=== PATIENT | male | born 1940 | race Caucasian/White ===

== ENCOUNTER → 2017-01-24 | Outpatient (CLI) | payer MEDICARE ==
[2017-01-24 10:30] LABS: Basophils % (A) 0 %; CHCM 34.6; Eosinophils # (A) 0.1 k/uL (0-0.7); Eosinophils % (A) 2 %; HCT 49.2 % (39.0-53.0); HDW 2.69; Luc # (Auto) 0.19; Luc % (Auto) 4; Lymphocytes # (A) 1.9 k/uL (1.0-4.8); Lymphocytes % (A) 39 %; MCH 32.1 pg (25.0-35.0); MCHC 34.5 g/dL (31.0-37.0); Monocytes # (A) 0.3 k/uL (0-1.0); Monocytes % (A) 7 %; Neutrophils # (A) 2.4 k/uL (1.3-7.7); Neutrophils % (A) 48 %; RBC 5.29 m/uL (4.30-5.90); RDW 13.9 % (11.5-15.5); WBC (Perox) 5.16
[2017-01-24 10:45] LABS: ALT 31 U/L (21-72); AST 28 U/L (17-59); Alkaline Phosphatase 39 U/L (38-126); Anion Gap 13 mmol/L; Blood Urea Nitrogen 22 mg/dL (9-20); Calcium 10.1 mg/dL (8.4-10.2); Carbon Dioxide 25 mmol/L (22-30); Chloride 102 mmol/L (98-107); Cholesterol 223 mg/dL (<200); Creatine Kinase 83 U/L (55-170); Glucose 145 mg/dL (74-99); HDL Cholesterol 50 mg/dL (40-60); Non-African American GFR(MDRD) >60 (>60 ml/min/1.73 sqM); Potassium 4.4 mmol/L (3.5-5.1); Sodium 140 mmol/L (137-145); Total Bilirubin 0.9 mg/dL (0.2-1.3); Total Protein 8.3 g/dL (6.3-8.2); Triglycerides 221 mg/dL (<150)
[2017-01-24 11:30] LABS: Hemoglobin A1C 7.6 % (4.2-6.1)
== END | disposition home or self-care (01) ==
LOC: LABWHC1 09:36
PROVIDERS: ATTEND Physician Assistant Medical
DX: E78.2 Mixed hyperlipidemia (principal); I10 Essential (primary) hypertension; M51.36 Other intervertebral disc degeneration, lumbar region; E66.01 Morbid (severe) obesity due to excess calories; R73.01 Impaired fasting glucose; Z85.820 Personal history of malignant melanoma of skin; Z12.5 Encounter for screening for malignant neoplasm of prostate
CPT/HCPCS: 36415; 80053; 80061; 82550; 83036; 84153; 84154; 84443; 85025

== ENCOUNTER → 2017-04-26 | Outpatient (CLI) | payer MEDICARE ==
[2017-04-26 10:17] LABS: Basophils % (A) 0 %; CH 31.4; CHCM 33.3; Eosinophils # (A) 0.2 k/uL (0-0.7); Eosinophils % (A) 3 %; HCT 47.7 % (39.0-53.0); HDW 2.61; HGB 15.6 gm/dL (13.0-17.5); Luc # (Auto) 0.14; Luc % (Auto) 3; Lymphocytes % (A) 43 %; MCHC 32.8 g/dL (31.0-37.0); MCV 94.8 fL (80.0-100.0); Monocytes # (A) 0.3 k/uL (0-1.0); Monocytes % (A) 6 %; Neutrophils # (A) 2.1 k/uL (1.3-7.7); Neutrophils % (A) 45 %; RBC 5.04 m/uL (4.30-5.90); RDW 13.8 % (11.5-15.5); WBC 4.7 k/uL (3.8-10.6); WBC (Perox) 5.07
[2017-04-26 10:43] LABS: ALT 30 U/L (21-72); AST 25 U/L (17-59); Alkaline Phosphatase 34 U/L (38-126); Anion Gap 13 mmol/L; Blood Urea Nitrogen 17 mg/dL (9-20); Calcium 9.5 mg/dL (8.4-10.2); Carbon Dioxide 22 mmol/L (22-30); Chloride 105 mmol/L (98-107); Cholesterol 187 mg/dL (<200); Glucose 112 mg/dL (74-99); HDL Cholesterol 46 mg/dL (40-60); Non-African American GFR(MDRD) >60 (>60 ml/min/1.73 sqM); Potassium 4.7 mmol/L (3.5-5.1); Sodium 140 mmol/L (137-145); Total Bilirubin 0.8 mg/dL (0.2-1.3); Total Protein 7.7 g/dL (6.3-8.2); Triglycerides 225 mg/dL (<150)
== END | disposition home or self-care (01) ==
LOC: LABWHC1 09:36
PROVIDERS: ATTEND Physician Assistant Medical
DX: E78.2 Mixed hyperlipidemia (principal); I10 Essential (primary) hypertension; E66.01 Morbid (severe) obesity due to excess calories; E11.42 Type 2 diabetes mellitus with diabetic polyneuropathy; I89.0 Lymphedema, not elsewhere classified; E55.9 Vitamin D deficiency, unspecified; M51.36 Other intervertebral disc degeneration, lumbar region; Z12.5 Encounter for screening for malignant neoplasm of prostate; Z85.820 Personal history of malignant melanoma of skin
CPT/HCPCS: 36415; 80053; 80061; 82306; 84443; 85025

== ENCOUNTER → 2017-11-11 | Outpatient (CLI) | payer MEDICARE ==
[2017-11-11 10:44] LABS: Basophils % (A) 1 %; Eosinophils # (A) 0.1 k/uL (0-0.7); Eosinophils % (A) 3 %; HCT 47.4 % (39.0-53.0); HGB 15.8 gm/dL (13.0-17.5); Lymphocytes % (A) 37 %; MCH 31.1 pg (25.0-35.0); MCHC 33.3 g/dL (31.0-37.0); MCV 93.3 fL (80.0-100.0); Mean Platelet Volume 6.9; Monocytes # (A) 0.3 k/uL (0-1.0); Monocytes % (A) 6 %; Neutrophils # (A) 2.7 k/uL (1.3-7.7); Neutrophils % (A) 51 %; Platelet Count 186 k/uL (150-450); RBC 5.09 m/uL (4.30-5.90); RDW 13.1 % (11.5-15.5); WBC 5.3 k/uL (3.8-10.6)
[2017-11-11 10:54] LABS: ALT 25 U/L (21-72); AST 26 U/L (17-59); Albumin 4.6 g/dL (3.5-5.0); Alkaline Phosphatase 36 U/L (38-126); Blood Urea Nitrogen 16 mg/dL (9-20); Calcium 10.2 mg/dL (8.4-10.2); Carbon Dioxide 23 mmol/L (22-30); Chloride 102 mmol/L (98-107); Cholesterol 191 mg/dL (<200); Creatine Kinase 79 U/L (55-170); Glucose 136 mg/dL (74-99); HDL Cholesterol 44 mg/dL (40-60); LDL Cholesterol,Calculated 90 mg/dL (0-99); Potassium 4.7 mmol/L (3.5-5.1); Total Bilirubin 0.6 mg/dL (0.2-1.3); Total Protein 7.5 g/dL (6.3-8.2); Triglycerides 285 mg/dL (<150)
[2017-11-11 11:05] LABS: Anion Gap 14 mmol/L; Sodium 139 mmol/L (137-145)
== END | disposition home or self-care (01) ==
LOC: LABWHC1 09:57
PROVIDERS: ATTEND Physician Assistant Medical
DX: E78.2 Mixed hyperlipidemia (principal); E55.9 Vitamin D deficiency, unspecified; I10 Essential (primary) hypertension
CPT/HCPCS: 36415; 80053; 80061; 82306; 82550; 84443; 85025

== ENCOUNTER → 2018-02-20 | Outpatient (CLI) | payer MEDICARE ==
[2018-02-20 12:19] LABS: T4, Free (Free Thyroxine) 1.17 ng/dL (0.78-2.19)
[2018-02-20 16:59] LABS: Iron Saturation 46.48 (15.00-50.00)
[2018-02-20 17:09] LABS: Vitamin D 25 Hydroxy 38.4 ng/mL (30.0-100.0)
== END ==
LOC: LABWHC1 09:58
PROVIDERS: ATTEND Nurse Practitioner Acute Care
DX: M62.838 Other muscle spasm (principal); R53.83 Other fatigue; E55.9 Vitamin D deficiency, unspecified
CPT/HCPCS: 36415; 82306; 82607; 83540; 83550; 84439; 84443; 84466; 84481

== ENCOUNTER → 2018-08-10 | Outpatient (CLI) | payer MEDICARE ==
[2018-08-10 11:07] LABS: Basophils % (A) 1 %; Eosinophils # (A) 0.4 k/uL (0-0.7); Eosinophils % (A) 9 %; HCT 46.3 % (39.0-53.0); Lymphocytes # (A) 1.8 k/uL (1.0-4.8); Lymphocytes % (A) 38 %; MCH 30.9 pg (25.0-35.0); MCHC 32.3 g/dL (31.0-37.0); MCV 95.6 fL (80.0-100.0); Monocytes # (A) 0.3 k/uL (0-1.0); Monocytes % (A) 6 %; Neutrophils # (A) 2.1 k/uL (1.3-7.7); Neutrophils % (A) 44 %; Platelet Count 216 k/uL (150-450); RBC 4.84 m/uL (4.30-5.90); RDW 13.8 % (11.5-15.5); WBC 4.8 k/uL (3.8-10.6)
[2018-08-10 18:04] LABS: Albumin 4.8 g/dL (3.80-4.90); Albumin/Globulin Ratio 2.18 (1.20-2.10); Anion Gap 11.3 mmol/L (4.00-12.00); Calcium 9.6 mg/dL (8.7-10.3); Carbon Dioxide 22.7 mmol/L (21.6-31.8); Globulin 2.2 g/dL (2.1-3.7); Potassium 4.7 mmol/L (3.5-5.5); Total Bilirubin 0.7 mg/dL (0.2-1.2)
== END ==
LOC: LABWHC1 09:58
PROVIDERS: ATTEND Physician Assistant Medical
DX: I10 Essential (primary) hypertension (principal); M51.36 Other intervertebral disc degeneration, lumbar region; E78.2 Mixed hyperlipidemia; E11.42 Type 2 diabetes mellitus with diabetic polyneuropathy; Z12.5 Encounter for screening for malignant neoplasm of prostate
CPT/HCPCS: 36415; 80053; 80061; 82550; 84153; 84154; 84443; 85025

== ENCOUNTER → 2018-12-15 | Outpatient (CLI) | payer MEDICARE ==
--- NOTE | 2018-12-15 13:26 | XR ---
Bilateral shoulders HISTORY: Bilateral shoulder pain 3 views of each shoulder submitted. Surgical clips are noted over the right upper chest and upper extremity. Distal acromion is downturne d on the right, small distal acromial spur suspected. Some remodeling present at the glenohumeral mazin nt. Bone mineralization and alignment are maintained bilaterally. No fracture or dislocation. Lung ap ices within normal limits. IMPRESSION: Correlate for possible impingement. Shoulder MRI may be of benefit.
== END | disposition home or self-care (01) ==
LOC: RADXRYALE 11:23
PROVIDERS: ATTEND Family Medicine
DX: M25.511 Pain in right shoulder (principal); M25.512 Pain in left shoulder

== ENCOUNTER → 2019-02-14 | Outpatient (CLI) | payer MEDICARE ==
[2019-02-14 10:33] LABS: HCT 44.1 % (39.0-53.0); HGB 14.6 gm/dL (13.0-17.5); MCH 31.1 pg (25.0-35.0); MCV 94.2 fL (80.0-100.0); Mean Platelet Volume 7.3; Platelet Count 190 k/uL (150-450); RBC 4.68 m/uL (4.30-5.90); RDW 14.9 % (11.5-15.5); WBC 4.4 k/uL (3.8-10.6)
[2019-02-14 16:58] LABS: Albumin 4.5 g/dL (3.80-4.90); Albumin/Globulin Ratio 2.14 (1.60-3.17); Anion Gap 11.2 mmol/L (4.00-12.00); Calcium 9.2 mg/dL (8.7-10.3); Carbon Dioxide 22.8 mmol/L (21.6-31.8); Globulin 2.1 g/dL (1.6-3.3); LDL Cholesterol,Calculated 114.4 mg/dL (0.0-131.0); Potassium 4.5 mmol/L (3.5-5.5); Total Bilirubin 0.6 mg/dL (0.2-1.2); Total Protein 6.6 g/dL (6.2-8.2); VLDL Calculation 36.6 mg/dL (5.00-40.00)
== END | disposition home or self-care (01) ==
LOC: LABWHC1 09:33
PROVIDERS: ATTEND Physician Assistant Medical
DX: E78.2 Mixed hyperlipidemia (principal); I10 Essential (primary) hypertension; E55.9 Vitamin D deficiency, unspecified; I89.0 Lymphedema, not elsewhere classified
CPT/HCPCS: 36415; 80053; 80061; 82550; 82652; 84443; 85027

== ENCOUNTER 2019-05-24 05:48 | Day surgery (SDC) | payer MEDICARE ==
[2019-05-17 13:51] VITALS: BMI 37.6
--- NOTE | 2019-05-22 21:53 | HP ---
HISTORY AND PHYSICAL DATE OF SURGERY: 05/24/2019 Pratik Ferrell is a 78-year-old patient seen with progressive right shoulder pain. We discussed treatment options with him. He elected to proceed with arthroscopy. Consent was obtained. Medical clearance was provided by Dr. Guillen's office. PAST MEDICAL HISTORY: 1. Hyperlipidemia. 2. Hypertension. 3. Xfz-zdwhhuw-bbznmjoey diabetes. PAST SURGICAL HISTORY: 1. Right knee arthroscopy. 2. Left total hip arthroplasty. DAILY MEDICATIONS: 1. Actos. 2. Losartan. 3. Metformin. 4. Plavix. 5. Tramadol. ALLERGIES: 1. LORTAB. 2. ARICEPT. SOCIAL HISTORY: Denies current tobacco use. PHYSICAL EVALUATION OF RIGHT SHOULDER: Flexion is 70 degrees, abduction 70 degrees, external rotation 30 degrees. Tenderness along the anterolateral acromion and rotator cuff insertion site. Impingement is positive at 90 degrees. Drop-arm sign is positive. Distal neurovascular exam is intact. RIGHT SHOULDER RADIOGRAPHS: Right shoulder radiographs revealed a type II anterior acromion, evidence for acromioclavicular joint osteoarthritis. IMPRESSION: 1. Right shoulder impingement with probable rotator cuff tear. 2. Right shoulder acromioclavicular joint osteoarthritis. 3. Hypertension. 4. Hyperlipidemia. 5. Ict-hjbreke-pzlpbznqk diabetes. PLAN: Right shoulder arthroscopy with subacromial decompression, probable arthroscopic rotator cuff repair, possible Frank procedure and debridement. MMODL / IJN: [id number] /
[~2019-05-24 05:48] MED LIST: DEXAMETHASONE SOD PHOSPHATE 10 MG/ML 1 ML VIAL IV ONE; LACTATED RINGERS 1,000 ML IV SCH; MIDAZOLAM 2 MG/2 ML VIAL IV PRN; ONDANSETRON 4 MG/2 ML VIAL IVP ONE; fentaNYL (PF) 50 MCG/ML 2 ML AMP IV PRN
[2019-05-24 06:54] LABS: Glucose,Whole Blood 144 mg/dL (75-99)
[2019-05-24] MEDS ORDERED: SUCCINYLCHOLINE CHLORIDE 100 MG/5 ML SYR IV ONE (07:17)
[2019-05-24] MEDS ORDERED: hydrALAZINE HCL 20 MG/ML 1 ML VIAL ONE (07:17)
[2019-05-24] MEDS ORDERED: ROPIVACAINE 5 MG/ML 30 ML VIAL ONE (07:17)
[2019-05-24] MEDS ORDERED: PROPOFOL 10 MG/ML 20 ML VIAL IV ONE (07:17)
[2019-05-24] MEDS ORDERED: LIDOCAINE 1% INJ 10MG/ML (20 ML MDV) ONE (07:17)
--- NOTE | 2019-05-24 08:49 | P.ANPRN ---
Procedure Note - Anesthesia - Nerve Block Performed Right Interscalene Single Time Out Performed: Yes Date of Procedure: 05/24/19 Location of Patient Procedure: PreOp Indication: Acute Post-Operative Pain Specifically requested for management of pain by DrDarrel: Juan C Masterson Sedation Type: Sedate with meaningful contact maintained Preparation: Sterile Prep Position: Supine Catheter: None Needle Types: Pajunk Needle Gauge: 21 Technique: Ultrasound Injectate: 0.5% Ropivacaine (see comment for volume) (20 cc) Adjunct: Epinephrine (see comment for dilution ratio) Blood Aspirated: No Pain Paresthesia on Injection Noted: No Resistance on Injection: Normal Events: Uneventful and Well Tolerated
[2019-05-24 09:48] VITALS: TEMP 98.6
--- NOTE | 2019-05-24 09:54 | P.OP ---
Date of Procedure: 05/24/19 Preoperative Diagnosis: Right shoulder impingement Postoperative Diagnosis: 1. Right shoulder rotator cuff tear 2. Right shoulder impingement 3. Right shoulder acromioclavicular joint osteoarthritis 4. Right shoulder partial long head biceps tendon tear 5. Right shoulder labral tear Procedure(s) Performed: 1. Right shoulder arthroscopic rotator cuff repair 2. Right shoulder arthroscopic subacromial decompression 3. Right shoulder arthroscopic Frank procedure 4. Right shoulder arthroscopic biceps tenotomy 5. Right shoulder arthroscopic debridement labral tear Implants: 24.75 Arthrex swivel lock anchors Anesthesia: GETA, regional (Interscalene block) Surgeon: Juan C Masterson Document Preparer Microfilming #1: aPl Jay Estimated Blood Loss (ml): 10 Pathology: none sent Condition: stable Disposition: PACU Indications for Procedure: 78-year-old patient seen with progressive right shoulder pain. After having treatment options discussed, he elected to proceed with arthroscopy. Operative Findings: See description of procedure Description of Procedure: Patient underwent an interscalene block by department of anesthesia for postoperative pain management. The patient was then taken to the operative suite. The patient underwent a general anesthetic by the department of anesthesia. The patient was placed into a lateral position and secured. There was appropriate padding of the bony prominence. Right shoulder was then prepped and draped in normal sterile orthopedic fashion. We placed the extremity in 10 pounds of longitudinal traction. A posterior incision was now made for a posterior working portal site. The trocar and cannula were inserted into the glenohumeral joint. Arthroscopy was initiated. Spinal needle was now inserted anteriorly, to ascertain the anterior working portal site. An incision was now made in that area, a trocar was inserted followed by a probe. There was superficial tearing superior and anterior labrum. There was partial tearing long head biceps tendon with hyperemia. There was a large rotator cuff tear visualized from the glenohumeral side. I performed an arthroscopic biceps tenotomy. I debrided the labral tear down to stable labral tissue. The residual labrum was stable. Instruments now removed from glenohumeral joint. Utilizing the posterior working portal site, the trocar and cannula were inserted into the subacromial space. Arthroscopy initiated. I made an incision 2 fingerbreadths lateral to the acromion. I introduced my trocar followed by my ArthroCare ablator. I now began ablating thick subacromial bursal tissue, which exposed the undersurface of the anterior acromion. There was diminished subacromial space. There was a very prominent anterior acromion. A motorized bur was introduced and a subacromial decompression was performed. I also excised some osteophytes off the inferior aspect of the distal clavicle. The AC joint was visualized and noted to be fairly arthritic. The motorized bur was introduced in the anterior portal site and a Frank procedure was performed without difficulty, decompressing the AC joint nicely. I turned my attention to the rotator cuff. There was a complex large retracted rotator cuff tear with an intrasubstance component. I debrided the margins again stable tendon tissue. I abraded the footprint with a motorized bur. I now with assistance. Keshawn MILTON passed 5 sutures perform a [id number] repair of the intrasubstance component. I now passed for additional everted mattress sutures through good bites of rotator cuff tendon with assistance on a ruth ann MILTON. I now punched to holes lateral for repair and utilizing 24 0.75 Arthrex anchors were able to compress the tendon along the footprint very nicely. Residual suture limbs were clipped. We had good compression of the tendon along the entire footprint. I injected 1 mL Renyte intra-articular. Instruments now removed from the portal sites. All portal sites were approximated with nylon suture. Sterile dressings were applied followed by a shoulder immobilizer. Pal MILTON assisted in this complex case. The patient was awakened, transferred to a bed, and taken to recovery in stable condition.
[2019-05-24 11:30] VITALS: BP 135/64; PULSE 71; RESP 20
== END 2019-05-24 12:02 | disposition home or self-care (01) ==
LOC: OR 05:48
PROVIDERS: ATTEND Orthopaedic Surgery
DX: M75.101 Unspecified rotator cuff tear or rupture of right shoulder, not specified as traumatic (principal); M75.41 Impingement syndrome of right shoulder; M19.011 Primary osteoarthritis, right shoulder; S46.111A Strain of muscle, fascia and tendon of long head of biceps, right arm, initial encounter; S43.491A Other sprain of right shoulder joint, initial encounter; X58.XXXA Exposure to other specified factors, initial encounter; M25.711 Osteophyte, right shoulder; I10 Essential (primary) hypertension; E78.5 Hyperlipidemia, unspecified; E11.9 Type 2 diabetes mellitus without complications; H91.90 Unspecified hearing loss, unspecified ear; Z86.73 Personal history of transient ischemic attack (TIA), and cerebral infarction without residual deficits; Z79.02 Long term (current) use of antithrombotics/antiplatelets; Z79.84 Long term (current) use of oral hypoglycemic drugs; Z79.891 Long term (current) use of opiate analgesic; Z79.899 Other long term (current) drug therapy; Z88.8 Allergy status to other drugs, medicaments and biological substances; Z88.5 Allergy status to narcotic agent; Z97.2 Presence of dental prosthetic device (complete) (partial); Z96.642 Presence of left artificial hip joint
CPT/HCPCS: 29827; 29826; 29824; 64415; C1713 ×2; C1765; J0360; J0690; J2001; J2795; J0330; J2704

== ENCOUNTER → 2019-09-17 | Outpatient (CLI) | payer MEDICARE ==
[2019-09-17 12:40] LABS: Basophils % (A) 1 %; Eosinophils # (A) 0.1 k/uL (0-0.7); Eosinophils % (A) 2 %; HCT 46.3 % (39.0-53.0); HGB 15.1 gm/dL (13.0-17.5); Lymphocytes # (A) 1.7 k/uL (1.0-4.8); Lymphocytes % (A) 40 %; MCH 31.2 pg (25.0-35.0); MCHC 32.7 g/dL (31.0-37.0); MCV 95.3 fL (80.0-100.0); Mean Platelet Volume 7.5; Monocytes # (A) 0.3 k/uL (0-1.0); Monocytes % (A) 7 %; Neutrophils # (A) 2.1 k/uL (1.3-7.7); Neutrophils % (A) 49 %; Platelet Count 187 k/uL (150-450); RBC 4.86 m/uL (4.30-5.90); RDW 13.9 % (11.5-15.5); WBC 4.3 k/uL (3.8-10.6)
[2019-09-17 17:17] LABS: African American GFR (CKD) 67.2 (60.0-200.0); Albumin 4.8 g/dL (3.80-4.90); Albumin/Globulin Ratio 2.18 (1.60-3.17); Anion Gap 10.5 mmol/L (4.00-12.00); Calcium 9.6 mg/dL (8.7-10.3); Carbon Dioxide 23.5 mmol/L (21.6-31.8); Chol/HDL Ratio 3.55; Globulin 2.2 g/dL (1.6-3.3); LDL Cholesterol,Calculated 109.8 mg/dL (0.0-131.0); Potassium 4.5 mmol/L (3.5-5.5); Total Bilirubin 0.6 mg/dL (0.2-1.2); VLDL Calculation 38.2 mg/dL (5.00-40.00)
== END | disposition home or self-care (01) ==
LOC: LABPRL 11:16
PROVIDERS: ATTEND Physician Assistant Medical
DX: I10 Essential (primary) hypertension (principal); E78.2 Mixed hyperlipidemia; E55.9 Vitamin D deficiency, unspecified; E11.42 Type 2 diabetes mellitus with diabetic polyneuropathy; I89.0 Lymphedema, not elsewhere classified
CPT/HCPCS: 36415; 80053; 80061; 82306; 82550; 84443; 85025

== ENCOUNTER → 2020-03-03 | Outpatient (CLI) | payer MEDICARE ==
--- NOTE | 2020-03-03 09:24 | US ---
EXAMINATION TYPE: US duplex aorta DATE OF EXAM: 03/03/2020 COMPARISON: NONE CLINICAL HISTORY: 79-year-old male R93.421 Abnormal radiologic findings on diagnostic. F/u to MRI TECHNIQUE: Multiple sonographic images of the kidneys and bladder are obtained. FINDINGS: EXAM MEASUREMENTS: Abdominal Aorta: Proximal: 2.1 x 2.4 cm Mid: 1.9 x 1.7 cm Distal: 2.1 x 1.6 cm Bifurcation: 1.3 cm 1.2 cm IMPRESSION: No sonographic evidence for AAA. If a AAA was seen on an outside MRI, the exam can be reviewed if mad e available.
--- NOTE | 2020-03-03 09:51 | US ---
EXAMINATION TYPE: US kidneys/renal and bladder DATE OF EXAM: 03/03/2020 COMPARISON: NONE CLINICAL HISTORY: 79-year-old male R93.421 Abnormal radiologic findings on diagnostic. Follow-up MRI. TECHNIQUE: Multiple sonographic images of the kidneys and bladder are obtained. FINDINGS: EXAM MEASUREMENTS: Right Kidney: Unable to visualize Left Kidney: 12.9 x 6.1 x 5.1 cm Right Kidney: Unable to visualize Left Kidney: Lobulated contour. No hydronephrosis. Bladder: Partially distended. No gross abnormality. Bilateral Jets seen: No IMPRESSION: 1. Unable to visualize the right kidney. Clinically correlate. 2. No hydronephrosis on the left.
== END | disposition home or self-care (01) ==
LOC: RADUSWWP 08:25
PROVIDERS: ATTEND Physician Assistant Medical
DX: R93.421 Abnormal radiologic findings on diagnostic imaging of right kidney (principal)
CPT/HCPCS: 76770; 93979

== ENCOUNTER → 2022-12-24 | Outpatient (CLI) | payer MEDICARE ==
--- NOTE | 2022-12-24 11:42 | XR ---
EXAMINATION TYPE: XR knee complete RT DATE OF EXAM: 12/24/2022 CLINICAL HISTORY: pain TECHNIQUE: 2 views of the right knee are obtained. COMPARISON: None. FINDINGS: There is no acute fracture/dislocation. Moderate joint space narrowing medial tibiofemoral joint space. Intercondylar spur formation seen. The overlying soft tissue appears unremarkable. IMPRESSION: There is no acute fracture or dislocation.ICD 10 NO FRACTURE, INITIAL EVALUATION
--- NOTE | 2022-12-24 11:44 | XR ---
EXAMINATION TYPE: XR Hip Complete RT DATE OF EXAM: 12/24/2022 CLINICAL HISTORY: pain TECHNIQUE: AP and frogleg views of the right hip are obtained. COMPARISON: None. FINDINGS: There is no acute fracture/dislocation evident. The joint space appears moderately narro wed.. The overlying soft tissue appears unremarkable. IMPRESSION: 1. There is no acute fracture or dislocation. ICD 10 NO FRACTURE, INITIAL EVALUATION
== END | disposition home or self-care (01) ==
LOC: RADXRYALE 10:31
PROVIDERS: ATTEND Physician Assistant Medical
DX: M25.551 Pain in right hip (principal); M25.561 Pain in right knee
CPT/HCPCS: 73502

== ENCOUNTER 2023-08-08 09:23 | Emergency (ER) | payer MEDICARE ==
[2023-08-08] MEDS ORDERED: DEXTROSE 50% SYRINGE 50 ML IVP STA (09:28)
[2023-08-08 09:33] LABS: Glucose,Whole Blood 47 mg/dL (70-110)
[2023-08-08 09:54] LABS: Glucose,Whole Blood 111 mg/dL (70-110)
--- NOTE | 2023-08-08 09:54 | ED ---
General Adult HPI - General Stated complaint: Fall Time Seen by Provider: 08/08/23 09:28 Source: patient, family, RN notes reviewed, old records reviewed Limitations: no limitations - History of Present Illness Initial comments: 82-year-old male history of diabetes presents for evaluation of weakness, fall, hypoglycemia. Patient had not eaten breakfast, does take oral medications for diabetes. He got weak all working outside. He had fallen. He denies injury. He was noted to be hypoglycemic upon arrival with a blood sugar in the 40s. He was given IV dextrose and at the time my evaluation he is alert and oriented without complaint. - Related Data Home Medications Medication Instructions Recorded Confirmed Bumetanide [BUMEX] 2 mg PO WEEKLY PRN 02/18/15 05/17/19 Cholecalciferol [Vitamin D3] 1,000 unit PO DAILY 02/18/15 05/17/19 Fenofibrate 200 mg PO HS 02/18/15 05/17/19 Krill Oil 500 mg PO DAILY 02/18/15 05/17/19 Losartan [Cozaar] 50 mg PO HS 02/18/15 05/24/19 traMADol HCl [Ultram] 50 mg PO BID 02/18/15 05/24/19 Clopidogrel Bisulfate [Clopidogrel] 75 mg PO DAILY 09/09/15 05/24/19 Magnesium Oxide [Mag-Ox] 250 mg PO DAILY 09/09/15 05/24/19 Vit C/E/Zn/Coppr/Lutein/Zeaxan 1 cap PO DAILY 09/09/15 05/24/19 [Preservision Areds 2 Softgel] Celecoxib [CeleBREX] 200 mg PO DAILY 05/17/19 05/24/19 Pioglitazone [Actos] 15 mg PO DAILY 05/17/19 05/24/19 metFORMIN HCL 500 mg PO HS 05/17/19 05/24/19 Previous Rx's Medication Instructions Recorded Nirmatrelvir/Ritonavir [Paxlovid 1 each PO BID 5 Days #10 each 08/08/23 300-100 mg Pack (Eua)] Allergies Allergy/AdvReac Type Severity Reaction Status Date / Time atenolol AdvReac Hallucinati Verified 08/08/23 10:12 ons donepezil [From Aricept] AdvReac panic Verified 08/08/23 10:12 attack gabapentin AdvReac panic Verified 08/08/23 10:12 attack Review of Systems ROS Statement: Those systems with pertinent positive or pertinent negative responses have been documented in the HPI. ROS Other: All systems not noted in ROS Statement are negative. 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 [place]. TIA. LOWER BACK PAIN. History of Any Multi-Drug Resistant Organisms: None Reported Past Surgical History: Joint Replacement, Orthopedic Surgery Additional Past Surgical History / Comment(s): SEVERAL LYMPH NODES FROM RIGHT AX ILLA REMOVED. LEFT TOTAL HIP. RIGHT MENISCUS. BILATERAL CATARACTS. Past Anesthesia/Blood Transfusion Reactions: No Reported Reaction Past Psychological History: No Psychological Hx Reported Past Alcohol Use History: None Reported Past Drug Use History: None Reported General Exam General appearance: alert, in no apparent distress Head exam: Present: atraumatic, normocephalic Eye exam: Present: normal appearance, PERRL ENT exam: Present: normal exam Neck exam: Present: normal inspection. Absent: tenderness, meningismus Respiratory exam: Present: normal lung sounds bilaterally. Absent: respiratory distress, wheezes Cardiovascular Exam: Present: regular rate, normal rhythm GI/Abdominal exam: Present: soft. Absent: distended, tenderness Extremities exam: Present: normal inspection, normal capillary refill Neurological exam: Present: alert, oriented X3, CN II-XII intact. Absent: motor sensory deficit Psychiatric exam: Present: normal affect, normal mood Skin exam: Present: warm, dry, intact. Absent: cyanosis, diaphoretic Course Vital Signs 08/08/23 09:23 Temperature 98.5 F Pulse Rate 68 Respiratory 22 Rate Blood Pressure 167/97 O2 Sat by Pulse 97 Oximetry Medical Decision Making - Medical Decision Making Was pt. sent in by a medical professional or institution (, PA, PROJECT DRILLING ENGINEER, urgent care, hospital, or alf...) When possible be specific @ -No Did you speak to anyone other than the patient for history (EMS, parent, family, police, friend...)? What history was obtained from this source @ -[Patient's daughter Did you review nursing and triage notes (agree or disagree)? Why? @ -I reviewed and agree with nursing and triage notes Were old charts reviewed (outside hosp., previous admission, EMS record, old EKG, old radiological studies, urgent care reports/EKG's, alf records)? Report findings @ -No old charts were reviewed Differential Diagnosis (chest pain, altered mental status, abdominal pain women, abdominal pain men, vaginal bleeding, weakness, fever, dyspnea, syncope, headache, dizziness, GI bleed, back pain, seizure, CVA, palpatations, mental health, musculoskeletal)? @ -Upper respiratory infection, hypoglycemia, coronavirus EKG interpreted by me (3pts min.). @ -Sinus rhythm, incomplete right bundle-branch block, rate is 70, NC interval 184, QRS duration 114, QTC 401, no ST segment elevation. X-rays interpreted by me (1pt min.). @ -Chest x-ray negative for focal pneumonia, no traumatic injury, x-ray of the pelvis negative for traumatic injury. CT interpreted by me (1pt min.). @ -None done U/S interpreted by me (1pt. min.). @ -None done What testing was considered but not performed or refused? (CT, X-rays, U/S, labs)? Why? @ -None What meds were considered but not given or refused? Why? @ -None Did you discuss the management of the patient with other professionals (professionals i.e. , PA, PROJECT DRILLING ENGINEER, lab, RT, psych nurse, community mental health social worker, assisted living nursing director, teacher, customs officer, child welfare caseworker)? Give summary @ -No Was smoking cessation discussed for >3mins.? @ -No Was critical care preformed (if so, how long)? @ -No Were there social determinants of health that impacted care today? How? (Homelessness, low income, unemployed, alcoholism, drug addiction, t ransportation, low edu. Level, literacy, decrease access to med. care, [facility], rehab)? @ -No Was there de-escalation of care discussed even if they declined (Discuss DNR or withdrawal of care, Hospice)? DNR status @ -No What co-morbidities impacted this encounter? (DM, HTN, Smoking, COPD, CAD, Cancer, CVA, ARF, Chemo, Hep., AIDS, mental health diagnosis, sleep apnea, morbid obesity)? @ -[Diabetes Was patient admitted / discharged? Hospital course, mention meds given and route, prescriptions, significant lab abnormalities, going to OR and other pertinent info. @ -[82-year-old male presenting with hypoglycemia, oral agents only, no insulin. No patient's blood pressure stabilizes in the emergency Department is able to eat and drink. He does have upper respiratory symptoms and coronavirus test is obtained which is positive. Chest x-ray is clear. His other laboratory testing unremarkable. The patient is eager for discharge. He is prescribed oral antivirals. He will monitor his blood glucose closely. Return with any worsening or changing symptoms. Undiagnosed new problem with uncertain prognosis? @ -No Drug Therapy requiring intensive monitoring for toxicity (Heparin, Nitro, Insulin, Cardizem)? @ -No Were any procedures done? @ -No Diagnosis/symptom? @ -Coronavirus, hypoglycemia Acute, or Chronic, or Acute on Chronic? @Acute Uncomplicated (without systemic symptoms) or Complicated (systemic symptoms)? @ -default Side effects of treatment? @ -No Exacerbation, Progression, or Severe Exacerbation? @ -No Poses a threat to life or bodily function? How? (Chest pain, [place], [place], pneumonia, PE, COPD, DKA, ARF, appy, cholecystitis, CVA, Diverticulitis, Homicidal, Suicidal, threat to staff... and all critical care pts) @ -[Yes, coronavirus - Lab Data Result diagrams: 08/08/23 09:52 08/08/23 09:52 Lab Results 08/08/23 08/08/23 08/08/23 Range/Units 09:27 09:43 09:52 WBC 3.4 L (3.8-10.6) k/uL RBC 4.37 (4.30-5.90) m/uL Hgb 14.2 (13.0-17.5) gm/dL Hct 43.8 (39.0-53.0) % MCV 100.3 H (80.0-100.0) fL MCH 32.4 (25.0-35.0) pg MCHC 32.3 (31.0-37.0) g/dL RDW 14.3 (11.5-15.5) % Plt Count 142 L (150-450) k/uL MPV 7.9 Neutrophils % 74 % Lymphocytes % 13 % Monocytes % 10 % Eosinophils % 0 % Basophils % 0 % Neutrophils # 2.6 (1.3-7.7) k/uL Lymphocytes # 0.5 L (1.0-4.8) k/uL Monocytes # 0.3 (0-1.0) k/uL Eosinophils # 0.0 (0-0.7) k/uL Basophils # 0.0 (0-0.2) k/uL Macrocytosis Slight Sodium (137-145) mmol/L Potassium (3.5-5.1) mmol/L Chloride (98-107) mmol/L Carbon Dioxide (22-30) mmol/L Anion Gap mmol/L BUN (9-20) mg/dL Creatinine (0.66-1.25) mg/dL Est GFR (CKD-EPI)AfAm (>60 ml/min/1.73 sqM) Est GFR (CKD-EPI)NonAf (>60 ml/min/1.73 sqM) Glucose (74-99) mg/dL POC Glucose (mg/dL) 47 L 111 H (70-110) mg/dL POC Glu Senior Warehouse Clerk ID Fetterly, Kristen Fetterly, Kristen Calcium (8.4-10.2) mg/dL Total Bilirubin (0.2-1.3) mg/dL AST (17-59) U/L ALT (4-49) U/L Alkaline Phosphatase (38-126) U/L Total Protein (6.3-8.2) g/dL Albumin (3.5-5.0) g/dL Influenza Type A (PCR) (Not Detectd) Influenza Type B (PCR) (Not Detectd) RSV (PCR) (Not Detectd) SARS-CoV-2 (PCR) (Not Detectd) 08/08/23 08/08/23 Range/Units 09:52 09:52 WBC (3.8-10.6) k/uL RBC (4.30-5.90) m/uL Hgb (13.0-17.5) gm/dL Hct (39.0-53.0) % MCV (80.0-100.0) fL MCH (25.0-35.0) pg MCHC (31.0-37.0) g/dL RDW (11.5-15.5) % Plt Count (150-450) k/uL MPV Neutrophils % % Lymphocytes % % Monocytes % % Eosinophils % % Basophils % % Neutrophils # (1.3-7.7) k/uL Lymphocytes # (1.0-4.8) k/uL Monocytes # (0-1.0) k/uL Eosinophils # (0-0.7) k/uL Basophils # (0-0.2) k/uL Macrocytosis Sodium 137 (137-145) mmol/L Potassium 4.3 (3.5-5.1) mmol/L Chloride 104 (98-107) mmol/L Carbon Dioxide 22 (22-30) mmol/L Anion Gap 11 mmol/L BUN 17 (9-20) mg/dL Creatinine 0.93 (0.66-1.25) mg/dL Est GFR (CKD-EPI)AfAm 89 (>60 ml/min/1.73 sqM) Est GFR (CKD-EPI)NonAf 77 (>60 ml/min/1.73 sqM) Glucose 131 H (74-99) mg/dL POC Glucose (mg/dL) (70-110) mg/dL POC Glu Senior Warehouse Clerk ID Calcium 9.3 (8.4-10.2) mg/dL Total Bilirubin 0.5 (0.2-1.3) mg/dL AST 37 (17-59) U/L ALT 18 (4-49) U/L Alkaline Phosphatase 40 (38-126) U/L Total Protein 7.3 (6.3-8.2) g/dL Albumin 4.3 (3.5-5.0) g/dL Influenza Type A (PCR) Not Detected (Not Detectd) Influenza Type B (PCR) Not Detected (Not Detectd) RSV (PCR) Not Detected (Not Detectd) SARS-CoV-2 (PCR) Detected A (Not Detectd) Disposition Clinical Impression: COVID-19, Hypoglycemia Disposition: HOME SELF-CARE Condition: Fair Instructions (If sedation given, give patient instructions): Fall Prevention for Older Adults (ED), COVID-19 (Coronavirus Disease 2019) (ED), Hypoglycemia in a Person with Diabetes (DC) Prescriptions: Nirmatrelvir/Ritonavir [Paxlovid 300-100 mg Pack (Eua)] 1 each PO BID 5 Days #10 each Is patient prescribed a controlled substance at d/c from ED?: No Referrals: None,Stated [Primary Care Provider] - 1-2 days Time of Disposition: 11:52
[2023-08-08 10:07] LABS: Basophils % (A) 0 %; Eosinophils % (A) 0 %; HCT 43.8 % (39.0-53.0); HGB 14.2 gm/dL (13.0-17.5); Lymphocytes # (A) 0.5 k/uL (1.0-4.8); Lymphocytes % (A) 13 %; MCH 32.4 pg (25.0-35.0); MCHC 32.3 g/dL (31.0-37.0); MCV 100.3 fL (80.0-100.0); Macrocytosis Slight; Mean Platelet Volume 7.9; Monocytes # (A) 0.3 k/uL (0-1.0); Monocytes % (A) 10 %; Neutrophils # (A) 2.6 k/uL (1.3-7.7); Neutrophils % (A) 74 %; Platelet Count 142 k/uL (150-450); RBC 4.37 m/uL (4.30-5.90); RDW 14.3 % (11.5-15.5); WBC 3.4 k/uL (3.8-10.6)
[2023-08-08 10:19] LABS: ALT 18 U/L (4-49); AST 37 U/L (17-59); African American GFR (CKD) 89 (>60 ml/min/1.73 sqM); Albumin 4.3 g/dL (3.5-5.0); Alkaline Phosphatase 40 U/L (38-126); Anion Gap 11 mmol/L; Blood Urea Nitrogen 17 mg/dL (9-20); Calcium 9.3 mg/dL (8.4-10.2); Carbon Dioxide 22 mmol/L (22-30); Chloride 104 mmol/L (98-107); Glucose 131 mg/dL (74-99); Non-African American GFR(CKD) 77 (>60 ml/min/1.73 sqM); Potassium 4.3 mmol/L (3.5-5.1); Sodium 137 mmol/L (137-145); Total Bilirubin 0.5 mg/dL (0.2-1.3); Total Protein 7.3 g/dL (6.3-8.2)
--- NOTE | 2023-08-08 10:21 | XR ---
EXAMINATION TYPE: XR chest 2V DATE OF EXAM: 08/08/2023 COMPARISON: 05/23/2011 INDICATION: Fall, pain TECHNIQUE: Frontal and lateral views of the chest are obtained. FINDINGS: The heart size is upper limits of normal. The pulmonary vasculature is normal. The lungs are clear. No pneumothorax is evident. No displaced rib fractures are identified. IMPRESSION: 1. No acute pulmonary process.
--- NOTE | 2023-08-08 10:21 | XR ---
EXAMINATION TYPE: XR pelvis AP view DATE OF EXAM: 08/08/2023 COMPARISON: None HISTORY: Fall, pain TECHNIQUE: AP pelvis FINDINGS: There is a left femoral prosthesis with acetabular component. Symphysis pubis and sacroilia c joints are patent. Right femoral head articulates with the acetabulum. Joint space narrowing is pre sent. CAM deformity appears to be present. Right femur appears stable from 12/24/2022 comparison. The No acute acute fractures are evident. IMPRESSION: 1. No acute osseous abnormality AP pelvis
[2023-08-08] MEDS ORDERED: HYDROcodone/APAP 5-325MG 1 EACH TAB PO STA (11:09)
[2023-08-08 11:59] LABS: Glucose,Whole Blood 69 mg/dL (70-110)
[2023-08-08 12:26] LABS: Glucose,Whole Blood 90 mg/dL (70-110)
[2023-08-08 12:54] VITALS: BP 149/61; PULSE 64; RESP 18; TEMP 100.7
== END 2023-08-08 12:35 | disposition home or self-care (01) ==
LOC: EC 09:23
DX: U07.1 COVID-19 (principal); E11.649 Type 2 diabetes mellitus with hypoglycemia without coma; I45.10 Unspecified right bundle-branch block; E11.36 Type 2 diabetes mellitus with diabetic cataract; I10 Essential (primary) hypertension; Z79.84 Long term (current) use of oral hypoglycemic drugs; Z88.8 Allergy status to other drugs, medicaments and biological substances; Z79.899 Other long term (current) drug therapy
CPT/HCPCS: 36415; 71046; 72170; 80053; 85025; 87636; 93005; 96374; 99284

== ENCOUNTER 2023-08-09 09:35 | Inpatient (IN) | payer MEDICARE ==
[2023-08-09] MEDS ORDERED: DEXAMETHASONE SOD PHOSPHATE 10 MG/ML 1 ML VIAL IV STA (09:57)
[2023-08-09 10:08] LABS: Glucose,Whole Blood 84 mg/dL (70-110)
[2023-08-09] MEDS: SODIUM CHLORIDE 0.9% 1,000 ML IV SCH ×2 (10:11→21:40)
[2023-08-09] MEDS ORDERED: ACETAMINOPHEN TAB 325 MG TAB PO STA (10:24)
--- NOTE | 2023-08-09 10:24 | ED ---
General Adult HPI - General Chief complaint: Weakness Stated complaint: COVID+,Weakness Time Seen by Provider: 08/09/23 09:40 Source: patient, EMS, RN notes reviewed, old records reviewed Mode of arrival: EMS Limitations: no limitations - History of Present Illness Initial comments: 82-year-old male presenting for reevaluation. Patient was seen yesterday in the emergency department for hypoglycemia and upper respiratory infection. He was diagnosed with coronavirus at that time. Patient does have chronic bilateral lower extremity weakness which she is going to outpatient rehabilitation for. Over the past 24 hours she's had increased weakness and difficulty ambulating. He denies chest pain or dyspnea. He states he has a mild productive cough. No abdominal pain or vomiting. - Related Data Home Medications Medication Instructions Recorded Confirmed Bumetanide [BUMEX] 2 mg PO WEEKLY PRN 02/18/15 05/17/19 Cholecalciferol [Vitamin D3] 1,000 unit PO DAILY 02/18/15 05/17/19 Fenofibrate 200 mg PO HS 02/18/15 05/17/19 Krill Oil 500 mg PO DAILY 02/18/15 05/17/19 Losartan [Cozaar] 50 mg PO HS 02/18/15 05/24/19 traMADol HCl [Ultram] 50 mg PO BID 02/18/15 05/24/19 Clopidogrel Bisulfate [Clopidogrel] 75 mg PO DAILY 09/09/15 05/24/19 Magnesium Oxide [Mag-Ox] 250 mg PO DAILY 09/09/15 05/24/19 Vit C/E/Zn/Coppr/Lutein/Zeaxan 1 cap PO DAILY 09/09/15 05/24/19 [Preservision Areds 2 Softgel] Celecoxib [CeleBREX] 200 mg PO DAILY 05/17/19 05/24/19 Pioglitazone [Actos] 15 mg PO DAILY 05/17/19 05/24/19 metFORMIN HCL 500 mg PO HS 05/17/19 05/24/19 Previous Rx's Medication Instructions Recorded Nirmatrelvir/Ritonavir [Paxlovid 1 each PO BID 5 Days #10 each 08/08/23 300-100 mg Pack (Eua)] Allergies Allergy/AdvReac Type Severity Reaction Status Date / Time atenolol AdvReac Hallucinati Verified 08/09/23 09:44 ons donepezil [From Aricept] AdvReac panic Verified 08/09/23 09:44 attack gabapentin AdvReac panic Verified 08/09/23 09:44 attack Review of Systems ROS Statement: Those systems with pertinent positive or pertinent negative responses have been documented in the HPI. ROS Other: All systems not noted in ROS Statement are negative. 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 [place]. TIA. LOWER BACK PAIN. History of Any Multi-Drug Resistant Organisms: None Reported Past Surgical History: Joint Replacement, Orthopedic Surgery Additional Past Surgical History / Comment(s): SEVERAL LYMPH NODES FROM RIGHT AXILLA REMOVED. LEFT TOTAL HIP. RIGHT MENISCUS. BILATERAL CATARACTS. Past Anesthesia/Blood Transfusion Reactions: No Reported Reaction Past Psychological History: No Psychological Hx Reported Past Alcohol Use History: None Reported Past Drug Use History: None Reported General Exam Limitations: no limitations General appearance: alert, in no apparent distress Head exam: Present: atraumatic, normocephalic Eye exam: Present: normal appearance, PERRL ENT exam: Present: normal exam Neck exam: Present: normal inspection Respiratory exam: Present: normal lung sounds bilaterally. Absent: respiratory distress, wheezes Cardiovascular Exam: Present: regular rate, normal rhythm GI/Abdominal exam: Present: soft. Absent: distended, tenderness, guarding Extremities exam: Present: normal inspection, normal capillary refill Neurological exam: Present: alert, oriented X3 Psychiatric exam: Present: normal affect, normal mood Skin exam: Present: warm, dry, intact. Absent: cyanosis, diaphoretic Course Vital Signs 08/09/23 08/09/23 08/09/23 09:38 09:46 10:35 Temperature 100.4 F H 100.0 F H Pulse Rate 69 64 Respiratory 20 20 17 Rate Blood Pressure 174/81 137/74 O2 Sat by Pulse 98 96 Oximetry 08/09/23 11:15 Temperature 99.5 F Pulse Rate 64 Respiratory 18 Rate Blood Pressure 149/81 O2 Sat by Pulse 99 Oximetry Medical Decision Making - Medical Decision Making Was pt. sent in by a medical professional or institution (, PA, RACING DRIVER, urgent care, hospital, or penitentiary...) When possible be specific @ -No Did you speak to anyone other than the patient for history (EMS, parent, family, police, friend...)? What history was obtained from this source @ -No Did you review nursing and triage notes (agree or disagree)? Why? @ -I reviewed and agree with nursing and triage notes Were old charts reviewed (outside hosp., previous admission, EMS record, old EKG, old radiological studies, urgent care reports/EKG's, penitentiary records)? Report findings @ -No old charts were reviewed Differential Diagnosis (chest pain, altered mental status, abdominal pain women, abdominal pain men, vaginal bleeding, weakness, fever, dyspnea, syncope, headac he, dizziness, GI bleed, back pain, seizure, CVA, palpatations, mental health, musculoskeletal)? @ Differential Weakness: Hypoglycemia, shock, sepsis, hyponatremia, anemia, infection, [place], ETOH, adverse medicine reaction, overdose, stroke, this is not meant to be an all-inclusive list. EKG interpreted by me (3pts min.). @EKG: Sinus rhythm with a rate of 74, LA interval 159, QRS duration 110, no ST segment elevation. X-rays interpreted by me (1pt min.). @ -[Chest x-ray negative for acute pulmonary findings CT interpreted by me (1pt min.). @ -None done U/S interpreted by me (1pt. min.). @ -None done What testing was considered but not performed or refused? (CT, X-rays, U/S, labs)? Why? @ -None What meds were considered but not given or refused? Why? @ -None Did you discuss the management of the patient with other professionals (professionals i.e. , PA, RACING DRIVER, lab, RT, psych nurse, social work nurse, floor mechanic, teacher, corporate development officer, bilingual case manager)? Give summary @ -Sound physician group Was smoking cessation discussed for >3mins.? @ -No Was critical care preformed (if so, how long)? @ -No Were there social determinants of health that impacted care today? How? (Homelessness, low income, unemployed, alcoholism, drug addiction, transportation, low edu. Level, literacy, decrease access to med. care, fpc, rehab)? @ -No Was there de-escalation of care discussed even if they declined (Discuss DNR or withdrawal of care, Hospice)? DNR status @ -No What co-morbidities impacted this encounter? (DM, HTN, Smoking, COPD, CAD, Cancer, CVA, ARF, Chemo, Hep., AIDS, mental health diagnosis, sleep apnea, morbid obesity)? @ -Diabetes Was patient admitted / discharged? Hospital course, mention meds given and route, prescriptions, significant lab abnormalities, going to OR and other pertinent info. @ -82-year-old male presents for reevaluation, diagnosed with coronavirus yesterday. He has generalized weakness and difficulty ambulating. No chest pain. No dyspnea. Patient has been undergoing outpatient rehabilitation but will likely require inpatient rehabilitation for added assistance. He will be admitted to internal medicine. Case discussed with Dr. King Undiagnosed new problem with uncertain prognosis? @ -No Drug Therapy requiring intensive monitoring for toxicity (Heparin, Nitro, Insulin, Cardizem)? @ -No Were any procedures done? @ -No Diagnosis/symptom? @ -Weakness, coronavirus Acute, or Chronic, or Acute on Chronic? @Acute Uncomplicated (without systemic symptoms) or Complicated (systemic symptoms)? @ -default Side effects of treatment? @ -No Exacerbation, Progression, or Severe Exacerbation? @ -No Poses a threat to life or bodily function? How? (Chest pain, [place], [place], pneumonia, PE, COPD, DKA, ARF, appy, cholecystitis, CVA, Diverticulitis, Homicidal, Suicidal, threat to staff... and all critical care pts) @ -Low risk at this time - Lab Data Result diagrams: 08/09/23 10:07 08/09/23 11:20 Lab Results 08/09/23 08/09/23 08/09/23 Range/Units 10:05 10:07 11:20 WBC 6.8 (3.8-10.6) k/uL RBC 4.26 L (4.30-5.90) m/uL Hgb 13.8 (13.0-17.5) gm/dL Hct 41.8 (39.0-53.0) % MCV 98.3 (80.0-100.0) fL MCH 32.4 (25.0-35.0) pg MCHC 33.0 (31.0-37.0) g/dL RDW 14.7 (11.5-15.5) % Plt Count 145 L (150-450) k/uL MPV 8.2 Neutrophils % 73 % Lymphocytes % 17 % Monocytes % 8 % Eosinophils % 1 % Basophils % 0 % Neutrophils # 4.9 (1.3-7.7) k/uL Lymphocytes # 1.2 (1.0-4.8) k/uL Monocytes # 0.5 (0-1.0) k/uL Eosinophils # 0.0 (0-0.7) k/uL Basophils # 0.0 (0-0.2) k/uL Sodium 138 (137-145) mmol/L Potassium 4.7 (3.5-5.1) mmol/L Chloride 104 (98-107) mmol/L Carbon Dioxide 22 (22-30) mmol/L Anion Gap 12 mmol/L BUN 21 H (9-20) mg/dL Creatinine 1.01 (0.66-1.25) mg/dL Est GFR (CKD-EPI)AfAm 80 (>60 ml/min/1.73 sqM) Est GFR (CKD-EPI)NonAf 70 (>60 ml/min/1.73 sqM) Glucose 73 L (74-99) mg/dL POC Glucose (mg/dL) 84 (70-110) mg/dL POC Glu Pharmaceutical Analyst ID Melissa Bautista Calcium 9.3 (8.4-10.2) mg/dL Total Bilirubin 0.9 (0.2-1.3) mg/dL AST 88 H (17-59) U/L ALT 26 (4-49) U/L Alkaline Phosphatase 33 L (38-126) U/L Total Protein 7.9 (6.3-8.2) g/dL Albumin 4.4 (3.5-5.0) g/dL Disposition Clinical Impression: COVID-19, Generalized weakness Disposition: ADMITTED IP TO THIS HOSP Condition: Stable Is patient prescribed a controlled substance at d/c from ED?: No Referrals: Nino Guillen DO [Primary Care Provider] - 1-2 days Time of Disposition: 12:00
[2023-08-09 10:26] LABS: Basophils % (A) 0 %; Eosinophils % (A) 1 %; HCT 41.8 % (39.0-53.0); HGB 13.8 gm/dL (13.0-17.5); Lymphocytes # (A) 1.2 k/uL (1.0-4.8); Lymphocytes % (A) 17 %; MCH 32.4 pg (25.0-35.0); MCV 98.3 fL (80.0-100.0); Mean Platelet Volume 8.2; Monocytes # (A) 0.5 k/uL (0-1.0); Monocytes % (A) 8 %; Neutrophils # (A) 4.9 k/uL (1.3-7.7); Neutrophils % (A) 73 %; Platelet Count 145 k/uL (150-450); RBC 4.26 m/uL (4.30-5.90); RDW 14.7 % (11.5-15.5); WBC 6.8 k/uL (3.8-10.6)
--- NOTE | 2023-08-09 10:33 | XR ---
EXAMINATION TYPE: XR chest 1V portable DATE OF EXAM: 08/09/2023 10:27 AM COMPARISON: Chest radiographs from 08/08/2023 TECHNIQUE: XR chest 1V portable Portable AP radiograph of the chest. CLINICAL INDICATION:Male, 82 years old with history of weakness/covid; FINDINGS: Patient is rotated which limits evaluation. Lungs/Pleura: There is no evidence of pleural effusion, focal consolidation, or pneumothorax. Chroni c senescent parenchyma change. Pulmonary vascularity: Unremarkable. Heart/mediastinum: Cardiomediastinal silhouette is enlarged and stable. Musculoskeletal: No acute osseous pathology. Catheter: Surgical clips along the right lateral chest wall. IMPRESSION: Chronic changes without evidence for acute process.
[2023-08-09] MEDS ORDERED: HYDROcodone/APAP 5-325MG 1 EACH TAB PO STA (10:59)
[2023-08-09 11:48] LABS: ALT 26 U/L (4-49); AST 88 U/L (17-59); African American GFR (CKD) 80 (>60 ml/min/1.73 sqM); Albumin 4.4 g/dL (3.5-5.0); Alkaline Phosphatase 33 U/L (38-126); Anion Gap 12 mmol/L; Blood Urea Nitrogen 21 mg/dL (9-20); Calcium 9.3 mg/dL (8.4-10.2); Carbon Dioxide 22 mmol/L (22-30); Chloride 104 mmol/L (98-107); Glucose 73 mg/dL (74-99); Non-African American GFR(CKD) 70 (>60 ml/min/1.73 sqM); Sodium 138 mmol/L (137-145); Total Bilirubin 0.9 mg/dL (0.2-1.3); Total Protein 7.9 g/dL (6.3-8.2)
[2023-08-09] MEDS ORDERED: NALOXONE 0.4 MG/ML 1 ML VIAL IV PRN (11:53)
[2023-08-09 11:55] LABS: Potassium 4.7 mmol/L (3.5-5.1)
[2023-08-09] MEDS ORDERED: DEXTROSE 50% SYRINGE 50 ML IVP PRN ×2 (15:51)
--- NOTE | 2023-08-09 15:55 | P.HPIM ---
History of Present Illness H&P Date: 08/09/23 82-year-old male with PMH of TIA, hypertension, diabetes mellitus, dyslipidemia, chronic knee and lower back pain presents the ED for generalized weakness. Unable to do his ADLs and IADLs. Exposed to COVID-19 on Tuesday. He reports a cough productive of yellow sputum In the ED, he underwent extensive evaluation. Vital signs were stable on room air. CBC RBC count 4.26, Plt 145. CMP BUN 21, glucose 73, AST 88, alk phos 33. CXR showed chronic changes without acute process. EKG sinus rhythm with PVCs, left anterior fascicular block. Pertinent positives and negatives as discussed in HPI, a complete review of systems was performed and all other systems are negative. General: non toxic, no distress, appears at stated age Derm: warm, dry Head: atraumatic, normocephalic, symmetric Eyes: EOMI, no lid lag, anicteric sclera Cardiovascular: good distal perfusion in all 4 extremities Lungs: breathing comfortably, no accessory muscle use Ext: no gross muscle atrophy, no edema, no contractures Neuro: no focal neuro deficits Psych: Alert, oriented, appropriate affect Debility Diabetes mellitus with hypoglycemia Transaminitis Prerenal azotemia Chronic conditions: TIA, hypertension, dyslipidemia, chronic knee and lower back pain Based on my assessment of this patient, this patient meets a high complexity level of care. Patient has an acute diagnosis of Debility due to COVID 19 that poses a threat to life or bodily function. Debility: Fall precautions. PT and OT consult. Diabetes mellitus with hypoglycemia: Accuchecks ACHS. No insulin for now. Hold antihyperglycemics. Transaminitis: Monitor. Prerenal azotemia: Encourage hydration by mouth. Lovenox SQ for DVT prophylaxis. FULL CODE. I have reviewed the following edi consultant notes: I have reviewed the results of the following tests: CBC, CMP, CXR I have ordered the following tests: CBC, BMP, D-Dimer I have discussed the care of this patient with the following independent historian: I have independently interpreted the following test below: EKG as above. 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 [place]. TIA. LOWER BACK PAIN. History of Any Multi-Drug Resistant Organisms: None Reported Past Surgical History: Joint Replacement, Orthopedic Surgery Additional Past Surgical History / Comment(s): SEVERAL LYMPH NODES FROM RIGHT AXILLA REMOVED. LEFT TOTAL HIP. RIGHT MENISCUS. BILATERAL CATARACTS. Past Anesthesia/Blood Transfusion Reactions: No Reported Reaction Past Psychological History: No Psychological Hx Reported Past Alcohol Use History: None Reported Past Drug Use History: None Reported Medications and Allergies Home Medications Medication Instructions Recorded Confirmed Type Krill Oil 500 mg PO DAILY 02/18/15 08/09/23 History Losartan [Cozaar] 50 mg PO DAILY 02/18/15 08/09/23 History Clopidogrel Bisulfate [Clopidogrel] 75 mg PO DAILY 09/09/15 08/09/23 History Magnesium Oxide [Mag-Ox] 250 mg PO DAILY 09/09/15 08/09/23 History Vit C/E/Zn/Coppr/Lutein/Zeaxan 1 cap PO BID 09/09/15 08/09/23 History [Preservision Areds 2 Softgel] Cholecalciferol [Vitamin D3 (25 50 mcg PO DAILY 08/09/23 08/09/23 History Mcg = 1000 Iu)] Empagliflozin [Jardiance] 25 mg PO DAILY 08/09/23 08/09/23 History Fenofibrate,Micronized 200 mg PO DAILY 08/09/23 08/09/23 History [Fenofibrate] Gabapentin [Neurontin] 100 mg PO TID 08/09/23 08/09/23 History HYDROcodone/APAP 5-325MG [[place] 1 tab PO TID 08/09/23 08/09/23 History 5-325] Nystatin 100,000Unit/gm Cream 1 applic TOPICAL BID PRN 08/09/23 08/09/23 History [Mycostatin Cream] Pioglitazone [Actos] 30 mg PO DAILY 08/09/23 08/09/23 History Rosuvastatin [Crestor] 20 mg PO DAILY 08/09/23 08/09/23 History Allergies Allergy/AdvReac Type Severity Reaction Status Date / Time atenolol AdvReac Hallucinati Verified 08/09/23 13:49 ons donepezil [From Aricept] AdvReac panic Verified 08/09/23 13:49 attack gabapentin AdvReac panic Verified 08/09/23 13:49 attack Physical Exam Vitals: Vital Signs Temp Pulse Resp BP Pulse Ox 08/09/23 15:17 73 18 146/75 98 08/09/23 14:05 59 L 19 153/79 97 08/09/23 13:25 99.7 F H 79 18 146/87 96 08/09/23 12:12 57 L 17 152/72 93 L 08/09/23 11:15 99.5 F 64 18 149/81 99 08/09/23 10:35 100.0 F H 64 17 137/74 96 08/09/23 09:46 20 08/09/23 09:38 100.4 F H 69 20 174/81 98 Intake and Output 08/09/23 08/09/23 08/09/23 06:59 14:59 22:59 Other: Weight 120.202 kg Results CBC & Chem 7: 08/09/23 10:07 08/09/23 11:20 Labs: Abnormal Lab Results - Last 24 Hours (Table) 08/09/23 08/09/23 Range/Units 10:07 11:20 RBC 4.26 L (4.30-5.90) m/uL Plt Count 145 L (150-450) k/uL BUN 21 H (9-20) mg/dL Glucose 73 L (74-99) mg/dL AST 88 H (17-59) U/L Alkaline Phosphatase 33 L (38-126) U/L
[2023-08-09] MEDS: GABAPENTIN 100 MG CAP PO SCH ×2 (15:58→21:40)
[2023-08-09] MEDS: HYDROcodone/APAP 5-325MG 1 EACH TAB PO SCH ×2 (15:58→21:40)
[2023-08-09 17:05] LABS: Glucose,Whole Blood 246 mg/dL (70-110)
[2023-08-09 22:04] LABS: Glucose,Whole Blood 302 mg/dL (70-110)
[2023-08-10 06:29] LABS: Glucose,Whole Blood 175 mg/dL (70-110)
[2023-08-10] MEDS ORDERED: LOSARTAN 50 MG TAB PO SCH (09:00)
[2023-08-10] MEDS ORDERED: ALBUTEROL HFA INHALER INHALATION PRN (09:22)
[2023-08-10] MEDS: HYDROcodone/APAP 5-325MG 1 EACH TAB PO SCH ×3 (09:40→21:26)
[2023-08-10] MEDS: FENOFIBRATE 160 MG TAB PO SCH (09:41)
[2023-08-10] MEDS: GABAPENTIN 100 MG CAP PO SCH ×3 (09:41→21:26)
[2023-08-10] MEDS: ENOXAPARIN 40 MG/0.4 ML SYRINGE SQ SCH (09:41)
[2023-08-10] MEDS: ATORVASTATIN 40 MG TAB PO SCH (09:41)
[2023-08-10 09:43] LABS: HCT 44.5 % (39.0-53.0); HGB 14.5 gm/dL (13.0-17.5); MCH 32.8 pg (25.0-35.0); MCHC 32.5 g/dL (31.0-37.0); MCV 100.9 fL (80.0-100.0); Macrocytosis Slight; Mean Platelet Volume 8.1; Platelet Count 162 k/uL (150-450); RBC 4.41 m/uL (4.30-5.90); RDW 14.2 % (11.5-15.5); WBC 5.8 k/uL (3.8-10.6)
[2023-08-10 09:48] LABS: African American GFR (CKD) >90 (>60 ml/min/1.73 sqM); Anion Gap 13 mmol/L; Blood Urea Nitrogen 24 mg/dL (9-20); Calcium 9.1 mg/dL (8.4-10.2); Carbon Dioxide 23 mmol/L (22-30); Chloride 104 mmol/L (98-107); Glucose 181 mg/dL (74-99); Non-African American GFR(CKD) 78 (>60 ml/min/1.73 sqM); Potassium 4.5 mmol/L (3.5-5.1); Sodium 140 mmol/L (137-145)
--- NOTE | 2023-08-10 10:52 | P.PN ---
Subjective Progress Note Date: 08/10/23 82-year-old male with PMH of TIA, hypertension, diabetes mellitus, dyslipidemia, chronic knee and lower back pain presents the ED for generalized weakness. Unable to do his ADLs and IADLs. Exposed to COVID-19 on Tuesday. He reports a cough productive of yellow sputum In the ED, he underwent extensive evaluation. Vital signs were stable on room air. CBC RBC count 4.26, Plt 145. CMP BUN 21, glucose 73, AST 88, alk phos 33. CXR showed chronic changes without acute process. EKG sinus rhythm with PVCs, left anterior fascicular block. 08/10 Patient was seen and examined. No changes in clinical condition. Complains of wheezing. No history of asthma or COPD. CBC MCV 100.9. D-Dimer 0.98. BMP BUN 24, glucose 181. General: non toxic, no distress, appears at stated age Derm: warm, dry Head: atraumatic, normocephalic, symmetric Eyes: EOMI, no lid lag, anicteric sclera Cardiovascular: good distal perfusion in all 4 extremities, Normal S1 S2. Lungs: Diffuse wheezing BL, no accessory muscle use Ext: no gross muscle atrophy, no edema, no contractures Neuro: no focal neuro deficits Psych: Alert, oriented, appropriate affect Debility due to COVID 19 Elevated D-Dimer Diabetes mellitus with hypoglycemia Transaminitis Prerenal azotemia Chronic conditions: TIA, hypertension, dyslipidemia, chronic knee and lower back pain Based on my assessment of this patient, this patient meets a moderate complexity level of care. Patient has an acute diagnosis of Debility due to COVID 19 that poses a threat to life or bodily function. Debility: Fall precautions. PT and OT consult. COVID 19: Start Rocephin/Azithromycin until procalcitonin returns. Albuterol INH PRN for SOB/wheezing. Elevated D-Dimer: Likely secondary to COVID. Diabetes mellitus with hypoglycemia: Accuchecks ACHS. No insulin for now. Hold antihyperglycemics. Transaminitis: Monitor. Prerenal azotemia: Encourage hydration by mouth. Lovenox SQ for DVT prophylaxis. FULL CODE. I have reviewed the following sap treasury consultant notes: I have reviewed the results of the following tests: CBC, BMP, D-Dimer I have ordered the following tests: Procal. Sputum Cx. Legionella I have discussed the care of this patient with the following independent historian: I have independently interpreted the following test below: I have discussed the management of this patient with the following physician: Objective - Vital Signs Vital signs: Vital Signs Temp 97.6 F 08/10/23 08:00 Pulse 64 08/10/23 08:00 Resp 18 08/10/23 08:00 BP 179/69 08/10/23 08:00 Pulse Ox 99 08/10/23 08:00 FiO2 Intake & Output 08/09/23 08/10/23 08/10/23 18:59 06:59 18:59 Intake Total 900 Output Total 800 Balance 100 Weight 120.202 kg 120.202 kg Intake: Intake, IV Titration 900 Amount Sodium Chloride 0.9% 1, 900 000 ml @ 75 mls/hr IV . [id number] [facility] Rx#:[id number] Output: Urine 800 Other: Voiding Method Urinal - Labs CBC & Chem 7: 08/10/23 08:19 08/10/23 08:19 Labs: Abnormal Lab Results - Last 24 Hours (Table) 08/09/23 08/09/23 08/09/23 Range/Units 11:20 17:02 22:02 MCV (80.0-100.0) fL D-Dimer (<0.60) mg/L FEU BUN 21 H (9-20) mg/dL Glucose 73 L (74-99) mg/dL POC Glucose (mg/dL) 246 H 302 H (70-110) mg/dL AST 88 H (17-59) U/L Alkaline Phosphatase 33 L (38-126) U/L 08/10/23 08/10/23 08/10/23 Range/Units 06:27 08:19 08:19 MCV 100.9 H (80.0-100.0) fL D-Dimer 0.98 H (<0.60) mg/L FEU BUN (9-20) mg/dL Glucose (74-99) mg/dL POC Glucose (mg/dL) 175 H (70-110) mg/dL AST (17-59) U/L Alkaline Phosphatase (38-126) U/L 08/10/23 Range/Units 08:19 MCV (80.0-100.0) fL D-Dimer (<0.60) mg/L FEU BUN 24 H (9-20) mg/dL Glucose 181 H (74-99) mg/dL POC Glucose (mg/dL) (70-110) mg/dL AST (17-59) U/L Alkaline Phosphatase (38-126) U/L
[2023-08-10] MEDS: AZITHROMYCIN 500 MG TAB PO SCH (11:09)
[2023-08-10 11:35] LABS: Glucose,Whole Blood 365 mg/dL (70-110)
[2023-08-10] MEDS: SODIUM CHLORIDE 0.9% 1,000 ML IV SCH (16:55)
[2023-08-10 17:07] LABS: Glucose,Whole Blood 205 mg/dL (70-110)
[2023-08-10 21:17] LABS: Glucose,Whole Blood 176 mg/dL (70-110)
[2023-08-11] MEDS: SODIUM CHLORIDE 0.9% 1,000 ML IV SCH ×2 (05:35→22:05)
[2023-08-11 05:40] LABS: Glucose,Whole Blood 117 mg/dL (70-110)
[2023-08-11 07:55] LABS: HCT 43.4 % (39.0-53.0); HGB 14.6 gm/dL (13.0-17.5); MCH 33.4 pg (25.0-35.0); MCHC 33.6 g/dL (31.0-37.0); MCV 99.3 fL (80.0-100.0); Mean Platelet Volume 8.3; Platelet Count 163 k/uL (150-450); RBC 4.37 m/uL (4.30-5.90); RDW 14.2 % (11.5-15.5); WBC 4.5 k/uL (3.8-10.6)
[2023-08-11 08:07] LABS: African American GFR (CKD) 86 (>60 ml/min/1.73 sqM); Anion Gap 8 mmol/L; Blood Urea Nitrogen 32 mg/dL (9-20); Carbon Dioxide 25 mmol/L (22-30); Chloride 106 mmol/L (98-107); Glucose 113 mg/dL (74-99); Magnesium 2.2 mg/dL (1.6-2.3); Non-African American GFR(CKD) 74 (>60 ml/min/1.73 sqM); Potassium 4.3 mmol/L (3.5-5.1); Sodium 139 mmol/L (137-145)
[2023-08-11] MEDS: FENOFIBRATE 160 MG TAB PO SCH (09:05)
[2023-08-11] MEDS: GABAPENTIN 100 MG CAP PO SCH ×3 (09:05→22:06)
[2023-08-11] MEDS: ATORVASTATIN 40 MG TAB PO SCH (09:05)
[2023-08-11] MEDS: HYDROcodone/APAP 5-325MG 1 EACH TAB PO SCH ×3 (09:05→22:09)
[2023-08-11] MEDS: AZITHROMYCIN 500 MG TAB PO SCH (09:06)
[2023-08-11] MEDS: LOSARTAN 50 MG TAB PO SCH ×2 (09:06→22:06)
[2023-08-11] MEDS: ENOXAPARIN 40 MG/0.4 ML SYRINGE SQ SCH (09:07)
--- NOTE | 2023-08-11 10:28 | P.CRDCN ---
History of Present Illness History of present illness: HISTORY OF PRESENT ILLNESS: This is a 82-year-old male with a past medical history significant for hypertension, hyperlipidemia, TIA, and diabetes. 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 We have been asked to see the patient in consultation for bradycardia. Patient examined at the bedside. Patient presented to the hospital due to increased weakness and difficulty ambulating. The patient was found to be positive for Covid on 08/08/2023. The patient currently denies any chest pain or trouble breathing. Patient's blood pressures are elevated this morning with a systolic ranging between 160 and 170. Telemetry reveals sinus mechanism with PACs. Patient denies any dizziness or lightheadedness. * EKG reveals sinus mechanism with PACs * Chest xray chronic changes without evidence for acute process * Current home cardiac medications include rosuvastatin 20 mg daily, losartan 50 mg daily, Plavix 75 mg daily * No previous echocardiogram or cardiac catheterization available for review in EMR REVIEW OF SYSTEMS: At the time of my exam: CONSTITUTIONAL: Denies fever or chills. HEENT: Denies blurred vision, vision changes, or eye pain. Denies hemoptysis CARDIOVASCULAR: Denies chest pain. Denies orthopnea. Denies PND. Denies palpitations RESPIRATORY: Denies shortness of breath. GASTROINTESTINAL: Denies abdominal pain. Denies nausea or vomiting. HEMATOLOGIC: Denies bleeding disorders. GENITOURINARY: Denies any blood in urine. SKIN: Denies pruitis. Denies rash. PHYSICAL EXAM: VITAL SIGNS: Reviewed. GENERAL: Well-developed in no acute distress. HEENT: Head is normocephalic. Pupils are equal, round. Sclerae anicteric. Mucous membranes of the mouth are moist. Neck supple. No JVD or thyromegaly LUNGS: Respirations even and unlabored. Lungs essentially clear to auscultation bilaterally. HEART: Regular rate and rhythm. S1 and S2 heard. Systolic murmur noted ABDOMEN: Soft. Nondistended. Nontender. EXTREMITIES: Normal range of motion. No clubbing or cyanosis. Peripheral pulses intact. No lower extremity edema NEUROLOGIC: Awake and alert. Oriented x 3. ASSESSMENT: Generalized weakness Acute Covid 19 Asymptomatic sinus bradycardia with PACs Hypertension Hyperlipidemia History of TIA Diabetes PLAN: Obtain 2-D echo to assess cardiac structure and function Increase losartan to 50 mg twice a day for optimal blood pressure control Continue telemetry monitoring Check TSH Further recommendations pending patient's course Nurse practitioner note has been reviewed by physician. Signing provider agrees with the documented findings, assessment, and plan of care. 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 LOWER [place]. TIA. LOWER BACK PAIN. Skin Cancer History of Any Multi-Drug Resistant Organisms: None Reported Past Surgical History: Joint Replacement, Orthopedic Surgery Additional Past Surgical History / Comment(s): SEVERAL LYMPH NODES FROM RIGHT AXILLA REMOVED. LEFT TOTAL HIP. RIGHT MENISCUS. BILATERAL CATARACTS. Right Shoulder Surgery from Fall Past Anesthesia/Blood Transfusion Reactions: No Reported Reaction Past Psychological History: No Psychological Hx Reported Smoking Status: Never smoker Past Alcohol Use History: None Reported Past Drug Use History: None Reported - Past Family History Father Family Medical History: Hypertension Medications and Allergies Home Medications Medication Instructions Recorded Confirmed Type Krill Oil 500 mg PO DAILY 02/18/15 08/09/23 History Losartan [Cozaar] 50 mg PO DAILY 02/18/15 08/09/23 History Clopidogrel Bisulfate [Clopidogrel] 75 mg PO DAILY 09/09/15 08/09/23 History Magnesium Oxide [Mag-Ox] 250 mg PO DAILY 09/09/15 08/09/23 History Vit C/E/Zn/Coppr/Lutein/Zeaxan 1 cap PO BID 09/09/15 08/09/23 History [Preservision Areds 2 Softgel] Cholecalciferol [Vitamin D3 (25 50 mcg PO DAILY 08/09/23 08/09/23 History Mcg = 1000 Iu)] Empagliflozin [Jardiance] 25 mg PO DAILY 08/09/23 08/09/23 History Fenofibrate,Micronized 200 mg PO DAILY 08/09/23 08/09/23 History [Fenofibrate] Gabapentin [Neurontin] 100 mg PO TID 08/09/23 08/09/23 History HYDROcodone/APAP 5-325MG [[place] 1 tab PO TID 08/09/23 08/09/23 History 5-325] Nystatin 100,000Unit/gm Cream 1 applic TOPICAL BID PRN 08/09/23 08/09/23 History [Mycostatin Cream] Pioglitazone [Actos] 30 mg PO DAILY 08/09/23 08/09/23 History Rosuvastatin [Crestor] 20 mg PO DAILY 08/09/23 08/09/23 History Allergies Allergy/AdvReac Type Severity Reaction Status Date / Time atenolol AdvReac Hallucinati Verified 08/09/23 13:49 ons donepezil [From Aricept] AdvReac panic Verified 08/09/23 13:49 attack gabapentin AdvReac panic Verified 08/09/23 13:49 attack Physical Exam Vitals: Vital Signs Temp Pulse Resp BP Pulse Ox 08/11/23 07:07 98.0 F 53 L 17 165/90 97 08/11/23 03:15 97.9 F 39 L 18 173/69 99 08/10/23 20:00 98.3 F 70 17 165/68 93 L 08/10/23 15:50 169/68 08/10/23 13:27 96.9 F L 65 18 180/67 98 08/10/23 10:40 155/74 Intake and Output 08/10/23 08/11/23 08/11/23 22:59 06:59 14:59 Other: Voiding Method Urinal # Voids 2 2 Results 08/11/23 07:05 08/11/23 07:05 CBC 08/10/23 08/11/23 Range/Units 08:19 07:05 WBC 5.8 4.5 (3.8-10.6) k/uL RBC 4.41 4.37 (4.30-5.90) m/uL Hgb 14.5 14.6 (13.0-17.5) gm/dL Hct 44.5 43.4 (39.0-53.0) % Plt Count 162 163 (150-450) k/uL Comprehensive Metabolic Panel 08/10/23 08/11/23 Range/Units 08:19 07:05 Sodium 140 139 (137-145) mmol/L Potassium 4.5 4.3 (3.5-5.1) mmol/L Chloride 104 106 (98-107) mmol/L Carbon Dioxide 23 25 (22-30) mmol/L BUN 24 H 32 H (9-20) mg/dL Creatinine 0.92 0.96 (0.66-1.25) mg/dL Glucose 181 H 113 H (74-99) mg/dL Calcium 9.1 9.0 (8.4-10.2) mg/dL Current Medications Generic Name Dose Route Start Last Admin Trade Name Freq PRN Reason Stop Dose Admin Hydrocodone Bitart/Acetaminophen 1 each 08/09/23 16:00 08/10/23 21:26 Hydrocodone/Apap 5-325mg 1 Each Tab PO 1 each TID JARET Administration Albuterol Sulfate 1 puff 08/10/23 09:22 Albuterol Hfa Inhaler INHALATION RT-TID PRN Shortness Of Breath Or Wheezing Atorvastatin Calcium 40 mg 08/10/23 09:00 08/10/23 09:41 Atorvastatin 40 Mg Tab PO 40 mg DAILY JARET Administration Azithromycin 500 mg 08/10/23 11:00 08/10/23 11:09 Azithromycin 500 Mg Tab PO 08/12/23 09:01 500 mg DAILY JARET Administration Protocol Dextrose/Water 25 ml 08/09/23 15:51 Dextrose 50% Syringe 50 Ml IVP PER PROTOCOL PRN Hypoglycemia Protocol Dextrose/Water 50 ml 08/09/23 15:51 Dextrose 50% Syringe 50 Ml IVP PER PROTOCOL PRN Hypoglycemia Protocol Enoxaparin Sodium 40 mg 08/10/23 09:00 08/10/23 09:41 Enoxaparin 40 Mg/0.4 Ml Syringe SQ 40 mg DAILY JARET Administration Fenofibrate 160 mg 08/10/23 09:00 08/10/23 09:41 Fenofibrate 160 Mg Tab PO 160 mg DAILY JARET Administration Gabapentin 100 mg 08/09/23 16:00 08/10/23 21:26 Gabapentin 100 Mg Cap PO 100 mg TID JARET Administration Sodium Chloride 1,000 mls @ 75 mls/hr 08/09/23 10:00 08/11/23 05:35 Saline 0.9% IV Not Given .[id number] JARET Ceftriaxone Sodium 2 gm/ 50 mls @ 100 mls/hr 08/10/23 09:00 08/10/23 10:57 Sodium Chloride IVPB 08/14/23 09:29 100 mls/hr Q24HR JARET Administration Protocol Losartan Potassium 50 mg 08/10/23 09:00 08/10/23 09:41 Losartan 50 Mg Tab PO 50 mg DAILY JARET Administration Naloxone HCl 0.2 mg 08/09/23 11:53 Naloxone 0.4 Mg/Ml 1 Ml Vial IV Q2M PRN Opioid Reversal Intake and Output 11/08/23 11/09/23 11/09/23 22:59 06:59 14:59 Other: Voiding Method Urinal # Voids 2 2 08/11/23 07:05 08/11/23 07:05
[2023-08-11 10:48] LABS: Glucose,Whole Blood 161 mg/dL (70-110)
--- NOTE | 2023-08-11 13:25 | P.PN ---
Subjective Progress Note Date: 08/11/23 82-year-old male with PMH of TIA, hypertension, diabetes mellitus, dyslipidemia, chronic knee and lower back pain presents the ED for generalized weakness. Unable to do his ADLs and IADLs. Exposed to COVID-19 on Tuesday. He reports a cough productive of yellow sputum In the ED, he underwent extensive evaluation. Vital signs were stable on room air. CBC RBC count 4.26, Plt 145. CMP BUN 21, glucose 73, AST 88, alk phos 33. CXR showed chronic changes without acute process. EKG sinus rhythm with PVCs, left anterior fascicular block. 08/10 Patient was seen and examined. No changes in clinical condition. Complains of wheezing. No history of asthma or COPD. CBC MCV 100.9. D-Dimer 0.98. BMP BUN 24, glucose 181. 08/11 Patient was seen and examined. No changes in breathing. Bradycardic to 30s last night. EKG showed sinus bradycardia HR 63 with PVCs. Cardiology consulted, recommends Echo and TSH. CBC unremarkable. CMP BUN 32, glucose 113. TSH 2.08. Mag 2.2. Procal 0.13. General: non toxic, no distress, appears at stated age Derm: warm, dry Head: atraumatic, normocephalic, symmetric Eyes: EOMI, no lid lag, anicteric sclera Cardiovascular: good distal perfusion in all 4 extremities, Normal S1 S2 b radycardic. Lungs: Decreasd BS BL, no accessory muscle use Ext: no gross muscle atrophy, no edema, no contractures Neuro: no focal neuro deficits Psych: Alert, oriented, appropriate affect Bradycardia Debility due to COVID 19 Elevated D-Dimer Diabetes mellitus with hypoglycemia Transaminitis Prerenal azotemia Chronic conditions: TIA, hypertension, dyslipidemia, chronic knee and lower back pain Based on my assessment of this patient, this patient meets a moderate complexity level of care. Patient has an acute diagnosis of Debility due to COVID 19 that poses a threat to life or bodily function. Bradycardia: Tele monitoring. Echo. Cardiology on board. Debility: Fall precautions. PT and OT consult. COVID 19: Start Rocephin/Azithromycin. Albuterol INH PRN for SOB/wheezing. Elevated D-Dimer: Likely secondary to COVID. Diabetes mellitus with hypoglycemia: Accuchecks ACHS. No insulin for now. Hold antihyperglycemics. Transaminitis: Monitor. Prerenal azotemia: Encourage hydration by mouth. Lovenox SQ for DVT prophylaxis. FULL CODE. I have reviewed the following political consultant notes: I have reviewed the results of the following tests: CBC, BMP, TSH, Procal I have ordered the following tests: Agree with Echo. I have discussed the care of this patient with the following independent historian: I have independently interpreted the following test below: EKG as above. I have discussed the management of this patient with the following physician: Objective - Vital Signs Vital signs: Vital Signs Temp 98.9 F 08/11/23 13:13 Pulse 43 L 08/11/23 13:13 Resp 17 08/11/23 13:13 BP 151/73 08/11/23 13:13 Pulse Ox 97 08/11/23 13:13 FiO2 Intake & Output 08/10/23 08/11/23 08/11/23 18:59 06:59 18:59 Other: Voiding Method Urinal # Voids 2 2 - Labs CBC & Chem 7: 08/11/23 07:05 08/11/23 07:05 Labs: Abnormal Lab Results - Last 24 Hours (Table) 08/10/23 08/10/23 08/10/23 Range/Units 08:19 17:06 21:16 BUN (9-20) mg/dL Glucose (74-99) mg/dL POC Glucose (mg/dL) 205 H 176 H (70-110) mg/dL Procalcitonin 0.13 H (0.02-0.09) ng/mL 08/11/23 08/11/23 08/11/23 Range/Units 05:39 07:05 10:47 BUN 32 H (9-20) mg/dL Glucose 113 H (74-99) mg/dL POC Glucose (mg/dL) 117 H 161 H (70-110) mg/dL Procalcitonin (0.02-0.09) ng/mL
[2023-08-11 16:19] LABS: Glucose,Whole Blood 152 mg/dL (70-110)
[2023-08-11 21:13] LABS: Glucose,Whole Blood 125 mg/dL (70-110)
[2023-08-11] MEDS ORDERED: ALPRAZolam 0.25 MG TAB PO STA (22:49)
[2023-08-12 06:30] LABS: Glucose,Whole Blood 107 mg/dL (70-110)
[2023-08-12] MEDS: SODIUM CHLORIDE 0.9% 1,000 ML IV SCH (06:47)
[2023-08-12 08:48] VITALS: BP 186/62; PULSE 54; RESP 20; TEMP 98.7
[2023-08-12] MEDS: ENOXAPARIN 40 MG/0.4 ML SYRINGE SQ SCH (08:53)
[2023-08-12] MEDS: AZITHROMYCIN 500 MG TAB PO SCH (08:53)
[2023-08-12] MEDS: ATORVASTATIN 40 MG TAB PO SCH (08:54)
[2023-08-12] MEDS: LOSARTAN 50 MG TAB PO SCH (08:54)
[2023-08-12] MEDS: FENOFIBRATE 160 MG TAB PO SCH (08:54)
[2023-08-12] MEDS: HYDROcodone/APAP 5-325MG 1 EACH TAB PO SCH (08:54)
[2023-08-12] MEDS: GABAPENTIN 100 MG CAP PO SCH (08:54)
[2023-08-12] MEDS ORDERED: hydroCHLOROthiazide 25 MG TAB PO SCH (09:00)
--- NOTE | 2023-08-12 10:03 | CA ---
Transthoracic Echo Report Name: Pratik Ferrell Age: 82 Gender: M : 1940 Exam Date: 08/12/2023 09:27 Exam Location: [facility] Ht (in): 69 Wt (lb): 269 Ordering Physician: Michelle Miramontes Attending/Referring Phys: [id number], Kulwinder Can Washer Bebo Rubio Procedure CPT: Indications: LV function Cardiac Hx: Technical Quality: Technically difficult study Contrast 1: Total Dose (mL): Contrast 2: Total Dose (mL): MEASUREMENTS (Male / Female) Normal Values 2D ECHO LV Diastolic Diameter PLAX 5.0 cm 4.2 - 5.9 / 3.9 - 5.3 cm LV Systolic Diameter PLAX 3.2 cm IVS Diastolic Thickness 1.6 cm 0.6 - 1.0 / 0.6 - 0.9 cm LVPW Diastolic Thickness 1.0 cm 0.6 - 1.0 / 0.6 - 0.9 cm LV Relative Wall Thickness 0.5 RV Internal Dim ED PLAX 2.0 cm LVOT Diameter 2.2 cm Aortic Root Diameter 3.2 cm LA Systolic Diameter LX 2.6 cm 3.0 - 4.0 / 2.7 - 3.8 cm LV Diastolic Volume MOD BP 56.0 cm??? 67 - 155 / 56 - 104 cm??? LV Systolic Volume MOD BP 32.2 cm??? 22 - 58 / 19 - 49 cm??? LV Ejection Fraction MOD BP 42.5 % >= 55 % LV Cardiac Index MOD BP 744.6 cm???/min???m??? LV Diastolic Volume MOD 4C 51.3 cm??? LV Systolic Volume MOD 4C 29.5 cm??? LV Ejection Fraction MOD 4C 42.4 % LV Cardiac Index MOD 4C 681.7 cm???/min???m??? LV Diastolic Length 4C 7.3 cm LV Systolic Length 4C 7.0 cm LV Diastolic Volume MOD 2C 60.0 cm??? LV Systolic Volume MOD 2C 32.0 cm??? LV Ejection Fraction MOD 2C 46.6 % LV Cardiac Index MOD 2C 874.5 cm???/min???m??? LV Diastolic Length 2C 7.5 cm LV Systolic Length 2C 6.3 cm LA Volume 29.8 cm??? 18 - 58 / 22 - 52 cm??? LA Volume Index 11.9 cm???/m??? 16 - 28 cm???/m??? DOPPLER AV Peak Velocity 193.5 cm/s AV Peak Gradient 15.0 mmHg LVOT Peak Velocity 96.5 cm/s LVOT Peak Gradient 3.7 mmHg LVOT Velocity Time Integral 22.3 cm LVOT Stroke Volume 83.0 cm??? LVOT Stroke Volume Index 35.4 ml/m??? LVOT Cardiac Index 2597.3 cm???/min???m??? AV Area Cont Eq pk 1.9 cm??? MV Peak Velocity 125.4 cm/s MV Peak Gradient 6.3 mmHg MV Mean Velocity 63.6 cm/s MV Mean Gradient 2.1 mmHg MV Velocity Time Integral 55.5 cm Mitral E Point Velocity 95.8 cm/s Mitral A Point Velocity 111.0 cm/s Mitral E to A Ratio 0.9 MV Deceleration Time 299.8 ms MV E' Velocity 7.8 cm/s Mitral E to MV E' Ratio 12.3 PV Peak Velocity 130.1 cm/s PV Peak Gradient 6.8 mmHg FINDINGS Left Ventricle Moderately increased septal wall thickness. [place] LV size. Left ventricular ejection fraction is estimated at 55-60 % . normal left ventricular wall motion. Right Ventricle Normal right ventricular size. Right Atrium Normal right atrial size. Left Atrium Normal left atrial size. Mitral Valve Structurally normal mitral valve. No mitral regurgitation. No mitral stenosis.mitral annular calcification. Aortic Valve Mild to moderate AV calcification. No aortic valve stenosis or regurgitation. Tricuspid Valve Tricuspid valve not well visualized. Trace TR. Pulmonic Valve Pulmonic valve not well visualized. No pulmonic regurgitation. Pericardium Not well visualized. Aorta Normal size aortic root. CONCLUSIONS 1. Normal left ventricular size and systolic function 2. No significant abnormality on Doppler study Previewed by: Dr. Eladio Cobos MD (Electronically Signed) Final Date: 12 August 2023 10:02
--- NOTE | 2023-08-12 10:30 | P.PN ---
Subjective HISTORY OF PRESENT ILLNESS: This is a 82-year-old male with a past medical history significant for hypertension, hyperlipidemia, TIA, and diabetes. 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 We have been asked to see the patient in consultation for bradycardia. Patient examined at the bedside. Patient presented to the hospital due to increased weakness and difficulty ambulating. The patient was found to be positive for Covid on 08/08/2023. The patient currently denies any chest pain or trouble breathing. Patient's blood pressures are elevated this morning with a systolic ranging between 160 and 170. Telemetry reveals sinus mechanism with PACs. Patient denies any dizziness or lightheadedness. * EKG reveals sinus mechanism with PACs * Chest xray chronic changes without evidence for acute process * Current home cardiac medications include rosuvastatin 20 mg daily, losartan 50 mg daily, Plavix 75 mg daily * No previous echocardiogram or cardiac catheterization available for review in EMR 08/12/2023 Patient examined this morning at the bedside. Patient denies chest pain or pressure. He currently denies shortness of breath. He continues to have an occasional cough. Echocardiogram completed revealing ejection fraction 55-60% with trace TR. Blood pressure remains elevated in the [id number]. Telemetry reveals heart rates in the 80s. Patient is having bigeminal PACs and occasional PVCs PHYSICAL EXAM: VITAL SIGNS: Reviewed. GENERAL: Well-developed in no acute distress. HEENT: Head is normocephalic. Pupils are equal, round. Sclerae anicteric. Mucous membranes of the mouth are moist. Neck supple. No JVD or thyromegaly LUNGS: Respirations even and unlabored. Lungs with crackles noted. HEART: Regular rate and rhythm. S1 and S2 heard. Systolic murmur noted ABDOMEN: Soft. Nondistended. Nontender. EXTREMITIES: Normal range of motion. No clubbing or cyanosis. Peripheral pulses intact. No lower extremity edema NEUROLOGIC: Awake and alert. Oriented x 3. ASSESSMENT: Generalized weakness Acute Covid 19 Bigeminal PACs Hypertension Hyperlipidemia History of TIA Diabetes PLAN: Continue current cardiac medications Add Hydrochlorothiazide 25 mg daily for optimal blood pressure control Continue telemetry monitoring Continue to monitor blood pressure Further recommendations pending patient's course Nurse practitioner note has been reviewed by physician. Signing provider agrees with the documented findings, assessment, and plan of care. Objective - Vital Signs Vital signs: Vital Signs Temp 98.7 F 08/12/23 07:23 Pulse 54 L 08/12/23 07:23 Resp 20 08/12/23 07:23 BP 186/62 08/12/23 07:23 Pulse Ox 94 L 08/12/23 07:23 FiO2 Intake & Output 08/11/23 08/12/23 08/12/23 18:59 06:59 18:59 Output Total 1300 580 Balance -1300 -580 Output: Urine 1300 580 Other: Voiding Method Urinal # Voids 1 # Bowel Movements 1 1 - Labs CBC & Chem 7: 08/11/23 07:05 08/11/23 07:05 Labs: Abnormal Lab Results - Last 24 Hours (Table) 08/11/23 08/11/23 08/11/23 Range/Units 10:47 16:17 21:11 POC Glucose (mg/dL) 161 H 152 H 125 H (70-110) mg/dL
[2023-08-12 10:54] LABS: Glucose,Whole Blood 131 mg/dL (70-110)
--- NOTE | 2023-08-12 11:39 | P.DS ---
Providers Date of admission: 08/09/23 11:53 Expected date of discharge: 08/12/23 Attending physician: Luz King DO Consults: 08/11/23 04:40 Consult Physician Routine Consulting Provider: Jefferson Schaefer Consult Reason/Comments: bradycardia Do you want consulting provider notified?: Yes, Notify in am Primary care physician: [facility] Course: 82-year-old male with PMH of TIA, hypertension, diabetes mellitus, dyslipidemia, chronic knee and lower back pain presents the ED for generalized weakness. Unable to do his ADLs and IADLs. Exposed to COVID-19 on Tuesday. He reports a cough productive of yellow sputum In the ED, he underwent extensive evaluation. Vital signs were stable on room air. CBC RBC count 4.26, Plt 145. CMP BUN 21, glucose 73, AST 88, alk phos 33. CXR showed chronic changes without acute process. EKG sinus rhythm with PVCs, left anterior fascicular block. 08/10 Patient was seen and examined. No changes in clinical condition. Complains of wheezing. No history of asthma or COPD. CBC MCV 100.9. D-Dimer 0.98. BMP BUN 24, glucose 181. 08/11 Patient was seen and examined. No changes in breathing. Bradycardic to 30s last night. EKG showed sinus bradycardia HR 63 with PVCs. Cardiology consulted, recommends Echo and TSH. CBC unremarkable. CMP BUN 32, glucose 113. TSH 2.08. Mag 2.2. Procal 0.13. 08/12 Patient was seen and examined. No acute events overnight. Heart rate in the 80's on telemetry. Echo shows EF 55-60% with moderately increased LV thickness. Cardiology added HCTZ for better BP control. EKG shows bigeminal PACs. Plans for discharge to [facility] today. Pertinent studies include EKG, CXR, Echo General: non toxic, no distress, appears at stated age Derm: warm, dry Head: atraumatic, normocephalic, symmetric Eyes: EOMI, no lid lag, anicteric sclera Cardiovascular: good distal perfusion in all 4 extremities, Normal S1 S2 bradycardic. Lungs: Decreasd BS BL, no accessory muscle use Ext: no gross muscle atrophy, no edema, no contractures Neuro: no focal neuro deficits Psych: Alert, oriented, appropriate affect Discharge Diagnosis: Bigeminal PACs Debility due to COVID 19 Elevated D-Dimer Diabetes mellitus with hypoglycemia Transaminitis Prerenal azotemia Chronic conditions: TIA, hypertension, dyslipidemia, chronic knee and lower back pain This complex discharge took 35 minutes to complete. Patient Condition at Discharge: Stable Plan - Discharge Summary Discharge Rx Participant: No New Discharge Prescriptions: New hydroCHLOROthiazide [Hydrodiuril] 25 mg PO DAILY tab Albuterol Inhaler [Ventolin Hfa Inhaler] 1 puff INHALATION RT-TID PRN #0 each PRN Reason: Shortness Of Breath Or Wheezing Continue Losartan [Cozaar] 50 mg PO DAILY Krill Oil 500 mg PO DAILY Clopidogrel Bisulfate [Clopidogrel] 75 mg PO DAILY Vit C/E/Zn/Coppr/Lutein/Zeaxan [Preservision Areds 2 Softgel] 1 cap PO BID Magnesium Oxide [Mag-Ox] 250 mg PO DAILY Nystatin 100,000Unit/gm Cream [Mycostatin Cream] 1 applic TOPICAL BID PRN PRN Reason: Rash Rosuvastatin [Crestor] 20 mg PO DAILY Gabapentin [Neurontin] 100 mg PO TID HYDROcodone/APAP 5-325MG [[place] 5-325] 1 tab PO TID Fenofibrate,Micronized [Fenofibrate] 200 mg PO DAILY Pioglitazone [Actos] 30 mg PO DAILY Cholecalciferol [Vitamin D3 (25 Mcg = 1000 Iu)] 50 mcg PO DAILY Empagliflozin [Jardiance] 25 mg PO DAILY Discharge Medication List Krill Oil 500 mg PO DAILY 02/18/15 [History] Losartan [Cozaar] 50 mg PO DAILY 02/18/15 [History] Clopidogrel Bisulfate [Clopidogrel] 75 mg PO DAILY 09/09/15 [History] Magnesium Oxide [Mag-Ox] 250 mg PO DAILY 09/09/15 [History] Vit C/E/Zn/Coppr/Lutein/Zeaxan [Preservision Areds 2 Softgel] 1 cap PO BID 09/09/15 [History] Cholecalciferol [Vitamin D3 (25 Mcg = 1000 Iu)] 50 mcg PO DAILY 08/09/23 [History] Empagliflozin [Jardiance] 25 mg PO DAILY 08/09/23 [History] Fenofibrate,Micronized [Fenofibrate] 200 mg PO DAILY 08/09/23 [History] Gabapentin [Neurontin] 100 mg PO TID 08/09/23 [History] HYDROcodone/APAP 5-325MG [[place] 5-325] 1 tab PO TID 08/09/23 [History] Nystatin 100,000Unit/gm Cream [Mycostatin Cream] 1 applic TOPICAL BID PRN 08/09/23 [History] Pioglitazone [Actos] 30 mg PO DAILY 08/09/23 [History] Rosuvastatin [Crestor] 20 mg PO DAILY 08/09/23 [History] Albuterol Inhaler [Ventolin Hfa Inhaler] 1 puff INHALATION RT-TID PRN #0 each 08/12/23 [Rx] hydroCHLOROthiazide [Hydrodiuril] 25 mg PO DAILY tab 08/12/23 [Rx] Follow up Appointment(s)/Referral(s): Nino Guillen DO [Primary Care Provider] - 1-2 days Discharge Disposition: TRANSFER TO SNF/ECF
== END 2023-08-12 13:24 | DRG 179 ==
LOC: EC 09:35 → 4SSUR 11:53
PROVIDERS: ADMIT Internal Medicine; ATTEND Internal Medicine
PROC: 05HY33Z Insertion of Infusion Device into Upper Vein, Percutaneous Approach (ICD-10-PCS; principal; 2023-08-10 10:20)
PROC: 05HY33Z Insertion of Infusion Device into Upper Vein, Percutaneous Approach (ICD-10-PCS; 2023-08-11)
DX: U07.1 COVID-19 (principal); E11.649 Type 2 diabetes mellitus with hypoglycemia without coma; J98.8 Other specified respiratory disorders; I10 Essential (primary) hypertension; I49.1 Atrial premature depolarization; I44.4 Left anterior fascicular block; E78.5 Hyperlipidemia, unspecified; M54.50 Low back pain, unspecified; M25.569 Pain in unspecified knee; R53.81 Other malaise; R74.01 Elevation of levels of liver transaminase levels; R39.2 Extrarenal uremia; R26.2 Difficulty in walking, not elsewhere classified; Z79.02 Long term (current) use of antithrombotics/antiplatelets; Z79.84 Long term (current) use of oral hypoglycemic drugs; Z79.899 Other long term (current) drug therapy; Z86.73 Personal history of transient ischemic attack (TIA), and cerebral infarction without residual deficits; Z85.89 Personal history of malignant neoplasm of other organs and systems; Z96.642 Presence of left artificial hip joint; Z88.8 Allergy status to other drugs, medicaments and biological substances
CPT/HCPCS: 36415; 71045; 80048; 80053; 83735; 84145; 84443; 85025; 85027; 85379; 87449; 93005; 93306; 96374; 99285

== ENCOUNTER → 2023-11-15 | Outpatient (CLI) | payer MEDICARE ==
[2023-11-15 15:59] LABS: BUN/Creat Ratio 24.75 Ratio (12.00-20.00); Blood Urea Nitrogen 29.7 mg/dL (9.0-27.0); Glucose 61 mg/dL (70-110)
[2023-11-15 16:00] LABS: ALT 15 U/L (10-49); AST 22 U/L (14-35); Albumin 4.6 g/dL (3.8-4.9); Albumin/Globulin Ratio 1.48 Ratio (1.60-3.17); Alkaline Phosphatase 40 U/L (41-126); Carbon Dioxide 23.6 mmol/L (21.6-31.8); Chloride 103 mmol/L (96-109); Globulin 3.1 g/dL (1.6-3.3); Potassium 4.8 mmol/L (3.5-5.5); Sodium 140 mmol/L (135-145); Total Bilirubin 0.5 mg/dL (0.3-1.2); Total Protein 7.7 g/dL (6.2-8.2)
[2023-11-15 16:20] LABS: HCT 47.9 % (39.6-50.0); HGB 15.2 g/dL (13.0-17.0); MCH 31.9 pg (27.0-32.0); MCHC 31.7 g/dL (32.0-37.0); MCV 100.6 FL (80.0-97.0); Mean Platelet Volume 10.8 FL (9.5-12.2); NRBC Per 100 WBC 0 X 10*3/uL (0.00-0.01); Platelet Count 205 X 10*3/uL (140-440); RBC 4.76 X 10*6/uL (4.40-5.60); WBC 5.47 X 10*3/uL (4.50-10.00)
== END | disposition home or self-care (01) ==
LOC: LABPAT 10:00
PROVIDERS: ATTEND Internal Medicine Interventional Cardiology
DX: Z01.812 Encounter for preprocedural laboratory examination (principal); E11.22 Type 2 diabetes mellitus with diabetic chronic kidney disease; N18.9 Chronic kidney disease, unspecified; R94.39 Abnormal result of other cardiovascular function study
CPT/HCPCS: 80053; 85027

== ENCOUNTER 2023-11-22 07:40 | Day surgery (SDC) | payer MEDICARE ==
[2023-11-17 16:05] VITALS: BMI 39.1
[~2023-11-22 07:40] MED LIST changes: +ALPRAZolam 0.25 MG TAB PO PRN; +ALPRAZolam 0.5 MG TAB PO PRN; -DEXAMETHASONE SOD PHOSPHATE 10 MG/ML 1 ML VIAL IV ONE; +HEPARIN SODIUM,PORCINE (1 ML) 2,500 UNIT in SODIUM CHLORIDE 0.9% 250 ML IRRIGATION PRN; +HEPARIN SODIUM,PORCINE 10,000 UNIT in SODIUM CHLORIDE 0.9% 1,000 ML IRRIGATION PRN; -LACTATED RINGERS 1,000 ML IV SCH; -MIDAZOLAM 2 MG/2 ML VIAL IV PRN; +NITROGLYCERIN SL TABS 0.4 MG TAB SUBLINGUAL PRN; -ONDANSETRON 4 MG/2 ML VIAL IVP ONE; -fentaNYL (PF) 50 MCG/ML 2 ML AMP IV PRN
[2023-11-22] MEDS: SODIUM CHLORIDE 0.9% 1,000 ML in EMPTY BAG 1 BAG IV SCH (08:10)
[2023-11-22 08:11] LABS: Glucose,Whole Blood 73 mg/dL (70-110)
[2023-11-22] MEDS ORDERED: CLOPIDOGREL 75 MG TAB PO STA (08:24)
[2023-11-22] MEDS: ASPIRIN 325 MG TAB PO STA (08:24)
[2023-11-22 08:32] VITALS: RESP 18; TEMP 98.2
[2023-11-22] MEDS: CLOPIDOGREL 75 MG TAB ONE (08:33)
[2023-11-22] MEDS ORDERED: VERAPAMIL 2.5 MG/ML 2 ML AMP ONE (08:37)
[2023-11-22] MEDS ORDERED: LIDOCAINE 1% INJ 10MG/ML (20 ML MDV) ONE (08:37)
[2023-11-22] MEDS ORDERED: fentaNYL (PF) 50 MCG/ML 2 ML AMP ONE (08:46)
[2023-11-22] MEDS ORDERED: HEPARIN SODIUM 1,000 UN/ML (10ML VL) ONE (08:47)
[2023-11-22] MEDS: LIDOCAINE 1% INJ 10MG/ML (20 ML MDV) SQ ONE (08:58)
[2023-11-22] MEDS: fentaNYL (PF) 50 MCG/ML 2 ML AMP IVP ONE (09:00)
[2023-11-22] MEDS: VERAPAMIL SYRINGE (5 MG/10 ML) INTRAARTER ONE (09:04)
[2023-11-22] MEDS: HEPARIN SODIUM 1,000 UN/ML (10ML VL) IVP ONE (09:06)
[2023-11-22] MEDS: IOPAMIDOL-370 100ML BTL INJ ONE (09:15)
[2023-11-22] MEDS ORDERED: RX INFO: IV CONTRAST WAS GIVEN 1 EACH MISC MISCELLANE PRN (09:28)
[2023-11-22] MEDS ORDERED: SODIUM CHLORIDE 0.9% 1,000 ML IV SCH (09:30)
--- NOTE | 2023-11-22 09:33 | P.CARDCATH ---
Date of Procedure: 11/22/23 Description of Procedure: Cardiac Catheterization: The patient is an 83-year-old male with a known history of hypertension, hyperlipidemia, diabetes mellitus who has been complaining of progressive dyspnea and had an abnormal MPI. Recommendations were made regarding cardiac catheterization, the risks and the complications were discussed with the patient who is in full understanding and agreement. Procedure Description: Patient was brought to lab nurse in fasting semi-sedated state after receiving Fentanyl and Benadryl achieiving moderate conscious sedated state. Using Xylocaine Anesthesia and modified Seldinger technique, a 6-Sammarinese sheath was introduced in the left radial artery . Subsequently, selective coronary angiography was performed using a 5-Sammarinese 4 bend Siobhan catheter. Multiple views of the coronary artery including hemiaxial views were obtained. The 5 Sammarinese pigtail catheter was used to cross the aortic valve and LVEDP was calculated. Following that, catheter and sheath were removed. Hemostasis was obtained with deployment of vascular band . There was no immediate complication. Patient was returned to room in stable condition. Of note, the patient received a total of 5000 units of intravenous heparin as well as intra-arterial verapamil. Findings: Fluoroscopy: Calcification of the left main and proximal LAD was noted Left main: This is a large size vessel, bifurcating into LAD and left circumflex, left main has no high-grade stenosis LAD: This is a large size vessel, reaching to the apex, calcified, giving rise to 3 small diagonal branch. The LAD has diffuse intimal disease throughout its course of 30 to 40% without any high-grade stenosis Left circumflex: This is a nondominant vessel large in caliber giving rise to a large first obtuse marginal branch, the second 1 is small in caliber. The left circumflex after the takeoff of the first obtuse marginal branch has intimal plaque of 30% RCA: This is a large dominant vessel, bifurcating into PDA and PLV. The right coronary artery in the midsegment has intimal disease of about 30% without any high-grade stenosis. Left Ventriculogram: Not performed Hemodynamics: There was no gradient across the aortic valve, LVEDP was 12-16 mmHg Conclusion: 1. Calcified coronary arteries 2. Mild triple-vessel disease 3. Right dominance 4. Normal LVEDP Recommendations: I have recommended to continue medical therapy with aggressive coronary risks modifications. The findings and the recommendations were discussed with the patient and the family and they were in full understanding and agreement. Duration of sedation is 17 minutes.
[2023-11-22] MEDS: LOSARTAN 50 MG TAB PO STA ×2 (10:22→13:49)
[2023-11-22] MEDS: SODIUM CHLORIDE 0.9% 500 ML 500 ML IV ONE (11:30)
[2023-11-22 13:46] VITALS: BP 174/76; PULSE 66
[2023-11-22] MEDS ORDERED: GABAPENTIN 100 MG CAP PO SCH (16:00)
[2023-11-22] MEDS ORDERED: GLIMEPIRIDE 2 MG TAB PO SCH (21:00)
[2023-11-23] MEDS ORDERED: CLOPIDOGREL 75 MG TAB PO SCH (09:00)
[2023-11-23] MEDS ORDERED: ATORVASTATIN 40 MG TAB PO SCH (09:00)
[2023-11-23] MEDS ORDERED: MAGNESIUM OXIDE 400 MG TAB PO SCH (09:00)
[2023-11-23] MEDS ORDERED: LOSARTAN 50 MG TAB PO SCH (09:00)
[2023-11-23] MEDS ORDERED: DAPAGLIFLOZIN PROPANEDIOL 10 MG TABLET PO SCH (09:00)
== END 2023-11-22 13:51 | disposition home or self-care (01) ==
LOC: CATHCVL 07:40
PROVIDERS: ATTEND Internal Medicine Interventional Cardiology
DX: I25.10 Atherosclerotic heart disease of native coronary artery without angina pectoris (principal); I25.84 Coronary atherosclerosis due to calcified coronary lesion; I10 Essential (primary) hypertension; E78.5 Hyperlipidemia, unspecified; E11.9 Type 2 diabetes mellitus without complications; N26.1 Atrophy of kidney (terminal); Z79.84 Long term (current) use of oral hypoglycemic drugs; Z79.899 Other long term (current) drug therapy; Z87.891 Personal history of nicotine dependence; Z88.8 Allergy status to other drugs, medicaments and biological substances; Z88.6 Allergy status to analgesic agent; Z82.49 Family history of ischemic heart disease and other diseases of the circulatory system; Z86.73 Personal history of transient ischemic attack (TIA), and cerebral infarction without residual deficits
CPT/HCPCS: 93458; C1769 ×2; C1894; J2001; J3010; J1644; Q9967

== ENCOUNTER → 2024-02-09 | Outpatient (CLI) | payer MEDICARE ==
[2024-02-09 09:54] VITALS: BP 181/76; PULSE 66; RESP 16
--- NOTE | 2024-02-09 14:30 | P.PAINPG ---
PQRS Measure Charge Sheet Comment: HISTORY OF PRESENT ILLNESS: A 83 yr old wheelchair bound male w and daughter at side as a referral from Dr Rae presents today w severe and chronic LBP > 1 yr secondary to DDD, spondylosis and facet arthropathy without myelopathy for evaluation. Pt states pain level is provoked at 9 /10 in intensity, constant, localized in the R lumbar spine, predominantly axial, sharp in character w occasional shooting pain towards the R hip. Pain is provoked by standing/ walking for periods > 15 min. Pain is alleviated by PT x 6 wks which ended in Aug 2023, physician guided home stretches every morning since Aug 2023, use of a wheelchair for ambulatory assistance, medications ([place], Neurontin, Tyl), Salon Pas topical, repositioning and rest . Oswestry axial pain score at 41. PMH: OA, Lymph Node CA, Skin CA, NIDDM II, Hyperlipidemia, HTN, [place] PSH: R Meniscal Repair, BL Cataract Resection, R RCT Repair, R Axilla Lymph Resection SH: Negative x3 FH: Fa- CAD All: See list Meds: See list REVIEW OF ORGAN SYSTEMS: CONSTITUTIONAL: No fevers or chills. No recent weight loss. NEUROLOGICAL: + numbness and tingling along the distal extremities. No seizure disorders or headaches. MUSCULOSKELETAL: + pain PSYCHIATRIC: Denies current depression or suicidal thoughts. Physical Examinations : Constitutional : Cooperative , not in acute distress . Neurologic : Cranial nerve II to XII intact. No focal neurological deficits. Psychiatric : alert & oriented x 3. Matching mood & appropriate affect. Judgment & insight intact. Musculoskeletal : Cervical Spine Motor strength in the deltoid and biceps: Normal right side. Normal Left side Motor strength biceps and the wrist extensors: Normal right side . Normal left side Motor strength in the triceps muscle: Normal right side. Normal left side Deep tendon reflexes: Normal at the biceps. Normal at Brachioradialis. Normal at triceps Vertebral body tenderness to deep palpation over Cervical facet loading test: positive bilaterally Spurling test: positive bilaterally Neck distraction test: positive bilaterally Leola sign: positive bilaterally Lumbar spine Motor strength lower extremities ,thigh and legs 5/5 Right side , 5/5 Left side Deep tendon reflexes : Normal Knee Jerk. Normal Ankle Jerk Vertebral body tenderness over L5 Garrett Test positive R L5-S1 Lumbar facet Loading Test: positive Right / positive Left Range of motion of the lumbar spine Flexion 30 degrees, extension 10 degrees Straight Leg Raise test: Left/ Right positive at degrees Good test: positive right / positive left. Severe tenderness over the Sacroiliac joint on the Right / Left sides Gaenslen test: positive bilaterally Seated flexion test: positive bilaterally. Sacral spine : Severe tenderness over the Sacroiliac joint: right side / left side Range of motion: Flexion of the lumbar spine <60 degrees Range of motion: Extension of the lumbar spine <20 degrees Gaenslen's Test positive Good test: positive right side / left side Thigh Thrust Test Sacral Thrust Test Imaging: MRI non contrast of the lumbar spine from 01/09/24 reviewed Assessment/ Plan : Lumbar DDD Recommendation of R TFESI L5-S1 #1. May need a series of injections for optimal pain relief. Risks, benefits of procedure discussed and patient verbalized understanding. Admits to anti- coagulant use or medical history of diabetes. Protocol for discontinuation/ continuation of medications jayla procedure discussed. All questions answered. I have spent greater than 30 minutes on patient care today. Dr Foreman was available by phone for the evaluation of this patient. The time was used to review the medical records including relevant urine studies and Prescription history (MAPs), review of the available imaging, evaluation and examination of the patient, coordination of care with the medical staff and if applicable referring physicians, as well as creation of the medical record PQRS Narrative: Smoking Status Never smoker Home Medications: Ambulatory Orders Krill Oil 500 mg PO DAILY 02/18/15 Losartan [Cozaar] 50 mg PO DAILY 02/18/15 Clopidogrel Bisulfate [Clopidogrel] 75 mg PO DAILY 09/09/15 Magnesium Oxide [Mag-Ox] 250 mg PO DAILY 09/09/15 Vit C/E/Zn/Coppr/Lutein/Zeaxan [Preservision Areds 2 Softgel] 1 cap PO BID 09/09/15 Cholecalciferol [Vitamin D3 (25 Mcg = 1000 Iu)] 100 mcg PO DAILY 08/09/23 Empagliflozin [Jardiance] 25 mg PO DAILY 08/09/23 Fenofibrate,Micronized [Fenofibrate] 200 mg PO DAILY 08/09/23 Pioglitazone [Actos] 30 mg PO DAILY 08/09/23 Rosuvastatin [Crestor] 20 mg PO DAILY 08/09/23 Gabapentin [Neurontin] 100 mg PO TID #9 cap 08/12/23 HYDROcodone/APAP 5-325MG [Sheridan 5-325] 1 tab PO TID #9 tab 08/12/23 Acetaminophen Tab [Tylenol Tab] 1,000 mg PO Q6HR PRN 11/17/23 Glimepiride [Amaryl] 2 mg PO BID 11/17/23 Controlled Substance Measures - Controlled Substance Measures Is patient prescribed a controlled substance at discharge?: No
== END ==
LOC: PNWHC3 08:58
PROVIDERS: ATTEND Specialist
DX: M51.17 Intervertebral disc disorders with radiculopathy, lumbosacral region (principal); M47.27 Other spondylosis with radiculopathy, lumbosacral region; G89.29 Other chronic pain; Z88.8 Allergy status to other drugs, medicaments and biological substances
CPT/HCPCS: 99211

== ENCOUNTER 2024-02-23 11:56 | Day surgery (SDC) | payer MEDICARE ==
[2024-02-21 10:39] VITALS: BMI 42.0
[2024-02-23] MEDS ORDERED: LACTATED RINGERS 1,000 ML IV SCH (12:45)
[2024-02-23 13:04] LABS: Glucose,Whole Blood 92 mg/dL (70-110)
[2024-02-23 13:10] VITALS: TEMP 97.1
[2024-02-23] MEDS ORDERED: methylPREDNISolone ACETATE 40 MG/ML 1 ML VIAL ONE (13:53)
[2024-02-23] MEDS ORDERED: IOPAMIDOL M200 10 ML VIAL ONE (13:53)
--- NOTE | 2024-02-23 14:03 | P.PCN ---
Date of Procedure: 02/23/24 Procedure(s) Performed: PREOPERATIVE DIAGNOSIS: 1-Lumbar radiculopathy . 2-lumbar degenerative disc disease. 3-lumbar spondylosis with lumbar facet arthropathy without myelopathy POSTOPERATIVE DIAGNOSIS: 1-lumbar radiculopathy. 2-lumbar degenerative disc disease. 3-lumbar spondylosis with facet arthropathy without myelopathy PROCEDURE 1. Transforaminal epidural steroid injection under fluoroscopic guidance at right [id number]. (Fluoroscopy images stored on file in the radiology Department ) 2. Lumbar epidurogram . ANESTHESIA: Local with 1% lidocaine 3 ml. EBL: Minimal PROCEDURE INDICATION: The patient with low back pain and radiculopathy symptoms unresponsive to conservative treatment. PROCEDURE DESCRIPTION / TECHNIQUE: The patient was seen and identified in the preoperative area. Risks, benefits, complications, and alternatives were discussed with the patient. The patient agreed to proceed with the procedure and signed the consent. IV was started, and vital signs were stable. Patient was taken to the OR and time out was completed. The patient was placed in the prone position on procedure table and a pillow was placed under the abdomen to reduce lumbar lordosis. The lumbosacral area was prepped and draped in the usual sterile fashion. Critical pause was taken. Vital signs were closely monitored during the procedure. Using oblique fluoroscopy, the chin of the ``Van dog at Right L5-S1 level was identified, and the skin and deeper tissues just below was localized with 1% lidocaine. Subsequently, a 22-gauge 5-inch spinal needle was advanced under a tunneled view fluoroscopic guidance just underneath the chin of the ``Van dog at the right L5-S1 Under lateral fluoroscopy, the needle was then advanced to the posterior border of the interforaminal space. After negative aspiration of CSF and blood and with no paresthesias, 1 mL Isovue 200 contrast dye was injected excellent epidurogram and outlining of the nerve root Subsequently, 3 mL of block solution containing 40 mg Depo-Medrol and 2 mL of 0.9% normal saline PF was injected. Needle was removed. At the end of the procedure, skin was cleansed, and bandages were applied. COMPLICATIONS:none DISPOSITION / PLANS: The patient was placed in a supine position and transferred to the recovery area in a stable condition for observation. There was no evidence of lower extremity motor or sensory deficit after the procedure. Patient was discharged from the recovery room after meeting discharge criteria. Home discharge instructions were given to the patient by the staff. The patient was reexamined prior to discharge.
[2024-02-23 15:05] VITALS: BP 149/69; PULSE 68; RESP 16
--- NOTE | 2024-02-23 16:53 | FL ---
Fluoroscopy INDICATION: Pain FINDINGS: Fluoroscopy time: 10.1 seconds. Total dose area product (DAP) in uGy*m?, mGy*cm? (or similar): 0.92648 Images obtained: 4. IMPRESSION: 1. Documentation of fluoroscopy.
== END 2024-02-23 14:44 | disposition home or self-care (01) ==
LOC: ORPAIN 11:56
PROVIDERS: ATTEND Specialist
DX: M47.26 Other spondylosis with radiculopathy, lumbar region (principal); M51.16 Intervertebral disc disorders with radiculopathy, lumbar region; E11.9 Type 2 diabetes mellitus without complications; Z79.02 Long term (current) use of antithrombotics/antiplatelets; Z79.899 Other long term (current) drug therapy; Z88.8 Allergy status to other drugs, medicaments and biological substances
CPT/HCPCS: 64483; Q9966; J1010

== ENCOUNTER → 2024-03-15 | Outpatient (CLI) | payer MEDICARE ==
[2024-03-15 09:20] VITALS: BP 158/83; PULSE 65; RESP 16
--- NOTE | 2024-03-15 13:27 | P.PAINPG ---
PQRS Measure Charge Sheet Comment: HISTORY OF PRESENT ILLNESS: A 83 yr old wheelchair bound male w and daughter at side presents today w severe and chronic LBP > 1 yr secondary to DDD, spondylosis and facet arthropathy without myelopathy for evaluation s/p R TFESI L5-S1 #1. Pt states he experienced 50 % pain relief x 1-2 wks s/p procedure. Pt states pain level is provoked at 10 /10 in intensity, constant, localized in the R lumbar spine, predominantly axial, sharp in character w occasional shooting pain towards the R hip. Pain is provoked by standing/ walking for periods > 10 min. Pain is alleviated by PT x 6 wks which ended in Aug 2023, physician guided home stretches every morning since Aug 2023, use of a wheelchair for ambulatory assistance, medications, topical, repositioning and rest . Oswestry axial pain score at 41. Interventional procedures include R TFESI L5-S1 x1 Medications include Transfer, Neurontin, Tyl, Salon Pas REVIEW OF ORGAN SYSTEMS: CONSTITUTIONAL: No fevers or chills. No recent weight loss. NEUROLOGICAL: + numbness and tingling along the distal extremities. No seizure disorders or headaches. MUSCULOSKELETAL: + pain PSYCHIATRIC: Denies current depression or suicidal thoughts. Physical Examinations : Constitutional : Cooperative , not in acute distress . Neurologic : Cranial nerve II to XII intact. No focal neurological deficits. Psychiatric : alert & oriented x 3. Matching mood & appropriate affect. Judgment & insight intact. Musculoskeletal : Cervical Spine Motor strength in the deltoid and biceps: Normal right side. Normal Left side Motor strength biceps and the wrist extensors: Normal right side . Normal left side Motor strength in the triceps muscle: Normal right side. Normal left side Deep tendon reflexes: Normal at the biceps. Normal at Brachioradialis. Normal at triceps Vertebral body tenderness to deep palpation over Cervical facet loading test: positive bilaterally Spurling test: positive bilaterally Neck distraction test: positive bilaterally Leola sign: positive bilaterally Lumbar spine Motor strength lower extremities ,thigh and legs 5/5 Right side , 5/5 Left side Deep tendon reflexes : Normal Knee Jerk. Normal Ankle Jerk Vertebral body tenderness over L5 Garrett Test positive R L5-S1 Lumbar facet Loading Test: positive Right / positive Left L4-L5, L5-S1 Range of motion of the lumbar spine Flexion 30 degrees, extension 10 degrees Straight Leg Raise test: Left/ Right positive at degrees Good test: positive right / positive left. Severe tenderness over the Sacroiliac joint on the Right / Left sides Gaenslen test: positive bilaterally Seated flexion test: positive bilaterally. Sacral spine : Severe tenderness over the Sacroiliac joint: right side / left side Range of motion: Flexion of the lumbar spine <60 degrees Range of motion: Extension of the lumbar spine <20 degrees Gaenslen's Test positive Good test: positive right side / left side Thigh Thrust Test Sacral Thrust Test Imaging: MRI non contrast of the lumbar spine from 01/09/24 reviewed Assessment/ Plan : Lumbar DDD Recommendation of KELECHI MBB L3-L5 #1. May need a series of injections, up until RFA, for optimal pain relief. Risks, benefits of procedure discussed and patient verbalized understanding. Admits to anti- coagulant use or medical history of diabetes. Protocol for discontinuation/ continuation of medications jayla procedure discussed. Minimal anesthesia including Fentanyl and Versed if clinically indicated. All questions answered. I have spent greater than 30 minutes on patient care today. Dr Foreman was available by phone for the evaluation of this patient. The time was used to review the medical records including relevant urine studies and Prescription history (MAPs), review of the available imaging, evaluation and examination of the patient, coordination of care with the medical staff and if applicable referring physicians, as well as creation of the medical record PQRS Narrative: Smoking Status Never smoker Hx Alcohol Use (MH) No Home Medications: Ambulatory Orders Krill Oil 500 mg PO DAILY 02/18/15 Losartan [Cozaar] 50 mg PO DAILY 02/18/15 Clopidogrel Bisulfate [Clopidogrel] 75 mg PO DAILY 09/09/15 Vit C/E/Zn/Coppr/Lutein/Zeaxan [Preservision Areds 2 Softgel] 1 cap PO BID 09/09/15 Empagliflozin [Jardiance] 25 mg PO DAILY 08/09/23 Fenofibrate,Micronized [Fenofibrate] 200 mg PO DAILY 08/09/23 Pioglitazone [Actos] 30 mg PO DAILY 08/09/23 Rosuvastatin [Crestor] 20 mg PO DAILY 08/09/23 Gabapentin [Neurontin] 100 mg PO TID #9 cap 08/12/23 HYDROcodone/APAP 5-325MG [Transfer 5-325] 1 tab PO TID #9 tab 08/12/23 Glimepiride [Amaryl] 2 mg PO BID 11/17/23 Controlled Substance Measures - Controlled Substance Measures Is patient prescribed a controlled substance at discharge?: No
== END ==
LOC: PNWHC3 08:39
PROVIDERS: ATTEND Specialist
DX: M51.37 Other intervertebral disc degeneration, lumbosacral region (principal); Z88.8 Allergy status to other drugs, medicaments and biological substances
CPT/HCPCS: 99211

== ENCOUNTER 2024-03-30 07:11 | Day surgery (SDC) | payer MEDICARE ==
[2024-03-30] MEDS: IV FLUID CONTINUATION 1,000 ML IV ONE ×2 (08:08→08:50)
[2024-03-30 08:12] LABS: Glucose,Whole Blood 97 mg/dL (70-110)
[2024-03-30] MEDS: LACTATED RINGERS 1,000 ML IV SCH (08:13)
[2024-03-30 08:16] VITALS: TEMP 97.9
[2024-03-30] MEDS ORDERED: fentaNYL (PF) 50 MCG/ML 2 ML AMP ONE (08:31)
[2024-03-30] MEDS ORDERED: ROPIVACAINE 5MG/ML 20ML VIAL ONE (08:31)
[2024-03-30] MEDS ORDERED: MIDAZOLAM 2 MG/2 ML VIAL ONE (08:31)
--- NOTE | 2024-03-30 08:44 | P.PCN ---
Date of Procedure: 03/30/24 Procedure(s) Performed: PREOPERATIVE DIAGNOSIS : 1- Lumbar spondylosis with Facet Arthropathy with out myelopathy . 2- Lumber degenerative disc disease POSTOPERATIVE DIAGNOSIS: 1- Lumbar spondylosis with Facet Arthropathy without myelopathy . 2- Lumber degenerative disc disease PROCEDURE: Diagnostic bilateral L3 , L4 , and L5 medial branch block under fluoroscopy guidance(fluoroscopy images available in the radiology Department ) ( To target the facet joint between Bilateral L4-5 , and L5- S1 )#1st ANESTHESIA:moderate sedation with intravenous Versed 2 mg and Fentanyl 50 mcg. (Patient start time 08:31, ended at 08:41 ) EBL: Minimal COMPLICATION: None PROCEDURE INDICATION: Chronic low back pain secondary to Facet arthropathy unresponsive to conservative treatment. PROCEDURE DESCRIPTION: the patient was seen and identified in the preop holding area , risks and benefits and possible complications of the procedure and alternative were discussed with the patient, and the patient agreed to proceed with the procedure and signed the consent and vital signs monitored during the procedure and fluoroscopy was used to maximize the benefit and accuracy of the needle placement, and sedation was given to decrease patient anxiety, patient was taken to the procedure room and placed in prone position vital signs monitored in the back prepped with chlorhexidine X3 then under strict sterile technique using a right oblique fluoroscopy ,the junction of the transverse process and the superior articulating process of the right L3 , L4 , and L5 vertebra which corresponding to the fluoroscopy image of the eye of the Van dog on the block side for the medial branches and subsequently , after local infiltration of skin and subcu tissuies with Ropivacaine 0.5 % , one mL at each level ,then 22-gauge 5 inches long Quincke-type needles , 3 needle was used , each one of them placed at the junction of the base of the transverse process and the superior articular process at the appropriate level, and the needle was advanced until the periosteum contacted, needle placement confirmed with AP oblique and lateral view and after appropriate needle placement confirmed, and after negative aspiration for heme and CSF and there was no p aresthesia 1-1/2 mL of Ropivacaine , then half mL injected at each level after negative aspiration the needle subsequently removed and the same procedure repeated for the left side at left side at L3 , L4 and L5 levels. At the end of the procedure and the needles removed and a bandage applied after the skin was cleaned the cleaning solution patient taken to recovery room in stable condition and monitors in the recovery room for 20-30 minutes and discharged home in stable condition after discharge criteria met and patient will follow up with the pain clinic in 2-4 weeks Last dose of Plavix was 1 week ago
[2024-03-30 09:08] VITALS: BP 142/77; PULSE 59; RESP 20
--- NOTE | 2024-03-30 11:13 | FL ---
EXAMINATION TYPE: FL guided pain mgmt statistic DATE OF EXAM: 03/30/2024 FLUOROSCOPY Fluoroscopy time of 22 seconds was used during bilateral facet blocks for lumbar spondylosis. 4 imag e/s document/s the procedure. DAP .[id number] mGym2
== END 2024-03-30 09:34 | disposition home or self-care (01) ==
LOC: ORPAIN 07:11
PROVIDERS: ATTEND Specialist
DX: M47.816 Spondylosis without myelopathy or radiculopathy, lumbar region (principal); M51.36 Other intervertebral disc degeneration, lumbar region; Z88.8 Allergy status to other drugs, medicaments and biological substances; Z79.02 Long term (current) use of antithrombotics/antiplatelets; Z79.84 Long term (current) use of oral hypoglycemic drugs; Z79.899 Other long term (current) drug therapy; Z79.891 Long term (current) use of opiate analgesic
CPT/HCPCS: 64493; 64494; J2250; J3010; J2795; 99152

== ENCOUNTER 2024-06-21 09:48 | Day surgery (SDC) | payer MEDICARE ==
[2024-06-21 10:42] LABS: Glucose,Whole Blood 118 mg/dL (70-110)
[2024-06-21 10:43] VITALS: RESP 18; TEMP 96.9
[2024-06-21] MEDS ORDERED: IOPAMIDOL M300 15ML VIAL ONE (12:51)
[2024-06-21] MEDS ORDERED: methylPREDNISolone ACETATE 40 MG/ML 1 ML VIAL ONE (12:51)
[2024-06-21] MEDS ORDERED: ROPIVACAINE 5MG/ML 20ML VIAL ONE (12:51)
[2024-06-21] MEDS ORDERED: LACTATED RINGERS 1,000 ML IV SCH (12:57)
--- NOTE | 2024-06-21 13:12 | P.PCN ---
Description of Procedure: Procedure diagnosis. He had joint osteoarthritis. Postprocedure diagnosis. As above. Procedure done. Right hip joint injection with IV contrast, injection of local anesthetic and steroid under fluoroscopic guidance. Anesthesia. Local anesthetic infiltration in the subcutaneous tissue. Continuous pulse ox, EKG, blood pressure and verbal communication was maintained with the patient. Blood loss. None. Indication. Discussed with the patient the procedure alternatives and possible complications which may include infection bleeding nerve damage blood vessel puncture. Patient understands and all questions were answered. Procedure note. After getting consent patient in OR in supine position. Under fluoroscopic guidance, after infiltration of 5 mL of 1% lidocaine subcutaneously, a 22-gauge spinal needle was introduced under tunnel vision of the fluoroscope at the superior lateral part of the neck of the femur near the junction of the head of the femur. After needle position information with fluoroscopy, and after negative aspiration 1 cc of Isovue-300 contrast was injected which was noted to be inside the hip joint capsule. After negative aspiration 3 cc solution was injected which consists of 2 cc of 0.5% ropivacaine mixed with 1 cc of 40 mg Depo-Medrol. Spinal needle was taken out and bandage was applied. Disposition. Patient tolerated the procedure well. No complication from the procedure. Patient was discharged in stable condition from outpatient.
[2024-06-21 13:27] VITALS: BP 152/84; PULSE 72
--- NOTE | 2024-07-05 10:36 | FL ---
EXAMINATION TYPE: FL guided pain mgmt statistic DATE OF EXAM: 06/21/2024 1:10 PM COMPARISON: Pre Operative Images if available both CT/MRI or plain film CLINICAL INDICATION: Male, 83 years old with history of Lg Bursa Joint Inj; TECHNIQUE: FL guided pain mgmt statistic, multiple fluoroscopic images provided for procedure. Total fluoroscopy time: 14 seconds Total submitted images to PACS: 1 DAP: [id number] mGym2 Gycm2 uGym2 cGycm2 or equivalent. FINDINGS: Fluoroscopic services for procedure injection demonstrates injection along the bursa anterior to the femoral neck. No acute process identified. No evidence fracture. IMPRESSION: 1. No evidence for intraoperative complication. 2. Please see the operative/procedural note for further details. [facility], , 07/05/2024 10:33 AM
== END 2024-06-21 13:35 | disposition home or self-care (01) ==
LOC: ORPAIN 09:48
PROVIDERS: ATTEND Pain Medicine Interventional Pain Medicine
DX: M16.11 Unilateral primary osteoarthritis, right hip
CPT/HCPCS: 20610

== ENCOUNTER → 2024-09-27 | Outpatient (CLI) | payer MEDICARE ==
[2024-09-27 13:11] LABS: Partial Thromboplastin Time 24.7 sec (22.0-30.0); Prothrombin Time 11.4 sec (10.0-12.5)
[2024-09-27 16:02] LABS: HCT 47.1 % (39.6-50.0); HGB 14.6 g/dL (13.0-17.0); MCH 30.9 pg (27.0-32.0); MCV 99.8 FL (80.0-97.0); Mean Platelet Volume 10.7 FL (9.5-12.2); NRBC Per 100 WBC 0 X 10*3/uL (0.00-0.01); Platelet Count 197 X 10*3/uL (140-440); RBC 4.72 X 10*6/uL (4.40-5.60); RDW 14.1 % (11.5-14.5); WBC 5.03 X 10*3/uL (4.50-10.00)
[2024-09-27 16:20] LABS: ALT 11 U/L (10-49); AST 18 U/L (14-35); Albumin 4.4 g/dL (3.8-4.9); Albumin/Globulin Ratio 1.57 Ratio (1.60-3.17); Alkaline Phosphatase 44 U/L (41-126); BUN/Creat Ratio 18.36 Ratio (12.00-20.00); Blood Urea Nitrogen 20.2 mg/dL (9.0-27.0); Calcium 9.5 mg/dL (8.7-10.3); Carbon Dioxide 23.5 mmol/L (21.6-31.8); Chloride 103 mmol/L (96-109); Globulin 2.8 g/dL (1.6-3.3); Glucose 158 mg/dL (70-110); Potassium 4.4 mmol/L (3.5-5.5); Sodium 142 mmol/L (135-145); Total Bilirubin 0.7 mg/dL (0.3-1.2); Total Protein 7.2 g/dL (6.2-8.2)
== END | disposition home or self-care (01) ==
LOC: LABPAT 11:08
PROVIDERS: ATTEND Orthopaedic Surgery
DX: Z01.812 Encounter for preprocedural laboratory examination (principal); M16.11 Unilateral primary osteoarthritis, right hip; Z22.322 Carrier or suspected carrier of Methicillin resistant Staphylococcus aureus
CPT/HCPCS: 36415; 80053; 85027; 85610; 85730; 86850; 86900; 86901; 87070

== ENCOUNTER 2024-10-08 07:26 | Observation (INO) | payer MEDICARE ==
[~2024-10-08 07:26] MED LIST changes: +ACETAMINOPHEN TAB 500 MG TAB PO PRN; -ALPRAZolam 0.25 MG TAB PO PRN; -ALPRAZolam 0.5 MG TAB PO PRN; +GABAPENTIN 300 MG CAP PO PRN; -HEPARIN SODIUM,PORCINE (1 ML) 2,500 UNIT in SODIUM CHLORIDE 0.9% 250 ML IRRIGATION PRN; -HEPARIN SODIUM,PORCINE 10,000 UNIT in SODIUM CHLORIDE 0.9% 1,000 ML IRRIGATION PRN; +HYDROcodone/APAP 7.5-325MG 1 EACH TAB PO PRN; +HYDROmorphone 0.5 MG/0.5 ML SYRINGE IVP PRN; +MAGNESIUM HYDROXIDE 2,400 MG/30 ML CUP PO PRN; +NALOXONE 0.4 MG/ML 1 ML VIAL IV PRN; -NITROGLYCERIN SL TABS 0.4 MG TAB SUBLINGUAL PRN; +TRANEXAMIC 1,000 MG/100ML-NACL 1,000 MG in SALINE 1 100ML.BAG IVPB PRN
[2024-10-08 08:08] LABS: Glucose,Whole Blood 183 mg/dL (70-110)
[2024-10-08] MEDS: IV FLUID CONTINUATION 1,000 ML IV ONE (08:11)
[2024-10-08] MEDS: LACTATED RINGERS 1,000 ML IV SCH (08:23)
[2024-10-08] MEDS: ONDANSETRON 4 MG/2 ML VIAL IVP PRN (08:23)
[2024-10-08] MEDS: MELOXICAM 7.5 MG TAB PO PRN (08:23)
[2024-10-08] MEDS: fentaNYL (PF) 50 MCG/ML 2 ML AMP IVP PRN (08:26)
[2024-10-08] MEDS: MIDAZOLAM 2 MG/2 ML VIAL IV ONE (08:26)
--- NOTE | 2024-10-08 08:33 | P.ANPRN ---
Procedure Note - Anesthesia - Nerve Block Performed Right Mor Single Time Out Performed: Yes Date of Procedure: 10/08/24 Procedure Start Time: :24 Procedure Stop Time: :30 Location of Patient: PreOp Indication: Acute Post-Operative Pain, Requested by Surgeon Sedation Type: Sedate with meaningful contact maintained Preparation: Sterile Prep Position: Supine Needle Types: Pajunk Needle Gauge: 21 Ultrasound used to visualize needle placement: Yes Ultrasound used to observe medication spread: Yes Injectate: 0.5% Ropivacaine (see comment for volume) (20 ml +10 ml NS + 4 mg Dexamethasone) Blood Aspirated: No Pain Paresthesia on Injection Noted: No Resistance on Injection: Normal Image Stored and Saved: Yes Events: Uneventful and Well Tolerated
[2024-10-08] MEDS ORDERED: SODIUM CHLORIDE 0.9% (PF) 10 ML VIAL ONE (08:59)
[2024-10-08] MEDS ORDERED: MIDAZOLAM 2 MG/2 ML VIAL ONE (08:59)
[2024-10-08] MEDS ORDERED: KETAMINE HCL IN 0.9 % NACL 50 MG/5 ML SYRINGE ONE (08:59)
[2024-10-08] MEDS ORDERED: fentaNYL (PF) 50 MCG/ML 2 ML AMP ONE (08:59)
[2024-10-08] MEDS ORDERED: ROPIVACAINE 5 MG/ML 30 ML VIAL ONE (08:59)
[2024-10-08] MEDS ORDERED: TRANEXAMIC 1,000 MG/100ML-NACL PREMIX BAG ONE (08:59)
[2024-10-08] MEDS ORDERED: DEXAMETHASONE SOD PHOSPHATE 4 MG/ML 1 ML VIAL ONE (08:59)
[2024-10-08] MEDS: ceFAZolin 1,000 MG in SODIUM CHLORIDE 0.9% 1,000 ML IRRIGATION ONE (09:04)
[2024-10-08] MEDS: ROPIVACAINE 5 MG/ML 30 ML VIAL MISCELLANE ONE ×2 (09:37→10:14)
--- NOTE | 2024-10-08 10:20 | P.OP ---
Date of Procedure: 10/08/24 Preoperative Diagnosis: Severe osteoarthritis, right hip Postoperative Diagnosis: Severe osteoarthritis, right hip Procedure(s) Performed: Right total hip arthroplasty with a direct anterior approach Implants: [employer] Polarstem standard size 3 with a collar [employer] R3, 3 hole hemispherical acetabular shell, 54 mm [employer] Reflection 6.5 mm cancellus screws, 20 mm, 25 mm [employer] R3, XLPE 20 acetabular liner [employer] Oxinium femoral head 36 mm, +4 All components were press-fit. The articulation is Oxinium on polyethylene. Anesthesia: spinal Surgeon: Nino Carbone Food Safety Technician #1: Pattie Medina Estimated Blood Loss (ml): 400 Pathology: none sent Condition: stable Disposition: PACU Indications for Procedure: After failure of conservative treatment we discussed the surgical and nonsurgical treatment options at length. Patient wishes to proceed with a total hip arthroplasty with a direct anterior approach. Complications specific to this procedure were discussed at length, including but not limited to infection, leg length discrepancy, dislocation, nerve injury, and fracture. Covid-19 was also discussed at length with the patient, and they are aware of the current trista icies and procedures. The patient was given the option of delaying surgery, but they elect to proceed knowing these risks. Patient is aware of all these complications and informed consent was obtained Operative Findings: The operative findings are consistent with severe osteoarthritis of the right hip Description of Procedure: The patient was seen and evaluated in the preoperative area and the consent was reviewed. The operative site was marked with a skin marker. The patient verified the procedure and operative site. A RAJEEV block was placed by anesthesia in the preoperative area. The patient was then brought to the operating room and given preoperative antibiotics intravenously. 1 g of Tranexamic acid was also given intravenously. A spinal anesthetic was administered by the anesthesia department. The patient was then placed on the Rutledge table with the bony prominences well-padded. The hip area was then prepped with a ChloraPrep solution and draped in the usual sterile fashion. A universal timeout was then performed, which confirmed the patient's name, surgical site, ALLERGIES, and procedure being performed on the consent. Next the incision site was located at 1 cm distal and 4 cm lateral to the anterior superior iliac spine. The skin and subcutaneous tissues were sharply incised. Incision was carefully dissected down to the fascia overlying the tensor fascia everett muscle. This fascia was then incised in line with the muscle fibers. Care was taken to stay laterally in order to avoid injuring the lateral femoral cutaneous nerve. Next, using blunt finger dissection, the tensor fascia everett muscle was dissected off its investing fascia. The muscle was then carefully retracted laterally with a cobra retractor over the lateral neck of the femur. Next, the circumflex vessels were identified and cauterized using the Aquamantis device. The anterior hip capsule was then exposed. The capsule was then opened and an inverted T fashion. The retractors were then placed intracapsularly. The retractors were maintained intracapsular throughout the procedure. The proximal femur was then visualized. Fluoroscopic x-rays were then taken in order to evaluate the preoperative leg lengths. A small amount of traction was placed on the leg. The femoral neck was then osteotomized at the appropriate level above the lesser trochanter. A small wedge of bone was then removed from the remaining femoral head. Next, using a corkscrew the femoral head was removed from the acetabulum. On gross visual inspection, the femoral head had complete loss of articular cartilage and multiple periarticular osteophytes. The femoral head was then measured. Attention was then turned to the acetabulum. The acetabulum was exposed and any remaining labrum was excised. Sequential reaming of the acetabulum was performed using fluoroscopic guidance until there was a good bed of bleeding cancellus bone. When the appropriate size was reached, a trial was then placed. The position and fit of the trial was checked with fluoroscopy. The trial was then removed. Then, using fluoroscopic guidance, the final implant was impacted at 20 of anteversion and 40 of abduction, and fully seated in the acetabulum. 2 screws were then placed in the acetabulum. Again fluoroscopy was used to check position of the screws. Next, the liner was then impacted, with a 20 elevated liner located in the anterior superior quadrant. Component locking was confirmed. Attention was then directed to the femur. With the aid of the Rutledge table, the femur was externally rotated to approximately 130, extended, and adducted under the opposite leg. A side hook was then placed under the proximal femur, and the side hook elevator was used to elevate the proximal femur while releasing the capsule. Retractors were then placed. A capsular release was performed, as well as a release of the conjoined tendon, which afforded excellent visualization of the proximal femur. Next, a box osteotome was used to lateralize the proximal femur. A deckhand crab boat was then used to locate the femoral canal. Sequential broaching was then performed with appropriate size which afforded excellent fixation in the proximal femur. A trial was then placed with appropriate head and neck, and the hip was gently reduced with the aid of the Rutledge table. Fluoroscopy was then used to check position of the components, as well as to evaluate the leg lengths and offset. The leg lengths and offset were measured as closely as possible to ensure stability of the hip. The hip was then gently dislocated and the trials were then removed. Final implants were then impacted and the hip was again reduced. Final fluoroscopic x-rays confirmed that the components were in anatomic position. The leg lengths and offset were measured and were found to coincide with the trial measurements. The hip was also taken through range of motion, and found to be stable. The hip was then copiously irrigated with antibiotic solution with pulsatile lavage. The hip was then irrigated with Irrisept solution. The soft tissues were then injected with a ropivacaine solution. A second dose of 1 g of Tranexamic acid was also given intravenously. The fascia was then closed with 2-0 strata fix suture. The subcutaneous tissue was closed with 3-0 Vicryl. The subcuticular tissue was closed with 3-0 moncryl suture. The skin was then closed with Exofin skin glue. After the glue and dried, and Optifoam silver impregnated dressing was applied. The patient was then transferred to the recovery room in stable condition. The resident assistant YOAN Will was required due to the complexity of surgery, and the need for skilled surgical nurse for positioning, draping, exposure, retraction, and closure of the wound.
--- NOTE | 2024-10-08 10:44 | FL ---
EXAMINATION TYPE: FL guidance operating room, XR Hip Limited RT DATE OF EXAM: 10/08/2024 CLINICAL HISTORY: Right hip pain and osteoarthritis. TECHNIQUE: Fluoroscopy. Intraoperative limited views right hip. COMPARISON: Pelvic x-ray August 08, 2023 FINDINGS: Fluoroscopic guidance was provided during right hip replacement procedure performed by Dr. Carbone. A total of 26 seconds of fluoroscopic time was utilized during the procedure and 3 spot i mages was acquired. Total dose area product (DAP) in uGy*m?, mGy*cm? (or similar: 4.2128. Intraoperative images acquired show placement of metallic hardware from total right hip replacement. This appears satisfactory in position on intraoperative frontal projection. IMPRESSION: As Above. [facility], , 10/08/2024 10:42 AM
--- NOTE | 2024-10-08 11:11 | XR ---
EXAMINATION TYPE: XR Hip Limited RT DATE OF EXAM: 10/08/2024 CLINICAL HISTORY: Right hip pain and osteoarthritis. TECHNIQUE: Two frontal views of the right hip are obtained immediately postoperatively. COMPARISON: None. FINDINGS: Metallic hardware from right hip arthroplasty is seen and appears satisfactory in alignment and position. There is evidence of recent surgery with surrounding subcutaneous gas and soft tissue swelling noted. IMPRESSION: Metallic hardware from right hip arthroplasty is satisfactory in position. [facility], , 10/08/2024 11:09 AM
[2024-10-08 11:23] LABS: Glucose,Whole Blood 213 mg/dL (70-110)
[2024-10-08] MEDS: INSULIN ASPART (NovoLOG) 100 UNIT/ML VIAL SQ ONE (11:36)
[2024-10-08] MEDS: HYDROcodone/APAP 7.5-325MG 1 EACH TAB PO PRN (15:27)
[2024-10-08] MEDS: HYDROmorphone 0.5 MG/0.5 ML SYRINGE IVP PRN (16:22)
[2024-10-08] MEDS: SODIUM CHLORIDE 0.9% 1,000 ML IV SCH (17:06)
[2024-10-08] MEDS ORDERED: HYDROmorphone 1 MG/ML 1 ML SYRINGE IVP PRN (18:35)
[2024-10-08] MEDS ORDERED: DEXTROSE 50% SYRINGE 50 ML IVP PRN ×2 (18:47)
--- NOTE | 2024-10-08 18:50 | P.CONS ---
History of Present Illness - Reason for Consult Consult date: 10/08/24 - History of Present Illness 83-year-old male with PMH of TIA, hypertension, diabetes mellitus, dyslipidemia, chronic knee and lower back pain presents to [facility] for elective surgery. He underwent Right total hip arthroplasty with a direct anterior approach with Dr. Carbone. [facility] consulted for medical management of this patient. Patient reports 10/10 right hip pain. Urinating freely. POC glucose 183-213. General: not toxic, no distress, appears at stated age Derm: warm, dry Head: atraumatic, normocephalic, symmetric Eyes: EOMI, no lid lag, anicteric sclera Mouth: no lip lesion, mucus membranes moist Cardiovascular: S1S2 reg, no murmur Lungs: Clear to auscultation BL Ext: no gross muscle atrophy, no edema, no contractures Neuro: no focal neuro deficits Psych: Alert, oriented, appropriate affect Based on my assessment of this patient, this patient meets a high complexity level of care. Diabetes mellitus: ISS + Accuchecks ACHS. Hypoglycemic precautions. History of TIA: Plavix 75 mg PO QD. Decrease ASA to 81 mg PO QD. Hypertension: Losartan 100 mg PO QD. Dyslipidemia: Lipitor 40 mg PO QD. Fenofibrate 160 mg PO QD. CODE STATUS: FULL CODE DVT Prophylaxis: ASA GI Prophylaxis: Designated medical POA if patient is not able to make medical decisions for themselves: I have reviewed the following acquisition consultant notes: Operative note. I have reviewed the results of the following tests: POC glucose. I have ordered the following tests: I have discussed the care of this patient with the following independent historian: KEO. 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 [place]. TIA. LOWER BACK PAIN. Skin Cancer, Type II DM History of Any Multi-Drug Resistant Organisms: None Reported Past Surgical History: Joint Replacement, Orthopedic Surgery Additional Past Surgical History / Comment(s): SEVERAL LYMPH NODES FROM RIGHT AXILLA REMOVED. LEFT TOTAL HIP. RIGHT MENISCUS REPAIR. BILATERAL CATARACTS. Right Shoulder Surgery from Fall Past Anesthesia/Blood Transfusion Reactions: No Reported Reaction Additional Past Anesthesia/Blood Transfusion Reaction / Comm: unk hx of blood transfusion Past Psychological History: No Psychological Hx Reported Smoking Status: Never smoker Past Alcohol Use History: None Reported Past Drug Use History: None Reported - Past Family History Father Family Medical History: Hypertension Medications and Allergies Home Medications Medication Instructions Recorded Confirmed Type Krill Oil 500 mg PO DAILY 02/18/15 10/08/24 History Losartan [Cozaar] 100 mg PO DAILY 02/18/15 10/08/24 History Clopidogrel Bisulfate [Clopidogrel] 75 mg PO DAILY 09/09/15 10/08/24 History Vit C/E/Zn/Coppr/Lutein/Zeaxan 1 cap PO BID 09/09/15 10/08/24 History [Preservision Areds 2 Softgel] Empagliflozin [Jardiance] 25 mg PO DAILY 08/09/23 10/08/24 History Fenofibrate,Micronized 200 mg PO DAILY 08/09/23 10/08/24 History [Fenofibrate] Rosuvastatin [Crestor] 20 mg PO DAILY 08/09/23 10/08/24 History Glimepiride [Amaryl] 2 mg PO BID 11/17/23 10/08/24 History Gabapentin [Neurontin] 300 mg PO TID 06/15/24 10/08/24 History HYDROcodone/APAP 5-325MG [Fountain 1 tab PO BID 10/01/24 10/08/24 History 5-325] Acetaminophen Tab [Tylenol Tab] 1,000 mg PO Q6HR PRN 10/08/24 10/08/24 History Aspirin 325 mg PO BID #60 tab 10/08/24 Rx HYDROcodone/APAP 7.5-325MG [Fountain 1 - 2 tab PO Q6H PRN #32 tab 10/08/24 Rx 7.5-325] Sennosides [Senokot] 2 tab PO DAILY PRN #60 tablet 10/08/24 Rx Allergies Allergy/AdvReac Type Severity Reaction Status Date / Time atenolol AdvReac Hallucinati Verified 10/08/24 07:59 ons donepezil [From Aricept] AdvReac panic Verified 10/08/24 07:59 attack Physical Exam Vitals: Vital Signs Temp Pulse Pulse Resp BP Pulse Ox 10/08/24 18:26 88 151/82 97 10/08/24 17:05 98.7 F 89 18 181/105 97 10/08/24 16:36 88 16 168/71 97 10/08/24 16:00 91 16 168/72 97 10/08/24 15:00 84 16 169/74 97 10/08/24 14:00 78 16 162/71 97 10/08/24 13:56 62 16 168/66 97 10/08/24 13:26 66 16 163/65 97 10/08/24 12:56 59 L 16 162/75 97 10/08/24 12:24 57 L 18 146/67 96 10/08/24 11:55 56 L 14 128/60 94 L 10/08/24 11:37 59 L 16 123/56 98 10/08/24 11:22 65 18 127/61 97 10/08/24 11:07 67 18 127/61 97 10/08/24 10:52 62 18 145/57 100 10/08/24 10:37 97.1 F L 65 20 132/63 100 10/08/24 08:30 75 18 171/74 97 10/08/24 07:55 97.4 F L 79 16 189/80 95 10/08/24 07:45 24 Intake and Output 10/08/24 10/08/24 10/08/24 06:59 14:59 22:59 Intake Total 1051 Output Total 400 100 Balance 651 -100 Intake: IV 1051 Output: Urine 100 Estimated Blood Loss 400 Other: # Voids 0 Weight 132.2 kg 132.2 kg Results Labs: Abnormal Lab Results - Last 24 Hours (Table) 10/08/24 10/08/24 Range/Units 08:07 11:20 POC Glucose (mg/dL) 183 H 213 H (70-110) mg/dL
[2024-10-08 20:30] LABS: Glucose,Whole Blood 269 mg/dL (70-110)
[2024-10-08] MEDS ORDERED: ASPIRIN 325 MG TAB PO SCH (21:00)
[2024-10-08] MEDS: GABAPENTIN 300 MG CAP PO SCH (21:34)
[2024-10-08] MEDS: INSULIN ASPART (NovoLOG) 100 UNIT/ML VIAL SQ SCH (21:34)
[2024-10-08] MEDS: SENNOSIDES-DOCUSATE SODIUM 1 EACH TAB PO SCH (21:34)
[2024-10-09 06:14] LABS: Glucose,Whole Blood 211 mg/dL (70-110)
[2024-10-09] MEDS: ATORVASTATIN 40 MG TAB PO SCH (08:32)
[2024-10-09] MEDS: ASPIRIN 81 MG PO SCH (08:32)
[2024-10-09] MEDS: FENOFIBRATE 160 MG TAB PO SCH (08:32)
[2024-10-09] MEDS: CLOPIDOGREL 75 MG TAB PO SCH (08:32)
[2024-10-09] MEDS: LOSARTAN 50 MG TAB PO SCH (08:32)
[2024-10-09 09:00] LABS: Basophils % (A) 1 %; Eosinophils # (A) 0.1 k/uL (0-0.7); Eosinophils % (A) 1 %; HGB 13.4 gm/dL (13.0-17.5); Lymphocytes # (A) 1.1 k/uL (1.0-4.8); Lymphocytes % (A) 16 %; MCHC 32.7 g/dL (31.0-37.0); MCV 98.2 fL (80.0-100.0); Mean Platelet Volume 9.2; Monocytes # (A) 0.6 k/uL (0-1.0); Monocytes % (A) 9 %; Neutrophils # (A) 5.2 k/uL (1.3-7.7); Neutrophils % (A) 73 %; Platelet Count 139 k/uL (150-450); RBC 4.17 m/uL (4.30-5.90); RDW 14.1 % (11.5-15.5); WBC 7.1 k/uL (3.8-10.6)
[2024-10-09] MEDS ORDERED: CLOPIDOGREL 75 MG TAB PO SCH (09:00)
--- NOTE | 2024-10-09 10:22 | P.PN ---
Subjective Progress Note Date: 10/09/24 This is an 83-year-old male who is status post right total hip arthroplasty. This is postoperative day #1 and patient is seen and evaluated at bedside today. Patient states that his pain is well-controlled and he was able to stand and walk a few steps with physical therapy today. Objective - Vital Signs Vital signs: Vital Signs Temp 98.1 F 10/09/24 07:59 Pulse 67 10/09/24 07:59 Resp 19 10/09/24 07:59 BP 143/73 10/09/24 07:59 Pulse Ox 97 10/09/24 07:59 FiO2 Intake & Output 10/08/24 10/09/24 10/09/24 18:59 06:59 18:59 Intake Total 1051 840 Output Total 500 1100 250 Balance 551 -260 -250 Weight 132.2 kg Intake: IV 1051 Intake, IV Titration 840 Amount Sodium Chloride 0.9% 1, 840 000 ml @ 70 mls/hr IV . [id number] [facility] Rx#:[id number] Output: Urine 100 1100 250 Estimated Blood Loss 400 Other: # Voids 0 2 - Exam Vital signs are stable. Patient is in no acute distress and is alert and oriented 3. Calf is soft and nontender to palpation. Dressing is clean, dry, and intact. Patient has full foot and ankle motion without pain or difficulty. Sensation intact. Neurovascular status and circulatory status are intact. - Labs CBC & Chem 7: 10/09/24 08:12 Labs: Abnormal Lab Results - Last 24 Hours (Table) 10/08/24 10/08/24 10/09/24 Range/Units 11:20 20:29 06:12 RBC (4.30-5.90) m/uL Plt Count (150-450) k/uL POC Glucose (mg/dL) 213 H 269 H 211 H (70-110) mg/dL 10/09/24 Range/Units 08:12 RBC 4.17 L (4.30-5.90) m/uL Plt Count 139 L (150-450) k/uL POC Glucose (mg/dL) (70-110) mg/dL Assessment and Plan (1) Osteoarthritis of right hip Current Visit: Yes Status: Acute Code(s): M16.11 - UNILATERAL PRIMARY OSTEOARTHRITIS, RIGHT HIP SNOMED Code(s): 400173988410636 (2) S/P total right hip arthroplasty Current Visit: Yes Status: Acute Code(s): Z96.641 - PRESENCE OF RIGHT ARTIFICIAL HIP JOINT SNOMED Code(s): 979573205457 Plan: Continue routine postop care and pain control. Continue anticoagulation. Weightbearing as tolerated with a walker. Leave dressing in place for 7 days. Appreciate input from internal medicine. Anticipate discharge to [facility] in the next 24-48 hours.
[2024-10-09 10:50] LABS: Glucose,Whole Blood 204 mg/dL (70-110)
--- NOTE | 2024-10-09 16:26 | P.PN ---
Subjective Progress Note Date: 10/09/24 Subjective: Patient seen and examined at bedside. No acute events overnight. Claims that he was able to ambulate using a walker. Pertinent positives and negatives as discussed above, a complete review of systems was performed and all other systems are negative. Vitals Signs Reviewed. General: Nontoxic, no distress, appears at stated age, obese Derm: Warm, dry Head: Atraumatic, normocephalic, symmetric Eyes: EOMI, no lid lag, anicteric sclera Mouth: No lip lesion, mucus membranes moist Cardiovascular: S1S2 reg, no murmur Lungs: CTA bilateral, no rhonchi, no rales, no accessory muscle use Abdominal: Soft, nontender to palpation, no guarding, no appreciable organomegaly Ext: No gross muscle atrophy, trace peripheral edema, no contractures Neuro: CN II-XI grossly intact, no focal neuro deficits Psych: Alert, oriented, appropriate affect Data Reviewed Today: Pertinent Labs: WBC 7.1, hemoglobin 13.4, blood sugars range between 204 to 269 Imaging: No new imaging Assessment and Plan: Active: Type 2 diabetes -Holding home antidiabetic medications -Continue sliding scale insulin, ACHS, monitor for hypoglycemia -Will order A1c Hypertension -Continue losartan 100 mg daily Dyslipidemia -Continue atorvastatin 40 mg daily, fenofibrate 160 mg daily History of TIA -Continue Plavix 75 mg daily, and statin Status post right hip total arthroplasty -Pain control with oral [place] as needed, IV Dilaudid as needed -Senna 2 nightly bowel regimen -Also on aspirin 81 mg daily -DVT prophylaxis per orthopedic surgery -Also on gabapentin 300 3 times daily -DC IV fluids Patient is medically optimized for discharge Thank you for allowing us to participate in the care of this pleasant patient. Do not hesitate to contact us with questions. Someone can be reached from the [facility] hospitalist group all hours of the day at [phone] or via perfect serve. Objective - Vital Signs Vital signs: Vital Signs Temp 98.5 F 10/09/24 13:23 Pulse 79 10/09/24 13:23 Resp 18 10/09/24 13:23 BP 120/73 10/09/24 13:23 Pulse Ox 96 10/09/24 13:23 FiO2 Intake & Output 10/08/24 10/09/24 10/09/24 18:59 06:59 18:59 Intake Total 1051 840 Output Total 500 1100 400 Balance 551 260 400 Weight 132.2 kg Intake: IV 1051 Intake, IV Titration 840 Amount Sodium Chloride 0.9% 1, 840 000 ml @ 70 mls/hr IV . [id number] [facility] Rx#:[id number] Output: Urine 100 1100 400 Estimated Blood Loss 400 Other: # Voids 0 2 - Labs CBC & Chem 7: 10/09/24 08:12 Labs: Abnormal Lab Results - Last 24 Hours (Table) 10/08/24 10/09/24 10/09/24 Range/Units 20:29 06:12 08:12 RBC 4.17 L (4.30-5.90) m/uL Plt Count 139 L (150-450) k/uL POC Glucose (mg/dL) 269 H 211 H (70-110) mg/dL 10/09/24 Range/Units 10:47 RBC (4.30-5.90) m/uL Plt Count (150-450) k/uL POC Glucose (mg/dL) 204 H (70-110) mg/dL
[2024-10-09 16:34] LABS: Glucose,Whole Blood 263 mg/dL (70-110)
[2024-10-09 20:43] LABS: Glucose,Whole Blood 301 mg/dL (70-110)
[2024-10-10 06:29] LABS: Glucose,Whole Blood 229 mg/dL (70-110)
--- NOTE | 2024-10-10 10:56 | P.PN ---
Subjective Progress Note Date: 10/10/24 Subjective: Patient seen and examined at bedside. No was having difficulty urinating this morning. Had to be straight cathed x 1. Pertinent positives and negatives as discussed above, a complete review of systems was performed and all other systems are negative. Vitals Signs Reviewed. General: Nontoxic, no distress, appears at stated age, obese, hard of hearing Derm: Warm, dry Head: Atraumatic, normocephalic, symmetric Eyes: EOMI, no lid lag, anicteric sclera Mouth: No lip lesion, mucus membranes moist Cardiovascular: S1S2 reg, no murmur Lungs: CTA bilateral, no rhonchi, no rales, no accessory muscle use Abdominal: Soft, nontender to palpation, no guarding, no appreciable organom egaly Ext: No gross muscle atrophy, trace peripheral edema, no contractures Neuro: CN II-XI grossly intact, no focal neuro deficits Psych: Alert, oriented, appropriate affect Data Reviewed Today: Pertinent Labs: Blood sugars range between 229-301 Imaging: No new imaging Assessment and Plan: Active: Type 2 diabetes -Holding home antidiabetic medications -Continue sliding scale insulin, ACHS, monitor for hypoglycemia -A1c pending -10 units of Levemir given now Hypertension -Continue losartan 100 mg daily Dyslipidemia -Continue atorvastatin 40 mg daily, fenofibrate 160 mg daily History of TIA -Continue Plavix 75 mg daily, and statin Acute urinary retention -Had to be straight cath once -Continue to monitor -Increase activity Status post right hip total arthroplasty -Pain control with oral Castaner as needed, IV Dilaudid as needed -Senna 2 nightly bowel regimen -Also on aspirin 81 mg daily -DVT prophylaxis per orthopedic surgery -Also on gabapentin 300 3 times daily Patient is medically optimized for discharge Thank you for allowing us to participate in the care of this pleasant patient. Do not hesitate to contact us with questions. Someone can be reached from the [facility] hospitalist group all hours of the day at [phone] or via perfect serve. Objective - Vital Signs Vital signs: Vital Signs Temp 98.4 F 10/10/24 07:40 Pulse 92 10/10/24 09:20 Resp 18 10/10/24 09:20 BP 146/75 10/10/24 07:40 Pulse Ox 94 L 10/10/24 07:40 FiO2 Intake & Output 10/09/24 10/10/2425 18:59 06:59 18:59 Output Total 400 500 Balance -400 -500 Output: Urine 400 500 Straight 500 Other: Voiding Method Urinal # Voids 1 - Labs CBC & Chem 7: 10/09/24 08:12 Labs: Abnormal Lab Results - Last 24 Hours (Table) 10/09/24 10/09/24 10/10/24 Range/Units 16:27 20:41 06:27 POC Glucose (mg/dL) 263 H 301 H 229 H (70-110) mg/dL
[2024-10-10 11:23] LABS: Glucose,Whole Blood 212 mg/dL (70-110)
[2024-10-10] MEDS: INSULIN DETEMIR (LEVEMIR) 100 UNIT/ML SYR SQ STA (11:58)
--- NOTE | 2024-10-10 14:48 | P.PN ---
Subjective Progress Note Date: 10/10/24 Principal diagnosis: Primary osteoarthritis right hip. Status post total right hip arthroplasty with direct anterior approach This is an 83-year-old male who is status post right total hip arthroplasty. This is postoperative day #2 and patient is seen and evaluated at bedside today. Patient states that his pain is well-controlled and he was able to stand and walk a few steps with physical therapy. He is awaiting rehab placement. There are no new complaints or concerns today. Objective - Vital Signs Vital signs: Vital Signs Temp 97.8 F 10/10/24 14:00 Pulse 98 10/10/24 14:00 Resp 18 10/10/24 14:00 BP 165/81 10/10/24 14:00 Pulse Ox 93 L 10/10/24 14:00 FiO2 Intake & Output 10/09/24 10/10/24 10/10/24 18:59 06:59 18:59 Output Total 400 500 Balance -400 -500 Output: Urine 400 500 Straight 500 Other: Voiding Method Urinal # Voids 1 - Exam Vital signs are stable. Patient is in no acute distress and is alert and oriented 3. Calf is soft and nontender to palpation. Dressing is clean, dry, and intact. Patient has full foot and ankle motion without pain or difficulty. Sensation intact. Neurovascular status and circulatory status are intact. - Labs CBC & Chem 7: 10/09/24 08:12 Labs: Abnormal Lab Results - Last 24 Hours (Table) 10/09/24 10/09/24 10/10/24 Range/Units 16:27 20:41 06:27 POC Glucose (mg/dL) 263 H 301 H 229 H (70-110) mg/dL 10/10/24 Range/Units 11:21 POC Glucose (mg/dL) 212 H (70-110) mg/dL Assessment and Plan (1) Osteoarthritis of right hip Current Visit: Yes Status: Acute Code(s): M16.11 - UNILATERAL PRIMARY OSTEOARTHRITIS, RIGHT HIP SNOMED Code(s): 930590792756681 (2) S/P total right hip arthroplasty Current Visit: Yes Status: Acute Code(s): Z96.641 - PRESENCE OF RIGHT ARTIFICIAL HIP JOINT SNOMED Code(s): 315523040118 Plan: The clinical findings are discussed with the patient. Continue with physical therapy. Planning discharge to inpatient rehab tomorrow if placement arranged and cleared medically.
[2024-10-10 16:35] LABS: Glucose,Whole Blood 213 mg/dL (70-110)
[2024-10-10 20:47] LABS: Glucose,Whole Blood 172 mg/dL (70-110)
[2024-10-10] MEDS: HYDROmorphone 0.5 MG/0.5 ML SYRINGE IVP PRN (21:29)
[2024-10-11 06:33] LABS: Glucose,Whole Blood 219 mg/dL (70-110)
[2024-10-11] MEDS: INSULIN DETEMIR (LEVEMIR) 100 UNIT/ML SYR SQ SCH (06:59)
[2024-10-11 08:03] LABS: African American GFR (CKD) >90 (>60 ml/min/1.73 sqM); Anion Gap 6 mmol/L; Blood Urea Nitrogen 24 mg/dL (9-20); Calcium 9.2 mg/dL (8.4-10.2); Carbon Dioxide 31 mmol/L (22-30); Chloride 99 mmol/L (98-107); Glucose 191 mg/dL (74-99); Non-African American GFR(CKD) 79 (>60 ml/min/1.73 sqM); Potassium 4.6 mmol/L (3.5-5.1); Sodium 136 mmol/L (137-145)
[2024-10-11] MEDS: TAMSULOSIN 0.4 MG CAP.ER.24H PO SCH (09:54)
[2024-10-11 10:25] LABS: Basophils # (A) 0.04 X 10*3/uL (0.00-0.10); Basophils % (A) 0.7 %; Eosinophils # (A) 0.13 X 10*3/uL (0.04-0.35); Eosinophils % (A) 2.1 %; HCT 39.2 % (39.6-50.0); HGB 12.5 g/dL (13.0-17.0); Lymphocytes # (A) 1.33 X 10*3/uL (0.90-5.00); Lymphocytes % (A) 21.8 %; MCH 31.4 pg (27.0-32.0); MCHC 31.9 g/dL (32.0-37.0); MCV 98.5 FL (80.0-97.0); Mean Platelet Volume 11.1 FL (9.5-12.2); Monocytes # (A) 0.62 X 10*3/uL (0.20-1.00); Monocytes % (A) 10.2 %; NRBC Per 100 WBC 0 X 10*3/uL (0.00-0.01); Neutrophils # (A) 3.94 X 10*3/uL (1.80-7.70); Neutrophils % (A) 64.7 %; Platelet Count 130 X 10*3/uL (140-440); RBC 3.98 X 10*6/uL (4.40-5.60); RDW 13.6 % (11.5-14.5); WBC 6.09 X 10*3/uL (4.50-10.00)
[2024-10-11 11:07] LABS: Glucose,Whole Blood 220 mg/dL (70-110)
[2024-10-11] MEDS: KETOROLAC 15 MG/ML 1 ML VIAL IVP SCH (12:18)
[2024-10-11 13:02] LABS: ABG Base Excess 4.9 mmol/L; ABG HCO3 30 mmol/L (21-25); ABG Oxygen Saturation 90.8 % (94-97); ABG PCO2 47 mmHg (35-45); ABG PH 7.41 (7.35-7.45); ABG TCO2 32 mmol/L (19-24); Allen Test Performed? Yes
[2024-10-11 13:05] LABS: ABG PO2 56 mmHg (83-108)
--- NOTE | 2024-10-11 14:17 | XR ---
EXAMINATION TYPE: XR chest 1V portable DATE OF EXAM: 10/11/2024 COMPARISON: Chest x-ray August 09, 2023 CLINICAL INDICATION: Male, 83 years old with history of hypoxia; TECHNIQUE: Single frontal view of the chest is obtained. FINDINGS: Elevated left hemidiaphragm is redemonstrated. There is no suspicious focal air space opac ity, pleural effusion, or pneumothorax seen. Cardiomegaly is redemonstrated. Surgical clips overlyin g the right axillary region. The osseous structures are intact. IMPRESSION: Cardiomegaly without acute pulmonary process. [facility], , 10/11/2024 2:15 PM
--- NOTE | 2024-10-11 14:29 | P.PN ---
Subjective Progress Note Date: 10/11/24 Subjective: Patient seen and examined at bedside. Overnight patient was more confused. Again had urinary retention, Mensah catheter was placed. Also had 1 episode of fever and was hypoxic on room air. Pertinent positives and negatives as discussed above, a complete review of systems was performed and all other systems are negative. Vitals Signs Reviewed. General: Nontoxic, no distress, appears at stated age, obese, hard of hearing Derm: Warm, dry Head: Atraumatic, normocephalic, symmetric Eyes: EOMI, no lid lag, anicteric sclera Mouth: No lip lesion, mucus membranes moist Cardiovascular: S1S2 reg, no murmur Lungs: CTA bilateral, no rhonchi, no rales, no accessory muscle use Abdominal: Soft, nontender to palpation, no guarding, no appreciable organomegaly Ext: No gross muscle atrophy, trace peripheral edema, no contractures Neuro: CN II-XI grossly intact, no focal neuro deficits Psych: Alert, oriented x 2, appropriate affect Data Reviewed Today: Pertinent Labs: pH 7.41, pCO2 47, pO2 56, A1c 7.9, WBC 6.09, hemoglobin 12.5, platelet 130, sodium 136, creatinine 0.9, blood sugars range between 1 72-2 19 Imaging: Chest x-ray independently interpreted, shows left hemidiaphragm, opacities bibasilar Assessment and Plan: Active: Acute delirium Acute metabolic encephalopathy Acute urinary retention Acute hypoxic respiratory failure Atelectasis -Delirium likely in the setting of uncontrolled pain as well as being in the hospital -Patient not able to tolerate [place], started on Tylenol 3 by orthopedic surgery -Patient also on IV Dilaudid as needed, gabapentin 300 mg 3 times daily -Monitor for sedation -Added Toradol 15 mg IV every 6 hours -Patient is now status post Mensah catheter -Started on Flomax 0.4 mg daily -Continue bowel regimen per orthopedic surgery -Encourage ambulation, early discontinuation of Mensah catheter Patient had an isolated episode of fever, likely secondary to atelectasis, encourage incentive spirometer Type 2 diabetes -Holding home antidiabetic medications -Continue sliding scale insulin, ACHS, monitor for hypoglycemia -A1c 7.9 -10 units of Levemir daily Hypertension -Continue losartan 100 mg daily Dyslipidemia -Continue atorvastatin 40 mg daily, fenofibrate 160 mg daily History of TIA -Continue Plavix 75 mg daily, and statin Status post right hip total arthroplasty -Pain control with oral Tylenol 3 as needed, IV Dilaudid as needed -Senna 2 nightly bowel regimen -Also on aspirin 81 mg daily -DVT prophylaxis per orthopedic surgery -Also on gabapentin 300 3 times daily Thank you for allowing us to participate in the care of this pleasant patient. Do not hesitate to contact us with questions. Someone can be reached from the [facility] hospitalist group all hours of the day at [phone] or via [employer]. Objective - Vital Signs Vital signs: Vital Signs Temp 98.2 F 10/11/24 14:00 Pulse 87 10/11/24 14:00 Resp 17 10/11/24 14:00 BP 148/72 10/11/24 14:00 Pulse Ox 95 10/11/24 14:00 FiO2 Intake & Output 10/10/24 10/11/24 10/11/24 18:59 06:59 18:59 Output Total 900 Balance -900 Output: Urine 900 Straight 450 Other: Voiding Method Urinal Indwelling Catheter Indwelling Catheter # Voids 1 850 - Labs CBC & Chem 7: 10/11/24 06:17 10/11/24 06:17 Labs: Abnormal Lab Results - Last 24 Hours (Table) 10/10/24 10/10/24 10/11/24 Range/Units 16:33 20:45 06:17 RBC (4.40-5.60) X 10*6/uL Hgb (13.0-17.0) g/dL Hct (39.6-50.0) % MCV (80.0-97.0) FL MCHC (32.0-37.0) g/dL Plt Count (140-440) X 10*3/uL ABG pCO2 (35-45) mmHg ABG pO2 (83-108) mmHg ABG HCO3 (21-25) mmol/L ABG Total CO2 (19-24) mmol/L ABG O2 Saturation (94-97) % Hemoglobin (13.0-17.5) gm/dL Sodium (137-145) mmol/L Carbon Dioxide (22-30) mmol/L BUN (9-20) mg/dL Glucose (74-99) mg/dL POC Glucose (mg/dL) 213 H 172 H (70-110) mg/dL Hemoglobin A1c 7.9 H (<=6.0) % 10/11/24 10/11/24 10/11/24 Range/Units 06:17 06:17 06:30 RBC 3.98 L (4.40-5.60) X 10*6/uL Hgb 12.5 L (13.0-17.0) g/dL Hct 39.2 L (39.6-50.0) % MCV 98.5 H (80.0-97.0) FL MCHC 31.9 L (32.0-37.0) g/dL Plt Count 130 L (140-440) X 10*3/uL ABG pCO2 (35-45) mmHg ABG pO2 (83-108) mmHg ABG HCO3 (21-25) mmol/L ABG Total CO2 (19-24) mmol/L ABG O2 Saturation (94-97) % Hemoglobin (13.0-17.5) gm/dL Sodium 136 L (137-145) mmol/L Carbon Dioxide 31 H (22-30) mmol/L BUN 24 H (9-20) mg/dL Glucose 191 H (74-99) mg/dL POC Glucose (mg/dL) 219 H (70-110) mg/dL Hemoglobin A1c (<=6.0) % 10/11/24 10/11/24 Range/Units 11:06 12:56 RBC (4.40-5.60) X 10*6/uL Hgb (13.0-17.0) g/dL Hct (39.6-50.0) % MCV (80.0-97.0) FL MCHC (32.0-37.0) g/dL Plt Count (140-440) X 10*3/uL ABG pCO2 47 H (35-45) mmHg ABG pO2 56 L* (83-108) mmHg ABG HCO3 30 H (21-25) mmol/L ABG Total CO2 32 H (19-24) mmol/L ABG O2 Saturation 90.8 L (94-97) % Hemoglobin 11.5 L (13.0-17.5) gm/dL Sodium (137-145) mmol/L Carbon Dioxide (22-30) mmol/L BUN (9-20) mg/dL Glucose (74-99) mg/dL POC Glucose (mg/dL) 220 H (70-110) mg/dL Hemoglobin A1c (<=6.0) %
[2024-10-11] MEDS: Acetaminophen-Codeine 300-30mg TAB PO PRN (15:19)
[2024-10-11 16:10] LABS: Glucose,Whole Blood 276 mg/dL (70-110)
--- NOTE | 2024-10-11 17:10 | P.PN ---
Subjective Progress Note Date: 10/11/24 This is an 83-year-old male who is status post right total hip arthroplasty. This is postoperative day #3 and patient is seen and evaluated at bedside today. Patient states that his pain is controlled. Family at bedside state that the patient is slightly more confused today. Patient denies any new complaints today. Patient also had a Mensah placed. Objective - Vital Signs Vital signs: Vital Signs Temp 98.2 F 10/11/24 14:00 Pulse 87 10/11/24 14:00 Resp 17 10/11/24 14:00 BP 148/72 10/11/24 14:00 Pulse Ox 95 10/11/24 14:00 FiO2 Intake & Output 10/10/24 10/11/24 10/11/24 18:59 06:59 18:59 Output Total 900 Balance -900 Output: Urine 900 Straight 450 Other: Voiding Method Urinal Indwelling Catheter Indwelling Catheter # Voids 1 850 - Exam Vital signs are stable. Patient is in no acute distress and is alert and oriented 3. Calf is soft and nontender to palpation. Dressing is clean, dry, and intact. Patient has full foot and ankle motion without pain or difficulty. Sensation intact. Neurovascular status and circulatory status are intact. - Labs CBC & Chem 7: 10/11/24 06:17 10/11/24 06:17 Labs: Abnormal Lab Results - Last 24 Hours (Table) 10/10/24 10/11/24 10/11/24 Range/Units 20:45 06:17 06:17 RBC 3.98 L (4.40-5.60) X 10*6/uL Hgb 12.5 L (13.0-17.0) g/dL Hct 39.2 L (39.6-50.0) % MCV 98.5 H (80.0-97.0) FL MCHC 31.9 L (32.0-37.0) g/dL Plt Count 130 L (140-440) X 10*3/uL ABG pCO2 (35-45) mmHg ABG pO2 (83-108) mmHg ABG HCO3 (21-25) mmol/L ABG Total CO2 (19-24) mmol/L ABG O2 Saturation (94-97) % Hemoglobin (13.0-17.5) gm/dL Sodium (137-145) mmol/L Carbon Dioxide (22-30) mmol/L BUN (9-20) mg/dL Glucose (74-99) mg/dL POC Glucose (mg/dL) 172 H (70-110) mg/dL Hemoglobin A1c 7.9 H (<=6.0) % 10/11/24 10/11/24 10/11/24 Range/Units 06:17 06:30 11:06 RBC (4.40-5.60) X 10*6/uL Hgb (13.0-17.0) g/dL Hct (39.6-50.0) % MCV (80.0-97.0) FL MCHC (32.0-37.0) g/dL Plt Count (140-440) X 10*3/uL ABG pCO2 (35-45) mmHg ABG pO2 (83-108) mmHg ABG HCO3 (21-25) mmol/L ABG Total CO2 (19-24) mmol/L ABG O2 Saturation (94-97) % Hemoglobin (13.0-17.5) gm/dL Sodium 136 L (137-145) mmol/L Carbon Dioxide 31 H (22-30) mmol/L BUN 24 H (9-20) mg/dL Glucose 191 H (74-99) mg/dL POC Glucose (mg/dL) 219 H 220 H (70-110) mg/dL Hemoglobin A1c (<=6.0) % 10/11/24 10/11/24 Range/Units 12:56 16:09 RBC (4.40-5.60) X 10*6/uL Hgb (13.0-17.0) g/dL Hct (39.6-50.0) % MCV (80.0-97.0) FL MCHC (32.0-37.0) g/dL Plt Count (140-440) X 10*3/uL ABG pCO2 47 H (35-45) mmHg ABG pO2 56 L* (83-108) mmHg ABG HCO3 30 H (21-25) mmol/L ABG Total CO2 32 H (19-24) mmol/L ABG O2 Saturation 90.8 L (94-97) % Hemoglobin 11.5 L (13.0-17.5) gm/dL Sodium (137-145) mmol/L Carbon Dioxide (22-30) mmol/L BUN (9-20) mg/dL Glucose (74-99) mg/dL POC Glucose (mg/dL) 276 H (70-110) mg/dL Hemoglobin A1c (<=6.0) % Assessment and Plan (1) Osteoarthritis of right hip Current Visit: No Status: Acute Code(s): M16.11 - UNILATERAL PRIMARY OSTEOARTHRITIS, RIGHT HIP SNOMED Code(s): 510955058745506 (2) S/P total right hip arthroplasty Current Visit: No Status: Acute Code(s): Z96.641 - PRESENCE OF RIGHT ARTIFICIAL HIP JOINT SNOMED Code(s): 008161365941 Plan: Continue routine postop care and pain control. Continue anticoagulation. Weightbearing as tolerated with a walker. Leave dressing in place for 7 days. Appreciate input from internal medicine and neurology. Anticipate discharge to [facility] once cleared medically.
[2024-10-11 20:47] LABS: Glucose,Whole Blood 197 mg/dL (70-110)
[2024-10-12 06:17] LABS: Glucose,Whole Blood 202 mg/dL (70-110)
[2024-10-12 09:02] LABS: Blood Urea Nitrogen 27.8 mg/dL (9.0-27.0); Calcium 8.6 mg/dL (8.7-10.3); Carbon Dioxide 25.1 mmol/L (21.6-31.8); Chloride 101 mmol/L (96-109); Glucose 201 mg/dL (70-110); Potassium 4.6 mmol/L (3.5-5.5); Sodium 143 mmol/L (135-145)
[2024-10-12 09:19] LABS: Basophils # (A) 0.02 X 10*3/uL (0.00-0.10); Basophils % (A) 0.5 %; Eosinophils # (A) 0.24 X 10*3/uL (0.04-0.35); Eosinophils % (A) 5.7 %; HCT 34.7 % (39.6-50.0); HGB 11.3 g/dL (13.0-17.0); Lymphocytes # (A) 0.72 X 10*3/uL (0.90-5.00); Lymphocytes % (A) 17.2 %; MCH 31.6 pg (27.0-32.0); MCHC 32.6 g/dL (32.0-37.0); MCV 96.9 FL (80.0-97.0); Mean Platelet Volume 10.4 FL (9.5-12.2); Monocytes # (A) 0.47 X 10*3/uL (0.20-1.00); Monocytes % (A) 11.2 %; NRBC Per 100 WBC 0 X 10*3/uL (0.00-0.01); Neutrophils # (A) 2.73 X 10*3/uL (1.80-7.70); Neutrophils % (A) 65.2 %; Platelet Count 152 X 10*3/uL (140-440); RBC 3.58 X 10*6/uL (4.40-5.60); RDW 13.6 % (11.5-14.5); WBC 4.19 X 10*3/uL (4.50-10.00)
[2024-10-12 11:20] LABS: Glucose,Whole Blood 238 mg/dL (70-110)
--- NOTE | 2024-10-12 13:05 | P.PN ---
Subjective Progress Note Date: 10/12/24 This is an 83-year-old male who is status post right total hip arthroplasty. This is postoperative day #4 and patient is seen and evaluated at bedside today. Patient states that his pain is controlled and he was able to sit up in a chair today. Patient denies any new complaints today. Objective - Vital Signs Vital signs: Vital Signs Temp 98.1 F 10/12/24 07:28 Pulse 86 10/12/24 07:58 Resp 17 10/12/24 07:58 BP 158/76 10/12/24 07:28 Pulse Ox 97 10/12/24 07:28 FiO2 Intake & Output 10/11/24 10/12/24 10/12/24 18:59 06:59 18:59 Output Total 300 200 Balance -300 -200 Output: Urine 300 200 Other: Voiding Method Indwelling Catheter Indwelling Catheter Indwelling Catheter - Exam Vital signs are stable. Patient is in no acute distress and is alert and oriented 3. Calf is soft and nontender to palpation. Dressing is clean, dry, and intact. Patient has full foot and ankle motion without pain or difficulty. Sensation intact. Neurovascular status and circulatory status are intact. - Labs CBC & Chem 7: 10/12/24 06:07 10/12/24 06:07 Labs: Abnormal Lab Results - Last 24 Hours (Table) 10/11/24 10/11/24 10/11/24 Range/Units 12:56 16:09 20:46 WBC (4.50-10.00) X 10*3/uL RBC (4.40-5.60) X 10*6/uL Hgb (13.0-17.0) g/dL Hct (39.6-50.0) % Lymphocytes # (0.90-5.00) X 10*3/uL ABG pCO2 47 H (35-45) mmHg ABG pO2 56 L* (83-108) mmHg ABG HCO3 30 H (21-25) mmol/L ABG Total CO2 32 H (19-24) mmol/L ABG O2 Saturation 90.8 L (94-97) % Hemoglobin 11.5 L (13.0-17.5) gm/dL Anion Gap (4.00-12.00) mmol/L BUN (9.0-27.0) mg/dL BUN/Creatinine Ratio (12.00-20.00) Ratio Glucose (70-110) mg/dL POC Glucose (mg/dL) 276 H 197 H (70-110) mg/dL Calcium (8.7-10.3) mg/dL 10/12/24 10/12/24 10/12/24 Range/Units 06:07 06:07 06:15 WBC 4.19 L (4.50-10.00) X 10*3/uL RBC 3.58 L (4.40-5.60) X 10*6/uL Hgb 11.3 L (13.0-17.0) g/dL Hct 34.7 L (39.6-50.0) % Lymphocytes # 0.72 L (0.90-5.00) X 10*3/uL ABG pCO2 (35-45) mmHg ABG pO2 (83-108) mmHg ABG HCO3 (21-25) mmol/L ABG Total CO2 (19-24) mmol/L ABG O2 Saturation (94-97) % Hemoglobin (13.0-17.5) gm/dL Anion Gap 16.90 H (4.00-12.00) mmol/L BUN 27.8 H (9.0-27.0) mg/dL BUN/Creatinine Ratio 27.80 H (12.00-20.00) Ratio Glucose 201 H (70-110) mg/dL POC Glucose (mg/dL) 202 H (70-110) mg/dL Calcium 8.6 L (8.7-10.3) mg/dL 10/12/24 Range/Units 11:19 WBC (4.50-10.00) X 10*3/uL RBC (4.40-5.60) X 10*6/uL Hgb (13.0-17.0) g/dL Hct (39.6-50.0) % Lymphocytes # (0.90-5.00) X 10*3/uL ABG pCO2 (35-45) mmHg ABG pO2 (83-108) mmHg ABG HCO3 (21-25) mmol/L ABG Total CO2 (19-24) mmol/L ABG O2 Saturation (94-97) % Hemoglobin (13.0-17.5) gm/dL Anion Gap (4.00-12.00) mmol/L BUN (9.0-27.0) mg/dL BUN/Creatinine Ratio (12.00-20.00) Ratio Glucose (70-110) mg/dL POC Glucose (mg/dL) 238 H (70-110) mg/dL Calcium (8.7-10.3) mg/dL Assessment and Plan (1) Osteoarthritis of right hip Current Visit: No Status: Acute Code(s): M16.11 - UNILATERAL PRIMARY OSTEOARTHRITIS, RIGHT HIP SNOMED Code(s): 631041672926306 (2) S/P total right hip arthroplasty Current Visit: No Status: Acute Code(s): Z96.641 - PRESENCE OF RIGHT ARTIFICIAL HIP JOINT SNOMED Code(s): 928895396863 Plan: Continue routine postop care and pain control. Continue anticoagulation. Weightbearing as tolerated with a walker. Leave dressing in place for 7 days. Appreciate input from internal medicine and neurology. Anticipate discharge to [facility] once cleared medically.
--- NOTE | 2024-10-12 14:38 | P.PN ---
Subjective Progress Note Date: 10/12/24 Subjective: Patient seen and examined at bedside. Confusion has improved. Mensah catheter in place is cloudy. No further fevers. Pt has not had a BM as of yet. Pertinent positives and negatives as discussed above, a complete review of systems was performed and all other systems are negative. Vitals Signs Reviewed. General: Nontoxic, no distress, appears at stated age, obese, hard of hearing Derm: Warm, dry Head: Atraumatic, normocephalic, symmetric Eyes: EOMI, no lid lag, anicteric sclera Mouth: No lip lesion, mucus membranes moist Cardiovascular: S1S2 reg, no murmur Lungs: CTA bilateral, no rhonchi, no rales, no accessory muscle use Abdominal: Soft, nontender to palpation, no guarding, no appreciable organomegaly Ext: No gross muscle atrophy, trace peripheral edema, no contractures Neuro: CN II-XI grossly intact, no focal neuro deficits Psych: Alert, oriented x 2, appropriate affect Data Reviewed Today: Pertinent Labs: pH 7.41, pCO2 47, pO2 56, A1c 7.9, WBC 6.09, hemoglobin 12.5, platelet 130, sodium 136, creatinine 0.9, blood sugars range between 1 72-2 19 Imaging: Chest x-ray independently interpreted, shows left hemidiaphragm, opacities bibasilar Assessment and Plan: Active: Acute delirium Acute metabolic encephalopathy Acute urinary retention Acute hypoxic respiratory failure Atelectasis -Delirium likely in the setting of uncontrolled pain as well as being in the hospital -Patient not able to tolerate [place], started on Tylenol 3 by orthopedic surgery -Patient also on IV Dilaudid as needed, gabapentin 300 mg 3 times daily -Monitor for sedation -Added Toradol 15 mg IV every 6 hours -Patient is now status post Mensah catheter -Started on Flomax 0.4 mg daily -Continue bowel regimen per orthopedic surgery -Encourage ambulation, early discontinuation of Mensah catheter Patient had an isolated episode of fever, likely secondary to atelectasis, encourage incentive spirometer -added miralax 17gm daily, senokot-s BID Type 2 diabetes -Holding home antidiabetic medications -Continue sliding scale insulin, ACHS, monitor for hypoglycemia -A1c 7.9 -10 units of Levemir daily Hypertension -Continue losartan 100 mg daily Dyslipidemia -Continue atorvastatin 40 mg daily, fenofibrate 160 mg daily History of TIA -Continue Plavix 75 mg daily, and statin Status post right hip total arthroplasty -Pain control with oral Tylenol 3 as needed, IV Dilaudid as needed -Senna 2 tabs BID bowel regimen + miralax daily -Also on aspirin 81 mg daily -DVT prophylaxis per orthopedic surgery -Also on gabapentin 300 3 times daily Thank you for allowing us to participate in the care of this pleasant patient. Do not hesitate to contact us with questions. Someone can be reached from the [facility] hospitalist group all hours of the day at [phone] or via [employer]. Objective - Vital Signs Vital signs: Vital Signs Temp 98.2 F 10/12/24 14:00 Pulse 83 10/12/24 14:00 Resp 16 10/12/24 14:00 BP 157/70 10/12/24 14:00 Pulse Ox 99 10/12/24 14:00 FiO2 Intake & Output 10/11/24 10/12/24 10/12/24 18:59 06:59 18:59 Output Total 300 200 Balance -300 -200 Output: Urine 300 200 Other: Voiding Method Indwelling Catheter Indwelling Catheter Indwelling Catheter - Labs CBC & Chem 7: 10/12/24 06:07 10/12/24 06:07 Labs: Abnormal Lab Results - Last 24 Hours (Table) 10/11/24 10/11/24 10/12/24 Range/Units 16:09 20:46 06:07 WBC 4.19 L (4.50-10.00) X 10*3/uL RBC 3.58 L (4.40-5.60) X 10*6/uL Hgb 11.3 L (13.0-17.0) g/dL Hct 34.7 L (39.6-50.0) % Lymphocytes # 0.72 L (0.90-5.00) X 10*3/uL Anion Gap (4.00-12.00) mmol/L BUN (9.0-27.0) mg/dL BUN/Creatinine Ratio (12.00-20.00) Ratio Glucose (70-110) mg/dL POC Glucose (mg/dL) 276 H 197 H (70-110) mg/dL Calcium (8.7-10.3) mg/dL 01/10/25 01/10/25 01/10/25 Range/Units 06:07 06:15 11:19 WBC (4.50-10.00) X 10*3/uL RBC (4.40-5.60) X 10*6/uL Hgb (13.0-17.0) g/dL Hct (39.6-50.0) % Lymphocytes # (0.90-5.00) X 10*3/uL Anion Gap 16.90 H (4.00-12.00) mmol/L BUN 27.8 H (9.0-27.0) mg/dL BUN/Creatinine Ratio 27.80 H (12.00-20.00) Ratio Glucose 201 H (70-110) mg/dL POC Glucose (mg/dL) 202 H 238 H (70-110) mg/dL Calcium 8.6 L (8.7-10.3) mg/dL
[2024-10-12 16:25] LABS: Glucose,Whole Blood 217 mg/dL (70-110)
[2024-10-12] MEDS: SENNOSIDES-DOCUSATE SODIUM 1 EACH TAB PO SCH (16:33)
[2024-10-12] MEDS: polyethylene glycoL 3350 17 GM POWD.PACK PO SCH (16:33)
[2024-10-12 21:42] LABS: Glucose,Whole Blood 184 mg/dL (70-110)
[2024-10-13 06:52] LABS: Glucose,Whole Blood 182 mg/dL (70-110)
--- NOTE | 2024-10-13 08:21 | P.CNNES ---
History of Present Illness Consult date: 10/12/24 Requesting physician: Tom Pickering Reason for Consult: History of TIA History of Present Illness: Patient is a 83-year-old male came to the hospital for elective right total hip arthroplasty on 10/08/2024. Patient underwent surgery uneventful. In the last 2 days, patient has been somewhat confused, not remembering family had visited him. He was not responding as good. Lately he has been swearing, telling his "leave me alone". At baseline, he is a very calm person, never acts like this. Patient's family denies any stroke symptoms like slurred speech, facial droop, problem with the vision, any numbness tingling focal weakness. It was felt that patient is receiving too much pain medications. Today family believes that he is much better. He appears more like his self today. Patient currently taking Plavix 75 mg, Crestor 20 mg at home. While in the hospital aspirin 81 mg has also been started. Patient has history of TIA about more than 10 years ago, in which he was con fused, slurred, and he recovered completely. He has been on Plavix since then. Patient has history of hypertension and diabetes, denies any tobacco or alcohol use. Review of Systems All pertinent positive and negatives mentioned in the HPI otherwise unremarkable. No fever or chills. 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 [place]. TIA. LOWER BACK PAIN. Skin Cancer, Type II DM History of Any Multi-Drug Resistant Organisms: None Reported Past Surgical History: Joint Replacement, Orthopedic Surgery Additional Past Surgical History / Comment(s): SEVERAL LYMPH NODES FROM RIGHT AXILLA REMOVED. LEFT TOTAL HIP. RIGHT MENISCUS REPAIR. BILATERAL CATARACTS. Right Shoulder Surgery from Fall Past Anesthesia/Blood Transfusion Reactions: No Reported Reaction Additional Past Anesthesia/Blood Transfusion Reaction / Comment(s): unk hx of blood transfusion Past Psychological History: No Psychological Hx Reported Smoking Status: Never smoker Past Alcohol Use History: None Reported Past Drug Use History: None Reported - Past Family History Father Family Medical History: Hypertension Medications and Allergies Home Medications Medication Instructions Recorded Confirmed Type Krill Oil 500 mg PO DAILY 02/18/15 10/08/24 History Losartan [Cozaar] 100 mg PO DAILY 02/18/15 10/08/24 History Clopidogrel Bisulfate [Clopidogrel] 75 mg PO DAILY 09/09/15 10/08/24 History Vit C/E/Zn/Coppr/Lutein/Zeaxan 1 cap PO BID 09/09/15 10/08/24 History [Preservision Areds 2 Softgel] Empagliflozin [Jardiance] 25 mg PO DAILY 08/09/23 10/08/24 History Fenofibrate,Micronized 200 mg PO DAILY 08/09/23 10/08/24 History [Fenofibrate] Rosuvastatin [Crestor] 20 mg PO DAILY 08/09/23 10/08/24 History Glimepiride [Amaryl] 2 mg PO BID 11/17/23 10/08/24 History Gabapentin [Neurontin] 300 mg PO TID 06/15/24 10/08/24 History HYDROcodone/APAP 5-325MG [[place] 1 tab PO BID 10/01/24 10/08/24 History 5-325] Acetaminophen Tab [Tylenol Tab] 1,000 mg PO Q6HR PRN 10/08/24 10/08/24 History Aspirin 325 mg PO BID #60 tab 10/08/24 Rx Sennosides [Senokot] 2 tab PO DAILY PRN #60 tablet 10/08/24 Rx Acetaminophen-Codeine 300-30mg 1 tab PO Q6H PRN #28 tablet 10/13/24 Rx [Tylenol #3] Allergies Allergy/AdvReac Type Severity Reaction Status Date / Time atenolol AdvReac Hallucinati Verified 10/08/24 07:59 ons donepezil [From Aricept] AdvReac panic Verified 10/08/24 07:59 attack Physical Examination - Vital Signs Vital Signs: Vital Signs Temp Pulse Pulse Resp BP Pulse Ox 10/12/24 07:58 86 89 17 10/12/24 07:28 98.1 F 86 17 158/76 97 10/12/24 01:36 98.2 F 77 17 131/66 96 10/11/24 20:11 98.0 F 68 18 118/69 97 10/11/24 14:00 98.2 F 87 17 148/72 95 10/11/24 13:12 98 Intake and Output 10/11/24 10/12/24 10/12/24 22:59 06:59 14:59 Output Total 300 200 Balance -300 -200 Output: Urine 300 200 Other: Voiding Method Indwelling Catheter Indwelling Catheter Patient is an elderly male, laying in the bed, in no acute distress. He appears slightly "frustrated" at times. Patient is alert awake. Patient knows it is 2024 but could not tell the month. He knows that he lives in [facility] and that currently he is in [place]. Could not tell name of the building. He knows Mr. Mena is still the president. Speech and language functions are normal. Patient can name and repeat very well. No aphasia or dysarthria. Attention, concentration is slightly decreased and fund of knowledge is slightly decreased. On cranial nerve examination, pupils are equal, round and reacting to light, visual jackson are full on confrontation, with no neglect on double simultaneous stimulation. Extraocular muscles are intact with no nystagmus. Face is symmetric, tongue protrudes to the midline. Palatal elevation and sensation normal, hearing and shoulder shrug normal, facial sensation normal. On muscle strength testing, there is no pronator drift and the strength is normal in arms distally and proximally. The lower limbs, his ankle dorsiflexion, toe flexion into extension are normal. Proximally not checked because of recent hip surgery. Deep tendon reflexes are symmetric 1+ at the brachioradialis, 2 at the knees, absent lower limbs. Plantars flat. Sensory to touch is equal with no neglect on double simultaneous stimulation. Cerebellar function showed no ataxia for [id number] testing. No dysdiadochokinesia. Lower limbs not tested. Tone and bulk of muscles normal. He has mild tremors of outstretched hands. Gait deferred.. On general examination, there is no carotid bruit or murmur, S1-S2 audible. Chest is clear on consultation. Abdomen is soft nontender. No organomegaly, bowel sounds present. Peripheral pulses are present. Trace peripheral edema. Results - Laboratory Findings CBC and BMP: 10/12/24 06:07 10/12/24 06:07 Abnormal Lab Findings: Abnormal Labs 10/08/24 10/08/24 10/08/24 08:07 11:20 20:29 WBC RBC Hgb Hct MCV MCHC Plt Count Lymphocytes # ABG pCO2 ABG pO2 ABG HCO3 ABG Total CO2 ABG O2 Saturation Hemoglobin Sodium Carbon Dioxide Anion Gap BUN BUN/Creatinine Ratio Glucose POC Glucose (mg/dL) 183 H 213 H 269 H Hemoglobin A1c Calcium 10/09/24 10/09/24 10/09/24 06:12 08:12 10:47 WBC RBC 4.17 L Hgb Hct MCV MCHC Plt Count 139 L Lymphocytes # ABG pCO2 ABG pO2 ABG HCO3 ABG Total CO2 ABG O2 Saturation Hemoglobin Sodium Carbon Dioxide Anion Gap BUN BUN/Creatinine Ratio Glucose POC Glucose (mg/dL) 211 H 204 H Hemoglobin A1c Calcium 10/09/24 10/09/24 10/10/24 16:27 20:41 06:27 WBC RBC Hgb Hct MCV MCHC Plt Count Lymphocytes # ABG pCO2 ABG pO2 ABG HCO3 ABG Total CO2 ABG O2 Saturation Hemoglobin Sodium Carbon Dioxide Anion Gap BUN BUN/Creatinine Ratio Glucose POC Glucose (mg/dL) 263 H 301 H 229 H Hemoglobin A1c Calcium 10/10/24 10/10/24 10/10/24 11:21 16:33 20:45 WBC RBC Hgb Hct MCV MCHC Plt Count Lymphocytes # ABG pCO2 ABG pO2 ABG HCO3 ABG Total CO2 ABG O2 Saturation Hemoglobin Sodium Carbon Dioxide Anion Gap BUN BUN/Creatinine Ratio Glucose POC Glucose (mg/dL) 212 H 213 H 172 H Hemoglobin A1c Calcium 10/11/24 10/11/24 10/11/24 06:17 06:17 06:17 WBC RBC 3.98 L Hgb 12.5 L Hct 39.2 L MCV 98.5 H MCHC 31.9 L Plt Count 130 L Lymphocytes # ABG pCO2 ABG pO2 ABG HCO3 ABG Total CO2 ABG O2 Saturation Hemoglobin Sodium 136 L Carbon Dioxide 31 H Anion Gap BUN 24 H BUN/Creatinine Ratio Glucose 191 H POC Glucose (mg/dL) Hemoglobin A1c 7.9 H Calcium 10/11/24 10/11/24 10/11/24 06:30 11:06 12:56 WBC RBC Hgb Hct MCV MCHC Plt Count Lymphocytes # ABG pCO2 47 H ABG pO2 56 L* ABG HCO3 30 H ABG Total CO2 32 H ABG O2 Saturation 90.8 L Hemoglobin 11.5 L Sodium Carbon Dioxide Anion Gap BUN BUN/Creatinine Ratio Glucose POC Glucose (mg/dL) 219 H 220 H Hemoglobin A1c Calcium 0110/11/24 10/12/24 16:09 20:46 06:07 WBC 4.19 L RBC 3.58 L Hgb 11.3 L Hct 34.7 L MCV MCHC Plt Count Lymphocytes # 0.72 L ABG pCO2 ABG pO2 ABG HCO3 ABG Total CO2 ABG O2 Saturation Hemoglobin Sodium Carbon Dioxide Anion Gap BUN BUN/Creatinine Ratio Glucose POC Glucose (mg/dL) 276 H 197 H Hemoglobin A1c Calcium 10/12/24 10/12/24 10/12/24 06:07 06:15 11:19 WBC RBC Hgb Hct MCV MCHC Plt Count Lymphocytes # ABG pCO2 ABG pO2 ABG HCO3 ABG Total CO2 ABG O2 Saturation Hemoglobin Sodium Carbon Dioxide Anion Gap 16.90 H BUN 27.8 H BUN/Creatinine Ratio 27.80 H Glucose 201 H POC Glucose (mg/dL) 202 H 238 H Hemoglobin A1c Calcium 8.6 L Assessment and Plan Assessment: * Altered mental status, likely due to delirium. Reasons multifactorial including pain medications, current hospitalization, recent surgery. Patient has no focal symptoms. Neurological examination is completely nonfocal. * Metabolic encephalopathy, improving * Hypertension * Diabetes * Hyperlipidemia * History of TIA * Status post right hip total arthroplasty Plan: * Patient's delirium is improving. Avoid narcotics, anticholinergics, and opioid pain medications if possible. * Patient's delirium is improving. We will continue to observe. As the examination is normal, and he is improving, we will hold off on any brain imaging at this time. Discussed with patient's and patient's daughter and they are in agreement. * PT OT, out of bed to chair to help with mobility. * B12 934, TSH 1.81. * Hemoglobin A1c 7.9. Recommend optimize control of diabetes to target A1c <7.0 * Lipid panel with cholesterol 206, LDL 109, HDL 58, triglycerides 191. Continue Lipitor 40 mg daily. * Continue Plavix 75 mg daily. * Neurology will follow clinically. Thank you for the consult.
[2024-10-13 09:23] LABS: Basophils # (A) 0.01 X 10*3/uL (0.00-0.10); Basophils % (A) 0.4 %; Eosinophils # (A) 0.18 X 10*3/uL (0.04-0.35); Eosinophils % (A) 6.3 %; HCT 31.3 % (39.6-50.0); HGB 9.7 g/dL (13.0-17.0); Lymphocytes # (A) 0.46 X 10*3/uL (0.90-5.00); Lymphocytes % (A) 16.2 %; MCH 30.8 pg (27.0-32.0); MCV 99.4 FL (80.0-97.0); Mean Platelet Volume 10.6 FL (9.5-12.2); Monocytes # (A) 0.47 X 10*3/uL (0.20-1.00); Monocytes % (A) 16.5 %; NRBC Per 100 WBC 0 X 10*3/uL (0.00-0.01); Neutrophils # (A) 1.71 X 10*3/uL (1.80-7.70); Neutrophils % (A) 60.2 %; Platelet Count 161 X 10*3/uL (140-440); RBC 3.15 X 10*6/uL (4.40-5.60); RDW 13.7 % (11.5-14.5); WBC 2.84 X 10*3/uL (4.50-10.00)
[2024-10-13 12:07] LABS: Glucose,Whole Blood 302 mg/dL (70-110)
--- NOTE | 2024-10-13 14:26 | P.DS ---
Providers Date of admission: 10/11/24 15:11 Attending physician: Nino Carbone Consults: 10/08/24 06:17 Consult Physician Routine Consulting Provider: Mayrbeth Ren Consult Reason/Comments: medical management Do you want consulting provider notified?: Yes 10/11/24 12:33 Consult Physician Urgent Consulting Provider: Moi Soni Consult Reason/Comments: change in mental mentation, hx tia Do you want consulting provider notified?: Yes Primary care physician: Nino Guillen - Discharge Diagnosis(es) (1) Osteoarthritis of right hip Current Visit: No Status: Acute (2) S/P total right hip arthroplasty Current Visit: No Status: Acute Hospital Course: This is an 83-year-old male with known history of degenerative arthritis of the right hip. The patient presented for evaluation as an outpatient. After discussion and consideration patient elects to proceed with total hip arthroplasty. The patient is seen preoperatively by Dr. Carbone and medically cleared for surgery by their primary care physician. Patient is admitted to [facility] on 10/08/2024 for total hip arthroplasty. The procedure is performed without complication or sequelae. The patient is doing well postoperatively. Labs and vital signs are stable on day of discharge. Patient was also evaluated by neurology during this admission due to a change in mental status, but these symptoms resolved. On day of discharge patient's hip incision is healing well. There is minimal erythema. There is no drainage noted at this time. There is minimal soft tissue swelling to the hip and thigh. Patient has full foot and ankle motion without difficulty or pain. Calf is soft and nontender to palpation. Neurovascular status to the right lower extremity is intact. Patient is discharged to rehab in good condition. Please see med rec for accurate list of home medications. Plan - Discharge Summary Discharge Rx Participant: No New Discharge Prescriptions: New Sennosides [Senokot] 2 tab PO DAILY PRN #60 tablet PRN Reason: Constipation Aspirin 325 mg PO BID #60 tab Acetaminophen-Codeine 300-30mg [Tylenol #3] 1 tab PO Q6H PRN #28 tablet PRN Reason: Pain Continue Losartan [Cozaar] 100 mg PO DAILY Clopidogrel Bisulfate [Clopidogrel] 75 mg PO DAILY Vit C/E/Zn/Coppr/Lutein/Zeaxan [Preservision Areds 2 Softgel] 1 cap PO BID Rosuvastatin [Crestor] 20 mg PO DAILY Glimepiride [Amaryl] 2 mg PO BID Fenofibrate,Micronized [Fenofibrate] 200 mg PO DAILY Empagliflozin [Jardiance] 25 mg PO DAILY Gabapentin [Neurontin] 300 mg PO TID No Action Krill Oil 500 mg PO DAILY Acetaminophen Tab [Tylenol Tab] 1,000 mg PO Q6HR PRN PRN Reason: Pain HYDROcodone/APAP 5-325MG [[place] 5-325] 1 tab PO BID Discharge Medication List Krill Oil 500 mg PO DAILY 02/18/15 [History] Losartan [Cozaar] 100 mg PO DAILY 02/18/15 [History] Clopidogrel Bisulfate [Clopidogrel] 75 mg PO DAILY 09/09/15 [History] Vit C/E/Zn/Coppr/Lutein/Zeaxan [Preservision Areds 2 Softgel] 1 cap PO BID 09/09/15 [History] Empagliflozin [Jardiance] 25 mg PO DAILY 08/09/23 [History] Fenofibrate,Micronized [Fenofibrate] 200 mg PO DAILY 08/09/23 [History] Rosuvastatin [Crestor] 20 mg PO DAILY 08/09/23 [History] Glimepiride [Amaryl] 2 mg PO BID 11/17/23 [History] Gabapentin [Neurontin] 300 mg PO TID 06/15/24 [History] HYDROcodone/APAP 5-325MG [[place] 5-325] 1 tab PO BID 10/01/24 [History] Acetaminophen Tab [Tylenol Tab] 1,000 mg PO Q6HR PRN 10/08/24 [History] Aspirin 325 mg PO BID #60 tab 10/08/24 [Rx] Sennosides [Senokot] 2 tab PO DAILY PRN #60 tablet 10/08/24 [Rx] Acetaminophen-Codeine 300-30mg [Tylenol #3] 1 tab PO Q6H PRN #28 tablet 10/13/24 [Rx] Follow up Appointment(s)/Referral(s[facility] - 1-2 Days ([facility] will call you to schedule your in home physical therapy visits.) Nino Carbone DO [Doctor of Osteopathic Medicine] - 10/22/24 2:00 pm Activity/Diet/Wound Care/Special Instructions: Weightbearing as tolerated with walker. Leave dressing intact. Dressing may be removed by home care nurse or by patient in 7 days. Then change dressing twice daily until follow up. May shower with initial dressing intact and after removal. If dressing become saturated, please remove. Anticoagulation per internal medicine. Recommend use of compression stockings daily until follow up to help prevent swelling and blood clots. May remove at night before sleeping. Please follow-up with [facility] in 2 weeks and call with any questions or concerns, . Discharge Disposition: TRANSFER TO SNF/ECF
[2024-10-13] MEDS ORDERED: SENNOSIDES-DOCUSATE SODIUM 1 EACH TAB PO PRN (14:43)
--- NOTE | 2024-10-13 14:43 | P.PN ---
Subjective Progress Note Date: 10/13/24 83-year-old here with right total hip arthroplasty stay. Postoperative course complicated by acute delirium, urinary retention, and acute hypoxic respiratory failure secondary to atelectasis. Patient seen and examined at bedside. Had multiple bowel movements this morning. Well-controlled. Denies any nausea or vomiting. Vital signs reviewed General: Nontoxic, no distress, appears at stated age Cardiovascular: S1S2 reg, no murmur Lungs: Creased breath sounds bilateral, no rhonchi, no rales, no accessory muscle use Abdominal: Soft, nontender to palpation, no guarding Ext: No gross muscle atrophy, no edema b/l lower extremities, no contractures Neuro: CN II-XI grossly intact, no focal neuro deficits Psych: Alert, oriented, appropriate affect Assessment/Plan: Acute urinary retention - plan to d/c to SNF with magana in place and voiding trial in 5 days (7 days after re-inserted) - Flomax 0.4 mg daily Acute blood loss anemia, anticipated outcome of surgery -Repeat CBC in a.m. -Start ferrous sulfate 325 mg daily Acute metabolic encephalopathy, resolved Acute hypoxic respiratory failure, resolved Atelectasis, resolved Type 2 diabetes -Holding home antidiabetic medications -Continue sliding scale insulin, monitor for hypoglycemia. BS 302 at lunch today but ate pancakes and syrup for breakfast -A1c 7.9 -10 units of Levemir daily Hypertension - losartan 100 mg daily Dyslipidemia - atorvastatin 40 mg daily, fenofibrate 160 mg daily History of TIA - Plavix 75 mg daily, statin Status post right hip total arthroplasty -aspirin 81 mg daily -DVT prophylaxis per orthopedic surgery -gabapentin 300 3 times daily Imaging: None Data Review: Hemoglobin 9.7 Transition to inpatient status Medically optimized for discharge once insurance Auth obtained. This dictation was prepared using [employer] voice recognition software. Though every attempt is made to correct errors during dictation some may still exist. Objective - Vital Signs Vital signs: Vital Signs Temp 98.7 F 10/13/24 07:44 Pulse 62 10/13/24 07:44 Resp 18 10/13/24 07:44 BP 158/67 10/13/24 07:44 Pulse Ox 96 10/13/24 03:07 FiO2 Intake & Output 10/12/24 10/13/24 10/13/24 18:59 06:59 18:59 Output Total 1200 Balance -1200 Output: Urine 1200 Other: Voiding Method Indwelling Catheter Indwelling Catheter Indwelling Catheter # Voids 200 # Bowel Movements 2 1 - Labs CBC & Chem 7: 10/13/24 04:01 10/12/24 06:07 Labs: Abnormal Lab Results - Last 24 Hours (Table) 10/12/24 10/12/24 10/13/24 Range/Units 16:24 21:38 04:01 WBC 2.84 L (4.50-10.00) X 10*3/uL RBC 3.15 L (4.40-5.60) X 10*6/uL Hgb 9.7 L (13.0-17.0) g/dL Hct 31.3 L (39.6-50.0) % MCV 99.4 H (80.0-97.0) [place] MCHC 31.0 L (32.0-37.0) g/dL Neutrophils # 1.71 L (1.80-7.70) X 10*3/uL Lymphocytes # 0.46 L (0.90-5.00) X 10*3/uL POC Glucose (mg/dL) 217 H 184 H (70-110) mg/dL 10/13/24 10/13/24 Range/Units 06:50 12:06 WBC (4.50-10.00) X 10*3/uL RBC (4.40-5.60) X 10*6/uL Hgb (13.0-17.0) g/dL Hct (39.6-50.0) % MCV (80.0-97.0) FL MCHC (32.0-37.0) g/dL Neutrophils # (1.80-7.70) X 10*3/uL Lymphocytes # (0.90-5.00) X 10*3/uL POC Glucose (mg/dL) 182 H 302 H (70-110) mg/dL
[2024-10-13 15:42] VITALS: BP 144/71; PULSE 76; RESP 17; TEMP 98.8
[2024-10-13] MEDS: Acetaminophen-Codeine 300-30mg TAB PO PRN (16:07)
[2024-10-13 17:00] LABS: Glucose,Whole Blood 235 mg/dL (70-110)
[2024-10-14] MEDS ORDERED: FERROUS SULFATE 325 MG TAB PO SCH (12:30)
== END 2024-10-13 18:42 ==
LOC: OR 07:26 → 4SSUR 10:37 → OR 10-11 15:11
PROVIDERS: ADMIT Orthopaedic Surgery; ATTEND Orthopaedic Surgery
DX: M16.11 Unilateral primary osteoarthritis, right hip (principal); G93.41 Metabolic encephalopathy; J96.01 Acute respiratory failure with hypoxia; D62 Acute posthemorrhagic anemia; E11.9 Type 2 diabetes mellitus without complications; R33.9 Retention of urine, unspecified; J98.11 Atelectasis; I10 Essential (primary) hypertension; E78.5 Hyperlipidemia, unspecified; H91.90 Unspecified hearing loss, unspecified ear; G89.29 Other chronic pain; M25.569 Pain in unspecified knee; M54.50 Low back pain, unspecified; Z79.02 Long term (current) use of antithrombotics/antiplatelets; Z79.84 Long term (current) use of oral hypoglycemic drugs; Z79.899 Other long term (current) drug therapy; Z88.8 Allergy status to other drugs, medicaments and biological substances; Z86.73 Personal history of transient ischemic attack (TIA), and cerebral infarction without residual deficits; Z85.79 Personal history of other malignant neoplasms of lymphoid, hematopoietic and related tissues
CPT/HCPCS: 27130; 36600; 94760; 97530 ×3; 97161; 97166; 36410; 76937; 64999; 80048 ×2; 84443; 82607; 82805; 85025 ×4; 83036; 73501; 71045; G0378 ×3; C1776; J2250; J1100; J0690 ×3; J2405; J3010; J2795; J1885 ×3; J1171 ×4

== ENCOUNTER 2024-11-14 02:20 | Inpatient (IN) | payer MEDICARE ==
[2024-11-14] MEDS: MORPHINE SULFATE 2 MG/ML SYRINGE IVP STA ×2 (03:03→04:56)
[2024-11-14] MEDS: ONDANSETRON 4 MG/2 ML VIAL IVP STA ×2 (03:03→04:56)
--- NOTE | 2024-11-14 03:03 | ED ---
General Adult HPI - General Chief complaint: Abdominal Pain Stated complaint: flank pain Time Seen by Provider: 11/14/24 02:33 Source: EMS Mode of arrival: EMS Limitations: no limitations - History of Present Illness Initial comments: Patient is an 83-year-old gentleman with a past medical history of recent hip arthroplasty this past October, about 1 month prior to arrival,Diabetes, hyperlipidemia, hypertension, currently on Plavix presenting today for abdominal pain. Patient states that about noon yesterday began experiencing abdominal pain across the lower aspect of his stomach. It started on the left and then radiated to the right. Over the course of the evening has migrated to the right lower quadrant and radiates around to his right flank. Pain is gradually worsened. He states he was on the phone with paramedics who directed him to [facility] up for aspirin, otherwise patient is not taking any other medications for the pain. He denies nausea or vomiting. Last bowel movement was about 6 hours ago and was normal in size and consistency for him. No diarrhea melena or hematochezia. No prior abdominal surgeries. Denies dysuria, hematuria or frequency. Denies fevers or chills, chest pain, dizziness, headaches, shortness of breath. + dry cough. Denies testicular pain. - Related Data Home Medications Medication Instructions Recorded Confirmed Clopidogrel Bisulfate [Clopidogrel] 75 mg PO DAILY 09/09/15 11/14/24 Empagliflozin [Jardiance] 25 mg PO DAILY 08/09/23 11/14/24 Glimepiride [Amaryl] 2 mg PO BID 11/17/23 11/14/24 Atorvastatin [Lipitor] 40 mg PO DAILY 11/14/24 11/14/24 Cholecalciferol [Vitamin D3 (125 125 mcg PO DAILY 11/14/24 11/14/24 Mcg = 5000 Iu)] Gabapentin [Neurontin] 300 mg PO TID 11/14/24 11/14/24 Insulin Aspart [NovoLOG Flexpen] 20 units SQ AC-TID 11/14/24 11/14/24 Losartan Potassium [Cozaar] 100 mg PO DAILY 11/14/24 11/14/24 Multivitamins, Thera [Multivitamin 1 tab PO DAILY 11/14/24 11/14/24 (formulary)] Previous Rx's Medication Instructions Recorded Aspirin 325 mg PO BID #60 tab 01/06/25 Acetaminophen-Codeine 300-30mg 1 tab PO Q6H PRN #28 tablet 10/13/24 [Tylenol #3] Allergies Allergy/AdvReac Type Severity Reaction Status Date / Time atenolol AdvReac Hallucinati Verified 11/14/24 09:08 ons donepezil [From Aricept] AdvReac panic Verified 11/14/24 09:08 attack Review of Systems ROS Statement: Those systems with pertinent positive or pertinent negative responses have been documented in the HPI. ROS Other: All systems not noted in ROS Statement are negative. 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 COCOPAH. TIA. LOWER BACK PAIN. Skin Cancer, Type II DM History of Any Multi-Drug Resistant Organisms: None Reported Past Surgical History: Joint Replacement, Orthopedic Surgery Additional Past Surgical History / Comment(s): SEVERAL LYMPH NODES FROM RIGHT AXILLA REMOVED. LEFT TOTAL HIP. RIGHT MENISCUS REPAIR. BILATERAL CATARACTS. Right Shoulder Surgery from Fall Past Anesthesia/Blood Transfusion Reactions: No Reported Reaction Additional Past Anesthesia/Blood Transfusion Reaction / Comment(s): unk hx of blood transfusion Past Psychological History: No Psychological Hx Reported Smoking Status: Never smoker Past Alcohol Use History: None Reported Past Drug Use History: None Reported - Past Family History Father Family Medical History: Hypertension General Exam - General Exam Comments Initial Comments: PE: CONSTITUTIONAL: No apparent distress, well appearing SKIN: Warm, dry, no jaundice, hives or petechiae EYES: Pupils are equally round, extraocular movements intact without nystagmus, clear conjunctiva, non-icteric sclera HENT: Normocephalic, atraumatic, moist mucus membranes, oropharynx clear without exudates NECK: , Full range of motion, normal appearance PULMONARY: Clear to auscultation without wheezes, rhonchi, or rales, normal excursion, no accessory muscle use and no stridor CARDIOVASCULAR: Regular rate, rhythm, normal S1 and S2. No appreciated murmurs, rubs or gallops. Strong radial pulses with intact distal perfusion. No lower extremity edema GASTROINTESTINAL: Soft, active bowel sounds throughout, periumbilical TTP, +McBurney's point, +Right CVA TTP, +Psoas sign, negative gonzalez's sign, non-distended, no palpable masses, +rebound TTP of RLQ as well as guarding, No hepatosplenomegaly GENITOURINARY: MUSCULOSKELETAL: Extremities have no gross deformity, No calf swelling NEUROLOGIC:_a/o x 3, GCS 15, normal mentation and speech. Moves all extremities x 4 without motor or sensory deficit PSYCHIATRIC:_normal mood and affect, thought process is clear and linear Limitations: no limitations Course Vital Signs 11/14/24 11/14/24 11/14/24 02:22 04:00 06:33 Temperature 98.9 F Pulse Rate 67 76 75 Respiratory 18 18 20 Rate Blood Pressure 159/63 149/69 153/66 O2 Sat by Pulse 97 Oximetry 11/14/24 11/14/24 11/14/24 10:00 11:00 12:00 Temperature Pulse Rate 74 79 73 Respiratory 18 20 18 Rate Blood Pressure 109/86 166/74 154/67 O2 Sat by Pulse 94 L 96 96 Oximetry 11/14/24 11/14/24 11/14/24 12:30 13:00 14:13 Temperature Pulse Rate 68 67 82 Respiratory 20 18 18 Rate Blood Pressure 154/67 114/60 149/72 O2 Sat by Pulse 91 L 96 95 Oximetry 11/14/24 11/14/24 11/14/24 15:00 16:00 18:17 Temperature 99.7 F H 100.7 F H Pulse Rate 74 81 89 Respiratory 18 18 18 Rate Blood Pressure 132/55 102/57 135/46 O2 Sat by Pulse 97 96 94 L Oximetry 11/14/24 11/15/24 11/15/24 20:58 00:00 04:40 Temperature 99.6 F Pulse Rate 75 66 93 Respiratory 18 17 18 Rate Blood Pressure 118/60 114/52 147/93 O2 Sat by Pulse 94 L 95 92 L Oximetry 11/15/24 11/15/24 11/15/24 08:19 08:40 09:53 Temperature 100.4 F H 99.5 F Pulse Rate 71 Respiratory 20 Rate Blood Pressure 135/50 O2 Sat by Pulse 96 Oximetry 11/15/24 12:55 Temperature 99.1 F Pulse Rate 76 Respiratory 16 Rate Blood Pressure 144/80 O2 Sat by Pulse 96 Oximetry EKG Findings - EKG Comments: EKG Findings:: Sinus rhythm, rate 72 bpm [place] interval 174 ms QT/QTc 399/424 ms, left axis deviation, no ST elevations or depressions, no arrhythmia Medical Decision Making - Medical Decision Making Was pt. sent in by a medical professional or institution (YOAN Simpson, QUOTATION CHECKER, urgent care, hospital, or [facility]...) When possible be specific @ -No Did you speak to anyone other than the patient for history (EMS, parent, family, police, friend...)? What history was obtained from this source Yes, family later arrived and noted that patient has been home for 4 [facility], he has not been sleeping much over the last 4 days Did you review nursing and triage notes (agree or disagree)? Why? @ -I reviewed nursing and triage notes Were old charts reviewed (outside hosp., previous admission, EMS record, old EKG, old radiological studies, urgent care reports/EKG's, [facility] records)? Report findings @ -Medical records reviewed patient was recently admitted here for right hip arthroplasty, reviewed discharge summary Differential Diagnosis (chest pain, altered mental status, abdominal pain women, abdominal pain men, vaginal bleeding, weakness, fever, dyspnea, syncope, headache, dizziness, GI bleed, back pain, seizure, CVA, palpatations, mental health, musculoskeletal)? @ -Differential Abdominal Pain Men: Appendicitis, cholecystitis, diverticulosis, ischemic bowel, pancreatitis, hepatitis, UTI, gastroenteritis, AAA, incarcerated hernia, bowel obstruction, constipation, inflammatory bowel, hepatitis, peptic ulcer disease, splenic infarction, perforated viscus, testicular torsion, this is not meant to be an all-inclusive list EKG interpreted by me (3pts min.). @ -As above X-rays interpreted by me (1pt min.). @ -None done CT interpreted by me (1pt min.). @ -On my review of CT abdomen pelvis, I note singular kidney, no hydronephrosis or visible ureterolithiasis, the appendix does not appear enlarged, there is no evidence of obstruction or perforation U/S interpreted by me (1pt. min.). @ -None done What testing was considered but not performed or refused? (CT, X-rays, U/S, labs)? Why? @ -None What meds were considered but not given or refused? Why? @ -None Did you discuss the management of the patient with other professionals (profess ionals i.e. , PA, QUOTATION CHECKER, lab, RT, psych nurse, social service director, temperature logging operator, teacher, executive vice president and chief financial officer, case managers)? Give summary @ -No Was smoking cessation discussed for >3mins.? @ -No Was critical care preformed (if so, how long)? @ -No Were there social determinants of health that impacted care today? How? (Homelessness, low income, unemployed, alcoholism, drug addiction, transportation, low edu. Level, literacy, decrease access to med. care, prison, rehab)? @ -No Was there de-escalation of care discussed even if they declined (Discuss DNR or withdrawal of care, Hospice)? @ -No What co-morbidities impacted this encounter? (DM, HTN, Smoking, COPD, CAD, Cancer, CVA, ARF, Chemo, Hep., AIDS, mental health diagnosis, sleep apnea, morbid obesity)? @ -Hypertension, hyperlipidemia Was patient admitted / discharged? Hospital course, mention meds given and route, prescriptions, significant lab abnormalities, going to OR and other pertinent info. Admission- patient is an 83-year-old gentleman history medical history of hypertension hyperlipidemia presenting today for abdominal pain. Vital signs wi thin acceptable limits on arrival, mildly hypertensive. Patient afebrile no tachycardia. Exam significant for periumbilical tenderness, positive McBurney's point, positive rebound tenderness positive psoas sign negative Gonzalez sign, positive right CVA tenderness. Differential diagnosis as above, plan for CT abdomen pelvis, urinalysis basic labs and pain control. Patient agreeable plan of care. Labs reviewed. Grossly within normal limits. Abnormal values not concerning for acute pathology related to presenting complaint. No leukocytosis or lactic acidosis noted. On reassessment pt sleeping comfortably, family at bedside. Updated pt and family to labs thus far and pending imaging. CT Abdo pelvis read as no acute process. On reassessment patient's pain returned. Now in the right upper quadrant of his abdomen/right lower chest. Still pending urinalysis will also obtain EKG, chest x-ray and troponin to ensure no signs of atypical ACS, though I have low suspicion for this given pain pattern and description. Urinalysis shows signs of infection, positive nitrites, Trace blood, large leukocyte esterase, greater than 182 white blood cells. Cefepime ordered. With flank pain and UTI will admit for pyelonephritis. Updated patient and family to findings and plan for admission. They are agreeable plan of care. Patient discussed with Dr. Pickering and admitted to [facility] in stable condition. Undiagnosed new problem with uncertain prognosis?, @ -No Drug Therapy requiring intensive monitoring for toxicity (Heparin, Nitro, Insulin, Cardizem)? @ -No Were any procedures done? @ -No Diagnosis/symptom? Pyelonephritis Acute, or Chronic, or Acute on Chronic? @acute Uncomplicated (without systemic symptoms) or Complicated (systemic symptoms)? complicated Side effects of treatment? @ -No Exacerbation, Progression, or Severe Exacerbation? @ -No Poses a threat to life or bodily function? How? (Chest pain, [place], [place], pneumonia, PE, COPD, DKA, ARF, appy, cholecystitis, CVA, Diverticulitis, Homicidal, Suicidal, threat to staff... and all critical care pts) @Yes if left untreated could progress to sepsis, septic shock and - Lab Data Result diagrams: 11/17/24 05:32 11/17/24 05:32 Lab Results 11/14/24 11/14/24 11/14/24 Range/Units 02:57 02:57 02:57 WBC 6.7 (3.8-10.6) k/uL RBC 4.12 L (4.30-5.90) m/uL Hgb 12.9 L (13.0-17.5) gm/dL Hct 40.9 (39.0-53.0) % MCV 99.4 (80.0-100.0) fL MCH 31.5 (25.0-35.0) pg MCHC 31.6 (31.0-37.0) g/dL RDW 14.4 (11.5-15.5) % Plt Count 230 (150-450) k/uL MPV 7.6 Neutrophils % 69 % Lymphocytes % 18 % Monocytes % 6 % Eosinophils % 5 % Basophils % 0 % Neutrophils # 4.6 (1.3-7.7) k/uL Lymphocytes # 1.2 (1.0-4.8) k/uL Monocytes # 0.4 (0-1.0) k/uL Eosinophils # 0.4 (0-0.7) k/uL Basophils # 0.0 (0-0.2) k/uL Hypochromasia Slight Macrocytosis Slight PT 11.0 (10.0-12.5) sec INR 1.0 (<1.2) APTT 25.1 (22.0-30.0) sec Sodium 142 (137-145) mmol/L Potassium 5.1 (3.5-5.1) mmol/L Chloride 104 (98-107) mmol/L Carbon Dioxide 26 (22-30) mmol/L Anion Gap 12 mmol/L BUN 51 H (9-20) mg/dL Creatinine 1.11 (0.66-1.25) mg/dL Est GFR (CKD-EPI)AfAm 71 (>60 ml/min/1.73 sqM) Est GFR (CKD-EPI)NonAf 62 (>60 ml/min/1.73 sqM) Glucose 161 H (74-99) mg/dL POC Glucose (mg/dL) (70-110) mg/dL POC Glu [employer] ID Estimated Ave Glu mg/dL mg/dL Hemoglobin A1c (<=6.0) % Plasma Lactic Acid Osorio (0.7-2.0) mmol/L Calcium 9.6 (8.4-10.2) mg/dL Total Bilirubin 1.0 (0.2-1.3) mg/dL AST 31 (17-59) U/L ALT 19 (4-49) U/L Alkaline Phosphatase 68 (38-126) U/L Troponin I (0.000-0.034) ng/mL NT-Pro-B Natriuret Pep pg/mL Total Protein 7.4 (6.3-8.2) g/dL Albumin 4.1 (3.5-5.0) g/dL Triglycerides (0.00-149.00) mg/dL Cholesterol (0.00-200.00) mg/dL LDL Cholesterol, Calc (0.0-131.0) mg/dL VLDL Cholesterol, Calc (5.00-40.00) mg/dL HDL Cholesterol (40.00-60.00) mg/dL Cholesterol/HDL Ratio Ratio Amylase 49 (30-110) U/L Lipase 205 (23-300) U/L TSH (0.465-4.680) mIU/L Free T4 (0.78-2.19) ng/dL Urine Color Urine Appearance (Clear) Urine pH (5.0-8.0) Ur Specific [place] (1.001-1.035) Urine Protein (Negative) Urine Glucose (UA) (Negative) Urine Ketones (Negative) Urine Blood (Negative) Urine Nitrite (Negative) Urine Bilirubin (Negative) Urine Urobilinogen (<2.0) mg/dL Ur Leukocyte Esterase (Negative) Urine RBC (0-5) /hpf Urine WBC (0-5) /hpf Urine WBC Clumps (None) /hpf Urine Bacteria (None) /hpf Urine Mucus (None) /hpf 11/14/24 11/14/24 11/14/24 Range/Units 02:57 04:30 05:30 WBC (3.8-10.6) k/uL RBC (4.30-5.90) m/uL Hgb (13.0-17.5) gm/dL Hct (39.0-53.0) % MCV (80.0-100.0) fL MCH (25.0-35.0) pg MCHC (31.0-37.0) g/dL RDW (11.5-15.5) % Plt Count (150-450) k/uL MPV Neutrophils % % Lymphocytes % % Monocytes % % Eosinophils % % Basophils % % Neutrophils # (1.3-7.7) k/uL Lymphocytes # (1.0-4.8) k/uL Monocytes # (0-1.0) k/uL Eosinophils # (0-0.7) k/uL Basophils # (0-0.2) k/uL Hypochromasia Macrocytosis PT (10.0-12.5) sec INR (<1.2) APTT (22.0-30.0) sec Sodium (137-145) mmol/L Potassium (3.5-5.1) mmol/L Chloride (98-107) mmol/L Carbon Dioxide (22-30) mmol/L Anion Gap mmol/L BUN (9-20) mg/dL Creatinine (0.66-1.25) mg/dL Est GFR (CKD-EPI)AfAm (>60 ml/min/1.73 sqM) Est GFR (CKD-EPI)NonAf (>60 ml/min/1.73 sqM) Glucose (74-99) mg/dL POC Glucose (mg/dL) (70-110) mg/dL POC Glu Used [employer] Salesperson ID Estimated [address] Glu mg/dL mg/dL Hemoglobin A1c (<=6.0) % Plasma Lactic Acid Osorio 2.0 (0.7-2.0) mmol/L Calcium (8.4-10.2) mg/dL Total Bilirubin (0.2-1.3) mg/dL AST (17-59) U/L ALT (4-49) U/L Alkaline Phosphatase (38-126) U/L Troponin I 0.027 (0.000-0.034) ng/mL NT-Pro-B Natriuret Pep pg/mL Total Protein (6.3-8.2) g/dL Albumin (3.5-5.0) g/dL Triglycerides (0.00-149.00) mg/dL Cholesterol (0.00-200.00) mg/dL LDL Cholesterol, Calc (0.0-131.0) mg/dL VLDL Cholesterol, Calc (5.00-40.00) mg/dL HDL Cholesterol (40.00-60.00) mg/dL Cholesterol/HDL Ratio Ratio Amylase (30-110) U/L Lipase (23-300) U/L TSH (0.465-4.680) mIU/L Free T4 (0.78-2.19) ng/dL Urine Color Colorless Urine Appearance Cloudy (Clear) Urine pH 5.0 (5.0-8.0) Ur Specific [place] 1.027 (1.001-1.035) Urine Protein Negative (Negative) Urine Glucose (UA) 4+ H (Negative) Urine Ketones Negative (Negative) Urine Blood Trace H (Negative) Urine Nitrite Positive (Negative) Urine Bilirubin Negative (Negative) Urine Urobilinogen <2.0 (<2.0) mg/dL Ur Leukocyte Esterase Large H (Negative) Urine RBC 6 H (0-5) /hpf Urine WBC >182 H (0-5) /hpf Urine WBC Clumps Many H (None) /hpf Urine Bacteria Occasional H (None) /hpf Urine Mucus Rare H (None) /hpf 11/14/24 11/14/24 11/14/24 Range/Units 08:30 12:11 12:47 WBC (3.8-10.6) k/uL RBC (4.30-5.90) m/uL Hgb (13.0-17.5) gm/dL Hct (39.0-53.0) % MCV (80.0-100.0) fL MCH (25.0-35.0) pg MCHC (31.0-37.0) g/dL RDW (11.5-15.5) % Plt Count (150-450) k/uL MPV Neutrophils % % Lymphocytes % % Monocytes % % Eosinophils % % Basophils % % Neutrophils # (1.3-7.7) k/uL Lymphocytes # (1.0-4.8) k/uL Monocytes # (0-1.0) k/uL Eosinophils # (0-0.7) k/uL Basophils # (0-0.2) k/uL Hypochromasia Macrocytosis PT (10.0-12.5) sec INR (<1.2) APTT (22.0-30.0) sec Sodium (137-145) mmol/L Potassium (3.5-5.1) mmol/L Chloride (98-107) mmol/L Carbon Dioxide (22-30) mmol/L Anion Gap mmol/L BUN (9-20) mg/dL Creatinine (0.66-1.25) mg/dL Est GFR (CKD-EPI)AfAm (>60 ml/min/1.73 sqM) Est GFR (CKD-EPI)NonAf (>60 ml/min/1.73 sqM) Glucose (74-99) mg/dL POC Glucose (mg/dL) 174 H (70-110) mg/dL POC Glu [employer] Salesperson ID Viry [address] Glu mg/dL mg/dL Hemoglobin A1c (<=6.0) % Plasma Lactic Acid Osorio (0.7-2.0) mmol/L Calcium (8.4-10.2) mg/dL Total Bilirubin (0.2-1.3) mg/dL AST (17-59) U/L ALT (4-49) U/L Alkaline Phosphatase (38-126) U/L Troponin I 0.038 H* 0.039 H* (0.000-0.034) ng/mL NT-Pro-B Natriuret Pep pg/mL Total Protein (6.3-8.2) g/dL Albumin (3.5-5.0) g/dL Triglycerides (0.00-149.00) mg/dL Cholesterol (0.00-200.00) mg/dL LDL Cholesterol, Calc (0.0-131.0) mg/dL VLDL Cholesterol, Calc (5.00-40.00) mg/dL HDL Cholesterol (40.00-60.00) mg/dL Cholesterol/HDL Ratio Ratio Amylase (30-110) U/L Lipase (23-300) U/L TSH (0.465-4.680) mIU/L Free T4 (0.78-2.19) ng/dL Urine Color Urine Appearance (Clear) Urine pH (5.0-8.0) Ur Specific [place] (1.001-1.035) Urine Protein (Negative) Urine Glucose (UA) (Negative) Urine Ketones (Negative) Urine Blood (Negative) Urine Nitrite (Negative) Urine Bilirubin (Negative) Urine Urobilinogen (<2.0) mg/dL Ur Leukocyte Esterase (Negative) Urine RBC (0-5) /hpf Urine WBC (0-5) /hpf Urine WBC Clumps (None) /hpf Urine Bacteria (None) /hpf Urine Mucus (None) /hpf 11/14/24 11/14/24 11/15/24 Range/Units 18:13 21:03 07:41 WBC (3.8-10.6) k/uL RBC (4.30-5.90) m/uL Hgb (13.0-17.5) gm/dL Hct (39.0-53.0) % MCV (80.0-100.0) fL MCH (25.0-35.0) pg MCHC (31.0-37.0) g/dL RDW (11.5-15.5) % Plt Count (150-450) k/uL MPV Neutrophils % % Lymphocytes % % Monocytes % % Eosinophils % % Basophils % % Neutrophils # (1.3-7.7) k/uL Lymphocytes # (1.0-4.8) k/uL Monocytes # (0-1.0) k/uL Eosinophils # (0-0.7) k/uL Basophils # (0-0.2) k/uL Hypochromasia Macrocytosis PT (10.0-12.5) sec INR (<1.2) APTT (22.0-30.0) sec Sodium 144 (137-145) mmol/L Potassium 4.7 (3.5-5.1) mmol/L Chloride 110 H (98-107) mmol/L Carbon Dioxide 25 (22-30) mmol/L Anion Gap 9 mmol/L BUN 29 H (9-20) mg/dL Creatinine 0.94 (0.66-1.25) mg/dL Est GFR (CKD-EPI)AfAm 87 (>60 ml/min/1.73 sqM) Est GFR (CKD-EPI)NonAf 76 (>60 ml/min/1.73 sqM) Glucose 107 H (74-99) mg/dL POC Glucose (mg/dL) 132 H 126 H (70-110) mg/dL POC Glu Used [employer] Salesperson ID Viry YI [address] Glu mg/dL mg/dL Hemoglobin A1c (<=6.0) % Plasma Lactic Acid Osorio (0.7-2.0) mmol/L Calcium 9.3 (8.4-10.2) mg/dL Total Bilirubin (0.2-1.3) mg/dL AST (17-59) U/L ALT (4-49) U/L Alkaline Phosphatase (38-126) U/L Troponin I (0.000-0.034) ng/mL NT-Pro-B Natriuret Pep pg/mL Total Protein (6.3-8.2) g/dL Albumin (3.5-5.0) g/dL Triglycerides (0.00-149.00) mg/dL Cholesterol (0.00-200.00) mg/dL LDL Cholesterol, Calc (0.0-131.0) mg/dL VLDL Cholesterol, Calc (5.00-40.00) mg/dL HDL Cholesterol (40.00-60.00) mg/dL Cholesterol/HDL Ratio Ratio Amylase (30-110) U/L Lipase (23-300) U/L TSH (0.465-4.680) mIU/L Free T4 (0.78-2.19) ng/dL Urine Color Urine Appearance (Clear) Urine pH (5.0-8.0) Ur Specific [place] (1.001-1.035) Urine Protein (Negative) Urine Glucose (UA) (Negative) Urine Ketones (Negative) Urine Blood (Negative) Urine Nitrite (Negative) Urine Bilirubin (Negative) Urine Urobilinogen (<2.0) mg/dL Ur Leukocyte Esterase (Negative) Urine RBC (0-5) /hpf Urine WBC (0-5) /hpf Urine WBC Clumps (None) /hpf Urine Bacteria (None) /hpf Urine Mucus (None) /hpf 11/15/24 11/15/24 11/15/24 Range/Units 07:41 07:41 08:08 WBC (3.8-10.6) k/uL RBC (4.30-5.90) m/uL Hgb (13.0-17.5) gm/dL Hct (39.0-53.0) % MCV (80.0-100.0) fL MCH (25.0-35.0) pg MCHC (31.0-37.0) g/dL RDW (11.5-15.5) % Plt Count (150-450) k/uL MPV Neutrophils % % Lymphocytes % % Monocytes % % Eosinophils % % Basophils % % Neutrophils # (1.3-7.7) k/uL Lymphocytes # (1.0-4.8) k/uL Monocytes # (0-1.0) k/uL Eosinophils # (0-0.7) k/uL Basophils # (0-0.2) k/uL Hypochromasia Macrocytosis PT (10.0-12.5) sec INR (<1.2) APTT (22.0-30.0) sec Sodium (137-145) mmol/L Potassium (3.5-5.1) mmol/L Chloride (98-107) mmol/L Carbon Dioxide (22-30) mmol/L Anion Gap mmol/L BUN (9-20) mg/dL Creatinine (0.66-1.25) mg/dL Est GFR (CKD-EPI)AfAm (>60 ml/min/1.73 sqM) Est GFR (CKD-EPI)NonAf (>60 ml/min/1.73 sqM) Glucose (74-99) mg/dL POC Glucose (mg/dL) 106 (70-110) mg/dL POC Glu Used Car Salesperson ID [employer] [address] Glu mg/dL mg/dL Hemoglobin A1c (<=6.0) % Plasma Lactic Acid Osorio (0.7-2.0) mmol/L Calcium (8.4-10.2) mg/dL Total Bilirubin (0.2-1.3) mg/dL AST (17-59) U/L ALT (4-49) U/L Alkaline Phosphatase (38-126) U/L Troponin I 0.064 H* (0.000-0.034) ng/mL NT-Pro-B Natriuret Pep pg/mL Total Protein (6.3-8.2) g/dL Albumin (3.5-5.0) g/dL Triglycerides 89.60 (0.00-149.00) mg/dL Cholesterol 102.00 (0.00-200.00) mg/dL LDL Cholesterol, Calc 42.3 (0.0-131.0) mg/dL VLDL Cholesterol, Calc 17.92 (5.00-40.00) mg/dL HDL Cholesterol 41.80 (40.00-60.00) mg/dL Cholesterol/HDL Ratio 2.44 Ratio Amylase (30-110) U/L Lipase (23-300) U/L TSH (0.465-4.680) mIU/L Free T4 (0.78-2.19) ng/dL Urine Color Urine Appearance (Clear) Urine pH (5.0-8.0) Ur Specific [place] (1.001-1.035) Urine Protein (Negative) Urine Glucose (UA) (Negative) Urine Ketones (Negative) Urine Blood (Negative) Urine Nitrite (Negative) Urine Bilirubin (Negative) Urine Urobilinogen (<2.0) mg/dL Ur Leukocyte Esterase (Negative) Urine RBC (0-5) /hpf Urine WBC (0-5) /hpf Urine WBC Clumps (None) /hpf Urine Bacteria (None) /hpf Urine Mucus (None) /hpf 11/15/24 11/15/24 11/15/24 Range/Units 11:02 11:15 11:15 WBC 10.1 (3.8-10.6) k/uL RBC 3.69 L (4.30-5.90) m/uL Hgb 11.6 L (13.0-17.5) gm/dL Hct 37.0 L (39.0-53.0) % MCV 100.2 H (80.0-100.0) fL MCH 31.3 (25.0-35.0) pg MCHC 31.3 (31.0-37.0) g/dL RDW 14.8 (11.5-15.5) % Plt Count 226 (150-450) k/uL MPV 8.2 Neutrophils % % Lymphocytes % % Monocytes % % Eosinophils % % Basophils % % Neutrophils # (1.3-7.7) k/uL Lymphocytes # (1.0-4.8) k/uL Monocytes # (0-1.0) k/uL Eosinophils # (0-0.7) k/uL Basophils # (0-0.2) k/uL Hypochromasia Slight Macrocytosis Slight PT (10.0-12.5) sec INR (<1.2) APTT (22.0-30.0) sec Sodium (137-145) mmol/L Potassium (3.5-5.1) mmol/L Chloride (98-107) mmol/L Carbon Dioxide (22-30) mmol/L Anion Gap mmol/L BUN (9-20) mg/dL Creatinine (0.66-1.25) mg/dL Est GFR (CKD-EPI)AfAm (>60 ml/min/1.73 sqM) Est GFR (CKD-EPI)NonAf (>60 ml/min/1.73 sqM) Glucose (74-99) mg/dL POC Glucose (mg/dL) (70-110) mg/dL POC Glu [employer] ID Estimated Ave Glu mg/dL 183 mg/dL Hemoglobin A1c 8.0 H (<=6.0) % Plasma Lactic Acid [place]sorio (0.7-2.0) mmol/L Calcium (8.4-10.2) mg/dL Total Bilirubin (0.2-1.3) mg/dL AST (17-59) U/L ALT (4-49) U/L Alkaline Phosphatase (38-126) U/L Troponin I (0.000-0.034) ng/mL NT-Pro-B Natriuret Pep 3380 pg/mL Total Protein (6.3-8.2) g/dL Albumin (3.5-5.0) g/dL Triglycerides (0.00-149.00) mg/dL Cholesterol (0.00-200.00) mg/dL LDL Cholesterol, Calc (0.0-131.0) mg/dL VLDL Cholesterol, Calc (5.00-40.00) mg/dL HDL Cholesterol (40.00-60.00) mg/dL Cholesterol/HDL Ratio Ratio Amylase (30-110) U/L Lipase (23-300) U/L TSH 0.458 L (0.465-4.680) mIU/L Free T4 1.44 (0.78-2.19) ng/dL Urine Color Urine Appearance (Clear) Urine pH (5.0-8.0) Ur Specific [place] (1.001-1.035) Urine Protein (Negative) Urine Glucose (UA) (Negative) Urine Ketones (Negative) Urine Blood (Negative) Urine Nitrite (Negative) Urine Bilirubin (Negative) Urine Urobilinogen (<2.0) mg/dL Ur Leukocyte Esterase (Negative) Urine RBC (0-5) /hpf Urine WBC (0-5) /hpf Urine WBC Clumps (None) /hpf Urine Bacteria (None) /hpf Urine Mucus (None) /hpf 11/15/24 11/15/24 11/15/24 Range/Units 12:57 16:26 20:17 WBC (3.8-10.6) k/uL RBC (4.30-5.90) m/uL Hgb (13.0-17.5) gm/dL Hct (39.0-53.0) % MCV (80.0-100.0) fL MCH (25.0-35.0) pg MCHC (31.0-37.0) g/dL RDW (11.5-15.5) % Plt Count (150-450) k/uL MPV Neutrophils % % Lymphocytes % % Monocytes % % Eosinophils % % Basophils % % Neutrophils # (1.3-7.7) k/uL Lymphocytes # (1.0-4.8) k/uL Monocytes # (0-1.0) k/uL Eosinophils # (0-0.7) k/uL Basophils # (0-0.2) k/uL Hypochromasia Macrocytosis PT (10.0-12.5) sec INR (<1.2) APTT (22.0-30.0) sec Sodium (137-145) mmol/L Potassium (3.5-5.1) mmol/L Chloride (98-107) mmol/L Carbon Dioxide (22-30) mmol/L Anion Gap mmol/L BUN (9-20) mg/dL Creatinine (0.66-1.25) mg/dL Est GFR (CKD-EPI)AfAm (>60 ml/min/1.73 sqM) Est GFR (CKD-EPI)NonAf (>60 ml/min/1.73 sqM) Glucose (74-99) mg/dL POC Glucose (mg/dL) 102 92 123 H (70-110) mg/dL POC Glu Used Car Salesperson ID Chad Cordon [address]imated [address] Glu mg/dL mg/dL Hemoglobin A1c (<=6.0) % Plasma Lactic Acid Osorio (0.7-2.0) mmol/L Calcium (8.4-10.2) mg/dL Total Bilirubin (0.2-1.3) mg/dL AST (17-59) U/L ALT (4-49) U/L Alkaline Phosphatase (38-126) U/L Troponin I (0.000-0.034) ng/mL NT-Pro-B Natriuret Pep pg/mL Total Protein (6.3-8.2) g/dL Albumin (3.5-5.0) g/dL Triglycerides (0.00-149.00) mg/dL Cholesterol (0.00-200.00) mg/dL LDL Cholesterol, Calc (0.0-131.0) mg/dL VLDL Cholesterol, Calc (5.00-40.00) mg/dL HDL Cholesterol (40.00-60.00) mg/dL Cholesterol/HDL Ratio Ratio Amylase (30-110) U/L Lipase (23-300) U/L TSH (0.465-4.680) mIU/L Free T4 (0.78-2.19) ng/dL Urine Color Urine Appearance (Clear) Urine pH (5.0-8.0) Ur Specific [place] (1.001-1.035) Urine Protein (Negative) Urine Glucose (UA) (Negative) Urine Ketones (Negative) Urine Blood (Negative) Urine Nitrite (Negative) Urine Bilirubin (Negative) Urine Urobilinogen (<2.0) mg/dL Ur Leukocyte Esterase (Negative) Urine RBC (0-5) /hpf Urine WBC (0-5) /hpf Urine WBC Clumps (None) /hpf Urine Bacteria (None) /hpf Urine Mucus (None) /hpf 11/16/24 Range/Units 06:07 WBC (3.8-10.6) k/uL RBC (4.30-5.90) m/uL Hgb (13.0-17.5) gm/dL Hct (39.0-53.0) % MCV (80.0-100.0) fL MCH (25.0-35.0) pg MCHC (31.0-37.0) g/dL RDW (11.5-15.5) % Plt Count (150-450) k/uL MPV Neutrophils % % Lymphocytes % % Monocytes % % Eosinophils % % Basophils % % Neutrophils # (1.3-7.7) k/uL Lymphocytes # (1.0-4.8) k/uL Monocytes # (0-1.0) k/uL Eosinophils # (0-0.7) k/uL Basophils # (0-0.2) k/uL Hypochromasia Macrocytosis PT (10.0-12.5) sec INR (<1.2) APTT (22.0-30.0) sec Sodium (137-145) mmol/L Potassium (3.5-5.1) mmol/L Chloride (98-107) mmol/L Carbon Dioxide (22-30) mmol/L Anion Gap mmol/L BUN (9-20) mg/dL Creatinine (0.66-1.25) mg/dL Est GFR (CKD-EPI)AfAm (>60 ml/min/1.73 sqM) Est GFR (CKD-EPI)NonAf (>60 ml/min/1.73 sqM) Glucose (74-99) mg/dL POC Glucose (mg/dL) 120 H (70-110) mg/dL POC Glu Used Car Salesperson ID Wm lynch Yodit [address]imated [address] Glu mg/dL mg/dL Hemoglobin A1c (<=6.0) % Plasma Lactic Acid Osorio (0.7-2.0) mmol/L Calcium (8.4-10.2) mg/dL Total Bilirubin (0.2-1.3) mg/dL AST (17-59) U/L ALT (4-49) U/L Alkaline Phosphatase (38-126) U/L Troponin I (0.000-0.034) ng/mL NT-Pro-B Natriuret Pep pg/mL Total Protein (6.3-8.2) g/dL Albumin (3.5-5.0) g/dL Triglycerides (0.00-149.00) mg/dL Cholesterol (0.00-200.00) mg/dL LDL Cholesterol, Calc (0.0-131.0) mg/dL VLDL Cholesterol, Calc (5.00-40.00) mg/dL HDL Cholesterol (40.00-60.00) mg/dL Cholesterol/HDL Ratio Ratio Amylase (30-110) U/L Lipase (23-300) U/L TSH (0.465-4.680) mIU/L Free T4 (0.78-2.19) ng/dL Urine Color Urine Appearance (Clear) Urine pH (5.0-8.0) Ur Specific [place] (1.001-1.035) Urine Protein (Negative) Urine Glucose (UA) (Negative) Urine Ketones (Negative) Urine Blood (Negative) Urine Nitrite (Negative) Urine Bilirubin (Negative) Urine Urobilinogen (<2.0) mg/dL Ur Leukocyte Esterase (Negative) Urine RBC (0-5) /hpf Urine WBC (0-5) /hpf Urine WBC Clumps (None) /hpf Urine Bacteria (None) /hpf Urine Mucus (None) /hpf Disposition Clinical Impression: Pyelonephritis Disposition: ADMITTED IP TO THIS HOSP Condition: Stable
[2024-11-14 03:07] LABS: Basophils % (A) 0 %; Eosinophils # (A) 0.4 k/uL (0-0.7); Eosinophils % (A) 5 %; HCT 40.9 % (39.0-53.0); HGB 12.9 gm/dL (13.0-17.5); Hypochromasia Slight; Lymphocytes # (A) 1.2 k/uL (1.0-4.8); Lymphocytes % (A) 18 %; MCH 31.5 pg (25.0-35.0); MCHC 31.6 g/dL (31.0-37.0); MCV 99.4 fL (80.0-100.0); Macrocytosis Slight; Mean Platelet Volume 7.6; Monocytes # (A) 0.4 k/uL (0-1.0); Monocytes % (A) 6 %; Neutrophils # (A) 4.6 k/uL (1.3-7.7); Neutrophils % (A) 69 %; Platelet Count 230 k/uL (150-450); RBC 4.12 m/uL (4.30-5.90); RDW 14.4 % (11.5-15.5); WBC 6.7 k/uL (3.8-10.6)
[2024-11-14 03:15] LABS: ALT 19 U/L (4-49); AST 31 U/L (17-59); African American GFR (CKD) 71 (>60 ml/min/1.73 sqM); Albumin 4.1 g/dL (3.5-5.0); Alkaline Phosphatase 68 U/L (38-126); Amylase 49 U/L (30-110); Anion Gap 12 mmol/L; Blood Urea Nitrogen 51 mg/dL (9-20); Calcium 9.6 mg/dL (8.4-10.2); Carbon Dioxide 26 mmol/L (22-30); Chloride 104 mmol/L (98-107); Glucose 161 mg/dL (74-99); Lipase 205 U/L (23-300); Non-African American GFR(CKD) 62 (>60 ml/min/1.73 sqM); Potassium 5.1 mmol/L (3.5-5.1); Sodium 142 mmol/L (137-145); Total Protein 7.4 g/dL (6.3-8.2)
[2024-11-14 03:23] LABS: Partial Thromboplastin Time 25.1 sec (22.0-30.0)
[2024-11-14] MEDS: ACETAMINOPHEN IV (For NPO) 1,000 MG in EMPTY BAG 1 BAG IVPB ONE (03:27)
--- NOTE | 2024-11-14 04:03 | CT ---
EXAM: CT Abdomen and Pelvis With Intravenous Contrast CLINICAL HISTORY: ITS.REASON CT Reason: Diffuse ab pain, now localized to RLQ, right flank TECHNIQUE: Axial computed tomography images of the abdomen and pelvis with intravenous contrast. CTDI is 55.2 mGy and DLP is 3024.4 mGy-cm. This CT exam was performed using one or more of the following dose reduction techniques: automated exposure control, adjustment of the mA and/or kV according to patient size, and/or use of iterative reconstruction technique. COMPARISON: No relevant prior studies available. FINDINGS: Lung bases: Unremarkable. No mass. No consolidation. ABDOMEN: Liver: Unremarkable. No mass. Gallbladder and bile ducts: Cholelithiasis. No ductal dilation. Pancreas: Unremarkable. No mass. No ductal dilation. Spleen: Unremarkable. No splenomegaly. Adrenals: Unremarkable. No mass. Kidneys and ureters: Severe atrophy of the RIGHT kidney. No hydronephrosis. Stomach and bowel: Diverticulosis, without acute diverticulitis. No small bowel obstruction. No free intraperitoneal air. PELVIS: Appendix: No findings to suggest acute appendicitis. Bladder: Unremarkable. No mass. Reproductive: Unremarkable as visualized. ABDOMEN and PELVIS: Intraperitoneal space: Unremarkable. No free air. No significant fluid collection. Bones/joints: Bilateral hip arthroplasties. Degenerative changes of the spine. No acute fracture. No dislocation. Soft tissues: Unremarkable. Vasculature: Atherosclerotic changes of the aorta. No abdominal aortic aneurysm. Lymph nodes: Unremarkable. No enlarged lymph nodes. IMPRESSION: 1. Severe atrophy of the RIGHT kidney. 2. Cholelithiasis. 3. Bilateral hip arthroplasties. 4. Diverticulosis, without acute diverticulitis. No small bowel obstruction. No free intraperitoneal air. Normal appendix.
[2024-11-14] MEDS: SODIUM CHLORIDE 0.9% 500 ML 500 ML IV ONE (04:26)
[2024-11-14] MEDS: FAMOTIDINE 20 MG/2 ML VIAL IV STA (04:56)
[2024-11-14] MEDS: MAG HYDROX/AL HYDROX/SIMETH 30 ML CUP PO STA (04:57)
[2024-11-14 05:05] LABS: Appearance,Urine Cloudy (Clear); Bacteria,Urine Occasional /hpf; Bilirubin,Urine Negative (Negative); Blood,Urine Trace (Negative); Color,Urine Colorless; Glucose,Urine (UA) 4+ (Negative); Ketones,Urine Negative (Negative); Leukocyte Esterase,Urine Large (Negative); Mucus,Urine Rare /hpf; Nitrite,Urine Positive (Negative); Protein,Urine Negative (Negative); RBC,Urine 6 /hpf (0-5); Specific Gravity,Urine 1.027 (1.001-1.035); Urobilinogen,Urine <2.0 mg/dL (<2.0); WBC,Urine >182 /hpf (0-5)
[2024-11-14] MEDS: CEFEPIME 2 GM in SODIUM CHLORIDE 0.9% 100 ML IVPB STA (05:36)
--- NOTE | 2024-11-14 06:08 | XR ---
EXAMINATION TYPE: XR chest 2V DATE OF EXAM: 11/14/2024 6:02 AM COMPARISON: Chest x-ray October 11, 2024 CLINICAL INDICATION: Male, 83 years old with history of Right lower chest pain/RUQ ab pain, TECHNIQUE: Frontal and lateral views of the chest are obtained. FINDINGS: There is some chronic parenchymal change without suspicious new focal air space opacity, pl eural effusion, or pneumothorax seen. Cardiomegaly is redemonstrated. Surgical clips overlying the r ight axillary region. The osseous structures are intact. IMPRESSION: Chronic changes and cardiomegaly without acute pulmonary process. [facility], , 11/14/2024 6:06 AM
[2024-11-14] MEDS ORDERED: CALCIUM CARBONATE 500 MG CHEWABLE PO PRN (07:58)
[2024-11-14] MEDS ORDERED: NALOXONE 0.4 MG/ML 1 ML VIAL IV PRN (07:58)
[2024-11-14] MEDS ORDERED: ONDANSETRON 4 MG/2 ML VIAL IVP PRN (07:58)
[2024-11-14] MEDS ORDERED: MAG HYDROX/AL HYDROX/SIMETH 30 ML CUP PO PRN (07:58)
[2024-11-14] MEDS: SODIUM CHLORIDE 0.9% 1,000 ML IV SCH (08:39)
[2024-11-14] MEDS: Acetaminophen-Codeine 300-30mg TAB PO PRN (09:10)
[2024-11-14] MEDS ORDERED: DEXTROSE 50% SYRINGE 50 ML IVP PRN ×2 (10:44)
[2024-11-14 12:49] LABS: Glucose,Whole Blood 174 mg/dL (70-110)
[2024-11-14] MEDS: CEFEPIME 2 GM in SODIUM CHLORIDE 0.9% 100 ML IVPB SCH (16:41)
[2024-11-14] MEDS: GABAPENTIN 300 MG CAP PO SCH (16:47)
[2024-11-14] MEDS ORDERED: HYDROmorphone 0.5 MG/0.5 ML SYRINGE IVP PRN (16:53)
--- NOTE | 2024-11-14 16:56 | P.HPIM ---
History of Present Illness H&P Date: 11/14/24 83 year old M with PMH of TIA, hypertension, diabetes mellitus, dyslipidemia, chronic knee and lower back pain presents to [facility] for abdominal pain. Patient is a poor historian and majority of history obtained from and daughter at bedside. Started around 11PM last night. Initially epigastric but later started complaining of suprapubic pain with radiation to the right abdomen. Reports urinary urgency but no dysuria. No fever or chills. Denies any headache, lower extremity edema, nausea or vomiting, cough, chest pain, shortness of breath, palpitations, changes in bowel habits. No changes in appetite or weight. No numbness/weakness/tingling of the extremities. In the ED he underwent extensive evaluation. BP 159/63, HR 67, T 98.9, RR 18, 97% on RA. Tmax as high as 99.7. CBC, Coag panel, CMP significant for RBC 4.12, Hct 12.9, BUN 51, glu 161. Lactic acid 2. Lipiase 205, Amylase 49. Trop 0.027, 0.038, 0.039. UA large LE with > 182 WBCs. EKG sinus rhythm with no ST T wave changes. CT AP atrophy of the right kidney, cholelithiasis, diverticulosis. CXR cardiomegaly without acute process. General: not toxic, mild distress, appears at stated age Derm: warm, dry Head: atraumatic, normocephalic, symmetric Eyes: EOMI, no lid lag, anicteric sclera Mouth: no lip lesion, mucus membranes moist Cardiovascular: S1S2 reg, no murmur Lungs: Clear to auscultation BL Ext: no gross muscle atrophy, no edema, no contractures Abd: Suprapubic tenderness with no rebound Neuro: no focal neuro deficits Psych: Alert, oriented, agitated Based on my assessment of this patient, this patient meets a high complexity level of care. UTI versus Pyelonephritis: Cefepime 2g IV TID. Tylenol 650 mg PO Q6H PRN fever. Obtain UCx. Troponin elevation: Slowly uptrending. Repeat Trop in the AM. Obtain Echo. Consult Cardiology. Telemetry monitoring. ASA 325 mg PO BID. Lipitor 40 mg PO QD. Plavix 75 mg PO QD. Diabetes mellitus: ISS + Accuchecks ACHS. Hypoglycemic precautions. History of TIA: ASA and Plavix as above. Hypertension: Losartan 100 mg PO QD. Dyslipidemia: Lipitor 40 mg PO QD. CODE STATUS: FULL CODE DVT Prophylaxis: Lovenox SQ GI Prophylaxis: Designated medical POA if patient is not able to make medical decisions for themselves: I have reviewed the following search engine optimization consultant notes: ED ntoe. I have reviewed the results of the following tests: As above. I have ordered the following tests: As above. I have discussed the care of this patient with the following independent historian: . Daughter. 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 [place]. TIA. LOWER BACK PAIN. Skin Cancer, Type II DM History of Any Multi-Drug Resistant Organisms: None Reported Past Surgical History: Joint Replacement, Orthopedic Surgery Additional Past Surgical History / Comment(s): SEVERAL LYMPH NODES FROM RIGHT AXILLA REMOVED. LEFT TOTAL HIP. RIGHT MENISCUS REPAIR. BILATERAL CATARACTS. Right Shoulder Surgery from Fall Past Anesthesia/Blood Transfusion Reactions: No Reported Reaction Additional Past Anesthesia/Blood Transfusion Reaction / Comment(s): unk hx of blood transfusion Past Psychological History: No Psychological Hx Reported Smoking Status: Never smoker Past Alcohol Use History: None Reported Past Drug Use History: None Reported - Past Family History Father Family Medical History: Hypertension Medications and Allergies Home Medications Medication Instructions Recorded Confirmed Type Clopidogrel Bisulfate [Clopidogrel] 75 mg PO DAILY 09/09/15 11/14/24 History Empagliflozin [Jardiance] 25 mg PO DAILY 08/09/23 11/14/24 History Glimepiride [Amaryl] 2 mg PO BID 11/17/23 11/14/24 History Aspirin 325 mg PO BID #60 tab 10/08/24 11/14/24 Rx Acetaminophen-Codeine 300-30mg 1 tab PO Q6H PRN #28 tablet 10/13/24 11/14/24 Rx [Tylenol #3] Atorvastatin [Lipitor] 40 mg PO DAILY 11/14/24 11/14/24 History Cholecalciferol [Vitamin D3 (125 125 mcg PO DAILY 11/14/24 11/14/24 History Mcg = 5000 Iu)] Gabapentin [Neurontin] 300 mg PO TID 11/14/24 11/14/24 History Insulin Aspart [NovoLOG Flexpen] 20 units SQ AC-TID 11/14/24 11/14/24 History Losartan Potassium [Cozaar] 100 mg PO DAILY 11/14/24 11/14/24 History Multivitamins, Thera [Multivitamin 1 tab PO DAILY 11/14/24 11/14/24 History (formulary)] Allergies Allergy/AdvReac Type Severity Reaction Status Date / Time atenolol AdvReac Hallucinati Verified 11/14/24 09:08 ons donepezil [From Aricept] AdvReac panic Verified 11/14/24 09:08 attack Physical Exam Vitals: Vital Signs Temp Pulse Resp BP Pulse Ox 11/14/24 12:30 68 20 154/67 91 L 11/14/24 12:00 66 19 168/78 92 L 11/14/24 11:00 79 20 166/74 96 11/14/24 10:00 74 18 109/86 94 L 11/14/24 06:33 75 20 153/66 11/14/24 04:00 76 18 149/69 11/14/24 02:22 98.9 F 67 18 159/63 97 Intake and Output 11/13/24 11/14/24 11/14/24 22:59 06:59 14:59 Other: Weight 123.831 kg Results CBC & Chem 7: 11/14/24 02:57 11/14/24 02:57 Labs: Abnormal Lab Results - Last 24 Hours (Table) 11/14/24 11/14/24 11/14/24 Range/Units 02:57 02:57 04:30 RBC 4.12 L (4.30-5.90) m/uL Hgb 12.9 L (13.0-17.5) gm/dL BUN 51 H (9-20) mg/dL Glucose 161 H (74-99) mg/dL POC Glucose (mg/dL) (70-110) mg/dL Troponin I (0.000-0.034) ng/mL Urine Glucose (UA) 4+ H (Negative) Urine Blood Trace H (Negative) Ur Leukocyte Esterase Large H (Negative) Urine RBC 6 H (0-5) /hpf Urine WBC >182 H (0-5) /hpf Urine WBC Clumps Many H (None) /hpf Urine Bacteria Occasional H (None) /hpf Urine Mucus Rare H (None) /hpf 11/14/24 11/14/24 11/14/24 Range/Units 08:30 12:11 12:47 RBC (4.30-5.90) m/uL Hgb (13.0-17.5) gm/dL BUN (9-20) mg/dL Glucose (74-99) mg/dL POC Glucose (mg/dL) 174 H (70-110) mg/dL Troponin I 0.038 H* 0.039 H* (0.000-0.034) ng/mL Urine Glucose (UA) (Negative) Urine Blood (Negative) Ur Leukocyte Esterase (Negative) Urine RBC (0-5) /hpf Urine WBC (0-5) /hpf Urine WBC Clumps (None) /hpf Urine Bacteria (None) /hpf Urine Mucus (None) /hpf
[2024-11-14] MEDS: HYDROmorphone 0.5 MG/0.5 ML SYRINGE IVP STA (17:53)
[2024-11-14] MEDS: ALPRAZolam 0.25 MG TAB PO PRN (18:04)
[2024-11-14 18:15] LABS: Glucose,Whole Blood 132 mg/dL (70-110)
[2024-11-14] MEDS: INSULIN ASPART (NovoLOG) 100 UNIT/ML VIAL SQ SCH (18:16)
[2024-11-14] MEDS: ACETAMINOPHEN TAB 325 MG TAB PO PRN (18:23)
[2024-11-14] MEDS: FAMOTIDINE 20 MG TAB PO SCH (21:00)
[2024-11-14] MEDS: ASPIRIN 325 MG TAB PO SCH (21:00)
[2024-11-14 21:05] LABS: Glucose,Whole Blood 126 mg/dL (70-110)
[2024-11-15 08:10] LABS: Glucose,Whole Blood 106 mg/dL (70-110)
[2024-11-15] MEDS: DAPAGLIFLOZIN PROPANEDIOL 10 MG TABLET PO SCH (08:32)
[2024-11-15] MEDS: LOSARTAN 50 MG TAB PO SCH (08:32)
[2024-11-15] MEDS: ATORVASTATIN 40 MG TAB PO SCH (08:32)
[2024-11-15] MEDS: CLOPIDOGREL 75 MG TAB PO SCH (08:32)
[2024-11-15] MEDS: ENOXAPARIN 40 MG/0.4 ML SYRINGE SQ SCH (08:33)
[2024-11-15 08:53] LABS: African American GFR (CKD) 87 (>60 ml/min/1.73 sqM); Anion Gap 9 mmol/L; Blood Urea Nitrogen 29 mg/dL (9-20); Calcium 9.3 mg/dL (8.4-10.2); Carbon Dioxide 25 mmol/L (22-30); Chloride 110 mmol/L (98-107); Glucose 107 mg/dL (74-99); Non-African American GFR(CKD) 76 (>60 ml/min/1.73 sqM); Potassium 4.7 mmol/L (3.5-5.1); Sodium 144 mmol/L (137-145)
[2024-11-15 11:47] LABS: NT-Pro-B-Type Natriuretic Pept 3380 pg/mL
--- NOTE | 2024-11-15 11:57 | P.CRDCN ---
History of Present Illness Consult date: 11/15/24 Reason for Consult (text): Elevated troponin History of present illness: This is an 83-year-old male patient of Dr. Cobos with past medical history of type 2 diabetes, hypertension, dyslipidemia, family history of premature coronary artery disease, mild CAD on cardiac catheterization. We have been asked to evaluate the patient for elevated troponins. Patient presented to the hospital due to abdominal pain and flank pain on the lower abdomen. Patient denies chest pain. No shortness of breath. He does have a cough. Blood pressure 135/50, heart rate 71, pulse ox 96% on room air. Temperature max 100.7. -EKG: Sinus rhythm, LAFB -Chest x-ray: Chronic changes with cardiomegaly. No acute process. -CT abdomen pelvis with contrast: Severe atrophy of the right kidney, cholelithiasis, bilateral hip arthroplasties, diverticulosis. -Laboratory studies: WBC 6.7, hemoglobin 12.9. Sodium 144, potassium 4.7, BUN 29 creatinine 0.9, troponins 0.038, 0.039, 0.064. proBNP 3380. -Home cardiac medications: Aspirin 325 mg twice daily, atorvastatin 40 mg daily, Plavix 75 mg daily, Jardiance 25 mg daily, losartan 100 mg daily. -Cardiac catheterization performed 11/22/2023 revealed mild coronary artery disease. -Echocardiogram performed 08/11/2023 revealed normal EF. -Lexiscan Cardiolite stress test performed 10/06/2023 revealed EF 72% and apical ischemia. Review Of Systems: At the time of my exam: CONSTITUTIONAL: Denies fever or chills. HEENT: Denies blurred vision, vision changes, or eye pain. Denies hemoptysis CARDIOVASCULAR: Denies chest pain. Denies orthopnea. Denies PND. Denies palpitations RESPIRATORY: Denies shortness of breath. GASTROINTESTINAL: Reported abdominal pain. Denies nausea or vomiting. HEMATOLOGIC: Denies bleeding disorders. GENITOURINARY: Denies any blood in urine. SKIN: Denies puritis. Denies rash. Physical examination: Gen: This is a morbidly obese 83-year-old male in no acute respiratory distress. VS: reviewed HEENT: Head is atraumatic, normocephalic. Pupils equal, round. Sclerae is anicteric. NECK: Supple. No JVD. LUNGS: Clear to auscultation. No wheezes or rhonchi. No intercostal retractions. HEART: Regular rate and rhythm. No murmur. ABDOMEN: Soft No tenderness. EXTREMITIES: No pedal edema. No calf tenderness. NEUROLOGICAL: Patient is awake, alert and oriented x3. Assessment: Elevated troponin less likely to be acute coronary syndrome Acute urinary tract infection Known nonobstructive coronary artery disease Hypertension Dyslipidemia Diabetes mellitus type 2 Morbid obesity with BMI of 40 Plan: Resume patient's home cardiac medications with the following changes Discontinue Jardiance due to urinary tract infection Change aspirin to 81 mg daily Obtain blood work: TSH, lipid panel, A1c Obtain 2-D echocardiogram and Doppler study to assess cardiac structure and function Further recommendations to follow based upon clinical course Thank you kindly for this consultation. Nurse practitioner note has been reviewed, I agree with documented findings and plan of care. Patient was seen and examined. 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 [place]. TIA. LOWER BACK PAIN. Skin Cancer, Type II DM History of Any Multi-Drug Resistant Organisms: None Reported Past Surgical History: Joint Replacement, Orthopedic Surgery Additional Past Surgical History / Comment(s): SEVERAL LYMPH NODES FROM RIGHT AXILLA REMOVED. LEFT TOTAL HIP. RIGHT MENISCUS REPAIR. BILATERAL CATARACTS. Right Shoulder Surgery from Fall Past Anesthesia/Blood Transfusion Reactions: No Reported Reaction Additional Past Anesthesia/Blood Transfusion Reaction / Comment(s): unk hx of blood transfusion Past Psychological History: No Psychological Hx Reported Smoking Status: Never smoker Past Alcohol Use History: None Reported Past Drug Use History: None Reported - Past Family History Father Family Medical History: Hypertension Medications and Allergies Home Medications Medication Instructions Recorded Confirmed Type Clopidogrel Bisulfate [Clopidogrel] 75 mg PO DAILY 09/09/15 11/14/24 History Empagliflozin [Jardiance] 25 mg PO DAILY 08/09/23 11/14/24 History Glimepiride [Amaryl] 2 mg PO BID 11/17/23 11/14/24 History Aspirin 325 mg PO BID #60 tab 10/08/24 11/14/24 Rx Acetaminophen-Codeine 300-30mg 1 tab PO Q6H PRN #28 tablet 10/13/24 11/14/24 Rx [Tylenol #3] Atorvastatin [Lipitor] 40 mg PO DAILY 11/14/24 11/14/24 History Cholecalciferol [Vitamin D3 (125 125 mcg PO DAILY 11/14/24 11/14/24 History Mcg = 5000 Iu)] Gabapentin [Neurontin] 300 mg PO TID 11/14/24 11/14/24 History Insulin Aspart [NovoLOG Flexpen] 20 units SQ AC-TID 11/14/24 11/14/24 History Losartan Potassium [Cozaar] 100 mg PO DAILY 11/14/24 11/14/24 History Multivitamins, Thera [Multivitamin 1 tab PO DAILY 11/14/24 11/14/24 History (formulary)] Allergies Allergy/AdvReac Type Severity Reaction Status Date / Time atenolol AdvReac Hallucinati Verified 11/14/24 09:08 ons donepezil [From Aricept] AdvReac panic Verified 11/14/24 09:08 attack Physical Exam Vitals: Vital Signs Temp Pulse Resp BP Pulse Ox 11/15/24 09:53 99.5 F 11/15/24 08:40 135/50 11/15/24 08:19 100.4 F H 71 20 96 11/15/24 04:40 93 18 147/93 92 L 11/15/24 00:00 66 17 114/52 95 11/14/24 20:58 99.6 F 75 18 118/60 94 L 11/14/24 18:17 100.7 F H 89 18 135/46 94 L 11/14/24 16:00 99.7 F H 81 18 102/57 96 11/14/24 15:00 74 18 132/55 97 11/14/24 14:13 82 18 149/72 95 11/14/24 13:00 67 18 114/60 96 11/14/24 12:30 68 20 154/67 91 L 11/14/24 12:00 73 18 154/67 96 11/14/24 11:00 79 20 166/74 96 Intake and Output 11/14/24 11/15/24 11/15/24 22:59 06:59 14:59 Output Total 700 Balance -700 Output: Urine 700 Results 11/14/24 02:57 11/15/24 07:41 Cardiac Enzymes 11/14/24 11/15/24 Range/Units 12:11 07:41 Troponin I 0.039 H* 0.064 H* (0.000-0.034) ng/mL Comprehensive Metabolic Panel 11/15/24 Range/Units 07:41 Sodium 144 (137-145) mmol/L Potassium 4.7 (3.5-5.1) mmol/L Chloride 110 H (98-107) mmol/L Carbon Dioxide 25 (22-30) mmol/L BUN 29 H (9-20) mg/dL Creatinine 0.94 (0.66-1.25) mg/dL Glucose 107 H (74-99) mg/dL Calcium 9.3 (8.4-10.2) mg/dL Current Medications Generic Name Dose Route Start Last Admin Trade Name Freq PRN Reason Stop Dose Admin Acetaminophen 650 mg 11/14/24 07:58 11/15/24 08:31 Acetaminophen Tab 325 Mg Tab PO 650 mg Q6HR PRN Administration Mild Pain or Fever > 100.5 Acetaminophen/Codeine Phosphate 1 each 11/14/24 07:58 11/14/24 22:24 Acetaminophen-Codeine 300-30mg Tab PO 1 each Q6HR PRN Administration Moderate Pain (Scale 4 to 6) Al Hydroxide/Mg Hydroxide 15 ml 11/14/24 07:58 Mag Hydrox/Al Hydrox/Simeth 30 Ml Cup PO Q6HR PRN Indigestion Alprazolam 0.25 mg 11/14/24 07:58 11/15/24 08:32 Alprazolam 0.25 Mg Tab PO 0.25 mg Q6HR PRN Administration Anxiety Aspirin 325 mg 11/14/24 21:00 11/15/24 08:32 Aspirin 325 Mg Tab PO 325 mg BID JARET Administration Atorvastatin Calcium 40 mg 11/15/24 09:00 11/15/24 08:32 Atorvastatin 40 Mg Tab PO 40 mg DAILY JARET Administration Calcium Carbonate/Glycine 1,000 mg 11/14/24 07:58 Calcium Carbonate 500 Mg Chewable PO Q4HR PRN Dyspepsia Clopidogrel Bisulfate 75 mg 11/15/24 09:00 11/15/24 08:32 Clopidogrel 75 Mg Tab PO 75 mg DAILY JARET Administration Dapagliflozin 10 mg 11/15/24 09:00 11/15/24 08:32 Dapagliflozin Propanediol 10 Mg Tablet PO 10 mg DAILY JARET Administration Dextrose/Water 25 ml 11/14/24 10:44 Dextrose 50% Syringe 50 Ml IVP PER PROTOCOL PRN Hypoglycemia Protocol Dextrose/Water 50 ml 11/14/24 10:44 Dextrose 50% Syringe 50 Ml IVP PER PROTOCOL PRN Hypoglycemia Protocol Enoxaparin Sodium 40 mg 11/15/24 09:00 11/15/24 08:33 Enoxaparin 40 Mg/0.4 Ml Syringe SQ 40 mg DAILY JARET Administration Famotidine 20 mg 11/14/24 21:00 11/15/24 08:32 Famotidine 20 Mg Tab PO 20 mg BID JARET Administration Gabapentin 300 mg 11/14/24 16:00 11/15/24 08:32 Gabapentin 300 Mg Cap PO 300 mg TID JARET Administration Hydromorphone HCl 0.5 mg 11/14/24 16:53 Hydromorphone 0.5 Mg/0.5 Ml Syringe IVP Q3HR PRN Severe Pain (Scale 7 to 10) Sodium Chloride 1,000 mls @ 75 mls/hr 11/14/24 08:00 11/15/24 09:52 Saline 0.9% IV 75 mls/hr .[id number] JARET Administration Cefepime HCl 2 gm/ Sodium 100 mls @ 25 mls/hr 11/14/24 16:00 11/15/24 08:32 Chloride IVPB 25 mls/hr Q8HR JARET Administration Protocol Insulin Aspart 0 unit 11/14/24 12:30 11/15/24 08:18 Insulin Aspart (Novolog) 100 Unit/Ml Vial SQ Not Given ACHS [facility] Protocol Losartan Potassium 100 mg 11/15/24 09:00 11/15/24 08:32 Losartan 50 Mg Tab PO 100 mg DAILY JARET Administration Naloxone HCl 0.2 mg 11/14/24 07:58 Naloxone 0.4 Mg/Ml 1 Ml Vial IV Q2M PRN Opioid Reversal Ondansetron HCl 4 mg 11/14/24 07:58 Ondansetron 4 Mg/2 Ml Vial IVP Q8HR PRN Nausea And Vomiting Intake and Output 11/14/24 11/15/24 11/15/24 22:59 06:59 14:59 Output Total 700 Balance -700 Output: Urine 700 11/14/24 02:57 11/15/24 07:41
[2024-11-15 12:28] LABS: HGB 11.6 gm/dL (13.0-17.5); Hypochromasia Slight; MCH 31.3 pg (25.0-35.0); MCHC 31.3 g/dL (31.0-37.0); MCV 100.2 fL (80.0-100.0); Macrocytosis Slight; Mean Platelet Volume 8.2; Platelet Count 226 k/uL (150-450); RBC 3.69 m/uL (4.30-5.90); RDW 14.8 % (11.5-15.5); WBC 10.1 k/uL (3.8-10.6)
[2024-11-15 12:46] LABS: T4, Free (Free Thyroxine) 1.44 ng/dL (0.78-2.19)
[2024-11-15 12:59] LABS: Glucose,Whole Blood 102 mg/dL (70-110)
--- NOTE | 2024-11-15 14:27 | P.PN ---
Subjective Progress Note Date: 11/15/24 83 year old M with PMH of TIA, hypertension, diabetes mellitus, dyslipidemia, chronic knee and lower back pain presents to [facility] for abdominal pain. Patient is a poor historian and majority of history obtained from and daughter at bedside. Started around 11PM last night. Initially epigastric but later started complaining of suprapubic pain with radiation to the right abdomen. Reports urinary urgency but no dysuria. No fever or chills. Denies any headache, lower extremity edema, nausea or vomiting, cough, chest pain, shortness of breath, palpitations, changes in bowel habits. No changes in appetite or weight. No numbness/weakness/tingling of the extremities. In the ED he underwent extensive evaluation. BP 159/63, HR 67, T 98.9, RR 18, 97% on RA. Tmax as high as 99.7. CBC, Coag panel, CMP significant for RBC 4.12, Hct 12.9, BUN 51, glu 161. Lactic acid 2. Lipiase 205, Amylase 49. Trop 0.027, 0.038, 0.039. UA large LE with > 182 WBCs. EKG sinus rhythm with no ST T wave changes. CT AP atrophy of the right kidney, cholelithiasis, diverticulosis. CXR cardiomegaly without acute process. Started on Cefepime and admitted for UTI. Troponin trending 0.027, 0.038, 0.039, 0.064. Cardiology consulted, recommending Echo and stopping Jardiance. 11/15 Patient was seen and examined. He is confused AO x 1. Tmax 100.7 over the past 24H. CBC and BMP significant for RBC 3.69, Hg 11.6, Hct 37, MCV 100.2, Cl 110, BUN 29, glu 107. BNP 3380. TSH 0.458, FT4 1.44. UCx GNB. General: not toxic, no distress, appears at stated age Derm: warm, dry Head: atraumatic, normocephalic, symmetric Eyes: EOMI, no lid lag, anicteric sclera Mouth: no lip lesion, mucus membranes moist Cardiovascular: S1S2 reg, no murmur Lungs: Clear to auscultation BL Ext: no gross muscle atrophy, no edema, no contractures Abd: Suprapubic tenderness with no rebound Neuro: no focal neuro deficits Psych: Alert, oriented, agitated Based on my assessment of this patient, this patient meets a high complexity level of care. Acute metabolic encephalopathy likely due to below. Stop Xanax, T3, Dilaudid, Gabapentin until mentation improved. UTI versus Pyelonephritis: Jardiance discontinued. Cefepime 2g IV TID. Tylenol 650 mg PO Q6H PRN fever. Follow UCx. Troponin elevation: Slowly uptrending. Obtain Echo. Telemetry monitoring. ASA 81 mg PO QD. Lipitor 40 mg PO QD. Plavix 75 mg PO QD. Cardiology on board. Diabetes mellitus: ISS + Accuchecks ACHS. Hypoglycemic precautions. History of TIA: ASA and Plavix as above. Hypertension: Losartan 100 mg PO QD. Dyslipidemia: Lipitor 40 mg PO QD. CODE STATUS: FULL CODE DVT Prophylaxis: Lovenox SQ GI Prophylaxis: Designated medical POA if patient is not able to make medical decisions for themselves: I have reviewed the following regulatory affairs consultant notes: Cardiology. I have reviewed the results of the following tests: CBC, BMP, TSH, BNP, FT4, UCx. I have ordered the following tests: I have discussed the care of this patient with the following independent historian: RN. I have independently interpreted the following test below: I have discussed the management of this patient with the following physician: Objective - Vital Signs Vital signs: Vital Signs Temp 99.1 F 11/15/24 12:55 Pulse 76 11/15/24 12:55 Resp 16 11/15/24 12:55 BP 144/80 11/15/24 12:55 Pulse Ox 96 11/15/24 12:55 FiO2 Intake & Output 11/14/24 11/15/24 11/15/24 18:59 06:59 18:59 Output Total 650 700 Balance -650 -700 Output: Urine 650 700 - Labs CBC & Chem 7: 11/15/24 11:15 11/15/24 07:41 Labs: Abnormal Lab Results - Last 24 Hours (Table) 11/14/24 11/14/24 11/15/24 Range/Units 18:13 21:03 07:41 RBC (4.30-5.90) m/uL Hgb (13.0-17.5) gm/dL Hct (39.0-53.0) % MCV (80.0-100.0) fL Chloride 110 H (98-107) mmol/L BUN 29 H (9-20) mg/dL Glucose 107 H (74-99) mg/dL POC Glucose (mg/dL) 132 H 126 H (70-110) mg/dL Troponin I (0.000-0.034) ng/mL TSH (0.465-4.680) mIU/L 11/15/24 11/15/24 11/15/24 Range/Units 07:41 11:02 11:15 RBC 3.69 L (4.30-5.90) m/uL Hgb 11.6 L (13.0-17.5) gm/dL Hct 37.0 L (39.0-53.0) % MCV 100.2 H (80.0-100.0) fL Chloride (98-107) mmol/L BUN (9-20) mg/dL Glucose (74-99) mg/dL POC Glucose (mg/dL) (70-110) mg/dL Troponin I 0.064 H* (0.000-0.034) ng/mL TSH 0.458 L (0.465-4.680) mIU/L Microbiology - Last 24 Hours (Table) 11/14/24 04:30 Urine Culture - Preliminary Urine,Voided Gram Neg Bacilli
--- NOTE | 2024-11-15 15:07 | CA ---
Transthoracic Echo Report Name: Pratik Ferrell Age: 83 Gender: M : 1940 Exam Date: 11/15/2024 09:59 Exam Location: [place] [facility] Ht (in): 69 Wt (lb): 273 Ordering Physician: Marybeth Ren MD Attending/Referring Phys: Bilingual Instructor Wilda Carey RDCS Procedure CPT: Indications: trop Cardiac Hx: Technical Quality: Technically difficult study Contrast 1: Definity Total Dose (mL): 2 Contrast 2: Total Dose (mL): MEASUREMENTS (Male / Female) Normal Values 2D ECHO LV Diastolic Diameter PLAX 4.8 cm 4.2 - 5.9 / 3.9 - 5.3 cm LV Systolic Diameter PLAX 3.0 cm IVS Diastolic Thickness 1.5 cm 0.6 - 1.0 / 0.6 - 0.9 cm LVPW Diastolic Thickness 1.4 cm 0.6 - 1.0 / 0.6 - 0.9 cm LV Relative Wall Thickness 0.6 RV Internal Dim ED PLAX 3.9 cm LVOT Diameter 2.5 cm LA Systolic Diameter LX 3.3 cm 3.0 - 4.0 / 2.7 - 3.8 cm LV Diastolic Volume MOD BP 92.7 cm??? 67 - 155 / 56 - 104 cm??? LV Systolic Volume MOD BP 24.0 cm??? 22 - 58 / 19 - 49 cm??? LV Ejection Fraction MOD BP 74.1 % >= 55 % LV Cardiac Index MOD BP 1860.1 cm???/min???m??? LV Diastolic Volume MOD 4C 94.6 cm??? LV Systolic Volume MOD 4C 29.8 cm??? LV Ejection Fraction MOD 4C 68.4 % LV Cardiac Index MOD 4C 1753.5 cm???/min???m??? LV Diastolic Length 4C 8.4 cm LV Systolic Length 4C 7.3 cm LV Diastolic Volume MOD 2C 81.8 cm??? LV Systolic Volume MOD 2C 19.4 cm??? LV Ejection Fraction MOD 2C 76.2 % LV Cardiac Index MOD 2C 1688.6 cm???/min???m??? LV Diastolic Length 2C 7.4 cm LV Systolic Length 2C 7.1 cm M-MODE Aortic Root Diameter MM 3.4 cm DOPPLER AV Peak Velocity 137.9 cm/s AV Peak Gradient 7.6 mmHg Mitral E Point Velocity 76.7 cm/s Mitral A Point Velocity 102.0 cm/s Mitral E to A Ratio 0.8 MV Deceleration Time 284.9 ms MV E' Velocity 8.0 cm/s Mitral E to MV E' Ratio 9.5 TR Peak Velocity 260.0 cm/s TR Peak Gradient 27.0 mmHg Right Ventricular Systolic Press 37.7 mmHg FINDINGS Left Ventricle Left ventricular ejection fraction is estimated at 55-60 %. Left ventricular cavity size normal. Moderate concentric left ventricular hypertrophy. No obvious regional wall motion abnormalities. Right Ventricle Moderate right ventricular dilatation. Mild pulmonary hypertension. Right Atrium Right atrium not well visualized. Left Atrium Normal left atrial size. No left atrial thrombus or mass present. Mitral Valve Structurally normal mitral valve. No mitral stenosis, regurgitation or prolapse. Aortic Valve Trileaflet aortic valve. No aortic valve stenosis or regurgitation. Tricuspid Valve Structurally normal tricuspid valve. Mild tricuspid regurgitation. Pulmonic Valve Pulmonic valve not well visualized. No pulmonic regurgitation. Pericardium No pericardial effusion. Aorta Normal size aortic root and proximal ascending aorta. CONCLUSIONS Diagnosis: Abnormal troponins Normal LV size and function Mildly enlarged right ventricle Previewed by: Dr. Fazal Marsh MD (Electronically Signed) Final Date: 15 November 2024 15:06
[2024-11-15 16:28] LABS: Glucose,Whole Blood 92 mg/dL (70-110)
[2024-11-15 20:18] LABS: Glucose,Whole Blood 123 mg/dL (70-110)
[2024-11-15] MEDS: HALOPERIDOL LACTATE 5 MG/ML 1 ML VIAL IM PRN (20:28)
[2024-11-16 06:08] LABS: Glucose,Whole Blood 120 mg/dL (70-110)
[2024-11-16] MEDS: ASPIRIN 81 MG PO SCH (09:07)
[2024-11-16 09:11] LABS: Basophils % (A) 0 %; Eosinophils # (A) 0.1 k/uL (0-0.7); Eosinophils % (A) 1 %; HCT 41.4 % (39.0-53.0); HGB 12.4 gm/dL (13.0-17.5); Hypochromasia Marked; Lymphocytes # (A) 1.2 k/uL (1.0-4.8); Lymphocytes % (A) 8 %; MCH 30.7 pg (25.0-35.0); MCHC 29.9 g/dL (31.0-37.0); MCV 102.7 fL (80.0-100.0); Macrocytosis Slight; Mean Platelet Volume 8.1; Monocytes # (A) 0.8 k/uL (0-1.0); Monocytes % (A) 5 %; Neutrophils # (A) 12.1 k/uL (1.3-7.7); Neutrophils % (A) 84 %; Platelet Count 236 k/uL (150-450); RBC 4.03 m/uL (4.30-5.90); RDW 14.7 % (11.5-15.5); WBC 14.3 k/uL (3.8-10.6)
--- NOTE | 2024-11-16 09:30 | P.PN ---
Subjective Progress Note Date: 11/16/24 Reason for Consult (text): Elevated troponin History of present illness: This is an 83-year-old male patient of Dr. Cobos with past medical history of type 2 diabetes, hypertension, dyslipidemia, family history of premature coronary artery disease, mild CAD on cardiac catheterization. We have been asked to evaluate the patient for elevated troponins. Patient presented to the hospital due to abdominal pain and flank pain on the lower abdomen. Patient denies chest pain. No shortness of breath. He does have a cough. Blood pressure 135/50, heart rate 71, pulse ox 96% on room air. Temperature max 100.7. -EKG: Sinus rhythm, LAFB -Chest x-ray: Chronic changes with cardiomegaly. No acute process. -CT abdomen pelvis with contrast: Severe atrophy of the right kidney, cholelithiasis, bilateral hip arthroplasties, diverticulosis. -Laboratory studies: WBC 6.7, hemoglobin 12.9. Sodium 144, potassium 4.7, BUN 29 creatinine 0.9, troponins 0.038, 0.039, 0.064. proBNP 3380. -Home cardiac medications: Aspirin 325 mg twice daily, atorvastatin 40 mg daily, Plavix 75 mg daily, Jardiance 25 mg daily, losartan 100 mg daily. -Cardiac catheterization performed 11/22/2023 revealed mild coronary artery disease. -Echocardiogram performed 08/11/2023 revealed normal EF. -Lexiscan Cardiolite stress test performed 10/06/2023 revealed EF 72% and apical ischemia. 11/16 Patient is seen and examined on the cardiac stepdown unit. Blood pressure 156/70, heart rate 86, pulse ox 96% on room air. Hemoglobin A1c is 8. proBNP 3380. TSH 0.458 with normal free T4 1.44. Lipid panel is pending. Patient denies chest pain, he denies shortness of breath. He continues to have weakness. Echocardiogram reveals EF of 55 to 60%, mildly enlarged right ventricle. Physical examination: Gen: This is a morbidly obese 83-year-old male in no acute respiratory distress. VS: reviewed HEENT: Head is atraumatic, normocephalic. Pupils equal, round. Sclerae is anicteric. NECK: Supple. No JVD. LUNGS: Clear to auscultation. No wheezes or rhonchi. No intercostal retractio ns. HEART: Regular rate and rhythm. No murmur. ABDOMEN: Soft No tenderness. EXTREMITIES: No pedal edema. No calf tenderness. NEUROLOGICAL: Patient is awake, alert and oriented x3. Assessment: NSTEMI most likely due to UTI sepsis Acute urinary tract infection Known nonobstructive coronary artery disease Hypertension Dyslipidemia Diabetes mellitus type 2 Morbid obesity with BMI of 40 Plan: Continue patient's home cardiac medications with the following changes Discontinue Jardiance due to urinary tract infection Continue aspirin to 81 mg daily Plan to continue patient on Plavix another 6 months Obtain lipid panel No further cardiac workup at this time. Patient will follow-up with Dr. Cobos in the office in 1 to 2 weeks. Cardiology will sign off this case and follow on an as-needed basis. Please reconsult for any new concerns. Patient may follow-up in the office in one to 2 weeks. Nurse practitioner note has been reviewed, I agree with documented findings and plan of care. Patient was seen and examined. Objective - Vital Signs Vital signs: Vital Signs Temp 98.4 F 11/16/24 04:00 Pulse 86 11/16/24 04:00 Resp 17 11/16/24 04:00 BP 156/70 11/16/24 04:00 Pulse Ox 96 11/16/24 04:00 FiO2 Intake & Output 11/15/24 11/16/24 11/16/24 18:59 06:59 18:59 Intake Total 240 Output Total 950 650 Balance -710 -650 Weight 123.831 kg Intake: Oral 240 Output: Urine 950 650 Other: Voiding Method External Catheter External Catheter - Labs CBC & Chem 7: 11/16/24 08:23 11/15/24 07:41 Labs: Abnormal Lab Results - Last 24 Hours (Table) 11/15/24 11/15/24 11/15/24 Range/Units 07:41 07:41 11:02 RBC (4.30-5.90) m/uL Hgb (13.0-17.5) gm/dL Hct (39.0-53.0) % MCV (80.0-100.0) fL Chloride 110 H (98-107) mmol/L BUN 29 H (9-20) mg/dL Glucose 107 H (74-99) mg/dL POC Glucose (mg/dL) (70-110) mg/dL Hemoglobin A1c (<=6.0) % Troponin I 0.064 H* (0.000-0.034) ng/mL TSH 0.458 L (0.465-4.680) mIU/L 11/15/24 11/15/24 11/15/24 Range/Units 11:15 11:15 20:17 RBC 3.69 L (4.30-5.90) m/uL Hgb 11.6 L (13.0-17.5) gm/dL Hct 37.0 L (39.0-53.0) % MCV 100.2 H (80.0-100.0) fL Chloride (98-107) mmol/L BUN (9-20) mg/dL Glucose (74-99) mg/dL POC Glucose (mg/dL) 123 H (70-110) mg/dL Hemoglobin A1c 8.0 H (<=6.0) % Troponin I (0.000-0.034) ng/mL TSH (0.465-4.680) mIU/L 11/16/24 Range/Units 06:07 RBC (4.30-5.90) m/uL Hgb (13.0-17.5) gm/dL Hct (39.0-53.0) % MCV (80.0-100.0) fL Chloride (98-107) mmol/L BUN (9-20) mg/dL Glucose (74-99) mg/dL POC Glucose (mg/dL) 120 H (70-110) mg/dL Hemoglobin A1c (<=6.0) % Troponin I (0.000-0.034) ng/mL TSH (0.465-4.680) mIU/L Microbiology - Last 24 Hours (Table) 11/14/24 04:30 Urine Culture - Preliminary Urine,Voided Gram Neg Bacilli
[2024-11-16 09:37] LABS: African American GFR (CKD) >90 (>60 ml/min/1.73 sqM); Anion Gap 13 mmol/L; Blood Urea Nitrogen 23 mg/dL (9-20); Calcium 9.1 mg/dL (8.4-10.2); Carbon Dioxide 23 mmol/L (22-30); Chloride 106 mmol/L (98-107); Glucose 186 mg/dL (74-99); Non-African American GFR(CKD) 81 (>60 ml/min/1.73 sqM); Potassium 4.6 mmol/L (3.5-5.1); Sodium 142 mmol/L (137-145)
[2024-11-16 10:39] LABS: Chol/HDL Ratio 2.44 Ratio; VLDL Calculation 17.92 mg/dL (5.00-40.00)
[2024-11-16 10:40] LABS: LDL Cholesterol,Calculated 42.3 mg/dL (0.0-131.0)
[2024-11-16 11:19] LABS: Glucose,Whole Blood 158 mg/dL (70-110)
--- NOTE | 2024-11-16 15:15 | P.PN ---
Subjective Progress Note Date: 11/16/24 Hospital Course: 83 year old M with PMH of TIA, hypertension, diabetes mellitus, dyslipidemia, chronic knee and lower back pain presents to [facility] for abdominal pain. Patient is a poor historian and majority of history obtained from and daughter at bedside. Started around 11PM last night. Initially epigastric but later started complaining of suprapubic pain with radiation to the right abdomen. Reports urinary urgency but no dysuria. No fever or chills. Denies any headache, lower extremity edema, nausea or vomiting, cough, chest pain, shortness of breath, palpitations, changes in bowel habits. No changes in appetite or weight. No numbness/weakness/tingling of the extremities. In the ED he underwent extensive evaluation. BP 159/63, HR 67, T 98.9, RR 18, 97% on RA. Tmax as high as 99.7. CBC, Coag panel, CMP significant for RBC 4.12, Hct 12.9, BUN 51, glu 161. Lactic acid 2. Lipiase 205, Amylase 49. Trop 0.027, 0.038, 0.039. UA large LE with > 182 WBCs. EKG sinus rhythm with no ST T wave changes. CT AP atrophy of the right kidney, cholelithiasis, diverticulosis. CXR cardiomegaly without acute process. Started on Cefepime and admitted for UTI. Urine cultures growing nausea, resistant to ampicillin, ampicillin sulbactam BRANDT, cefazolin, nitrofurantoin, tetracycline, susceptible to 2 Medipren sulfamethoxazole, Azo, ceftriaxone and gentamicin. Troponin trending 0.027, 0.038, 0.039, 0.064. Cardiology consulted, recommending Echo and stopping Jardiance. DIANA showed normal LV size and function, mildly enlarged right ventricle. Patient can follow-up with Dr. Terrance kelly as o/p. PTOT recommends [facility]. Afebrile since 11/15 at 8 AM Subjective: Patient was seen and examined at bedside, patient's and daughter present intermittently, he states that he feels better, abdominal pain is resolved now Pertinent positives and negatives as discussed above, a complete review of systems was performed and all other systems are negative. Vitals Signs Reviewed. General: [nontoxic], [no distress], [appears at stated age] Derm: [warm], [dry] Head: [atraumatic], [normocephalic], [symmetric] Eyes: [EOMI], [no lid lag], [anicteric sclera] Mouth: [no lip lesion], [mucus membranes moist] Cardiovascular: [S1S2 reg], [no murmur] Lungs: [CTA bilateral], [no rhonchi, no rales] , [no accessory muscle use] Abdominal: [soft], [ nontender to palpation], [no guarding], [no appreciable organomegaly] Ext: [no gross muscle atrophy], [no edema], [no contractures] Neuro: [ CN II-XI grossly intact], [no focal neuro deficits] Psych: [Alert], [oriented], [appropriate affect] Data Reviewed Today: Pertinent Labs: WBC 14.3, hemoglobin 12.4, creatinine normal and stable, normal sodium, potassium Assessment and Plan: UTI, Serratia marcescens Leukocytosis -Afebrile for 24 hours, continue IV antibiotics for 24 more hours, SOT 11/14 -PT OT recommends discharge to [facility], patient will be discharged on trimethoprim/sulfamethoxazole based on sensitivities -Repeat CBC in the morning ordered NSTEMI ] . CAD -Cardiology signed off, recommend following medication changes: Discontinue Jardiance, continue aspirin 81, continue Plavix for 6 more months, follow-up with cardiology as outpatient Diabetes mellitus: ISS + Accuchecks ACHS. Hypoglycemic precautions. History of TIA: ASA and Plavix as above. Hypertension: Losartan 100 mg PO QD. Dyslipidemia: Lipitor 40 mg PO QD. CODE STATUS: FULL CODE DVT Prophylaxis: Lovenox SQ Anticipated discharge place: [facility] Anticipated discharge time: will be medically stable on 11/17 Objective - Vital Signs Vital signs: Vital Signs Temp 99.1 F 11/16/24 12:05 Pulse 82 11/16/24 12:05 Resp 18 11/16/24 12:05 BP 146/67 11/16/24 12:05 Pulse Ox 95 11/16/24 12:05 FiO2 Intake & Output 11/15/24 11/16/24 11/16/24 18:59 06:59 18:59 Intake Total 240 636 Output Total 950 650 Balance -710 -650 636 Weight 123.831 kg Intake: Intake, IV Titration 400 Amount Cefepime 2 gm In Sodium 100 Chloride 0.9% 100 ml @ 25 mls/hr IVPB Q8HR [facility] Rx# :[id number] Sodium Chloride 0.9% 1, 300 000 ml @ 75 mls/hr IV . [id number] [facility] Rx#:[id number] Oral 240 236 Output: Urine 950 650 Other: Voiding Method External Catheter External Catheter External Catheter - Labs CBC & Chem 7: 11/16/24 08:23 11/16/24 08:23 Labs: Abnormal Lab Results - Last 24 Hours (Table) 11/15/24 11/15/24 11/16/24 Range/Units 11:15 20:17 06:07 WBC (3.8-10.6) k/uL RBC (4.30-5.90) m/uL Hgb (13.0-17.5) gm/dL MCV (80.0-100.0) fL MCHC (31.0-37.0) g/dL Neutrophils # (1.3-7.7) k/uL BUN (9-20) mg/dL Glucose (74-99) mg/dL POC Glucose (mg/dL) 123 H 120 H (70-110) mg/dL Hemoglobin A1c 8.0 H (<=6.0) % 11/16/24 11/16/24 11/16/24 Range/Units 08:23 08:23 11:17 WBC 14.3 H (3.8-10.6) k/uL RBC 4.03 L (4.30-5.90) m/uL Hgb 12.4 L (13.0-17.5) gm/dL MCV 102.7 H (80.0-100.0) fL MCHC 29.9 L (31.0-37.0) g/dL Neutrophils # 12.1 H (1.3-7.7) k/uL BUN 23 H (9-20) mg/dL Glucose 186 H (74-99) mg/dL POC Glucose (mg/dL) 158 H (70-110) mg/dL Hemoglobin A1c (<=6.0) % Microbiology - Last 24 Hours (Table) 11/14/24 04:30 Urine Culture - Final Urine,Voided Serratia marcescens
[2024-11-16 16:40] LABS: Glucose,Whole Blood 148 mg/dL (70-110)
[2024-11-16 20:04] LABS: Glucose,Whole Blood 106 mg/dL (70-110)
[2024-11-17 06:22] LABS: Glucose,Whole Blood 123 mg/dL (70-110)
[2024-11-17 07:16] LABS: Basophils % (A) 0 %; Eosinophils # (A) 0.4 k/uL (0-0.7); Eosinophils % (A) 4 %; HCT 40.2 % (39.0-53.0); HGB 12.3 gm/dL (13.0-17.5); Hypochromasia Marked; Lymphocytes # (A) 0.9 k/uL (1.0-4.8); Lymphocytes % (A) 9 %; MCHC 30.7 g/dL (31.0-37.0); Macrocytosis Slight; Mean Platelet Volume 8.1; Monocytes # (A) 0.6 k/uL (0-1.0); Monocytes % (A) 6 %; Neutrophils # (A) 7.6 k/uL (1.3-7.7); Neutrophils % (A) 79 %; Platelet Count 253 k/uL (150-450); RBC 3.98 m/uL (4.30-5.90); RDW 14.3 % (11.5-15.5); WBC 9.7 k/uL (3.8-10.6)
[2024-11-17 08:20] LABS: African American GFR (CKD) >90 (>60 ml/min/1.73 sqM); Anion Gap 13 mmol/L; Blood Urea Nitrogen 22 mg/dL (9-20); Calcium 8.7 mg/dL (8.4-10.2); Carbon Dioxide 24 mmol/L (22-30); Chloride 106 mmol/L (98-107); Glucose 98 mg/dL (74-99); Non-African American GFR(CKD) 86 (>60 ml/min/1.73 sqM); Potassium 4.1 mmol/L (3.5-5.1); Sodium 143 mmol/L (137-145)
[2024-11-17 11:57] LABS: Glucose,Whole Blood 121 mg/dL (70-110)
[2024-11-17 13:11] VITALS: BMI 40.3
--- NOTE | 2024-11-17 13:35 | P.PN ---
Subjective Progress Note Date: 11/17/24 Hospital Course: 83 year old M with PMH of TIA, hypertension, diabetes mellitus, dyslipidemia, chronic knee and lower back pain presents to [facility] for abdominal pain. Patient is a poor historian and majority of history obtained from and daughter at bedside. Started around 11PM last night. Initially epigastric but later started complaining of suprapubic pain with radiation to the right abdomen. Reports urinary urgency but no dysuria. No fever or chills. Denies any headache, lower extremity edema, nausea or vomiting, cough, chest pain, shortness of breath, palpitations, changes in bowel habits. No changes in appetite or weight. No numbness/weakness/tingling of the extremities. In the ED he underwent extensive evaluation. BP 159/63, HR 67, T 98.9, RR 18, 97% on RA. Tmax as high as 99.7. CBC, Coag panel, CMP significant for RBC 4.12, Hct 12.9, BUN 51, glu 161. Lactic acid 2. Lipiase 205, Amylase 49. Trop 0.027, 0.038, 0.039. UA large LE with > 182 WBCs. EKG sinus rhythm with no ST T wave changes. CT AP atrophy of the right kidney, cholelithiasis, diverticulosis. CXR cardiomegaly without acute process. Started on Cefepime and admitted for UTI. Urine cultures growing nausea, resistant to ampicillin, ampicillin sulbactam BRANDT, cefazolin, nitrofurantoin, tetracycline, susceptible to 2 tmp sulfamethoxazole, ceftriaxone and gentamicin. Troponin trending 0.027, 0.038, 0.039, 0.064. Cardiology consulted, recommending Echo and stopping Jardiance. DIANA showed normal LV size and function, mildly enlarged right ventricle. Patient can follow-up with Dr. Cobos as o/p. PTOT recommends [facility]. pending placement Afebrile since 11/15 at 8 AM Subjective: Patient was seen and examined at bedside, he states that he feels better, abdominal pain is resolved now. had another BM 11/17 Pertinent positives and negatives as discussed above, a complete review of systems was performed and all other systems are negative. Vitals Signs Reviewed. General: [nontoxic], [no distress], [appears at stated age] Derm: [warm], [dry] Head: [atraumatic], [normocephalic], [symmetric] Eyes: [EOMI], [no lid lag], [anicteric sclera] Mouth: [no lip lesion], [mucus membranes moist] Cardiovascular: [S1S2 reg], [no murmur] Lungs: [CTA bilateral], [no rhonchi, no rales] , [no accessory muscle use] Abdominal: [soft], [ nontender to palpation], [no guarding], [no appreciable organomegaly] Ext: [no gross muscle atrophy], [no edema], [no contractures] Neuro: [ CN II-XI grossly intact], [no focal neuro deficits] Psych: [Alert], [oriented], [appropriate affect] Data Reviewed Today: Pertinent Labs: WBC 9.7, hemoglobin 12.3, normal sodium and potassium, creatinine, blood glucose controlled Assessment and Plan: UTI, Serratia marcescens Leukocytosis -Afebrile for 48hours, switch to ceftriaxone while inpatient, per antibiotic sensitivity patient can be started on TMP/sulfamethoxazole although it has less favorable side effect profile, SOT 11/14 -PT OT recommends discharge to [facility], patient was authorization sent on 11/17 -Leukocytosis resolved NSTEMI ] . CAD -Cardiology signed off, recommend following medication changes: Discontinue Jardiance, continue aspirin 81, continue Plavix for 6 more months, follow-up with cardiology as outpatient Diabetes mellitus: ISS + Accuchecks ACHS. Hypoglycemic precautions. History of TIA: ASA and Plavix as above. Hypertension: Losartan 100 mg PO QD. Dyslipidemia: Lipitor 40 mg PO QD. CODE STATUS: FULL CODE DVT Prophylaxis: Lovenox SQ Anticipated discharge place: [facility] Anticipated discharge time: medically stable on 11/17, pending insurance authorization Objective - Vital Signs Vital signs: Vital Signs Temp 98.2 F 11/17/24 11:35 Pulse 68 11/17/24 11:35 Resp 17 11/17/24 11:35 BP 155/77 11/17/24 11:35 Pulse Ox 99 11/17/24 11:35 FiO2 Intake & Output 11/16/24 11/17/24 11/17/24 18:59 06:59 18:59 Intake Total 636 650 150 Balance 636 650 150 Weight 123.831 kg Intake: Intake, IV Titration 400 Amount Cefepime 2 gm In Sodium 100 Chloride 0.9% 100 ml @ 25 mls/hr IVPB Q8HR [facility] Rx# :[id number] Sodium Chloride 0.9% 1, 300 000 ml @ 75 mls/hr IV . [id number] [facility] Rx#:[id number] Oral 236 650 150 Other: Voiding Method External Catheter External Catheter - Labs CBC & Chem 7: 11/17/24 05:32 11/17/24 05:32 Labs: Abnormal Lab Results - Last 24 Hours (Table) 11/16/24 11/17/24 11/17/24 Range/Units 16:38 05:32 05:32 RBC 3.98 L (4.30-5.90) m/uL Hgb 12.3 L (13.0-17.5) gm/dL MCV 101.0 H (80.0-100.0) fL MCHC 30.7 L (31.0-37.0) g/dL Lymphocytes # 0.9 L (1.0-4.8) k/uL BUN 22 H (9-20) mg/dL POC Glucose (mg/dL) 148 H (70-110) mg/dL 11/17/24 11/17/24 Range/Units 06:20 11:55 RBC (4.30-5.90) m/uL Hgb (13.0-17.5) gm/dL MCV (80.0-100.0) fL MCHC (31.0-37.0) g/dL Lymphocytes # (1.0-4.8) k/uL BUN (9-20) mg/dL POC Glucose (mg/dL) 123 H 121 H (70-110) mg/dL Microbiology - Last 24 Hours (Table) 11/14/24 04:30 Urine Culture - Final Urine,Voided Serratia marcescens
[2024-11-17 16:10] LABS: Glucose,Whole Blood 197 mg/dL (70-110)
[2024-11-17 20:08] LABS: Glucose,Whole Blood 142 mg/dL (70-110)
[2024-11-18 06:47] LABS: Glucose,Whole Blood 164 mg/dL (70-110)
[2024-11-18] MEDS: amLODIPine 10 MG TAB PO SCH (08:53)
[2024-11-18 08:58] LABS: Basophils % (A) 0 %; Eosinophils # (A) 0.8 k/uL (0-0.7); Eosinophils % (A) 12 %; HGB 12.9 gm/dL (13.0-17.5); Hypochromasia Slight; Lymphocytes % (A) 16 %; MCH 31.2 pg (25.0-35.0); MCHC 31.6 g/dL (31.0-37.0); MCV 98.9 fL (80.0-100.0); Mean Platelet Volume 8.4; Monocytes # (A) 0.3 k/uL (0-1.0); Monocytes % (A) 5 %; Neutrophils % (A) 65 %; Platelet Count 238 k/uL (150-450); RBC 4.14 m/uL (4.30-5.90); RDW 14.6 % (11.5-15.5); WBC 6.1 k/uL (3.8-10.6)
[2024-11-18 09:05] LABS: African American GFR (CKD) >90 (>60 ml/min/1.73 sqM); Anion Gap 9 mmol/L; Blood Urea Nitrogen 24 mg/dL (9-20); Calcium 8.7 mg/dL (8.4-10.2); Carbon Dioxide 24 mmol/L (22-30); Chloride 109 mmol/L (98-107); Glucose 174 mg/dL (74-99); Non-African American GFR(CKD) 87 (>60 ml/min/1.73 sqM); Sodium 142 mmol/L (137-145)
--- NOTE | 2024-11-18 11:44 | P.PN ---
Subjective Progress Note Date: 11/18/24 Hospital Course: 83 year old M with PMH of TIA, hypertension, diabetes mellitus, dyslipidemia, chronic knee and lower back pain presents to [facility] for abdominal pain. Patient is a poor historian and majority of history obtained from and daughter at bedside. Started around 11PM last night. Initially epigastric but later started complaining of suprapubic pain with radiation to the right abdomen. Reports urinary urgency but no dysuria. No fever or chills. Denies any headache, lower extremity edema, nausea or vomiting, cough, chest pain, shortness of breath, palpitations, changes in bowel habits. No changes in appetite or weight. No numbness/weakness/tingling of the extremities. In the ED he underwent extensive evaluation. BP 159/63, HR 67, T 98.9, RR 18, 97% on RA. Tmax as high as 99.7. CBC, Coag panel, CMP significant for RBC 4.12, Hct 12.9, BUN 51, glu 161. Lactic acid 2. Lipiase 205, Amylase 49. Trop 0.027, 0.038, 0.039. UA large LE with > 182 WBCs. EKG sinus rhythm with no ST T wave changes. CT AP atrophy of the right kidney, cholelithiasis, diverticulosis. CXR cardiomegaly without acute process. Started on Cefepime and admitted for UTI. Urine cultures growing nausea, resistant to ampicillin, ampicillin sulbactam BRANDT, cefazolin, nitrofurantoin, tetracycline, susceptible to 2 tmp sulfamethoxazole, ceftriaxone and gentamicin. Troponin trending 0.027, 0.038, 0.039, 0.064. Cardiology consulted, recommending Echo and stopping Jardiance. DIANA showed normal LV size and function, mildly enlarged right ventricle. Patient can follow-up with Dr. Cobos as o/p. PTOT recommends WALTER. pending placement Patient was started on amlodipine 10 in addition to his home losartan for better blood pressure control Afebrile since 11/15 at 8 AM Subjective: Patient was seen and examined this morning, sitting in the recliner, had 2 episodes of bowel movements this morning, denies abdominal pain, shortness of breath, chest pain Pertinent positives and negatives as discussed above, a complete review of systems was performed and all other systems are negative. Vitals Signs Reviewed. General: [nontoxic], [no distress], [appears at stated age] Derm: [warm], [dry] Head: [atraumatic], [normocephalic], [symmetric] Eyes: [EOMI], [no lid lag], [anicteric sclera] Mouth: [no lip lesion], [mucus membranes moist] Cardiovascular: [S1S2 reg], [no murmur] Lungs: [CTA bilateral], [no rhonchi, no rales] , [no accessory muscle use] Abdominal: [soft], [ nontender to palpation], [no guarding], [no appreciable organomegaly] Ext: [no gross muscle atrophy], [no edema], [no contractures] Neuro: [ CN II-XI grossly intact], [no focal neuro deficits] Psych: [Alert], [oriented], [appropriate affect] Data Reviewed Today: Pertinent Labs: WBC 6.1, hemoglobin stable 12.9, platelet count normal, sodium and potassium normal, creatinine normal, glucose controlled Assessment and Plan: UTI, Serratia marcescens Leukocytosis, resolved -Afebrile for >48hours, switch to ceftriaxone while inpatient, per antibiotic sensitivity patient can be started on TMP/sulfamethoxazole although it has less favorable side effect profile, SOT 11/14 -PT OT recommends discharge to [facility], patient was authorization sent on 11/17 NSTEMI ] . CAD -Cardiology signed off, recommend following medication changes: Discontinue Jardiance, continue aspirin 81, continue Plavix for 6 more months, follow-up with cardiology as outpatient Diabetes mellitus: ISS + Accuchecks ACHS. Hypoglycemic precautions. History of TIA: ASA and Plavix as above. Hypertension: Losartan 100 mg PO QD., added amlodipine 10 Dyslipidemia: Lipitor 40 mg PO QD. CODE STATUS: FULL CODE DVT Prophylaxis: Lovenox SQ Anticipated discharge place: [facility] Anticipated discharge time: medically stable on 11/17, pending insurance autho rization Objective - Vital Signs Vital signs: Vital Signs Temp 97.8 F 11/18/24 08:45 Pulse 65 11/18/24 08:45 Resp 17 11/18/24 08:45 BP 161/72 11/18/24 08:45 Pulse Ox 97 11/18/24 08:45 FiO2 Intake & Output 11/17/24 11/18/2411/18/25 18:59 06:59 18:59 Intake Total 150 240 500 Output Total 500 Balance -350 240 500 Weight 123.831 kg Intake: Oral 150 240 500 Output: Urine 500 Other: Voiding Method Urinal Urinal Urinal Diaper Diaper Diaper Incontinent Incontinent Incontinent # Voids 1 # Bowel Movements 2 - Labs CBC & Chem 7: 11/18/24 08:28 11/18/24 08:28 Labs: Abnormal Lab Results - Last 24 Hours (Table) 11/17/24 11/17/24 11/17/24 Range/Units 11:55 16:08 20:07 RBC (4.30-5.90) m/uL Hgb (13.0-17.5) gm/dL Eosinophils # (0-0.7) k/uL Chloride (98-107) mmol/L BUN (9-20) mg/dL Glucose (74-99) mg/dL POC Glucose (mg/dL) 121 H 197 H 142 H (70-110) mg/dL 11/18/24 11/18/24 11/18/24 Range/Units 06:45 08:28 08:28 RBC 4.14 L (4.30-5.90) m/uL Hgb 12.9 L (13.0-17.5) gm/dL Eosinophils # 0.8 H (0-0.7) k/uL Chloride 109 H (98-107) mmol/L BUN 24 H (9-20) mg/dL Glucose 174 H (74-99) mg/dL POC Glucose (mg/dL) 164 H (70-110) mg/dL
[2024-11-18 12:00] LABS: Glucose,Whole Blood 156 mg/dL (70-110)
[2024-11-18] MEDS ORDERED: ZINC OXIDE PASTE (Z-GUARD) 1 APPLIC TOPICAL PRN (13:40)
[2024-11-18 16:45] LABS: Glucose,Whole Blood 166 mg/dL (70-110)
[2024-11-18 20:08] LABS: Glucose,Whole Blood 250 mg/dL (70-110)
[2024-11-19 06:03] LABS: Glucose,Whole Blood 181 mg/dL (70-110)
[2024-11-19 08:49] VITALS: RESP 16
[2024-11-19 11:57] LABS: Glucose,Whole Blood 195 mg/dL (70-110)
--- NOTE | 2024-11-19 16:26 | P.PN ---
Subjective Progress Note Date: 11/19/24 Hospital Course: 83 year old M with PMH of TIA, hypertension, diabetes mellitus, dyslipidemia, chronic knee and lower back pain presents to [facility] for abdominal pain. Patient is a poor historian and majority of history obtained from and daughter at bedside. Started around 11PM last night. Initially epigastric but later started complaining of suprapubic pain with radiation to the right abdomen. Reports urinary urgency but no dysuria. No fever or chills. Denies any headache, lower extremity edema, nausea or vomiting, cough, chest pain, shortness of breath, palpitations, changes in bowel habits. No changes in appetite or weight. No numbness/weakness/tingling of the extremities. In the ED he underwent extensive evaluation. BP 159/63, HR 67, T 98.9, RR 18, 97% on RA. Tmax as high as 99.7. CBC, Coag panel, CMP significant for RBC 4.12, Hct 12.9, BUN 51, glu 161. Lactic acid 2. Lipiase 205, Amylase 49. Trop 0.027, 0.038, 0.039. UA large LE with > 182 WBCs. EKG sinus rhythm with no ST T wave changes. CT AP atrophy of the right kidney, cholelithiasis, diverticulosis. CXR cardiomegaly without acute process. Started on Cefepime and admitted for UTI. Urine cultures growing nausea, resistant to ampicillin, ampicillin sulbactam BRANDT, cefazolin, nitrofurantoin, tetracycline, susceptible to 2 tmp sulfamethoxazole, ceftriaxone and gentamicin. Troponin trending 0.027, 0.038, 0.039, 0.064. Cardiology consulted, recommending Echo and stopping Jardiance. DIANA showed normal LV size and function, mildly enlarged right ventricle. Patient can follow-up with Dr. Cobos as o/p. PTOT recommends [facility]. pending placement Patient was started on Procardia 60 in addition to his home losartan for better blood pressure control Afebrile since 11/15 at 8 AM Met with patient's family on 11/19, very concerned that he has low oral intake and needs to be forced to eat. Medicated he is likely be bleeding in the rehab place and will have to go back to the hospital. They agreed that artificial nutrition would not be optimal decision for him, family also shared that he is usually agreeable to eat home food, he enjoyed patient., Does not really like hospital food but can be contributing to his very low oral intake. He said that he would like to have an apple while they were talking. We also talked about possible readmission for failure to thrive at 1 point have to initiate goals of care discussion and may be take more palliative approach. Patient's family demonstrated understanding, they agreed for our initial discharge plan, they will keep encouraging him to eat, diet liberalized. Subjective: Patient was seen and examined this morning, sitting in the recliner, no c omplaints today Pertinent positives and negatives as discussed above, a complete review of systems was performed and all other systems are negative. Vitals Signs Reviewed. General: [nontoxic], [no distress], [appears at stated age] Derm: [warm], [dry] Head: [atraumatic], [normocephalic], [symmetric] Eyes: [EOMI], [no lid lag], [anicteric sclera] Mouth: [no lip lesion], [mucus membranes moist] Cardiovascular: [S1S2 reg], [no murmur] Lungs: [CTA bilateral], [no rhonchi, no rales] , [no accessory muscle use] Abdominal: [soft], [ nontender to palpation], [no guarding], [no appreciable organomegaly] Ext: [no gross muscle atrophy], [no edema], [no contractures] Neuro: [ CN II-XI grossly intact], [no focal neuro deficits] Psych: [Alert], [oriented], [appropriate affect] Data Reviewed Today: Blood work Assessment and Plan: UTI, Serratia marcescens Leukocytosis, resolved -Afebrile for >48hours, switch to ceftriaxone while inpatient, per antibiotic sensitivity patient can be started on TMP/sulfamethoxazole although it has less favorable side effect profile, SOT 11/14 -PT OT recommends discharge to [facility], patient was authorization sent on 11/17 -Ordered CBC and CMP for a.m. NSTEMI ] . CAD -Cardiology signed off, recommend following medication changes: Discontinue Jardiance, continue aspirin 81, continue Plavix for 6 more months, follow-up with cardiology as outpatient Diabetes mellitus: ISS + Accuchecks ACHS. Hypoglycemic precautions. History of TIA: ASA and Plavix as above. Hypertension: Losartan 100 mg PO QD., added amlodipine 10 Dyslipidemia: Lipitor 40 mg PO QD. CODE STATUS: FULL CODE DVT Prophylaxis: Lovenox SQ Anticipated discharge place: [facility] Anticipated discharge time: medically stable on 11/17, pending insurance authorization Objective - Vital Signs Vital signs: Vital Signs Temp 99.3 F 11/19/24 08:00 Pulse 72 11/19/24 12:00 Resp 16 11/19/24 12:00 BP 176/67 11/19/24 12:00 Pulse Ox 98 11/19/24 12:00 FiO2 Intake & Output 11/18/24 11/19/24 11/19/24 18:59 06:59 18:59 Intake Total 965 350 Output Total 650 Balance 965 -650 350 Intake: Intake, IV Titration 50 Amount cefTRIAXone 2 gm In 50 Sodium Chloride 0.9% 50 ml @ 100 mls/hr IVPB Q24HR JARET Rx#:[id number] Oral 965 300 Output: Urine 650 Other: Voiding Method Urinal Urinal Urinal Diaper Diaper Diaper Incontinent Incontinent Incontinent # Bowel Movements 0 2 - Labs CBC & Chem 7: 11/18/24 08:28 11/18/24 08:28 Labs: Abnormal Lab Results - Last 24 Hours (Table) 11/18/24 11/18/24 11/19/24 Range/Units 16:44 20:07 06:02 POC Glucose (mg/dL) 166 H 250 H 181 H (70-110) mg/dL 11/19/24 Range/Units 11:55 POC Glucose (mg/dL) 195 H (70-110) mg/dL
[2024-11-19 16:56] LABS: Glucose,Whole Blood 229 mg/dL (70-110)
[2024-11-19 20:01] LABS: Glucose,Whole Blood 233 mg/dL (70-110)
[2024-11-19 20:36] VITALS: TEMP 99.7
[2024-11-20 06:01] LABS: Glucose,Whole Blood 215 mg/dL (70-110)
[2024-11-20 07:48] LABS: African American GFR (CKD) >90 (>60 ml/min/1.73 sqM); Anion Gap 10 mmol/L; Blood Urea Nitrogen 23 mg/dL (9-20); Calcium 8.8 mg/dL (8.4-10.2); Carbon Dioxide 26 mmol/L (22-30); Chloride 107 mmol/L (98-107); Glucose 201 mg/dL (74-99); Non-African American GFR(CKD) 85 (>60 ml/min/1.73 sqM); Sodium 143 mmol/L (137-145)
[2024-11-20 08:08] LABS: Basophils % (A) 0 %; Eosinophils # (A) 0.4 k/uL (0-0.7); Eosinophils % (A) 4 %; HCT 38.9 % (39.0-53.0); Hypochromasia Moderate; Lymphocytes # (A) 1.1 k/uL (1.0-4.8); Lymphocytes % (A) 12 %; MCH 30.7 pg (25.0-35.0); MCHC 30.8 g/dL (31.0-37.0); MCV 99.7 fL (80.0-100.0); Macrocytosis Slight; Mean Platelet Volume 8.9; Monocytes # (A) 0.5 k/uL (0-1.0); Monocytes % (A) 5 %; Neutrophils # (A) 6.8 k/uL (1.3-7.7); Neutrophils % (A) 77 %; Platelet Count 273 k/uL (150-450); RDW 14.8 % (11.5-15.5); WBC 8.9 k/uL (3.8-10.6)
[2024-11-20 11:48] LABS: Glucose,Whole Blood 233 mg/dL (70-110)
[2024-11-20 12:48] VITALS: BP 152/67; PULSE 76
--- NOTE | 2024-11-20 14:45 | P.DS ---
Providers Date of admission: 11/16/24 07:47 Attending physician: Heike Nugent MD Consults: 11/14/24 15:20 Consult Physician Routine Consulting Provider: Jefferson Schaefer Consult Reason/Comments: Trop elevation Do you want consulting provider notified?: Yes Primary care physician: Nino Guillen [place] [facility] Course: Discharge Diagnosis: UTI, Serratia marcescens Leukocytosis, resolved NSTEMI CAD Diabetes mellitus History of TIA HTN HLD Hospital Course 83 year old M with PMH of TIA, hypertension, diabetes mellitus, dyslipidemia, chronic knee and lower back pain presents to [facility] for abdominal pain. Patient is a poor historian and majority of history obtained from and daughter at bedside. Started around 11PM last night. Initially epigastric but later started complaining of suprapubic pain with radiation to the right abdomen. Reports urinary urgency but no dysuria. No fever or chills. Denies any headache, lower extremity edema, nausea or vomiting, cough, chest pain, shortne ss of breath, palpitations, changes in bowel habits. No changes in appetite or weight. No numbness/weakness/tingling of the extremities. In the ED he underwent extensive evaluation. BP 159/63, HR 67, T 98.9, RR 18, 97% on RA. Tmax as high as 99.7. CBC, Coag panel, CMP significant for RBC 4.12, Hct 12.9, BUN 51, glu 161. Lactic acid 2. Lipiase 205, Amylase 49. Trop 0.027, 0.038, 0.039. UA large LE with > 182 WBCs. EKG sinus rhythm with no ST T wave changes. CT AP atrophy of the right kidney, cholelithiasis, diverticulosis. CXR cardiomegaly without acute process. Started on Cefepime and admitted for UTI. Urine cultures growing nausea, resistant to ampicillin, ampicillin sulbactam BRANDT, cefazolin, nitrofurantoin, tetracycline, susceptible to 2 tmp sulfamethoxazole, ceftriaxone and gentamicin. Troponin trending 0.027, 0.038, 0.039, 0.064. Cardiology consulted, recommending Echo and stopping Jardiance. DIANA showed normal LV size and function, mildly enlarged right ventricle. Patient can follow-up with Dr. Cobos as o/p. PTOT recommends [facility]. pending placement Patient was started on Procardia 60 in addition to his home losartan for better blood pressure control Afebrile since 11/15 at 8 AM. Completed 7 days of IV antibiotics. Leukocytosis resolved Met with patient's family on 11/19, very concerned that he has low oral intake and needs to be forced to eat. Medicated he is likely be bleeding in the rehab place and will have to go back to the hospital. They agreed that artificial nutrition would not be optimal decision for him, family also shared that he is usually agreeable to eat home food, he enjoyed patient., Does not really like hospital food but can be contributing to his very low oral intake. He said that he would like to have an apple while they were talking. We also talked about possible readmission for failure to thrive at 1 point have to initiate goals of care discussion and may be take more palliative approach. Patient's family demonstrated understanding, they agreed for our initial discharge plan, they will keep encouraging him to eat, diet liberalized. Discharged to [facility] 11/20 Patient seen and examined at bedside. Vital signs reviewed and stable. General: [nontoxic], [no distress], [appears at stated age], obese Derm: [warm], [dry] Head: [atraumatic], [normocephalic], [symmetric] Eyes: [EOMI], [no lid lag], [anicteric sclera] Mouth: [no lip lesion], [mucus membranes moist] Cardiovascular: [S1S2 reg], [no murmur] Lungs: [CTA bilateral], [no rhonchi, no rales] , [no accessory muscle use] Abdominal: [soft], [ nontender to palpation], [no guarding], [no appreciable organomegaly] Ext: [no gross muscle atrophy], [no edema], [no contractures] Neuro: [ CN II-XI grossly intact], [no focal neuro deficits] Psych: [Alert], [oriented], [appropriate affect] A total of 40 minutes of time were spent preparing this complex discharge summary. Patient was discharged on 11/20. Patient Condition at Discharge: Stable Plan - Discharge Summary Discharge Rx Participant: No New Discharge Prescriptions: New Famotidine [Pepcid] 20 mg PO BID #30 tab Aspirin 81 mg PO DAILY #90 tab NIFEdipine XL [Procardia XL] 60 mg PO DAILY #60 tab Continue Clopidogrel Bisulfate [Clopidogrel] 75 mg PO DAILY Glimepiride [Amaryl] 2 mg PO BID Losartan Potassium [Cozaar] 100 mg PO DAILY Multivitamins, Thera [Multivitamin (formulary)] 1 tab PO DAILY Acetaminophen-Codeine 300-30mg [Tylenol w/codeine #3] 1 tab PO Q6H PRN #28 tablet PRN Reason: Pain Atorvastatin [Lipitor] 40 mg PO DAILY Insulin Aspart [NovoLOG Flexpen] 20 units SQ AC-TID Cholecalciferol [Vitamin D3 (125 Mcg = 5000 Iu)] 125 mcg PO DAILY Discontinued Empagliflozin [Jardiance] 25 mg PO DAILY Aspirin 325 mg PO BID #60 tab Gabapentin [Neurontin] 300 mg PO TID Discharge Medication List Clopidogrel Bisulfate [Clopidogrel] 75 mg PO DAILY 09/09/15 [History] Glimepiride [Amaryl] 2 mg PO BID 11/17/23 [History] Acetaminophen-Codeine 300-30mg [Tylenol w/codeine #3] 1 tab PO Q6H PRN #28 table t 10/13/24 [Rx] Atorvastatin [Lipitor] 40 mg PO DAILY 11/14/24 [History] Cholecalciferol [Vitamin D3 (125 Mcg = 5000 Iu)] 125 mcg PO DAILY 11/14/24 [History] Insulin Aspart [NovoLOG Flexpen] 20 units SQ AC-TID 11/14/24 [History] Losartan Potassium [Cozaar] 100 mg PO DAILY 11/14/24 [History] Multivitamins, Thera [Multivitamin (formulary)] 1 tab PO DAILY 11/14/24 [History] Aspirin 81 mg PO DAILY #90 tab 11/20/24 [Rx] Famotidine [Pepcid] 20 mg PO BID #30 tab 11/20/24 [Rx] NIFEdipine XL [Procardia XL] 60 mg PO DAILY #60 tab 11/20/24 [Rx] Follow up Appointment(s)/Referral(s): Eladio Cobos MD [STAFF PHYSICIAN] - 1 Week Nino Guillen DO [Primary Care Provider] - 1-2 days Patient Instructions/Handouts: Urinary Tract Infection in Men (DC), Anorexia in Older Adults (GEN) Activity/Diet/Wound Care/Special Instructions: please, follow up with PCP and manager mechanical Discharge Disposition: TRANSFER TO SNF/F
--- NOTE | 2024-11-20 16:23 | CDI ---
Documentation Clarification Form Date: 11/20/2024 04:11:17 PM From: Abbi Kendall RN, CCDS Phone: [phone] Admit Date: 11/16/2024 07:47:00 AM Patient Name: Pratik Ferrell Visit Number: [id number] Discharge Date: ATTENTION: The Clinical Documentation Specialists (CDI) and [facility] Coding Staff appreciate your assistance in clarifying documentation. Please respond to the clarification below the line at the bottom and electronically sign. The CDI & [facility] Coding staff will review the response and follow-up if needed. Please note: Queries are made part of the Legal Health Record. If you have any questions, please contact the author of this message via ITS. Doctor. Bertha Duggan Sepsis is documented in the cardiology progress note on 11/16/24 which may lack sufficient clinical evidence/support in the medical record. Additional clarification is requested. History/Risk Factors: Hyperlipidemia, Hypertension, Cancer, Diabetes Mellitus Clinical Indicators: 83-year-old female with abdominal pain and flank pain on the lower abdomen. 11/14 Urine: Nitrite Positive Ur Leukocyte Esterase-Large, WBC >182 11/14 Urine culture: Serratia marcescens 11/16 (20:00) 159/73 92 17 96% RA 11/16 WBC 14.3. Neutrophils 12.1 Treatment: Financial Compliance Examiner/Telemetry Rocephin 2 GM IVPB Q 24 HRS After work up and study, please clarify which diagnosis is most appropriate? [ x ] Sepsis ruled out [ ] Sepsis is a valid diagnosis as evidence by the following: (Please add rationale): [ ] Other, please specify [ ] Unable to determine (Template Last Reviewed: October 2023) MTDD
[2024-11-20 16:29] LABS: Glucose,Whole Blood 202 mg/dL (70-110)
--- NOTE | 2024-11-20 17:07 | CDI ---
Documentation Clarification Form Date: 11/20/2024 04:34:55 PM From: Abbi Kendall RN, CCDS Phone: [phone] Admit Date: 11/16/2024 07:47:00 AM Patient Name: Pratik Ferrell Visit Number: [id number] Discharge Date: ATTENTION: The Clinical Documentation Specialists (CDI) and [facility] Coding Staff appreciate your assistance in clarifying documentation. Please respond to the clarification below the line at the bottom and electronically sign. The CDI & [facility] Coding staff will review the response and follow-up if needed. Please note: Queries are made part of the Legal Health Record. If you have any questions, please contact the author of this message via ITS. Provider: Dalia Prakash NPC Myocardial infarction (NSTEMI) most likely due to UTI, sepsis. Additional clarification regarding the type of MS is requested. History/Risk Factors: Hyperlipidemia, Hypertension, Cancer, Diabetes Mellitus Clinical Indicators: 83-year-old female with abdominal pain and flank pain on the lower abdomen. She had troponins 0.038, 0.039, 0.064. proBNP 3380. Known nonobstructive coronary artery disease -EKG: Sinus rhythm, LAFB Echocardiogram reveals EF of 55 to 60%, mildly enlarged right ventricle. Treatment: Wafer Polishing Worker/Telemetry ASA 325 MG PO BID, Lipitor 40MG PO Daily Cozaar 100 MG PO Daily, Procardia Xl 60 MG PO Daily Please further clarify the NSTEMI most likely due to UTI ? [ ] NSTEMI [ X] Type II MS due to UTI, [ ] Unable to determine [ ] Other Condition, please specify (Template Last Revised: December 2020) MTDD
== END 2024-11-20 16:42 | DRG 689 ==
LOC: EC 02:20 → 6NMEDSUR 07:58 → 3SCARD 15:46 → OBSVTOIN 11-16 07:47
PROVIDERS: ADMIT Internal Medicine; ATTEND Internal Medicine
DX: N39.0 Urinary tract infection, site not specified (principal); G93.41 Metabolic encephalopathy; I21.A1 Myocardial infarction type 2; E66.01 Morbid (severe) obesity due to excess calories; B96.89 Other specified bacterial agents as the cause of diseases classified elsewhere; E11.9 Type 2 diabetes mellitus without complications; I10 Essential (primary) hypertension; Z68.41 Body mass index [BMI] 40.0-44.9, adult; Z16.11 Resistance to penicillins; Z79.4 Long term (current) use of insulin; E78.5 Hyperlipidemia, unspecified; H91.90 Unspecified hearing loss, unspecified ear; M19.90 Unspecified osteoarthritis, unspecified site; I25.10 Atherosclerotic heart disease of native coronary artery without angina pectoris; K57.30 Diverticulosis of large intestine without perforation or abscess without bleeding; N26.1 Atrophy of kidney (terminal); K80.20 Calculus of gallbladder without cholecystitis without obstruction; M54.50 Low back pain, unspecified; R32 Unspecified urinary incontinence; Z79.82 Long term (current) use of aspirin; Z79.02 Long term (current) use of antithrombotics/antiplatelets; Z79.84 Long term (current) use of oral hypoglycemic drugs; Z79.899 Other long term (current) drug therapy; Z96.643 Presence of artificial hip joint, bilateral; Z86.73 Personal history of transient ischemic attack (TIA), and cerebral infarction without residual deficits; Z85.828 Personal history of other malignant neoplasm of skin; Z88.8 Allergy status to other drugs, medicaments and biological substances; Z71.3 Dietary counseling and surveillance
CPT/HCPCS: 36415; 71046; 74177; 80048; 80053; 80061; 81001; 82150; 83036; 83605; 83690; 83880; 84439; 84443; 84484; 85025; 85027; 85610; 85730; 87077; 87086; 87186; 93005; 93306; 96361; 96365; 96366; 96367; 96372; 96375; 99285

== ENCOUNTER 2025-01-16 17:31 | Observation (INO) | payer MEDICARE ==
--- NOTE | 2025-01-16 17:59 | ED ---
General Adult HPI - General Chief complaint: Fall Stated complaint: fall Time Seen by Provider: 01/16/25 17:46 Source: patient, EMS, RN notes reviewed Mode of arrival: EMS Limitations: no limitations - History of Present Illness Initial comments: Patient is an 84-year-old male present to the emergency department with fall and weakness. Patient states yesterday he fell on his right leg. Patient has been having discomfort right lower leg since that time. Patient states limited ability to walk secondary to pain. Patient is not really getting out of bed. Patient denies fever. Patient feels weak all over. No upper respiratory symptoms. No urinary symptoms. No cough or chest pain or dyspnea. No abdominal pain. - Related Data Home Medications Medication Instructions Recorded Confirmed Clopidogrel Bisulfate [Clopidogrel] 75 mg PO DAILY 09/09/15 11/14/24 Glimepiride [Amaryl] 2 mg PO BID 11/17/23 11/14/24 Atorvastatin [Lipitor] 40 mg PO DAILY 11/14/24 11/14/24 Cholecalciferol [Vitamin D3 (125 125 mcg PO DAILY 11/14/24 11/14/24 Mcg = 5000 Iu)] Insulin Aspart [NovoLOG Flexpen] 20 units SQ AC-TID 11/14/24 11/14/24 Losartan Potassium [Cozaar] 100 mg PO DAILY 11/14/24 11/14/24 Multivitamins, Thera [Multivitamin 1 tab PO DAILY 11/14/24 11/14/24 (formulary)] Previous Rx's Medication Instructions Recorded Acetaminophen-Codeine 300-30mg 1 tab PO Q6H PRN #28 tablet 10/13/24 [Tylenol w/codeine #3] Aspirin 81 mg PO DAILY #90 tab 11/20/24 Famotidine [Pepcid] 20 mg PO BID #30 tab 11/20/24 NIFEdipine XL [Procardia XL] 60 mg PO DAILY #60 tab 11/20/24 Allergies Allergy/AdvReac Type Severity Reaction Status Date / Time atenolol AdvReac Hallucinati Verified 01/16/25 17:43 ons donepezil [From Aricept] AdvReac panic Verified 01/16/25 17:43 attack Review of Systems ROS Statement: Those systems with pertinent positive or pertinent negative responses have been documented in the HPI. ROS Other: All systems not noted in ROS Statement are negative. Constitutional: Denies: fever Eyes: Denies: eye pain ENT: Denies: ear pain Respiratory: Denies: cough, dyspnea Cardiovascular: Denies: chest pain Endocrine: Reports: fatigue Gastrointestinal: Denies: abdominal pain Musculoskeletal: Reports: as per HPI Skin: Denies: rash Neurological: Reports: weakness. 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 CRAIG. TIA. LOWER BACK PAIN. Skin Cancer, Type II DM History of Any Multi-Drug Resistant Organisms: None Reported Past Surgical History: Joint Replacement, Orthopedic Surgery Additional Past Surgical History / Comment(s): SEVERAL LYMPH NODES FROM RIGHT AXILLA REMOVED. LEFT TOTAL HIP. RIGHT MENISCUS REPAIR. BILATERAL CATARACTS. Right Shoulder Surgery from Fall. R total hip replacement Past Anesthesia/Blood Transfusion Reactions: No Reported Reaction Additional Past Anesthesia/Blood Transfusion Reaction / Comment(s): unk hx of blood transfusion Past Psychological History: No Psychological Hx Reported Smoking Status: Never smoker Past Alcohol Use History: None Reported Past Drug Use History: None Reported - Past Family History Father Family Medical History: Hypertension General Exam Limitations: no limitations General appearance: alert, in no apparent distress Head exam: Present: atraumatic, normocephalic Eye exam: Present: normal appearance, PERRL, EOMI ENT exam: Present: normal oropharynx Neck exam: Present: normal inspection. Absent: tenderness, meningismus Respiratory exam: Present: normal lung sounds bilaterally Cardiovascular Exam: Present: regular rate, normal rhythm, normal heart sounds GI/Abdominal exam: Present: soft. Absent: tenderness Extremities exam: Present: tenderness (Right lower leg, mostly at the ankle. Distally extremities are neurovascular intact) Neurological exam: Present: alert, oriented X3, CN II-XII intact, other (Difficult to evaluate for motor deficit right lower leg limited by pain.) Psychiatric exam: Present: normal affect, normal mood Skin exam: Present: normal color Course Vital Signs 01/16/25 01/16/25 17:38 20:37 Temperature 100.4 F H 99.7 F H Pulse Rate 82 89 Respiratory 18 16 Rate Blood Pressure 144/74 154/56 O2 Sat by Pulse 97 97 Oximetry EKG Findings - EKG Results: EKG: interpreted by ERMD (Left axis. Poor R wave progression.), sinus rhythm, normal ST/T Procedures - Orthopedic Splinting/Casting Injury #1 Side: right Lower Extremity Injury Location: short leg Lower Extremity Immobilizer: posterior splint Medical Decision Making - Medical Decision Making Was pt. sent in by a medical professional or institution (, PA, MOLDING MANAGER, urgent care, hospital, or [facility]...) When possible be specific @ -No Did you speak to anyone other than the patient for history (EMS, parent, family, police, friend...)? What history was obtained from this source @ -Family's present helps provide history including patient unable to walk or take care of himself and also that weakness started before his fall Did you review nursing and triage notes (agree or disagree)? Why? @ -I reviewed and agree with nursing and triage notes Were old charts reviewed (outside hosp., previous admission, EMS record, old EKG, old radiological studies, urgent care reports/EKG's, [facility] records)? Report findings @ -No old charts were reviewed Differential Diagnosis (chest pain, altered mental status, abdominal pain women, abdominal pain men, vaginal bleeding, weakness, fever, dyspnea, syncope, headache, dizziness, GI bleed, back pain, seizure, CVA, palpatations, mental health, musculoskeletal)? @ -Differential Weakness: Hypoglycemia, shock, sepsis, hyponatremia, anemia, infection, OK, ETOH, adverse medicine reaction, overdose, stroke, this is not meant to be an all-inclusive list. EKG interpreted by me (3pts min.). @ -As above X-rays interpreted by me (1pt min.). @ -X-ray concerning for nondisplaced distal fibular fracture, chest x-ray shows no acute process CT interpreted by me (1pt min.). @ -CT scan the brain without acute abnormality U/S interpreted by me (1pt. min.). @ -None done What testing was considered but not performed or refused? (CT, X-rays, U/S, labs)? Why? @ -None What meds were considered but not given or refused? Why? @ -None Did you discuss the management of the patient with other professionals (professionals i.e. , PA, MOLDING MANAGER, lab, RT, psych nurse, social sciences department chair, sports lawyer, teacher, classifications officer cc/cm, rn case manager)? Give summary @ -Case discussed with Dr. Christianson who will admit covering Dr. Edmondson me Was smoking cessation discussed for >3mins.? @ -No Was critical care preformed (if so, how long)? @ -No Were there social determinants of health that impacted care today? How? (Homelessness, low income, unemployed, alcoholism, drug addiction, transportation, low edu. Level, literacy, decrease access to med. care, long-term, rehab)? @ -No Was there de-escalation of care discussed even if they declined (Discuss DNR or withdrawal of care, Hospice)? DNR status @ -No What co-morbidities impacted this encounter? (DM, HTN, Smoking, COPD, CAD, Cancer, CVA, ARF, Chemo, Hep., AIDS, mental health diagnosis, sleep apnea, morbid obesity)? @ -None Was patient admitted / discharged? Hospital course, mention meds given and route, prescriptions, significant lab abnormalities, going to OR and other pertinent info. @ -Patient presents with generalized weakness. Patient did have a fall. Patient did sustain a distal fibula fracture. Fracture was splinted. Fracture does not require hospitalization therefore patient will not be admitted for trauma service. Orthopedics will be consulted per request of medicine. Patient will be admitted for generalized weakness, temperature 100.4 with unclear etiology as well as troponin recheck. Undiagnosed new problem with uncertain prognosis? @ -No Drug Therapy requiring intensive monitoring for toxicity (Heparin, Nitro, Insulin, Cardizem)? @ -No Were any procedures done? @ -No Diagnosis/symptom? @ -Weakness Acute, or Chronic, or Acute on Chronic? @ -Acute Uncomplicated (without systemic symptoms) or Complicated (systemic symptoms)? @ -Complicated with nondisplaced distal fibula fracture Side effects of treatment? @ -No Exacerbation, Progression, or Severe Exacerbation? @ -No Poses a threat to life or bodily function? How? (Chest pain, USA, OK, pneumonia, PE, COPD, DKA, ARF, appy, cholecystitis, CVA, Diverticulitis, Homicidal, Suicidal, threat to staff... and all critical care pts) @ -No - Lab Data Result diagrams: 01/16/25 19:01 01/16/25 19:01 Lab Results 01/16/25 01/16/25 01/16/25 Range/Units 18:26 19:01 19:01 WBC 9.68 (4.50-10.00) 10*3/uL RBC 4.27 L (4.40-5.60) 10*6/uL Hgb 13.2 (13.0-17.0) g/dL Hct 40.7 (39.6-50.0) % MCV 95.3 (80.0-97.0) fL MCH 30.9 (27.0-32.0) pg MCHC 32.4 (32.0-37.0) g/dL Plt Count 206 (140-440) 10*3/uL MPV 10.5 (9.5-12.2) fL Immature Gran % (Auto) 0.3 % Neutrophils % 75.1 % Lymphocytes % 14.9 % Monocytes % 9.1 % Eosinophils % 0.3 % Basophils % 0.3 % Immature Gran # 0.03 (0.00-0.04) 10*3/uL Neutrophils # 7.27 (1.80-7.70) 10*3/uL Lymphocytes # 1.44 (0.90-5.00) 10*3/uL Monocytes # 0.88 (0.20-1.00) 10*3/uL Eosinophils # 0.03 L (0.04-0.35) 10*3/uL Basophils # 0.03 (0.00-0.10) 10*3/uL PT (10.0-12.5) sec INR (<1.2) APTT (22.0-30.0) sec Sodium 136 L (137-145) mmol/L Potassium 4.8 (3.5-5.1) mmol/L Chloride 101 (98-107) mmol/L Carbon Dioxide 25 (22-30) mmol/L Anion Gap 10 mmol/L BUN 19 (9-20) mg/dL Creatinine 0.91 (0.66-1.25) mg/dL Est GFR (CKD-EPI)AfAm 90 (>60 ml/min/1.73 sqM) Est GFR (CKD-EPI)NonAf 78 (>60 ml/min/1.73 sqM) Glucose 167 H (74-99) mg/dL Plasma Lactic Acid Osorio (0.7-2.0) mmol/L Calcium 10.0 (8.4-10.2) mg/dL Magnesium 2.1 (1.6-2.3) mg/dL Total Bilirubin 1.4 H (0.2-1.3) mg/dL AST 33 (17-59) U/L ALT 18 (4-49) U/L Alkaline Phosphatase 49 (38-126) U/L Creatine Kinase 138 (55-170) U/L Troponin I (0.000-0.034) ng/mL Total Protein 7.7 (6.3-8.2) g/dL Albumin 4.2 (3.5-5.0) g/dL Influenza Type A (PCR) Not Detected (Not Detectd) Influenza Type B (PCR) Not Detected (Not Detectd) RSV (PCR) Not Detected (Not Detectd) SARS-CoV-2 (PCR) Not Detected (Not Detectd) 01/16/25 01/16/25 01/16/25 Range/Units 19:01 19:01 19:01 WBC (4.50-10.00) 10*3/uL RBC (4.40-5.60) 10*6/uL Hgb (13.0-17.0) g/dL Hct (39.6-50.0) % MCV (80.0-97.0) fL MCH (27.0-32.0) pg MCHC (32.0-37.0) g/dL Plt Count (140-440) 10*3/uL MPV (9.5-12.2) fL Immature Gran % (Auto) % Neutrophils % % Lymphocytes % % Monocytes % % Eosinophils % % Basophils % % Immature Gran # (0.00-0.04) 10*3/uL Neutrophils # (1.80-7.70) 10*3/uL Lymphocytes # (0.90-5.00) 10*3/uL Monocytes # (0.20-1.00) 10*3/uL Eosinophils # (0.04-0.35) 10*3/uL Basophils # (0.00-0.10) 10*3/uL PT 10.9 (10.0-12.5) sec INR 1.0 (<1.2) APTT 21.3 L (22.0-30.0) sec Sodium (137-145) mmol/L Potassium (3.5-5.1) mmol/L Chloride (98-107) mmol/L Carbon Dioxide (22-30) mmol/L Anion Gap mmol/L BUN (9-20) mg/dL Creatinine (0.66-1.25) mg/dL Est GFR (CKD-EPI)AfAm (>60 ml/min/1.73 sqM) Est GFR (CKD-EPI)NonAf (>60 ml/min/1.73 sqM) Glucose (74-99) mg/dL Plasma Lactic Acid Osorio 1.7 (0.7-2.0) mmol/L Calcium (8.4-10.2) mg/dL Magnesium (1.6-2.3) mg/dL Total Bilirubin (0.2-1.3) mg/dL AST (17-59) U/L ALT (4-49) U/L Alkaline Phosphatase (38-126) U/L Creatine Kinase (55-170) U/L Troponin I 0.047 H* (0.000-0.034) ng/mL Total Protein (6.3-8.2) g/dL Albumin (3.5-5.0) g/dL Influenza Type A (PCR) (Not Detectd) Influenza Type B (PCR) (Not Detectd) RSV (PCR) (Not Detectd) SARS-CoV-2 (PCR) (Not Detectd) Disposition Clinical Impression: Weakness Disposition: ADMITTED IP TO THIS HOSP Is patient prescribed a controlled substance at d/c from ED?: No Referrals: Nino Guillen DO [Primary Care Provider] - 1-2 days Time of Disposition: 20:46
[2025-01-16 19:19] LABS: Influenza A Not Detected (Not Detectd); Influenza B Not Detected (Not Detectd); RSV Not Detected (Not Detectd)
[2025-01-16 19:20] LABS: Basophils # (A) 0.03 10*3/uL (0.00-0.10); Basophils % (A) 0.3 %; Eosinophils # (A) 0.03 10*3/uL (0.04-0.35); Eosinophils % (A) 0.3 %; HCT 40.7 % (39.6-50.0); HGB 13.2 g/dL (13.0-17.0); Lymphocytes # (A) 1.44 10*3/uL (0.90-5.00); Lymphocytes % (A) 14.9 %; MCH 30.9 pg (27.0-32.0); MCHC 32.4 g/dL (32.0-37.0); MCV 95.3 fL (80.0-97.0); Mean Platelet Volume 10.5 fL (9.5-12.2); Monocytes # (A) 0.88 10*3/uL (0.20-1.00); Monocytes % (A) 9.1 %; Neutrophils # (A) 7.27 10*3/uL (1.80-7.70); Neutrophils % (A) 75.1 %; Platelet Count 206 10*3/uL (140-440); RBC 4.27 10*6/uL (4.40-5.60); RDW 17.1 % (11.5-14.5); WBC 9.68 10*3/uL (4.50-10.00)
[2025-01-16 19:40] LABS: ALT 18 U/L (4-49); African American GFR (CKD) 90 (>60 ml/min/1.73 sqM); Albumin 4.2 g/dL (3.5-5.0); Anion Gap 10 mmol/L; Blood Urea Nitrogen 19 mg/dL (9-20); Carbon Dioxide 25 mmol/L (22-30); Chloride 101 mmol/L (98-107); Creatine Kinase 138 U/L (55-170); Glucose 167 mg/dL (74-99); Non-African American GFR(CKD) 78 (>60 ml/min/1.73 sqM); Sodium 136 mmol/L (137-145); Total Bilirubin 1.4 mg/dL (0.2-1.3); Total Protein 7.7 g/dL (6.3-8.2)
[2025-01-16 19:51] LABS: AST 33 U/L (17-59); Alkaline Phosphatase 49 U/L (38-126); Magnesium 2.1 mg/dL (1.6-2.3); Potassium 4.8 mmol/L (3.5-5.1)
--- NOTE | 2025-01-16 20:00 | XR ---
EXAMINATION TYPE: XR chest 2V DATE OF EXAM: 01/16/2025 7:31 PM COMPARISON: Chest radiographs from 11/14/2024 CLINICAL INDICATION: Male, 84 years old with history of weak; TECHNIQUE: XR chest 2V Frontal and lateral views of the chest. FINDINGS: Lungs/Pleura: Low lung volumes are present. There is no evidence of pleural effusion, focal consolida tion, or pneumothorax. Pulmonary vascularity: Unremarkable. Heart/mediastinum: Cardiomediastinal silhouette is unremarkable. Musculoskeletal: No acute osseous pathology. Surgical clips project over the right chest. IMPRESSION: Low lung volumes with a generalized hazy appearance which could represent atelectasis versus pulmonar y edema correlate with serum BNP. [facility], , 01/16/2025 7:58 PM
[2025-01-16 20:10] LABS: Prothrombin Time 10.9 sec (10.0-12.5)
[2025-01-16 20:11] LABS: Partial Thromboplastin Time 21.3 sec (22.0-30.0)
--- NOTE | 2025-01-16 20:13 | XR ---
EXAMINATION TYPE: XR ankle complete RT, XR tibia fibula RT DATE OF EXAM: 01/16/2025 7:31 PM COMPARISON: None CLINICAL INDICATION: Male, 84 years old with history of fall; PHH, pain TECHNIQUE: XR ankle complete RT, XR tibia fibula RT; frontal, lateral and oblique projections. Front al and lateral views of the tibia. FINDINGS: Subtle lucency to the distal femur seen on lateral and frontal views with cortical step-off. No addit ional fractures visualized. Mild degeneration changes of the joints of the ankle and the knee with os teophyte formation and joint space tearing. Mild soft tissue swelling throughout the lower extremity. IMPRESSION: Cortical step-off and subtle lucency to the distal fibula concerning for nondisplaced fracture. Furth er evaluation with CT may be of benefit. Correlate for pain in this region. [facility], , 01/16/2025 8:10 PM
--- NOTE | 2025-01-16 20:17 | CT ---
EXAMINATION TYPE: CT brain wo con DATE OF EXAM: 01/16/2025 7:41 PM COMPARISON: . CLINICAL INDICATION: Male, 84 years old with history of weakness, Fell last night at home. Has total hip replacement to R hip in october and fell onto that hip. Denies hitting head, no LOC. On thinners. Pt reports his knees buckled and he went to the ground. TECHNIQUE: Brain: Axial CT images of the brain were obtained with coronal and sagittal reformats created and rev iewed. Contrast used: None. Oral contrast used: None. CT DLP: 1160.8 mGycm, Automated exposure control for dose reduction was used. FINDINGS: Brain: Extra-axial spaces: No suspicious abnormal extra-axial fluid collections. There is a dilated CSF atte nuating region in the posterior cranial fossa consistent with izabela cisterna magna. Ventricular system: Dilatation in proportion to cerebral atrophy. Cerebral parenchyma: Cerebral atrophy. No acute intraparenchymal hemorrhage or mass effect. The rosales -white junction is well differentiated. Scattered hypoattenuating areas are seen within the white mat ter. Cerebellum: Unremarkable. Mass effect: No evidence of midline shift. Intracranial vasculature: Atherosclerotic calcifications of the intracranial vessels. Soft tissues: Normal. Calvarium/osseous structures: No depressed skull fracture. Paranasal sinuses and mastoid air cells: Mild scattered paranasal sinus disease. Visualized orbits: Orbital contents are intact. IMPRESSION: 1. No acute intracranial process. 2. Nonspecific white matter changes, likely secondary to chronic small vessel ischemic disease. [facility], , 01/16/2025 8:14 PM
[2025-01-16] MEDS ORDERED: HYDROmorphone 1 MG/ML 1 ML SYRINGE IVP PRN (20:46)
[2025-01-16] MEDS ORDERED: HYDROmorphone 0.5 MG/0.5 ML SYRINGE IVP PRN (20:46)
[2025-01-16] MEDS ORDERED: NALOXONE 0.4 MG/ML 1 ML VIAL IV PRN (20:46)
[2025-01-16 20:59] LABS: Appearance,Urine Clear (Clear); Bilirubin,Urine Negative (Negative); Blood,Urine Negative (Negative); Color,Urine Light Yellow; Glucose,Urine (UA) 4+ (Negative); Ketones,Urine Trace (Negative); Leukocyte Esterase,Urine Negative (Negative); Nitrite,Urine Negative (Negative); Protein,Urine Trace (Negative); Specific Gravity,Urine 1.025 (1.001-1.035); Urobilinogen,Urine <2.0 mg/dL (<2.0)
[2025-01-16] MEDS: SODIUM CHLORIDE 0.9% 1,000 ML IV SCH (21:04)
[2025-01-16] MEDS: FAMOTIDINE 20 MG TAB PO SCH (21:05)
[2025-01-16] MEDS ORDERED: DEXTROSE 50% SYRINGE 50 ML IVP PRN ×2 (21:18)
[2025-01-16 22:15] LABS: Glucose,Whole Blood 147 mg/dL (70-110)
--- NOTE | 2025-01-17 00:07 | P.HPIM ---
History of Present Illness H&P Date: 01/16/25 Chief Complaint: Weakness Patient is a 84 year old male with past medical history of type diabetes mellitus, hyperlipidemia, hypertension, osteoarthritis, skin cancer presented to the ED with weakness. Patient reports sustaining a fall yesterday, He reports falling on his right leg. He was trying to move from the bed to the lift chair when his legs gave out and he fell to the ground. He was not able to get up on his own. His called EMS who helped him get back on his bed. Patient refused to go to the hospital yesterday. Today morning the patient had difficulty getting out of bed. The called EMS and the patient was brought to the hospital for further evaluation. He reports having pain on the right lower leg including the knee. He endorses generalized weakness. Additionally, patient's and daughter mentioned about patient having melanoma in the past, lymph nodes were removed from his armpit and since then he has had swelling of his arm. They also mentioned that the patient has not been on insulin recently, and that it took a long time for him to get off the insulin. Currently diabetes is managed with Glimepiride and Jardiance. Patient was recently admitted for a UTI 4 weeks ago. He also had right hip replacement done 2 months ago. After that the patient was at [facility] a while. Reportedly patient hasn't been eating well since then and has lost 40 pounds over the past 4 months. Denies blood loss. Denies fever, chills, shortness of breath, cough, chest pain, palpitations, abdominal pain, nausea, vomiting, hematuria, hematochezia, melena, headache, slurred speech, numbness, tingling, blurred vision, double vision. ED documentation reviewed. In the ED patient was treated with famotidine and 0.9 Normal Saline. Vitals on admission T 100.4 F, MI 82 bpm, RR 18, BP 144/74, oxygen saturation 97% on room air EKG independently interpreted as sinus rhythm, poor R wave progression, rate 93 bpm, QTc 388 ms Chest x-ray shows low lung volumes with generalized hazy appearance which could represent atelectasis versus pulmonary edema Ankle and tibia-fibula x-ray shows cortical step-off and subtle lucency to the distal fibula concerning for a nondisplaced fracture, further evaluation with CT may be of benefit Brain CT shows no acute intracranial process, nonspecific white matter changes likely secondary to chronic small vessel ischemic disease Labs on admission show WBC 9.68, hemoglobin 13.2, platelet count 206, INR 1.0, sodium 136, potassium 4.8, creatinine 0.91, lactic acid 1.7, magnesium 2.1, total bilirubin 1.4, troponin I 0.047 UA shows trace trace proteins, 4+ glucose, trace ketones Respiratory panel is negative Patient admitted to internal medicine service Review of systems: Pertinent positives and negatives as discussed in HPI, a complete review of systems was performed and all other systems are negative. Physical examination: Vital signs reviewed General: moderate distress, appears at stated age Derm: warm, dry, intact Head: atraumatic, normocephalic, symmetric Eyes: EOMI, anicteric sclera Cardiovascular: S1 S2 reg, no murmur Lungs: CTA bilateral, no rhonchi, no rales, no accessory muscle use Abdominal: soft, non-tender to palpation Extremities: No cyanosis, clubbing, or pedal edema. Neuro: Alert, Oriented to person and time only, movement restricted on right lower extremity due to pain, Strength 4/5 on left lower extremity and bilateral upper extremities Psych: cooperative Assessment/Plan: Patient is a 84 year old male with past medical history of type diabetes mellitus, hyperlipidemia, hypertension, osteoarthritis, skin cancer presented to the ED with weakness. Active: #. Fall from a standing height secondary to Generalized weakness #. Possible distal fibular fracture, Pathologic fracture Ankle and tibia-fibula x-ray shows cortical step-off and subtle lucency to the distal fibula concerning for a nondisplaced fracture, further evaluation with CT may be of benefit Brain CT shows no acute intracranial process, nonspecific white matter changes likely secondary to chronic small vessel ischemic disease Continue Dilaudid and tramadol as needed for pain management Calcium and vitamin D supplementation Fall precautions Orthopedic surgery is consulted DEXA scan outpatient #. Troponin elevation #. Likely non-STEMI type II Troponin I 0.047 EKG independently interpreted as sinus rhythm, poor R wave progression, rate 93 bpm, QTc 388 ms Chest x-ray shows low lung volumes with generalized hazy appearance which could represent atelectasis versus pulmonary edema Continue to trend troponin Obtain lipid panel, TSH and A1c Echocardiogram obtained in Nov 2024 showed EF 55 to 60%, normal LV size and function, mildly enlarged right ventricle. Continue telemetry monitoring #. Urinary retention Patient reports having a low stream of urine and difficulty initiating urination Obtain bladder scan and PSA #. Bilirubin elevation Patient denies any abdominal pain, nausea, vomiting Monitor CMP Chronic: #. Type II Diabetes mellitus #. Hypertension #. History of non obstructive CAD #. Hyperlipidemia #. GERD Continue aspirin 80 mg p.o. daily, atorvastatin 40 mg p.o. daily, clopidogrel 75 mg p.o. daily, famotidine 20 mg p.o. twice daily, losartan 100 mg p.o. daily, nifedipine 60 mg p.o. daily, insulin sliding scale Resume home meds once confirmed by the pharmacy F: 0.9 normal saline at 75 mL/h E: Replete as required N: Consistent carbohydrate diet DVT prophylaxis: Heparin 5000 units SQ every 8 hours GI prophylaxis: Famotidine 20 mg p.o. twice daily The patient is admitted with an anticipated less than 2 midnight stay for evaluation of weakness CODE STATUS: Full code Discussed with: Patient Anticipated discharge place: Pending clinical course Dictation was produced using [employer] dictation software. please excuse any grammatical, word or spelling errors. Tete Forrest MD PGY-1 IM I have seen and evaluated the patient today. I Discussed the case with the resident and agree with the resident's findings I edited the assessment and plan as necessary as documented in the resident's note. 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 [place]. TIA. LOWER BACK PAIN. Skin Cancer, Type II DM History of Any Multi-Drug Resistant Organisms: None Reported Past Surgical History: Joint Replacement, Orthopedic Surgery Additional Past Surgical History / Comment(s): SEVERAL LYMPH NODES FROM RIGHT AXILLA REMOVED. LEFT TOTAL HIP. RIGHT MENISCUS REPAIR. BILATERAL CATARACTS. Right Shoulder Surgery from Fall. R total hip replacement Past Anesthesia/Blood Transfusion Reactions: No Reported Reaction Additional Past Anesthesia/Blood Transfusion Reaction / Comment(s): unk hx of blood transfusion Past Psychological History: No Psychological Hx Reported Smoking Status: Never smoker Past Alcohol Use History: None Reported Past Drug Use History: None Reported - Past Family History Father Family Medical History: Hypertension Medications and Allergies Home Medications Medication Instructions Recorded Confirmed Type Clopidogrel Bisulfate [Clopidogrel] 75 mg PO DAILY 09/09/15 11/14/24 History Glimepiride [Amaryl] 2 mg PO BID 11/17/23 11/14/24 History Acetaminophen-Codeine 300-30mg 1 tab PO Q6H PRN #28 tablet 10/13/24 11/14/24 Rx [Tylenol w/codeine #3] Atorvastatin [Lipitor] 40 mg PO DAILY 11/14/24 11/14/24 History Cholecalciferol [Vitamin D3 (125 125 mcg PO DAILY 11/14/24 11/14/24 History Mcg = 5000 Iu)] Insulin Aspart [NovoLOG Flexpen] 20 units SQ AC-TID 11/14/24 11/14/24 History Losartan Potassium [Cozaar] 100 mg PO DAILY 11/14/24 11/14/24 History Multivitamins, Thera [Multivitamin 1 tab PO DAILY 11/14/24 11/14/24 History (formulary)] Aspirin 81 mg PO DAILY #90 tab 11/20/24 Rx Famotidine [Pepcid] 20 mg PO BID #30 tab 11/20/24 Rx NIFEdipine XL [Procardia XL] 60 mg PO DAILY #60 tab 11/20/24 Rx Allergies Allergy/AdvReac Type Severity Reaction Status Date / Time atenolol AdvReac Hallucinati Verified 01/16/25 17:43 ons donepezil [From Aricept] AdvReac panic Verified 01/16/25 17:43 attack Physical Exam Vitals: Vital Signs Temp Pulse Resp BP Pulse Ox 01/16/25 20:37 99.7 F H 89 16 154/56 97 01/16/25 17:38 100.4 F H 82 18 144/74 97 Intake and Output 01/16/25 01/16/25 01/16/25 06:59 14:59 22:59 Other: Weight 111.13 kg Results CBC & Chem 7: 01/16/25 19:01 01/16/25 19:01 Labs: Abnormal Lab Results - Last 24 Hours (Table) 01/16/25 01/16/25 01/16/25 Range/Units 19:01 19:01 19:01 RBC 4.27 L (4.40-5.60) 10*6/uL Eosinophils # 0.03 L (0.04-0.35) 10*3/uL APTT 21.3 L (22.0-30.0) sec Sodium 136 L (137-145) mmol/L Glucose 167 H (74-99) mg/dL Total Bilirubin 1.4 H (0.2-1.3) mg/dL Troponin I (0.000-0.034) ng/mL 01/16/25 Range/Units 19:01 RBC (4.40-5.60) 10*6/uL Eosinophils # (0.04-0.35) 10*3/uL APTT (22.0-30.0) sec Sodium (137-145) mmol/L Glucose (74-99) mg/dL Total Bilirubin (0.2-1.3) mg/dL Troponin I 0.047 H* (0.000-0.034) ng/mL
[2025-01-17] MEDS ORDERED: HYDROmorphone 2 MG/ML 1 ML SYRINGE IVP PRN (00:28)
[2025-01-17] MEDS: traMADol 50 MG TAB PO PRN (05:51)
[2025-01-17 06:38] LABS: Glucose,Whole Blood 148 mg/dL (70-110)
[2025-01-17] MEDS: INSULIN LISPRO (HumaLOG) 100 UNIT/ML 10 mL VL SQ SCH (06:40)
[2025-01-17] MEDS ORDERED: HEPARIN SODIUM,PORCINE 5,000 UNIT/ML 1 ML VIAL SQ SCH (08:00)
[2025-01-17 08:21] LABS: Basophils # (A) 0.04 X 10*3/uL (0.00-0.10); Basophils % (A) 0.5 %; Eosinophils # (A) 0.12 X 10*3/uL (0.04-0.35); Eosinophils % (A) 1.6 %; HCT 38.7 % (39.6-50.0); HGB 12.2 g/dL (13.0-17.0); Lymphocytes # (A) 1.57 X 10*3/uL (0.90-5.00); Lymphocytes % (A) 21.4 %; MCH 30.8 pg (27.0-32.0); MCHC 31.5 g/dL (32.0-37.0); MCV 97.7 FL (80.0-97.0); Mean Platelet Volume 10.8 FL (9.5-12.2); Monocytes # (A) 0.73 X 10*3/uL (0.20-1.00); Monocytes % (A) 9.9 %; NRBC Per 100 WBC 0 X 10*3/uL (0.00-0.01); Neutrophils # (A) 4.85 X 10*3/uL (1.80-7.70); Neutrophils % (A) 66.2 %; Platelet Count 232 X 10*3/uL (140-440); RBC 3.96 X 10*6/uL (4.40-5.60); RDW 17.2 % (11.5-14.5); WBC 7.34 X 10*3/uL (4.50-10.00)
[2025-01-17] MEDS: CALCIUM CARB-VIT D 500 MG-5 MCG TAB PO SCH (08:29)
[2025-01-17] MEDS: TAMSULOSIN 0.4 MG CAP.ER.24H PO SCH (08:29)
[2025-01-17] MEDS: ACETAMINOPHEN TAB 325 MG TAB PO PRN (08:30)
[2025-01-17] MEDS: HEPARIN SODIUM,PORCINE 5,000 UNIT/ML 1 ML VIAL SQ SCH (08:30)
[2025-01-17 08:45] LABS: ALT 14 U/L (10-49); AST 22 U/L (14-35); Albumin 3.7 g/dL (3.8-4.9); Albumin/Globulin Ratio 1.23 Ratio (1.60-3.17); Alkaline Phosphatase 45 U/L (41-126); BUN/Creat Ratio 17.22 Ratio (12.00-20.00); Blood Urea Nitrogen 15.5 mg/dL (9.0-27.0); Calcium 9.4 mg/dL (8.7-10.3); Carbon Dioxide 20.9 mmol/L (21.6-31.8); Chloride 105 mmol/L (96-109); Chol/HDL Ratio 3.35 Ratio; Glucose 131 mg/dL (70-110); LDL Cholesterol,Calculated 74.8 mg/dL (0.0-131.0); Potassium 3.9 mmol/L (3.5-5.5); Sodium 142 mmol/L (135-145); Total Bilirubin 0.8 mg/dL (0.3-1.2); Total Protein 6.7 g/dL (6.2-8.2)
--- NOTE | 2025-01-17 10:12 | P.CNOR ---
History of Present Illness - [facility] Consult date: 01/17/25 Consult reason: fracture (Right distal fibular fracture) History of present illness: Patient is a 84-year-old male who presented to [facility] after a fall that occurred a day prior due to worsening fatigue, weakness and pain to the right lower extremity. Upon arrival to the hospital, patient underwent multiple imaging and lab test. Images demonstrated a nondisplaced right distal fibular fracture. Patient was admitted under internal medicine for other medical issues, orthopedic team was consulted. Patient was evaluated today at bedside, he is resting in his hospital bed. A posterior splint with Elvin bandages in place to the right lower extremity. He notices most discomfort out on the lateral aspect of the lower right ankle. He denies any knee pain he denies any hip pain to the right lower extremity. He denies any left lower extremity, bilateral upper extremity pain. He denied hitting his head during the fall. Patient apparently fell when transferring from his lift chair to the bed. Patient has history of bilateral total hip arthroplasties. Currently has no headaches, headedness, chest pain or shortness of breath. Review of Systems Constitutional: Reports as per HPI Past Medical History Past Medical History: Cancer, Diabetes Mellitus, Hearing Disorder / Deafness, Hyperlipidemia, Hypertension, Osteoarthritis (OA) Additional Past Medical History / Comment(s): 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 [employer] [place]. TIA. LOWER BACK PAIN. Skin Cancer, Type II DM History of Any Multi-Drug Resistant Organisms: None Reported Past Surgical History: Joint Replacement, Orthopedic Surgery Additional Past Surgical History / Comment(s): SEVERAL LYMPH NODES FROM RIGHT A XILLA REMOVED. LEFT TOTAL HIP. RIGHT MENISCUS REPAIR. BILATERAL CATARACTS. Right Shoulder Surgery from Fall. R total hip replacement Past Anesthesia/Blood Transfusion Reactions: No Reported Reaction Additional Past Anesthesia/Blood Transfusion Reaction / Comm: unk hx of blood transfusion Past Psychological History: No Psychological Hx Reported Smoking Status: Never smoker Past Alcohol Use History: None Reported Past Drug Use History: None Reported - Past Family History Father Family Medical History: Hypertension Medications and Allergies Home Medications Medication Instructions Recorded Confirmed Type Clopidogrel Bisulfate [Clopidogrel] 75 mg PO DAILY 09/09/15 01/17/25 History Glimepiride [Amaryl] 2 mg PO BID 11/17/23 01/17/25 History Cholecalciferol [Vitamin D3 (125 125 mcg PO DAILY 11/14/24 01/17/25 History Mcg = 5000 Iu)] Losartan Potassium [Cozaar] 100 mg PO DAILY 11/14/24 01/17/25 History Aspirin 81 mg PO DAILY #90 tab 11/20/24 01/17/25 Rx Empagliflozin [Jardiance] 25 mg PO DAILY 01/17/25 01/17/25 History Rosuvastatin [Crestor] 20 mg PO DAILY 01/17/25 01/17/25 History Allergies Allergy/AdvReac Type Severity Reaction Status Date / Time atenolol AdvReac Hallucinati Verified 01/17/25 08:37 ons donepezil [From Aricept] AdvReac panic Verified 01/17/25 08:37 attack Physical Examination Right lower extremity: Posterior splint with Elvin bandage fixation to the lower leg and foot and ankle. There is a small abrasion over the right knee. There is no effusion present on the knee. There are no obvious open skin lesions or sores, areas of erythema or soft tissue swelling Patient demonstrates pain with palpation to the distal fibula on the lateral aspect, she he is nontender along the medial aspect of the ankle. Nontender throughout the midfoot, forefoot and hindfoot. He is nontender to the upper aspect of the leg, knee, femur. Logroll maneuver of the extremity reproduces no groin pain. Flexion and extension at the knee are intact. Range of motion of the ankle was not assessed. Patient is able to the toes and no difficulty Compartments of the upper and lower leg are soft and compressible. Calf soft, no tenderness with palpation Sensory exam to light touch is intact throughout the extremity Dorsalis pedis pulses 2+ Results - Labs Labs: Abnormal Lab Results - Last 24 Hours (Table) 01/16/25 01/16/25 01/16/25 Range/Units 19:01 19:01 19:01 RBC 4.27 L (4.40-5.60) 10*6/uL Hgb (13.0-17.0) g/dL Hct (39.6-50.0) % MCV (80.0-97.0) FL MCHC (32.0-37.0) g/dL RDW (11.5-14.5) % Eosinophils # 0.03 L (0.04-0.35) 10*3/uL APTT 21.3 L (22.0-30.0) sec Sodium 136 L (137-145) mmol/L Carbon Dioxide (21.6-31.8) mmol/L Anion Gap (4.00-12.00) mmol/L Glucose 167 H (74-99) mg/dL POC Glucose (mg/dL) (70-110) mg/dL Hemoglobin A1c (<=6.0) % Total Bilirubin 1.4 H (0.2-1.3) mg/dL Troponin I (0.000-0.034) ng/mL Albumin (3.8-4.9) g/dL Albumin/Globulin Ratio (1.60-3.17) Ratio Triglycerides (0.00-149.00) mg/dL Urine Protein (Negative) Urine Glucose (UA) (Negative) Urine Ketones (Negative) 01/16/25 01/16/25 01/16/25 Range/Units 19:01 20:50 22:14 RBC (4.40-5.60) 10*6/uL Hgb (13.0-17.0) g/dL Hct (39.6-50.0) % MCV (80.0-97.0) FL MCHC (32.0-37.0) g/dL RDW (11.5-14.5) % Eosinophils # (0.04-0.35) 10*3/uL APTT (22.0-30.0) sec Sodium (137-145) mmol/L Carbon Dioxide (21.6-31.8) mmol/L Anion Gap (4.00-12.00) mmol/L Glucose (74-99) mg/dL POC Glucose (mg/dL) 147 H (70-110) mg/dL Hemoglobin A1c (<=6.0) % Total Bilirubin (0.2-1.3) mg/dL Troponin I 0.047 H* (0.000-0.034) ng/mL Albumin (3.8-4.9) g/dL Albumin/Globulin Ratio (1.60-3.17) Ratio Triglycerides (0.00-149.00) mg/dL Urine Protein Trace H (Negative) Urine Glucose (UA) 4+ H (Negative) Urine Ketones Trace H (Negative) 01/16/25 01/17/25 01/17/25 Range/Units 23:25 05:33 05:33 RBC 3.96 L (4.40-5.60) 10*6/uL Hgb 12.2 L (13.0-17.0) g/dL Hct 38.7 L (39.6-50.0) % MCV 97.7 H (80.0-97.0) FL MCHC 31.5 L (32.0-37.0) g/dL RDW 17.2 H (11.5-14.5) % Eosinophils # (0.04-0.35) 10*3/uL APTT (22.0-30.0) sec Sodium (137-145) mmol/L Carbon Dioxide (21.6-31.8) mmol/L Anion Gap (4.00-12.00) mmol/L Glucose (74-99) mg/dL POC Glucose (mg/dL) (70-110) mg/dL Hemoglobin A1c (<=6.0) % Total Bilirubin (0.2-1.3) mg/dL Troponin I 0.052 H* 0.052 H* (0.000-0.034) ng/mL Albumin (3.8-4.9) g/dL Albumin/Globulin Ratio (1.60-3.17) Ratio Triglycerides (0.00-149.00) mg/dL Urine Protein (Negative) Urine Glucose (UA) (Negative) Urine Ketones (Negative) 01/17/25 01/17/25 01/17/25 Range/Units 05:33 05:33 06:37 RBC (4.40-5.60) 10*6/uL Hgb (13.0-17.0) g/dL Hct (39.6-50.0) % MCV (80.0-97.0) FL MCHC (32.0-37.0) g/dL RDW (11.5-14.5) % Eosinophils # (0.04-0.35) 10*3/uL APTT (22.0-30.0) sec Sodium (137-145) mmol/L Carbon Dioxide 20.9 L (21.6-31.8) mmol/L Anion Gap 16.10 H (4.00-12.00) mmol/L Glucose 131 H (74-99) mg/dL POC Glucose (mg/dL) 148 H (70-110) mg/dL Hemoglobin A1c 7.3 H (<=6.0) % Total Bilirubin (0.2-1.3) mg/dL Troponin I (0.000-0.034) ng/mL Albumin 3.7 L (3.8-4.9) g/dL Albumin/Globulin Ratio 1.23 L (1.60-3.17) Ratio Triglycerides 152.00 H (0.00-149.00) mg/dL Urine Protein (Negative) Urine Glucose (UA) (Negative) Urine Ketones (Negative) H & H 01/16/25 01/17/25 Range/Units 19:01 05:33 Hgb 13.2 12.2 L (13.0-17.0) g/dL Hct 40.7 38.7 L (39.6-50.0) % Coagulation 01/16/25 Range/Units 19:01 INR 1.0 (<1.2) Result Diagrams: 01/17/25 05:33 01/17/25 05:33 - Diagnostic results Ankle/Foot x-ray: report reviewed, image reviewed (Right ankle x-rays and reports were reviewed. Nondisplaced right distal fibular fracture noted. Mortise joint is intact with no widening noted) Assessment and Plan Assessment: Right ankle nondisplaced fibular fracture Status post fall Multiple medical comorbidities Plan: I was able to discuss the case, this included physical exam findings and imaging studies my attending Dr. Masterson. No orthopedic surgical intervention recommended at this time Conservative measures to include a cam walker boot, a prescription was placed in the chart and discussed with nursing. Icing and elevating of that extremity Patient can weight-bear as tolerated in the cam walker boot with use of a walker GI DVT prophylaxis per primary medical service PT/OT evaluation Other medical specialty recommendations appreciated Discharge planning: On an orthopedic standpoint once patient is fitted for cam walker boot he will be stable for discharge. Follow-up information will be placed in chart for follow-up in the next 7 to 10 days for clinical and x-ray evaluation Time with Patient: Less than 30
[2025-01-17 12:55] LABS: Glucose,Whole Blood 151 mg/dL (70-110)
[2025-01-17] MEDS: ZINC OXIDE PASTE (Z-GUARD) 1 APPLIC TOPICAL PRN (13:07)
--- NOTE | 2025-01-17 13:08 | P.PN ---
Subjective Progress Note Date: 01/17/25 84 year old M with PMH of TIA, hypertension, diabetes mellitus, dyslipidemia, chronic knee and lower back pain presents to [facility] after his legs gave out under him, sustaining a fall to his right side. In the ED he underwent extensive evaluation. T 100.4 F, UT 82 bpm, RR 18, BP 144/74, oxygen saturation 97% on room air. EKG sinus rhythm, poor R wave progression, rate 93 bpm, QTc 388 ms. Chest x-ray shows low lung volumes with generalized hazy appearance which could represent atelectasis versus pulmonary edema. Ankle and tibia-fibula x-ray shows cortical step-off and subtle lucency to the distal fibula concerning for a nondisplaced fracture, further evaluation with CT may be of benefit. Brain CT shows no acute intracranial process. Labs on admission show WBC 9.68, hemoglobin 13.2, platelet count 206, INR 1.0, sodium 136, potassium 4.8, creatinine 0.91, lactic acid 1.7, magnesium 2.1, total bilirubin 1.4, troponin I 0.047. UA shows trace trace proteins, 4+ glucose, trace ketones. Respiratory viral panel is negative. Patient is admitted for further workup and management. 01/17 Patient was seen and examined. Pain appears well controlled. reports difficulty urinating. CBC, CMP significant for RBC 3.96, Hg 12.2, Hct 38.7, MCV 97.7, bicarb 20.9, AG 16.1, glu 131, alb 3.7. A1c 7.3. Lipid panel TG 152, T. chol 150, LDL 74.8. Trop 0.052 x 2. TSH 0.885. General: not toxic, no distress, appears at stated age Derm: warm, dry Head: atraumatic, normocephalic, symmetric Eyes: EOMI, no lid lag, anicteric sclera Mouth: no lip lesion, mucus membranes moist Cardiovascular: S1S2 reg, no murmur Lungs: Clear to auscultation BL Ext: no gross muscle atrophy, no edema, no contractures Neuro: no focal neuro deficits Psych: Alert, oriented Based on my assessment of this patient, this patient meets a high complexity level of care. Mechanical Fall resulting in distal fibular fracture: Orthopedic surgery recommends cam walker boot, WBAT and outpatient follow up. PT and OT consulted once boot is received. Fall precautions. Recommend DEXA scan in the outpatient setting. Orthopedic Sx on board. Troponin elevation likely type II NSTEMI: Troponins are flat. Echocardiogram obtained in Nov 2024 showed EF 55 to 60%, normal LV size and function, mildly enlarged right ventricle. Outpatient Cardiology follow up. Urinary retention: Flomax 0.4 mg PO QD. Bladder scan to rule out retention. UA neg for LE or nitrite. Follow PSA. Outpatient Urology evaluation. Type II Diabetes mellitus: ISS and Accuchecks ACHS along with hypoglycemic precautions. Hypertension: Losartan 100 mg PO QD. History of non obstructive CAD: ASA 81 mg PO QD. Plavix 75 mg PO QD. Crestor 20 mg PO QD. Hyperlipidemia: Lipitor as above. GERD: Pepcid 20 mg PO BID. CODE STATUS: FULL CODE DVT Prophylaxis: Heparin SQ GI Prophylaxis: Pepcid BID Designated medical POA if patient is not able to make medical decisions for themselves: I have reviewed the following acquisition consultant notes: Orthopedic Sx. I have reviewed the results of the following tests: CBC, CMP, Lipid panel, Trop x 2, TSH. I have ordered the following tests: I have discussed the care of this patient with the following independent historian: Family at bedside. I have independently interpreted the following test below: I have discussed the management of this patient with the following physician: Objective - Vital Signs Vital signs: Vital Signs Temp 98.2 F 01/17/25 08:00 Pulse 96 01/17/25 08:00 Resp 17 01/17/25 08:00 BP 133/71 01/17/25 08:00 Pulse Ox 96 01/17/25 08:00 FiO2 Intake & Output 01/16/25 01/17/25 01/17/25 18:59 06:59 18:59 Weight 111.13 kg 111.13 kg Other: Voiding Method Urinal Diaper Diaper External Catheter # Voids 2 - Labs CBC & Chem 7: 01/17/25 05:33 01/17/25 05:33 Labs: Abnormal Lab Results - Last 24 Hours (Table) 01/16/25 01/16/25 01/16/25 Range/Units 19:01 19:01 19:01 RBC 4.27 L (4.40-5.60) 10*6/uL Hgb (13.0-17.0) g/dL Hct (39.6-50.0) % MCV (80.0-97.0) FL MCHC (32.0-37.0) g/dL RDW (11.5-14.5) % Eosinophils # 0.03 L (0.04-0.35) 10*3/uL APTT 21.3 L (22.0-30.0) sec Sodium 136 L (137-145) mmol/L Carbon Dioxide (21.6-31.8) mmol/L Anion Gap (4.00-12.00) mmol/L Glucose 167 H (74-99) mg/dL POC Glucose (mg/dL) (70-110) mg/dL Hemoglobin A1c (<=6.0) % Total Bilirubin 1.4 H (0.2-1.3) mg/dL Troponin I (0.000-0.034) ng/mL Albumin (3.8-4.9) g/dL Albumin/Globulin Ratio (1.60-3.17) Ratio Triglycerides (0.00-149.00) mg/dL Urine Protein (Negative) Urine Glucose (UA) (Negative) Urine Ketones (Negative) 01/16/25 01/16/25 01/16/25 Range/Units 19:01 20:50 22:14 RBC (4.40-5.60) 10*6/uL Hgb (13.0-17.0) g/dL Hct (39.6-50.0) % MCV (80.0-97.0) FL MCHC (32.0-37.0) g/dL RDW (11.5-14.5) % Eosinophils # (0.04-0.35) 10*3/uL APTT (22.0-30.0) sec Sodium (137-145) mmol/L Carbon Dioxide (21.6-31.8) mmol/L Anion Gap (4.00-12.00) mmol/L Glucose (74-99) mg/dL POC Glucose (mg/dL) 147 H (70-110) mg/dL Hemoglobin A1c (<=6.0) % Total Bilirubin (0.2-1.3) mg/dL Troponin I 0.047 H* (0.000-0.034) ng/mL Albumin (3.8-4.9) g/dL Albumin/Globulin Ratio (1.60-3.17) Ratio Triglycerides (0.00-149.00) mg/dL Urine Protein Trace H (Negative) Urine Glucose (UA) 4+ H (Negative) Urine Ketones Trace H (Negative) 01/16/25 01/17/25 01/17/25 Range/Units 23:25 05:33 05:33 RBC 3.96 L (4.40-5.60) 10*6/uL Hgb 12.2 L (13.0-17.0) g/dL Hct 38.7 L (39.6-50.0) % MCV 97.7 H (80.0-97.0) FL MCHC 31.5 L (32.0-37.0) g/dL RDW 17.2 H (11.5-14.5) % Eosinophils # (0.04-0.35) 10*3/uL APTT (22.0-30.0) sec Sodium (137-145) mmol/L Carbon Dioxide (21.6-31.8) mmol/L Anion Gap (4.00-12.00) mmol/L Glucose (74-99) mg/dL POC Glucose (mg/dL) (70-110) mg/dL Hemoglobin A1c (<=6.0) % Total Bilirubin (0.2-1.3) mg/dL Troponin I 0.052 H* 0.052 H* (0.000-0.034) ng/mL Albumin (3.8-4.9) g/dL Albumin/Globulin Ratio (1.60-3.17) Ratio Triglycerides (0.00-149.00) mg/dL Urine Protein (Negative) Urine Glucose (UA) (Negative) Urine Ketones (Negative) 01/17/25 01/17/25 01/17/25 Range/Units 05:33 05:33 06:37 RBC (4.40-5.60) 10*6/uL Hgb (13.0-17.0) g/dL Hct (39.6-50.0) % MCV (80.0-97.0) FL MCHC (32.0-37.0) g/dL RDW (11.5-14.5) % Eosinophils # (0.04-0.35) 10*3/uL APTT (22.0-30.0) sec Sodium (137-145) mmol/L Carbon Dioxide 20.9 L (21.6-31.8) mmol/L Anion Gap 16.10 H (4.00-12.00) mmol/L Glucose 131 H (74-99) mg/dL POC Glucose (mg/dL) 148 H (70-110) mg/dL Hemoglobin A1c 7.3 H (<=6.0) % Total Bilirubin (0.2-1.3) mg/dL Troponin I (0.000-0.034) ng/mL Albumin 3.7 L (3.8-4.9) g/dL Albumin/Globulin Ratio 1.23 L (1.60-3.17) Ratio Triglycerides 152.00 H (0.00-149.00) mg/dL Urine Protein (Negative) Urine Glucose (UA) (Negative) Urine Ketones (Negative) 01/17/25 Range/Units 12:42 RBC (4.40-5.60) 10*6/uL Hgb (13.0-17.0) g/dL Hct (39.6-50.0) % MCV (80.0-97.0) FL MCHC (32.0-37.0) g/dL RDW (11.5-14.5) % Eosinophils # (0.04-0.35) 10*3/uL APTT (22.0-30.0) sec Sodium (137-145) mmol/L Carbon Dioxide (21.6-31.8) mmol/L Anion Gap (4.00-12.00) mmol/L Glucose (74-99) mg/dL POC Glucose (mg/dL) 151 H (70-110) mg/dL Hemoglobin A1c (<=6.0) % Total Bilirubin (0.2-1.3) mg/dL Troponin I (0.000-0.034) ng/mL Albumin (3.8-4.9) g/dL Albumin/Globulin Ratio (1.60-3.17) Ratio Triglycerides (0.00-149.00) mg/dL Urine Protein (Negative) Urine Glucose (UA) (Negative) Urine Ketones (Negative)
[2025-01-17 17:33] LABS: Glucose,Whole Blood 166 mg/dL (70-110)
[2025-01-17 20:43] LABS: Glucose,Whole Blood 203 mg/dL (70-110)
[2025-01-18 08:11] LABS: Glucose,Whole Blood 171 mg/dL (70-110)
[2025-01-18 08:15] VITALS: RESP 15
[2025-01-18] MEDS: CLOPIDOGREL 75 MG TAB PO SCH (09:19)
[2025-01-18] MEDS: ASPIRIN 81 MG PO SCH (09:19)
[2025-01-18] MEDS: ATORVASTATIN 40 MG TAB PO SCH (09:19)
[2025-01-18] MEDS: LOSARTAN 50 MG TAB PO SCH (09:20)
--- NOTE | 2025-01-18 11:43 | P.PN ---
Subjective Progress Note Date: 01/18/25 Principal diagnosis: Right distal fibular fracture Patient evaluated today at bedside, his and daughter present at bedside. Patient was fitted for the cam walker boot yesterday. He has no other orthopedic complaints at this time. Objective - Vital Signs Vital signs: Vital Signs Temp 98.5 F 01/18/25 07:00 Pulse 78 01/18/25 08:00 Resp 15 01/18/25 07:00 BP 120/58 01/18/25 07:00 Pulse Ox 97 01/18/25 07:00 FiO2 Intake & Output 01/17/25 01/18/25 01/18/25 18:59 06:59 18:59 Intake Total 1020 236 Output Total 1000 Balance 1020 -1000 236 Intake: Oral 1020 236 Output: Urine 1000 Other: Voiding Method Diaper Diaper Diaper External Catheter External Catheter External Catheter # Voids 3 - Exam Right lower extremity: Skin was examined near the ankle, there are no open lesions or sores, there is some mild swelling of the lateral malleolus. There is a small abrasion over the right knee. There is no effusion present on the knee. There are no obvious open skin lesions or sores, areas of erythema or soft tissue swelling Patient demonstrates pain with palpation to the distal fibula on the lateral aspect, she he is nontender along the medial aspect of the ankle. Nontender throughout the midfoot, forefoot and hindfoot. He is nontender to the upper aspect of the leg, knee, femur. Logroll maneuver of the extremity reproduces no groin pain. Flexion and e xtension at the knee are intact. Range of motion of the ankle was not assessed. Patient is able to the toes and no difficulty Compartments of the upper and lower leg are soft and compressible. Calf soft, no tenderness with palpation Sensory exam to light touch is intact throughout the extremity Dorsalis pedis pulses 2+ - Labs CBC & Chem 7: 01/17/25 05:33 01/17/25 05:33 Labs: Abnormal Lab Results - Last 24 Hours (Table) 01/17/25 01/17/25 01/17/25 Range/Units 12:42 17:22 20:42 POC Glucose (mg/dL) 151 H 166 H 203 H (70-110) mg/dL 01/18/25 Range/Units 08:10 POC Glucose (mg/dL) 171 H (70-110) mg/dL Assessment and Plan Assessment: Right ankle nondisplaced fibular fracture Status post fall Multiple medical comorbidities Plan: CAM Walker boot, weight-bear as tolerated with walker Elevate the extremity often GI DVT prophylaxis per primary medical service PT/OT evaluation Other medical specialty recommendations appreciated Discharge planning: On an orthopedic standpoint once patient is stable for discharge and follow-up in the outpatient setting, please contact our service with any further questions regarding this patient Time with Patient: Less than 30
[2025-01-18 12:45] LABS: Glucose,Whole Blood 166 mg/dL (70-110)
[2025-01-18 13:42] LABS: Glucose,Whole Blood 171 mg/dL (70-110)
[2025-01-18 14:13] VITALS: BP 130/90; PULSE 70; TEMP 98.1
--- NOTE | 2025-01-18 14:29 | P.DS ---
Providers Date of admission: 01/16/25 20:46 Expected date of discharge: 01/18/25 Attending physician: Dhara Reed MD Consults: 01/16/25 20:46 Consult Physician Routine Consulting Provider: Juan C Masterson Consult Reason/Comments: distal fibula fx Do you want consulting provider notified?: Yes Primary care physician: [facility] Hospital Course: 84 year old M with PMH of TIA, hypertension, diabetes mellitus, dyslipidemia, chronic knee and lower back pain presents to [facility] after his legs gave out under him, sustaining a fall to his right side. In the ED he underwent extensive evaluation. T 100.4 F, RI 82 bpm, RR 18, BP 144/74, oxygen saturation 97% on room air. EKG sinus rhythm, poor R wave progression, rate 93 bpm, QTc 388 ms. Chest x-ray shows low lung volumes with generalized hazy appearance which could represent atelectasis versus pulmonary edema. Ankle and tibia-fibula x-ray shows cortical step-off and subtle lucency to the distal fibula concerning for a nondisplaced fracture, further evaluation with CT may be of benefit. Brain CT shows no acute intracranial process. Labs on admission show WBC 9.68, hemoglobin 13.2, platelet count 206, INR 1.0, sodium 136, potassium 4.8, creatinine 0.91, lactic acid 1.7, magnesium 2.1, total bilirubin 1.4, troponin I 0.047, 0.052 x 2. UA shows trace trace proteins, 4+ glucose, trace ketones. Respiratory viral panel is negative. Patient is admitted for further workup and management. Orthopedic Sx evaluated, recommends cam walker boot, WBAT and outpatient follow up. There was some question of difficulty urinating, started on Flomax, PSA was within normal limits, advised outpatient follow up. Troponins remained flat at 0.047, 0.052 x 2 with EKG sinus rhythm, poor R wave progression, rate 93 bpm, QTc 388 ms. Echocardiogram obtained in Nov 2024 showed EF 55 to 60%, normal LV size and function, mildly enlarged right ventricle. Thought to be related to Type II NSTEMI, advised outpatient follow up. 01/18 Patient was seen and examined. He reports well controlled pain in his right lower extremity. Working with PT with cam walker boot. Discussed with case management, plans for discharge to [facility] today. Discharge Plan: Orthopedic instructions include in discharge paperwork. Follow up with PCP within 1-2 days of discharge. Follow up with Cardiology, Urology and Orthopedic Sx within 1 week of discharge. New prescriptions include Flomax and Tramadol PRN. General: not toxic, no distress, appears at stated age Derm: warm, dry Head: atraumatic, normocephalic, symmetric Eyes: EOMI, no lid lag, anicteric sclera Mouth: no lip lesion, mucus membranes moist Cardiovascular: S1S2 reg, no murmur Lungs: Clear to auscultation BL Ext: no gross muscle atrophy, no edema, no contractures Neuro: no focal neuro deficits Psych: Alert, oriented Discharge Diagnosis: Mechanical Fall resulting in distal fibular fracture Troponin elevation likely type II NSTEMI Urinary retention Type II Diabetes mellitus Hypertension History of non obstructive CAD Hyperlipidemia GERD This complex discharge took 35 minutes to complete. Patient Condition at Discharge: Stable Plan - Discharge Summary New Discharge Prescriptions: New Calcium Carb-Vit D 500Mg-5Mcg [Oscal 500+D 5 Mcg (200 Iu)] 1 each PO BID- W/MEALS tab Famotidine [Pepcid] 20 mg PO BID tab Acetaminophen Tab [Tylenol] 650 mg PO Q6HR PRN tab PRN Reason: Mild Pain Or Fever > 100.5 Tamsulosin [Flomax] 0.4 mg PO PC-BRKFST cap traMADol HCl [Ultram] 50 mg PO Q6H PRN #12 tab PRN Reason: Moderate Pain (Scale 4 To 6) Continue Clopidogrel Bisulfate [Clopidogrel] 75 mg PO DAILY Glimepiride [Amaryl] 2 mg PO BID Losartan Potassium [Cozaar] 100 mg PO DAILY Rosuvastatin [Crestor] 20 mg PO DAILY Cholecalciferol [Vitamin D3 (125 Mcg = 5000 Iu)] 125 mcg PO DAILY Aspirin 81 mg PO DAILY #90 tab Empagliflozin [Jardiance] 25 mg PO DAILY Discharge Medication List Clopidogrel Bisulfate [Clopidogrel] 75 mg PO DAILY 09/09/15 [History] Glimepiride [Amaryl] 2 mg PO BID 11/17/23 [History] Cholecalciferol [Vitamin D3 (125 Mcg = 5000 Iu)] 125 mcg PO DAILY 11/14/24 [History] Losartan Potassium [Cozaar] 100 mg PO DAILY 11/14/24 [History] Aspirin 81 mg PO DAILY #90 tab 11/20/24 [Rx] Empagliflozin [Jardiance] 25 mg PO DAILY 01/17/25 [History] Rosuvastatin [Crestor] 20 mg PO DAILY 01/17/25 [History] Acetaminophen Tab [Tylenol] 650 mg PO Q6HR PRN tab 01/18/25 [Rx] Calcium Carb-Vit D 500Mg-5Mcg [Oscal 500+D 5 Mcg (200 Iu)] 1 each PO BID-W/MEALS tab 01/18/25 [Rx] Famotidine [Pepcid] 20 mg PO BID tab 01/18/25 [Rx] Tamsulosin [Flomax] 0.4 mg PO PC-BRKFST cap 01/18/25 [Rx] traMADol HCl [Ultram] 50 mg PO Q6H PRN #12 tab 01/18/25 [Rx] Follow up Appointment(s)/Referral(s): Billy Frederick MD [Medical Doctor] - 1 Week Willy Claros MD [STAFF PHYSICIAN] - 1 Week Pal Jay PAC [PHYSICIAN [employer]] - 1 Week Nino Guillen DO [Primary Care Provider] - 1-2 days Activity/Diet/Wound Care/Special Instructions: Orthopedic discharge instructions: 1. CAM Walker boot when ambulating 2. Walker at all times when ambulating 3. Ice and elevate the extremity often 4. Plan for follow-up with advanced orthopedics in 1 week for clinical and x- ray evaluation
== END 2025-01-18 16:27 ==
LOC: EC 17:31 → 6NMEDSUR 20:46
PROVIDERS: ADMIT Internal Medicine; ATTEND Internal Medicine
DX: R53.1 Weakness (principal); S82.831A Other fracture of upper and lower end of right fibula, initial encounter for closed fracture; W19.XXXA Unspecified fall, initial encounter; R79.89 Other specified abnormal findings of blood chemistry; R33.9 Retention of urine, unspecified; I25.10 Atherosclerotic heart disease of native coronary artery without angina pectoris; E11.9 Type 2 diabetes mellitus without complications; I10 Essential (primary) hypertension; K21.9 Gastro-esophageal reflux disease without esophagitis; E78.5 Hyperlipidemia, unspecified; G89.29 Other chronic pain; M25.561 Pain in right knee; M54.50 Low back pain, unspecified; Z79.02 Long term (current) use of antithrombotics/antiplatelets; Z79.82 Long term (current) use of aspirin; Z79.84 Long term (current) use of oral hypoglycemic drugs; Z79.899 Other long term (current) drug therapy; Z88.8 Allergy status to other drugs, medicaments and biological substances; Z96.643 Presence of artificial hip joint, bilateral; Z87.440 Personal history of urinary (tract) infections; Z86.73 Personal history of transient ischemic attack (TIA), and cerebral infarction without residual deficits; Z85.828 Personal history of other malignant neoplasm of skin
CPT/HCPCS: 96372 ×2; 99285; 36415; 93005; 97162; 97166; 84153; 80061; 80053 ×2; 84443; 82550 ×2; 83605; 83735; 84484 ×2; 85025 ×2; 85610; 85730; 81003; 83036; 87636; 73590; 73610; 71046; 70450; G0378 ×3; J1644 ×2

== ENCOUNTER 2025-02-09 11:00 | Inpatient (IN) | payer MEDICARE ==
--- NOTE | 2025-02-09 11:32 | ED ---
General Adult HPI - General Chief complaint: Weakness Stated complaint: Weakness Time Seen by Provider: 02/09/25 11:11 Source: patient, EMS, RN notes reviewed Mode of arrival: EMS Limitations: no limitations - History of Present Illness Initial comments: 84-year-old male presents to the emergency department for evaluation of generalized weakness. Patient states that this been going on for the past 3 to 4 days. He notes that he was recently discharged from [facility] following a fall resulting in a foot fracture. He states that upon discharge from [facility] he had was doing okay walking with a walker. Upon going home he notes that he has been having difficulty getting around. He has been using his walker but feels very weak and he feels as though he is going to fall. Patient notes he has pain in his buttocks which is not a new issue and has been going on for multiple months. He denies any chest pain. Does note some shortness of breath. Denies fever, chills, urinary symptoms. - Related Data Home Medications Medication Instructions Recorded Confirmed Clopidogrel Bisulfate [Clopidogrel] 75 mg PO DAILY 09/09/15 02/09/25 Glimepiride [Amaryl] 2 mg PO BID 11/17/23 02/09/25 Losartan Potassium [Cozaar] 100 mg PO DAILY 11/14/24 02/09/25 Empagliflozin [Jardiance] 25 mg PO DAILY 01/17/25 02/09/25 Atorvastatin [Lipitor] 40 mg PO HS 02/09/25 02/09/25 Gabapentin 300 mg PO TID 02/09/25 02/09/25 Insulin Aspart [NovoLOG Flexpen] 5 units SQ TID-W/MEALS 02/09/25 02/09/25 Insulin Aspart [NovoLOG Flexpen] See Protocol SQ ACHS 02/09/25 02/09/25 Miconazole 2% Powder 1 applic TOPICAL BID 02/09/25 02/09/25 Ocular Multivitamin(Unknown) 1 tab PO BID 02/09/25 02/09/25 Sennosides [Senokot] 17.2 mg PO Q24H PRN 02/09/25 02/09/25 Previous Rx's Medication Instructions Recorded Acetaminophen Tab [Tylenol] 650 mg PO Q4HR PRN tab 02/12/25 Aspirin 81 mg PO DAILY tab 02/12/25 polyethylene glycoL 3350 [Miralax] 17 gm PO DAILY packet 02/12/25 Allergies Allergy/AdvReac Type Severity Reaction Status Date / Time atenolol AdvReac Hallucinati Verified 02/09/25 16:51 ons donepezil [From Aricept] AdvReac panic Verified 02/09/25 16:51 attack Review of Systems ROS Statement: Those systems with pertinent positive or pertinent negative responses have been documented in the HPI. ROS Other: All systems not noted in ROS Statement are negative. 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 KNIK. TIA. LOWER BACK PAIN. Skin Cancer, Type II DM History of Any Multi-Drug Resistant Organisms: None Reported Past Surgical History: Joint Replacement, Orthopedic Surgery Additional Past Surgical History / Comment(s): SEVERAL LYMPH NODES FROM RIGHT AXILLA REMOVED. LEFT TOTAL HIP. RIGHT MENISCUS REPAIR. BILATERAL CATARACTS. Right Shoulder Surgery from Fall. R total hip replacement Past Anesthesia/Blood Transfusion Reactions: No Reported Reaction Additional Past Anesthesia/Blood Transfusion Reaction / Comment(s): unk hx of blood transfusion Past Psychological History: No Psychological Hx Reported Smoking Status: Never smoker Past Alcohol Use History: None Reported Past Drug Use History: None Reported - Past Family History Father Family Medical History: Hypertension General Exam Limitations: no limitations General appearance: alert, in no apparent distress Head exam: Present: atraumatic, normocephalic, normal inspection Eye exam: Present: normal appearance, PERRL, EOMI. Absent: scleral icterus, conjunctival injection, periorbital swelling ENT exam: Present: normal exam, mucous membranes moist Neck exam: Present: normal inspection. Absent: tenderness, meningismus, lymphadenopathy Respiratory exam: Present: normal lung sounds bilaterally. Absent: respiratory distress, wheezes, rales, rhonchi, stridor Cardiovascular Exam: Present: regular rate, normal rhythm, normal heart sounds. Absent: systolic murmur, diastolic murmur, rubs, gallop, clicks GI/Abdominal exam: Present: soft, normal bowel sounds. Absent: distended, tenderness, guarding, rebound, rigid Extremities exam: Present: normal inspection, full ROM, normal capillary refill. Absent: tenderness, pedal edema, joint swelling, calf tenderness Neurological exam: Present: alert, oriented X3 Psychiatric exam: Present: normal affect, normal mood Skin exam: Present: warm, dry, intact, normal color. Absent: rash Course Vital Signs 02/09/25 02/09/25 02/09/25 11:04 12:34 14:09 Temperature 98.4 F Pulse Rate 94 80 81 Respiratory 18 18 18 Rate Blood Pressure 129/61 132/60 135/68 O2 Sat by Pulse 97 95 96 Oximetry 02/09/25 02/09/25 02/09/25 16:09 18:01 20:39 Temperature 98 F Pulse Rate 80 78 86 Respiratory 18 16 18 Rate Blood Pressure 132/56 126/61 129/55 O2 Sat by Pulse 96 95 97 Oximetry Medical Decision Making - Medical Decision Making Was pt. sent in by a medical professional or institution (, PA, PROJECT OFFICER, urgent care, hospital, or [facility]...) When possible be specific @ -No Did you speak to anyone other than the patient for history (EMS, parent, family, police, friend...)? What history was obtained from this source @ -No Did you review nursing and triage notes (agree or disagree)? Why? @ -I reviewed and agree with nursing and triage notes Were old charts reviewed (outside hosp., previous admission, EMS record, old EKG, old radiological studies, urgent care reports/EKG's, [facility] records)? Report findings @ -I reviewed the patient's charts from prior admission Differential Diagnosis (chest pain, altered mental status, abdominal pain women, abdominal pain men, vaginal bleeding, weakness, fever, dyspnea, syncope, headache, dizziness, GI bleed, back pain, seizure, CVA, palpatations, mental health, musculoskeletal)? @ -Differential Weakness: Hypoglycemia, shock, sepsis, hyponatremia, anemia, infection, NM, ETOH, adverse medicine reaction, overdose, stroke, this is not meant to be an all-inclusive list. EKG interpreted by me (3pts min.). @ -EKG@1245Sinus rhythm rate of 82, MS 175, QRS 108, QTQTc 145171 X-rays interpreted by me (1pt min.). @ -Chest x-ray no acute cardiopulmonary CT interpreted by me (1pt min.). @ -CT brain reveals chronic changes without evidence for acute process U/S interpreted by me (1pt. min.). @ -Gallbladder ultrasound reveals no acute process What testing was considered but not performed or refused? (CT, X-rays, U/S, labs)? Why? @ -None What meds were considered but not given or refused? Why? @ -None Did you discuss the management of the patient with other professionals (professionals i.e. Dr., PA, PROJECT OFFICER, lab, RT, psych nurse, social media intern, airport maintenance chief, teacher, chief mechanical officer, manager rn case)? Give summary @ -Management discussed with Dr. Castillo who is accepting of the admission Was smoking cessation discussed for >3mins.? @ -No Was critical care preformed (if so, how long)? @ -No Were there social determinants of health that impacted care today? How? (Homelessness, low income, unemployed, alcoholism, drug addiction, transportation, low edu. Level, literacy, decrease access to med. care, penitentiary, rehab)? @ -No Was there de-escalation of care discussed even if they declined (Discuss DNR or withdrawal of care, Hospice)? DNR status @ -No What co-morbidities impacted this encounter? (DM, HTN, Smoking, COPD, CAD, Cancer, CVA, ARF, Chemo, Hep., AIDS, mental health diagnosis, sleep apnea, mo rbid obesity)? @ -None Was patient admitted / discharged? Hospital course, mention meds given and r oute, prescriptions, significant lab abnormalities, going to OR and other pertinent info. @ -Patient presented emergency department for weakness. Laboratory studies obtained revealing very mild leukocytosis at 11.5; normal coagulation studies; CMP reveals transaminitis with elevated bilirubin. Because of this a gallbladder ultrasound was obtained revealing no evidence of acute process. Troponin was elevated 0.05 which is baseline for the patient. UA shows no evidence of infectious process. Negative for COVID, influenza, RSV. Patient will be admitted to the hospital. The case was discussed with admitting team who is accepting. Case discussed with Dr. Cisneros. Undiagnosed new problem with uncertain prognosis? @ -No Drug Therapy requiring intensive monitoring for toxicity (Heparin, Nitro, Insulin, Cardizem)? @ -No Were any procedures done? @ -No Diagnosis/symptom? @ -Generalized weakness Acute, or Chronic, or Acute on Chronic? @ -Acute Uncomplicated (without systemic symptoms) or Complicated (systemic symptoms)? @ -Uncomplicated Side effects of treatment? @ -No Exacerbation, Progression, or Severe Exacerbation? @ -No Poses a threat to life or bodily function? How? (Chest pain, USA, NM, pneumonia, PE, COPD, DKA, ARF, appy, cholecystitis, CVA, Diverticulitis, Homicidal, Suicidal, threat to staff... and all critical care pts) @ -No - Lab Data Result diagrams: 02/12/25 04:55 02/12/25 04:55 Lab Results 02/09/25 02/09/25 02/09/25 Range/Units 11:37 11:37 11:37 WBC 11.52 H (4.50-10.00) 10*3/uL RBC 4.51 (4.40-5.60) 10*6/uL Hgb 13.9 (13.0-17.0) g/dL Hct 42.3 (39.6-50.0) % MCV 93.8 (80.0-97.0) fL MCH 30.8 (27.0-32.0) pg MCHC 32.9 (32.0-37.0) g/dL Plt Count 208 (140-440) 10*3/uL MPV 10.0 (9.5-12.2) fL Immature Gran % (Auto) 0.3 % Neutrophils % 82.7 % Lymphocytes % 12.0 % Monocytes % 4.7 % Eosinophils % 0.2 % Basophils % 0.1 % Immature Gran # 0.04 (0.00-0.04) 10*3/uL Neutrophils # 9.53 H (1.80-7.70) 10*3/uL Lymphocytes # 1.38 (0.90-5.00) 10*3/uL Monocytes # 0.54 (0.20-1.00) 10*3/uL Eosinophils # 0.02 L (0.04-0.35) 10*3/uL Basophils # 0.01 (0.00-0.10) 10*3/uL PT 11.8 (10.0-12.5) sec INR 1.1 (<1.2) APTT 27.9 (22.0-30.0) sec Sodium 138 (137-145) mmol/L Potassium 4.6 (3.5-5.1) mmol/L Chloride 106 (98-107) mmol/L Carbon Dioxide 21 L (22-30) mmol/L Anion Gap 11 mmol/L BUN 15 (9-20) mg/dL Creatinine 1.03 (0.66-1.25) mg/dL Est GFR (CKD-EPI)AfAm 78 (>60 ml/min/1.73 sqM) Est GFR (CKD-EPI)NonAf 67 (>60 ml/min/1.73 sqM) Glucose 121 H (74-99) mg/dL Estimated Ave Glu mg/dL mg/dL Hemoglobin A1c (<=6.0) % Calcium 10.2 (8.4-10.2) mg/dL Magnesium 2.0 (1.6-2.3) mg/dL Total Bilirubin 3.5 H (0.2-1.3) mg/dL AST 277 H (17-59) U/L ALT 143 H (4-49) U/L Alkaline Phosphatase 101 (38-126) U/L Troponin I (0.000-0.034) ng/mL Total Protein 7.6 (6.3-8.2) g/dL Albumin 4.1 (3.5-5.0) g/dL Lipase (23-300) U/L Urine Color Urine Appearance (Clear) Urine pH (5.0-8.0) Ur Specific [place] (1.001-1.035) Urine Protein (Negative) Urine Glucose (UA) (Negative) Urine Ketones (Negative) Urine Blood (Negative) Urine Nitrite (Negative) Urine Bilirubin (Negative) Urine Urobilinogen (<2.0) mg/dL Ur Leukocyte Esterase (Negative) Urine RBC (0-5) /hpf Urine WBC (0-5) /hpf Ur Squamous Epith Cells (0-4) /hpf 02/09/25 02/09/25 02/09/25 Range/Units 11:37 11:37 11:37 WBC (4.50-10.00) 10*3/uL RBC (4.40-5.60) 10*6/uL Hgb (13.0-17.0) g/dL Hct (39.6-50.0) % MCV (80.0-97.0) fL MCH (27.0-32.0) pg MCHC (32.0-37.0) g/dL Plt Count (140-440) 10*3/uL MPV (9.5-12.2) fL Immature Gran % (Auto) % Neutrophils % % Lymphocytes % % Monocytes % % Eosinophils % % Basophils % % Immature Gran # (0.00-0.04) 10*3/uL Neutrophils # (1.80-7.70) 10*3/uL Lymphocytes # (0.90-5.00) 10*3/uL Monocytes # (0.20-1.00) 10*3/uL Eosinophils # (0.04-0.35) 10*3/uL Basophils # (0.00-0.10) 10*3/uL PT (10.0-12.5) sec INR (<1.2) APTT (22.0-30.0) sec Sodium (137-145) mmol/L Potassium (3.5-5.1) mmol/L Chloride (98-107) mmol/L Carbon Dioxide (22-30) mmol/L Anion Gap mmol/L BUN (9-20) mg/dL Creatinine (0.66-1.25) mg/dL Est GFR (CKD-EPI)AfAm (>60 ml/min/1.73 sqM) Est GFR (CKD-EPI)NonAf (>60 ml/min/1.73 sqM) Glucose (74-99) mg/dL Estimated Ave Glu mg/dL 163 mg/dL Hemoglobin A1c 7.3 H (<=6.0) % Calcium (8.4-10.2) mg/dL Magnesium (1.6-2.3) mg/dL Total Bilirubin (0.2-1.3) mg/dL AST (17-59) U/L ALT (4-49) U/L Alkaline Phosphatase (38-126) U/L Troponin I 0.050 H* (0.000-0.034) ng/mL Total Protein (6.3-8.2) g/dL Albumin (3.5-5.0) g/dL Lipase 367 H (23-300) U/L Urine Color Urine Appearance (Clear) Urine pH (5.0-8.0) Ur Specific [place] (1.001-1.035) Urine Protein (Negative) Urine Glucose (UA) (Negative) Urine Ketones (Negative) Urine Blood (Negative) Urine Nitrite (Negative) Urine Bilirubin (Negative) Urine Urobilinogen (<2.0) mg/dL Ur Leukocyte Esterase (Negative) Urine RBC (0-5) /hpf Urine WBC (0-5) /hpf Ur Squamous Epith Cells (0-4) /hpf 02/09/25 Range/Units 12:41 WBC (4.50-10.00) 10*3/uL RBC (4.40-5.60) 10*6/uL Hgb (13.0-17.0) g/dL Hct (39.6-50.0) % MCV (80.0-97.0) fL MCH (27.0-32.0) pg MCHC (32.0-37.0) g/dL Plt Count (140-440) 10*3/uL MPV (9.5-12.2) fL Immature Gran % (Auto) % Neutrophils % % Lymphocytes % % Monocytes % % Eosinophils % % Basophils % % Immature Gran # (0.00-0.04) 10*3/uL Neutrophils # (1.80-7.70) 10*3/uL Lymphocytes # (0.90-5.00) 10*3/uL Monocytes # (0.20-1.00) 10*3/uL Eosinophils # (0.04-0.35) 10*3/uL Basophils # (0.00-0.10) 10*3/uL PT (10.0-12.5) sec INR (<1.2) APTT (22.0-30.0) sec Sodium (137-145) mmol/L Potassium (3.5-5.1) mmol/L Chloride (98-107) mmol/L Carbon Dioxide (22-30) mmol/L Anion Gap mmol/L BUN (9-20) mg/dL Creatinine (0.66-1.25) mg/dL Est GFR (CKD-EPI)AfAm (>60 ml/min/1.73 sqM) Est GFR (CKD-EPI)NonAf (>60 ml/min/1.73 sqM) Glucose (74-99) mg/dL Estimated Ave Glu mg/dL mg/dL Hemoglobin A1c (<=6.0) % Calcium (8.4-10.2) mg/dL Magnesium (1.6-2.3) mg/dL Total Bilirubin (0.2-1.3) mg/dL AST (17-59) U/L ALT (4-49) U/L Alkaline Phosphatase (38-126) U/L Troponin I (0.000-0.034) ng/mL Total Protein (6.3-8.2) g/dL Albumin (3.5-5.0) g/dL Lipase (23-300) U/L Urine Color Yellow Urine Appearance Clear (Clear) Urine pH 6.5 (5.0-8.0) Ur Specific [place] 1.024 (1.001-1.035) Urine Protein 1+ H (Negative) Urine Glucose (UA) 4+ H (Negative) Urine Ketones Trace H (Negative) Urine Blood Negative (Negative) Urine Nitrite Negative (Negative) Urine Bilirubin 1+ H (Negative) Urine Urobilinogen 2.0 (<2.0) mg/dL Ur Leukocyte Esterase Negative (Negative) Urine RBC 1 (0-5) /hpf Urine WBC 1 (0-5) /hpf Ur Squamous Epith Cells <1 (0-4) /hpf Disposition Clinical Impression: Generalized weakness Disposition: ADMITTED IP TO THIS [facility] Condition: Stable Is patient prescribed a controlled substance at d/c from ED?: No
[2025-02-09 12:01] LABS: Basophils # (A) 0.01 10*3/uL (0.00-0.10); Basophils % (A) 0.1 %; Eosinophils # (A) 0.02 10*3/uL (0.04-0.35); Eosinophils % (A) 0.2 %; HCT 42.3 % (39.6-50.0); HGB 13.9 g/dL (13.0-17.0); Lymphocytes # (A) 1.38 10*3/uL (0.90-5.00); MCH 30.8 pg (27.0-32.0); MCHC 32.9 g/dL (32.0-37.0); MCV 93.8 fL (80.0-97.0); Monocytes # (A) 0.54 10*3/uL (0.20-1.00); Monocytes % (A) 4.7 %; Neutrophils # (A) 9.53 10*3/uL (1.80-7.70); Neutrophils % (A) 82.7 %; Platelet Count 208 10*3/uL (140-440); RBC 4.51 10*6/uL (4.40-5.60); RDW 16.6 % (11.5-14.5); WBC 11.52 10*3/uL (4.50-10.00)
--- NOTE | 2025-02-09 12:04 | XR ---
EXAMINATION TYPE: XR chest 2V DATE OF EXAM: 02/09/2025 11:52 AM COMPARISON: Chest radiographs from 01/16/2025. CLINICAL INDICATION: Male, 84 years old with history of Weakness; [facility] TECHNIQUE: XR chest 2V Frontal and lateral views of the chest. FINDINGS: Lungs/Pleura: There is no evidence of pleural effusion, focal consolidation, or pneumothorax. Pulmonary vascularity: Unremarkable. Heart/mediastinum: Cardiomediastinal silhouette is unremarkable. Musculoskeletal: No acute osseous pathology. Other findings: Right upper shoulder surgical clips. IMPRESSION: No acute cardiopulmonary disease/process. [facility], , 02/09/2025 12:02 PM
[2025-02-09 12:46] LABS: INR 1.1 (<1.2); Partial Thromboplastin Time 27.9 sec (22.0-30.0); Prothrombin Time 11.8 sec (10.0-12.5)
[2025-02-09 12:49] LABS: Appearance,Urine Clear (Clear); Bilirubin,Urine 1+ (Negative); Blood,Urine Negative (Negative); Color,Urine Yellow; Glucose,Urine (UA) 4+ (Negative); Ketones,Urine Trace (Negative); Leukocyte Esterase,Urine Negative (Negative); Nitrite,Urine Negative (Negative); PH, Urine 6.5 (5.0-8.0); Protein,Urine 1+ (Negative); RBC,Urine 1 /hpf (0-5); Specific Gravity,Urine 1.024 (1.001-1.035); Squamous Epithelial Cell,Urine <1 /hpf (0-4); WBC,Urine 1 /hpf (0-5)
[2025-02-09 12:51] LABS: ALT 143 U/L (4-49); AST 277 U/L (17-59); African American GFR (CKD) 78 (>60 ml/min/1.73 sqM); Albumin 4.1 g/dL (3.5-5.0); Alkaline Phosphatase 101 U/L (38-126); Anion Gap 11 mmol/L; Blood Urea Nitrogen 15 mg/dL (9-20); Calcium 10.2 mg/dL (8.4-10.2); Carbon Dioxide 21 mmol/L (22-30); Chloride 106 mmol/L (98-107); Glucose 121 mg/dL (74-99); Non-African American GFR(CKD) 67 (>60 ml/min/1.73 sqM); Potassium 4.6 mmol/L (3.5-5.1); Sodium 138 mmol/L (137-145); Total Bilirubin 3.5 mg/dL (0.2-1.3); Total Protein 7.6 g/dL (6.3-8.2)
--- NOTE | 2025-02-09 14:34 | CT ---
EXAMINATION TYPE: CT brain wo con DATE OF EXAM: 02/09/2025 2:23 PM COMPARISON: 01/16/2025. CLINICAL INDICATION: Male, 84 years old with history of weakness, [facility] TECHNIQUE: Brain: Axial CT images of the brain were obtained with coronal and sagittal reformats created and rev iewed. Contrast used: None. Oral contrast used: None. CT DLP: 1223.4 mGycm, Automated exposure control for dose reduction was used. FINDINGS: Brain: Extra-axial spaces: No abnormal extra-axial fluid collections. Ventricular system: Dilatation in proportion to cerebral atrophy. Cerebral parenchyma: Cerebral atrophy. No acute intraparenchymal hemorrhage or mass effect. The rosales -white junction is well differentiated. Scattered hypoattenuating areas are seen within the white mat ter. Cerebellum: Unremarkable. Mass effect: No evidence of midline shift. Intracranial vasculature: Atherosclerotic calcifications of the intracranial vessels. Soft tissues: Normal. Calvarium/osseous structures: No depressed skull fracture. Paranasal sinuses and mastoid air cells: Mild scattered paranasal sinus disease. Visualized orbits: Bilateral aphakia IMPRESSION: 1. No acute intracranial process. 2. Nonspecific white matter changes, likely secondary to chronic small vessel ischemic disease. [facility], , 02/09/2025 2:32 PM
--- NOTE | 2025-02-09 15:34 | US ---
EXAMINATION TYPE: US gallbladder DATE OF EXAM: 02/09/2025 COMPARISON: 11/14/2024 CLINICAL INDICATION: Male, 84 years old with history of elevated bili and LFT; Elevated liver enzymes . Exam limited due to body habitus and unable to roll. TECHNIQUE: Grayscale and color Doppler imaging of the right upper quadrant was performed. FINDINGS: EXAM MEASUREMENTS: Liver Length: 19.5 cm Gallbladder Wall: .3 cm CBD: .7 cm Right Kidney: 12.4 x 6.7 x 6.5 cm PORTAL DEVELOPER NOTES: Pancreas: Obscured by bowel gas Liver: Hepatomegaly limited due to bowel gas increased coarse in echotexture to liver. Gallbladder: Multiple stones visualized Evidence for sonographic Gonzalez's sign: no CBD: Dilated limited only partially visualized. Right Kidney: Limited due to bowel gas. IMPRESSION: 1. No evidence for acute process. 2. Hepatic steatosis. 3. Cholelithiasis. [facility], , 02/09/2025 3:32 PM
[2025-02-09] MEDS ORDERED: MORPHINE SULFATE 4 MG/ML SYRINGE IV PRN (16:01)
[2025-02-09] MEDS ORDERED: KETOROLAC 15 MG/ML 1 ML VIAL IVP PRN (16:01)
[2025-02-09] MEDS ORDERED: NALOXONE 0.4 MG/ML 1 ML VIAL IV PRN (16:01)
[2025-02-09] MEDS: SODIUM CHLORIDE 0.9% 1,000 ML IV SCH (16:09)
[2025-02-09] MEDS ORDERED: DEXTROSE 50% SYRINGE 50 ML IVP PRN ×2 (17:23)
[2025-02-09] MEDS ORDERED: SENNOSIDES 8.6 MG TAB PO PRN (17:25)
--- NOTE | 2025-02-09 17:28 | P.HPIM ---
History of Present Illness H&P Date: 02/09/25 I have seen and evaluated the patient today. Discussed with the resident and agree with the residents finding and plan as documented in the resident's note. Changes highlighted in blue font. Patient is a 84-year-old male with a past medical history of insulin-dependent diabetes mellitus, hyperlipidemia, hypertension, osteoarthritis presented to the ER for evaluation of generalized weakness. Patient states that this has been going on for the past 3 to 4 days. Was recently discharged from [facility] following a fall resulting in a foot fracture. Patient has been having difficulty getting around over the past 3 to 4 days and he feels as though he is going to fall. Patient has been using his walker at home. Patient was seen in the emergency room. He reports feeling generalized weakness. Patient appears to be confused and provided limited history. Patient denies any fever, chills, nausea or vomiting, chest pain, shortness of breath, diarrhea, lower extremity edema or tenderness. Patient does endorse a right upper quadrant abdominal pain. ED documentation reviewed. In the ED patient was treated with normal saline at 75 cc an hour. Vitals on admission temperature 98.4, pulse rate 88, respiratory rate 18, blood pressure 132/56, O2 sat 96% on room air CXR showed no acute cardiopulmonary disease/process Gallbladder ultrasound shows no evidence for acute process. Hepatic steatosis and cholelithiasis. Brain CT shows no acute intracranial process, nonspecific white matter changes likely secondary to chronic small vessel ischemic disease. Labs on admission show WBC 11.52, hemoglobin 13.9, hematocrit 42.3, neutrophils 9.53, PT 11.8, PTT 27.9, INR 1.1, sodium 138, potassium 4.6, chloride 106, BUN 15, creatinine 1.03, glucose 121, total bili 3.5, AST 277, ALT 143, alkaline phosphatase 101, troponin 0.050, lipase 367 UA shows negative for leukocyte esterase and negative nitrite Review of systems: Pertinent positives and negatives as discussed in HPI, a complete review of systems was performed and all other systems are negative. PMH: Diabetes mellitus, hyperlipidemia, hypertension, osteoarthritis PSH: Joint replacement and orthopedic surgery FMH: Father significant for hypertension Allergies: Atenolol and donepezil Social history: Tobacco: Never smoker Alcohol: No reported Recreational drugs: None reported Travel: No travel history Sick contacts: No sick contacts Physical examination: Vital signs reviewed General: nontoxic, no distress, appears at stated age Derm: warm, dry, intact Head: atraumatic, normocephalic, symmetric Eyes: EOMI, anicteric sclera Mouth: no lip lesion, mucus membranes moist Cardiovascular: S1 S2 reg, no murmur Lungs: CTA bilateral, no rhonchi, no rales, no accessory muscle use Abdominal: Soft, nondistended, right upper quadrant tender to palpation, negative Gonzalez sign Extremities: No cyanosis, clubbing, or pedal edema. Neuro: Alert, Oriented, Gross neurological examination did not reveal any focal deficits. Left upper extremity strength 5 out of 5. Right upper extremity strength 5 out of 5. Left lower extremity strength 5 out of 5. Right lower extremity strength 5 out of 5. Psych: well appearing, appropriate affect Assessment/Plan: 84-year-old male with past medical history of diabetes mellitus, hyperlipidemia, hypertension, osteoarthritis presented to the ER for evaluation of generalized weakness. Patient will be admitted to internal medicine service. Active: #. Generalized weaknes #. Cholelithiasis #. Elevated bilirubin #. Elevated liver enzymes #. Leukocytosis likely secondary to reasons above WBC 11.52 Total bili 3.5 AST 277 ALT 143 Lipase 367 Gallbladder ultrasound showed no evidence for acute process. Hepatic steatosis and cholelithiasis. Continue normal saline at 75 cc an hour Continue pain control with morphine and Toradol as needed Continue cardiac monitoring Order HIDA scan Order Cepheid Consult PT and OT Order fractional bilirubin Monitor morning CBC and CMP TSH #. Elevated troponin, likely chronically elevated troponin Troponin of 0.050, similar to troponin about 1 month ago, no chest pain, dyspnea Had an echocardiogram in November which showed normal left ventricular size and function and mildly enlarged right ventricle Chronic: #. Diabetes mellitus Hold home diabetic medications Initiate low-dose sliding scale insulin #. Hyperlipidemia Resume Lipitor 40 mg at bedtime #. 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 [place]. TIA. LOWER BACK PAIN. Skin Cancer, Type II DM History of Any Multi-Drug Resistant Organisms: None Reported Past Surgical History: Joint Replacement, Orthopedic Surgery Additional Past Surgical History / Comment(s): SEVERAL LYMPH NODES FROM RIGHT AXILLA REMOVED. LEFT TOTAL HIP. RIGHT MENISCUS REPAIR. BILATERAL CATARACTS. Right Shoulder Surgery from Fall. R total hip replacement Past Anesthesia/Blood Transfusion Reactions: No Reported Reaction Additional Past Anesthesia/Blood Transfusion Reaction / Comment(s): unk hx of blood transfusion Past Psychological History: No Psychological Hx Reported Smoking Status: Never smoker Past Alcohol Use History: None Reported Past Drug Use History: None Reported - Past Family History Father Family Medical History: Hypertension Medications and Allergies Home Medications Medication Instructions Recorded Confirmed Type Clopidogrel Bisulfate [Clopidogrel] 75 mg PO DAILY 09/09/15 02/09/25 History Glimepiride [Amaryl] 2 mg PO BID 11/17/23 02/09/25 History Losartan Potassium [Cozaar] 100 mg PO DAILY 11/14/24 02/09/25 History Empagliflozin [Jardiance] 25 mg PO DAILY 01/17/25 02/09/25 History traMADol HCl [Ultram] 50 mg PO Q6H PRN #12 tab 01/18/25 02/09/25 Rx Acetaminophen-Codeine 300-30mg 1 tab PO Q6H PRN 02/09/25 02/09/25 History [Tylenol w/codeine #3] Aspirin 325 mg PO BID 02/09/25 02/09/25 History Atorvastatin [Lipitor] 40 mg PO HS 02/09/25 02/09/25 History Gabapentin 300 mg PO TID 02/09/25 02/09/25 History Insulin Aspart [NovoLOG Flexpen] 5 units SQ TID-W/MEALS 02/09/25 02/09/25 History Insulin Aspart [NovoLOG Flexpen] See Protocol SQ ACHS 02/09/25 02/09/25 History Miconazole 2% Powder 1 applic TOPICAL BID 02/09/25 02/09/25 History Ocular Multivitamin(Unknown) 1 tab PO BID 02/09/25 02/09/25 History Sennosides [Senokot] 17.2 mg PO Q24H PRN 02/09/25 02/09/25 History Allergies Allergy/AdvReac Type Severity Reaction Status Date / Time atenolol AdvReac Hallucinati Verified 02/09/25 16:51 ons donepezil [From Aricept] AdvReac panic Verified 02/09/25 16:51 attack Physical Exam Vitals: Vital Signs Temp Pulse Resp BP Pulse Ox 02/09/25 14:09 81 18 135/68 96 02/09/25 12:34 80 18 132/60 95 02/09/25 11:04 98.4 F 94 18 129/61 97 Intake and Output 02/09/25 02/09/25 02/09/25 06:59 14:59 22:59 Other: Weight 116.12 kg Results CBC & Chem 7: 02/09/25 11:37 02/09/25 11:37 Labs: Abnormal Lab Results - Last 24 Hours (Table) 02/09/25 02/09/25 02/09/25 Range/Units 11:37 11:37 11:37 WBC 11.52 H (4.50-10.00) 10*3/uL Neutrophils # 9.53 H (1.80-7.70) 10*3/uL Eosinophils # 0.02 L (0.04-0.35) 10*3/uL Carbon Dioxide 21 L (22-30) mmol/L Glucose 121 H (74-99) mg/dL Total Bilirubin 3.5 H (0.2-1.3) mg/dL AST 277 H (17-59) U/L ALT 143 H (4-49) U/L Troponin I 0.050 H* (0.000-0.034) ng/mL Lipase (23-300) U/L Urine Protein (Negative) Urine Glucose (UA) (Negative) Urine Ketones (Negative) Urine Bilirubin (Negative) 02/09/25 02/09/25 Range/Units 11:37 12:41 WBC (4.50-10.00) 10*3/uL Neutrophils # (1.80-7.70) 10*3/uL Eosinophils # (0.04-0.35) 10*3/uL Carbon Dioxide (22-30) mmol/L Glucose (74-99) mg/dL Total Bilirubin (0.2-1.3) mg/dL AST (17-59) U/L ALT (4-49) U/L Troponin I (0.000-0.034) ng/mL Lipase 367 H (23-300) U/L Urine Protein 1+ H (Negative) Urine Glucose (UA) 4+ H (Negative) Urine Ketones Trace H (Negative) Urine Bilirubin 1+ H (Negative)
[2025-02-09 17:51] LABS: Glucose,Whole Blood 66 mg/dL (70-110)
[2025-02-09] MEDS: INSULIN LISPRO (HumaLOG) 100 UNIT/ML 10 mL VL SQ SCH (17:55)
[2025-02-09 18:46] LABS: Influenza A Not Detected (Not Detectd); Influenza B Not Detected (Not Detectd); RSV Not Detected (Not Detectd)
[2025-02-09 19:52] LABS: Bilirubin, Conjugated 0.8 mg/dL (0.0-0.3); Bilirubin,Unconjugated 0.8 mg/dL (0.0-1.1)
[2025-02-09 20:34] LABS: Glucose,Whole Blood 84 mg/dL (70-110)
[2025-02-09 20:52] LABS: T4, Free (Free Thyroxine) 1.22 ng/dL (0.78-2.19)
[2025-02-09 21:49] LABS: Glucose,Whole Blood 71 mg/dL (70-110)
[2025-02-09] MEDS: GABAPENTIN 300 MG CAP PO SCH (22:46)
[2025-02-09] MEDS: ASPIRIN 325 MG TAB PO SCH (22:46)
[2025-02-09] MEDS: ATORVASTATIN 40 MG TAB PO SCH (22:46)
[2025-02-09] MEDS: ACETAMINOPHEN TAB 325 MG TAB PO PRN (23:11)
[2025-02-10 02:07] LABS: Glucose,Whole Blood 107 mg/dL (70-110)
[2025-02-10 05:50] LABS: Glucose,Whole Blood 87 mg/dL (70-110)
[2025-02-10] MEDS: CLOPIDOGREL 75 MG TAB PO SCH (09:08)
[2025-02-10] MEDS: LOSARTAN 50 MG TAB PO SCH (09:08)
[2025-02-10 11:54] LABS: Basophils # (A) 0.02 10*3/uL (0.00-0.10); Basophils % (A) 0.3 %; Eosinophils # (A) 0.22 10*3/uL (0.04-0.35); Eosinophils % (A) 3.3 %; HCT 38.6 % (39.6-50.0); HGB 12.8 g/dL (13.0-17.0); Lymphocytes # (A) 1.19 10*3/uL (0.90-5.00); Lymphocytes % (A) 17.7 %; MCH 31.4 pg (27.0-32.0); MCHC 33.2 g/dL (32.0-37.0); MCV 94.6 fL (80.0-97.0); Monocytes % (A) 7.4 %; Neutrophils # (A) 4.78 10*3/uL (1.80-7.70); Platelet Count 177 10*3/uL (140-440); RBC 4.08 10*6/uL (4.40-5.60); RDW 16.4 % (11.5-14.5); WBC 6.73 10*3/uL (4.50-10.00)
[2025-02-10 12:07] LABS: ALT 114 U/L (4-49); AST 138 U/L (17-59); African American GFR (CKD) >90 (>60 ml/min/1.73 sqM); Albumin 3.3 g/dL (3.5-5.0); Albumin/Globulin Ratio 1.1; Alkaline Phosphatase 107 U/L (38-126); Anion Gap 9 mmol/L; Bilirubin,Unconjugated 0.7 mg/dL (0.0-1.1); Blood Urea Nitrogen 16 mg/dL (9-20); Calcium 9.1 mg/dL (8.4-10.2); Carbon Dioxide 25 mmol/L (22-30); Chloride 102 mmol/L (98-107); Globulin 3.1 g/dL; Glucose 162 mg/dL (74-99); Non-African American GFR(CKD) 81 (>60 ml/min/1.73 sqM); Sodium 136 mmol/L (137-145); Total Bilirubin 1.7 mg/dL (0.2-1.3); Total Protein 6.4 g/dL (6.3-8.2)
[2025-02-10 12:10] LABS: Glucose,Whole Blood 169 mg/dL (70-110)
[2025-02-10] MEDS: polyethylene glycoL 3350 17 GM POWD.PACK PO SCH (12:32)
--- NOTE | 2025-02-10 12:51 | P.PN ---
Subjective Progress Note Date: 02/10/25 Hospital Course: 84-year-old male with past medical history of type II DM on insulin, HLD, HTN, osteoarthritis, recent distal fibular fracture, GERD, who presented to the ER from home on 02/09/2025 with generalized weakness. He was recently discharged from [facility] after a fall resulting in fibular fracture. He was able to move around, had good appetite up until the past couple days when he started feeling weak, collateral history obtained from his , she shared that he became very weak yesterday and was unable to get up and walk. She did not notice any other unusual symptoms. In the ER VSS, chest x-ray with no acute process, brain CT was done and showed no acute abnormalities,Labs on admission show WBC 11.52, hemoglobin 13.9, hematocrit 42.3, neutrophils 9.53, PT 11.8, PTT 27.9, INR 1.1, sodium 138, potassium 4.6, chloride 106, BUN 15, creatinine 1.03, glucose 121, total bili 3.5, AST 277, ALT 143, alkaline phosphatase 101, troponin 0.050, lipase 367, UA negative for UTI. Patient was admitted under observation status for evaluation of generalized weakness, elevated liver enzymes. Liver ultrasound showed hepatic steatosis, cholelithiasis, no signs of cholecystitis. On exam patient had significant right upper tenderness to palpation but negative Gonzalez sign, no rebound no guarding, HIDA scan ordered. Patient switched to inpatient status for, continued on normal saline infusion, protein shakes added per patient and family request to meet nutrition goals, PT OT assessment pending. Leukocytosis resolved, total bilirubin improved to 1.7, liver enzymes trending down. 02/10: Patient does not feel better or worse today, still complains of significant weakness, no localizing symptoms, he is generally weak, denied chest pain, shortness of breath, dizziness, lightheadedness, vision changes. Last bowel movement was at home, abdomen again tender in the right upper quadrant and somewhat in the left lower quadrant, will be provided with stool softeners. Pertinent positives and negatives as discussed above, a complete review of systems was performed and all other systems are negative. Vitals Signs Reviewed. General: [nontoxic], [no distress], [appears at stated age], obese, tired appearing Derm: [warm], [dry] Head: [atraumatic], [normocephalic], [symmetric] Eyes: [EOMI], [no lid lag], [anicteric sclera] Mouth: [no lip lesion], [mucus membranes moist] Cardiovascular: [S1S2 reg], [no murmur] Lungs: [CTA bilateral], [no rhonchi, no rales] , [no accessory muscle use] Abdominal abdomen is obese, tender to palpation in the RUQ and LUQ, no rebound guarding Ext: [no gross muscle atrophy], [no edema], [no contractures] Neuro: [ CN II-XI grossly intact], [no focal neuro deficits] Psych: [Alert], [oriented], [appropriate affect] Assessment and Plan: Generalized weakness Debility Cholelithiasis Elevated bilirubin Elevated liver enzymes Leukocytosis, likely reactive, resolved -Continue IV hydration with NS at 75 cc/h as patient has decreased oral intake Protein shakes ordered HIDA scan pending, to be done on Tuesday N.p.o. at midnight PT OT evaluation pending CBC, CMP daily MiraLAX and senna ordered TSH 0.3, free T4 normal 1.2, Cepheid negative Elevated troponin, at baseline No chest pain, echo in November 2024 showed normal EF, mildly enlarged right ventricle Diabetes mellitus: ISS + Accuchecks ACHS. Hypoglycemic precautions. History of TIA: ASA and Plavix as above. Hypertension: Losartan 100 mg PO QD., added amlodipine 10 Dyslipidemia: Lipitor 40 mg PO QD. I have reviewed the following leasing sales consultant notes: I have reviewed the results of the following tests: CBC, CMP, Cepheid, thyroid function I have ordered the following tests: CBC and CMP daily I have discussed the care of this patient with the following independent historian: Patient's , RN I have independently interpreted the following test below: As above I have discussed the management of this patient with the following physician: CODE STATUS: FULL CODE DVT Prophylaxis: Lovenox SQ Anticipated discharge place: likely [facility], [place], pending PTOT Anticipated discharge time: Pending clinical stability Objective - Vital Signs Vital signs: Vital Signs Temp 98.7 F 02/10/25 07:00 Pulse 55 L 02/10/25 07:00 Resp 15 02/10/25 07:00 BP 164/71 02/10/25 07:00 Pulse Ox 100 02/10/25 07:00 FiO2 Intake & Output 02/09/25 02/10/25 02/10/25 18:59 06:59 18:59 Output Total 400 Balance -400 Weight 116.12 kg 116.12 kg Output: Urine 400 Other: Voiding Method Diaper # Voids 1 - Labs CBC & Chem 7: 02/10/25 11:40 02/10/25 11:40 Labs: Abnormal Lab Results - Last 24 Hours (Table) 02/09/25 02/09/25 02/09/25 Range/Units 11:37 11:37 11:37 RBC (4.40-5.60) 10*6/uL Hgb (13.0-17.0) g/dL Hct (39.6-50.0) % RDW (11.5-14.5) % Sodium (137-145) mmol/L Carbon Dioxide 21 L (22-30) mmol/L Glucose 121 H (74-99) mg/dL POC Glucose (mg/dL) (70-110) mg/dL Hemoglobin A1c (<=6.0) % Total Bilirubin 3.5 H (0.2-1.3) mg/dL Conjugated Bilirubin (0.0-0.3) mg/dL AST 277 H (17-59) U/L ALT 143 H (4-49) U/L Troponin I 0.050 H* (0.000-0.034) ng/mL Albumin (3.5-5.0) g/dL Lipase 367 H (23-300) U/L TSH (0.465-4.680) mIU/L 02/09/25 02/09/25 02/09/25 Range/Units 11:37 17:49 18:56 RBC (4.40-5.60) 10*6/uL Hgb (13.0-17.0) g/dL Hct (39.6-50.0) % RDW (11.5-14.5) % Sodium (137-145) mmol/L Carbon Dioxide (22-30) mmol/L Glucose (74-99) mg/dL POC Glucose (mg/dL) 66 L (70-110) mg/dL Hemoglobin A1c 7.3 H (<=6.0) % Total Bilirubin 3.0 H (0.2-1.3) mg/dL Conjugated Bilirubin 0.8 H (0.0-0.3) mg/dL AST (17-59) U/L ALT (4-49) U/L Troponin I (0.000-0.034) ng/mL Albumin (3.5-5.0) g/dL Lipase (23-300) U/L TSH 0.330 L (0.465-4.680) mIU/L 02/10/25 02/10/25 02/10/25 Range/Units 11:40 11:40 12:09 RBC 4.08 L (4.40-5.60) 10*6/uL Hgb 12.8 L (13.0-17.0) g/dL Hct 38.6 L (39.6-50.0) % RDW 16.4 H (11.5-14.5) % Sodium 136 L (137-145) mmol/L Carbon Dioxide (22-30) mmol/L Glucose 162 H (74-99) mg/dL POC Glucose (mg/dL) 169 H (70-110) mg/dL Hemoglobin A1c (<=6.0) % Total Bilirubin 1.7 H (0.2-1.3) mg/dL Conjugated Bilirubin (0.0-0.3) mg/dL AST 138 H (17-59) U/L ALT 114 H (4-49) U/L Troponin I (0.000-0.034) ng/mL Albumin 3.3 L (3.5-5.0) g/dL Lipase (23-300) U/L TSH (0.465-4.680) mIU/L
[2025-02-10 17:19] LABS: Glucose,Whole Blood 207 mg/dL (70-110)
[2025-02-10 20:26] LABS: Glucose,Whole Blood 237 mg/dL (70-110)
[2025-02-11 06:05] LABS: Glucose,Whole Blood 128 mg/dL (70-110)
[2025-02-11 06:07] LABS: Basophils # (A) 0.06 10*3/uL (0.00-0.10); Basophils % (A) 0.8 %; Eosinophils # (A) 0.42 10*3/uL (0.04-0.35); Eosinophils % (A) 5.8 %; HCT 38.8 % (39.6-50.0); HGB 13.1 g/dL (13.0-17.0); Lymphocytes # (A) 1.86 10*3/uL (0.90-5.00); Lymphocytes % (A) 25.8 %; MCH 31.1 pg (27.0-32.0); MCHC 33.8 g/dL (32.0-37.0); MCV 92.2 fL (80.0-97.0); Mean Platelet Volume 10.3 fL (9.5-12.2); Monocytes # (A) 0.67 10*3/uL (0.20-1.00); Monocytes % (A) 9.3 %; Neutrophils # (A) 4.05 10*3/uL (1.80-7.70); Neutrophils % (A) 56.4 %; Platelet Count 192 10*3/uL (140-440); RBC 4.21 10*6/uL (4.40-5.60); RDW 16.1 % (11.5-14.5)
[2025-02-11 07:47] LABS: ALT 83 U/L (4-49); AST 52 U/L (17-59); African American GFR (CKD) >90 (>60 ml/min/1.73 sqM); Albumin 3.4 g/dL (3.5-5.0); Albumin/Globulin Ratio 1.1; Alkaline Phosphatase 113 U/L (38-126); Anion Gap 10 mmol/L; Bilirubin,Unconjugated 0.6 mg/dL (0.0-1.1); Blood Urea Nitrogen 17 mg/dL (9-20); Calcium 9.2 mg/dL (8.4-10.2); Carbon Dioxide 24 mmol/L (22-30); Chloride 104 mmol/L (98-107); Globulin 3.1 g/dL; Glucose 140 mg/dL (74-99); Non-African American GFR(CKD) 85 (>60 ml/min/1.73 sqM); Potassium 4.1 mmol/L (3.5-5.1); Sodium 138 mmol/L (137-145); Total Protein 6.5 g/dL (6.3-8.2)
--- NOTE | 2025-02-11 12:32 | NM ---
EXAMINATION TYPE: NM hepatobiliary wo EF DATE OF EXAM: 02/11/2025 COMPARISON: Ultrasound 02/09/2025 CLINICAL INDICATION: Male, 84 years old with history of right upper quadrant pain; TECHNIQUE: After the intravenous administration of 5.39 mCi Tc 99m Mebrofenin hepatobiliary scintigra phy is performed. Immediate images post injection. FINDINGS: There is satisfactory initial uptake of tracer by the liver. Nonvisualization of the gallbladder up t o 2 hours of delayed imaging. IMPRESSION: Nonvisualization the gallbladder at up to 2 hours of imaging. Findings can be seen with a cute cholecystitis. Further clinical correlation recommended. [facility], Workstation: [email or web address] DataDANIEL, 02/11/2025 12:30 PM
--- NOTE | 2025-02-11 16:38 | P.PN ---
Subjective Progress Note Date: 02/11/25 Hospital Course: 84-year-old male with past medical history of type II DM on insulin, HLD, HTN, osteoarthritis, recent distal fibular fracture, GERD, who presented to the ER from home on 02/09/2025 with generalized weakness. He was recently discharged from [facility] after a fall resulting in fibular fracture. He was able to move around, had good appetite up until the past couple days when he started feeling weak, collateral history obtained from his , she shared that he became very weak yesterday and was unable to get up and walk. She did not notice any other unusual symptoms. In the ER VSS, chest x-ray with no acute process, brain CT was done and showed no acute abnormalities,Labs on admission show WBC 11.52, hemoglobin 13.9, hematocrit 42.3, neutrophils 9.53, PT 11.8, PTT 27.9, INR 1.1, sodium 138, potassium 4.6, chloride 106, BUN 15, creatinine 1.03, glucose 121, total bili 3.5, AST 277, ALT 143, alkaline phosphatase 101, troponin 0.050, lipase 367, UA negative for UTI. Patient was admitted under observation status for evaluation of generalized weakness, elevated liver enzymes. Liver ultrasound showed hepatic steatosis, cholelithiasis, no signs of cholecystitis. On exam patient had significant right upper tenderness to palpation but negative Gonzalez sign, no rebound no guarding, HIDA scan ordered. Patient switched to inpatient status for, continued on normal saline infusion, protein shakes added per patient and family request to meet nutrition goals, PT OT assessment pending. Leukocytosis resolved, total bilirubin improved to 1.7, liver enzymes trending down. 02/10: Patient reports feeling slightly better than yesterday. Still reports some generalized weakness. Denies chest pain, shortness of breath, fever or chills, nausea or vomiting, abdominal pain, diarrhea, constipation, lower extremity swelling. Pertinent positives and negatives as discussed above, a complete review of systems was performed and all other systems are negative. Vitals Signs Reviewed. Labs WBC 7.2, hemoglobin 13.1, hematocrit 38.8, platelet 192 GENERAL: This is a 84-year-old in no apparent distress at the time of examination. Pleasant and cooperative. HEENT: Head is atraumatic, normocephalic. Pupils are equal, round, and reactive to light. Sclerae anicteric. Conjunctivae are clear. Mucus membranes of the mouth are moist. Neck is supple. RESPIRATORY: Clear to auscultation. No wheezes, rales, or rhonchi. No use of accessory muscles. Patient maintaining oxygen saturation greater than 92%. No chest wall tenderness is noted on palpation or with deep breathing. CARDIOVASCULAR: Regular rate and rhythm. S1 and S2 noted. No systolic or diastolic murmur auscultated. No JVD noted. No S3 or S4 noted. GASTROINTESTINAL: No distention noted. Abdomen soft and round. No pain or tenderness noted upon palpation. INTEGUMENTARY: No cyanosis. No jaundice. No rashes noted. No cellulitis noted. EXTREMITIES: 2+ peripheral pulses. No evidence of peripheral edema. No calf tenderness noted. NEUROLOGIC: Cranial nerves II-XII intact. PSYCHIATRIC: Awake, alert, and oriented X 3. Appropriate affect. Intact judgement and insight. Assessment and Plan: Acute cholecystitis Generalized weakness Debility Cholelithiasis Elevated bilirubin Elevated liver enzymes Leukocytosis, likely reactive, resolved Continue IV hydration with NS at 75 cc/h as patient has decreased oral intake HIDA scan showed nonvisualization of the gallbladder and up to 2 hours of imaging. Findings can be seen with acute cholecystitis. Further clinical co rrelation is recommended. Patient does not demonstrate findings for acute abdomen, denies belly pain, distention, rebound tenderness. Physical therapy recommends subacute rehab to increase strength functional mobility prior to returning home. Monitor morning CBC and CMP Continue MiraLAX and senna TSH is 0.33, free T4 1.22, lipase 367 Elevated troponin, at baseline No chest pain, echo in November 2024 showed normal EF, mildly enlarged right ventricle - Surgery consulted - Started on ceftriaxone IV 2 g daily, Flagyl 500 IV 3 times daily Diabetes mellitus: ISS + Accuchecks ACHS. Hypoglycemic precautions. History of TIA: Discontinued aspirin 325 mg twice daily and started patient on 81 mg aspirin daily and continue Plavix 75 mg daily Hypertension: Losartan 100 mg daily Dyslipidemia: Lipitor 40 mg PO QD. CODE STATUS: FULL CODE DVT Prophylaxis: Lovenox SQ Anticipated discharge place: likely [facility], pending PTOT Anticipated discharge time: Pending clinical stability I have seen and evaluated the patient today. Discussed with the resident and agree with the residents finding and plan as documented in the resident's note. Changes highlighted in blue font. Objective - Vital Signs Vital signs: Vital Signs Temp 98.0 F 02/11/25 01:07 Pulse 50 L 02/11/25 01:07 Resp 18 02/11/25 01:07 BP 162/75 02/11/25 01:07 Pulse Ox 97 02/11/25 01:07 FiO2 Intake & Output 02/10/25 02/11/25 02/11/25 18:59 06:59 18:59 Output Total 300 400 Balance -300 -400 Output: Urine 300 400 Other: Voiding Method Diaper Diaper # Bowel Movements 0 - Labs CBC & Chem 7: 02/11/25 05:26 02/11/25 07:28 Labs: Abnormal Lab Results - Last 24 Hours (Table) 02/10/25 02/10/25 02/10/25 Range/Units 11:40 11:40 12:09 RBC 4.08 L (4.40-5.60) 10*6/uL Hgb 12.8 L (13.0-17.0) g/dL Hct 38.6 L (39.6-50.0) % RDW 16.4 H (11.5-14.5) % Immature Gran # (0.00-0.04) 10*3/uL Eosinophils # (0.04-0.35) 10*3/uL Sodium 136 L (137-145) mmol/L Glucose 162 H (74-99) mg/dL POC Glucose (mg/dL) 169 H (70-110) mg/dL Total Bilirubin 1.7 H (0.2-1.3) mg/dL AST 138 H (17-59) U/L ALT 114 H (4-49) U/L Albumin 3.3 L (3.5-5.0) g/dL 02/10/25 02/10/25 02/11/25 Range/Units 17:18 20:25 05:26 RBC 4.21 L (4.40-5.60) 10*6/uL Hgb (13.0-17.0) g/dL Hct 38.8 L (39.6-50.0) % RDW 16.1 H (11.5-14.5) % Immature Gran # 0.14 H (0.00-0.04) 10*3/uL Eosinophils # 0.42 H (0.04-0.35) 10*3/uL Sodium (137-145) mmol/L Glucose (74-99) mg/dL POC Glucose (mg/dL) 207 H 237 H (70-110) mg/dL Total Bilirubin (0.2-1.3) mg/dL AST (17-59) U/L ALT (4-49) U/L Albumin (3.5-5.0) g/dL 02/11/25 Range/Units 06:03 RBC (4.40-5.60) 10*6/uL Hgb (13.0-17.0) g/dL Hct (39.6-50.0) % RDW (11.5-14.5) % Immature Gran # (0.00-0.04) 10*3/uL Eosinophils # (0.04-0.35) 10*3/uL Sodium (137-145) mmol/L Glucose (74-99) mg/dL POC Glucose (mg/dL) 128 H (70-110) mg/dL Total Bilirubin (0.2-1.3) mg/dL AST (17-59) U/L ALT (4-49) U/L Albumin (3.5-5.0) g/dL
[2025-02-11 17:21] LABS: Glucose,Whole Blood 138 mg/dL (70-110)
[2025-02-11] MEDS: cefTRIAXone 2 GM in DEXTROSE 5% IN WATER 50 ML IVPB SCH (17:46)
[2025-02-11] MEDS: metroNIDAZOLE-NS PMX 500 MG in SALINE 1 100ML.BAG IVPB SCH (17:47)
[2025-02-11 20:34] LABS: Glucose,Whole Blood 151 mg/dL (70-110)
[2025-02-12 05:13] LABS: Basophils # (A) 0.05 10*3/uL (0.00-0.10); Eosinophils # (A) 0.44 10*3/uL (0.04-0.35); Eosinophils % (A) 8.5 %; HCT 40.7 % (39.6-50.0); HGB 13.5 g/dL (13.0-17.0); Lymphocytes # (A) 1.38 10*3/uL (0.90-5.00); Lymphocytes % (A) 26.5 %; MCH 30.9 pg (27.0-32.0); MCHC 33.2 g/dL (32.0-37.0); MCV 93.1 fL (80.0-97.0); Mean Platelet Volume 10.1 fL (9.5-12.2); Monocytes # (A) 0.51 10*3/uL (0.20-1.00); Monocytes % (A) 9.8 %; Neutrophils % (A) 53.8 %; Platelet Count 178 10*3/uL (140-440); RBC 4.37 10*6/uL (4.40-5.60)
[2025-02-12 05:27] LABS: ALT 57 U/L (4-49); AST 32 U/L (17-59); African American GFR (CKD) >90 (>60 ml/min/1.73 sqM); Albumin 3.2 g/dL (3.5-5.0); Albumin/Globulin Ratio 1.1; Alkaline Phosphatase 83 U/L (38-126); Anion Gap 8 mmol/L; Blood Urea Nitrogen 15 mg/dL (9-20); Calcium 8.8 mg/dL (8.4-10.2); Carbon Dioxide 21 mmol/L (22-30); Chloride 108 mmol/L (98-107); Glucose 140 mg/dL (74-99); Non-African American GFR(CKD) 87 (>60 ml/min/1.73 sqM); Potassium 4.5 mmol/L (3.5-5.1); Sodium 137 mmol/L (137-145); Total Protein 6.2 g/dL (6.3-8.2)
[2025-02-12 06:01] LABS: Glucose,Whole Blood 126 mg/dL (70-110)
[2025-02-12] MEDS: ENOXAPARIN 40 MG/0.4 ML SYRINGE SQ SCH (09:05)
[2025-02-12] MEDS: ASPIRIN 81 MG PO SCH (09:17)
[2025-02-12 12:34] LABS: Glucose,Whole Blood 131 mg/dL (70-110)
--- NOTE | 2025-02-12 13:42 | P.PN ---
Subjective Progress Note Date: 02/12/25 Subjective: Patient seen and examined at bedside. No acute events overnight. Denies any significant abdominal pain. Able to tolerate oral intake. Denies any nausea vomiting, urinary or bowel complaints. Pertinent positives and negatives as discussed above, a complete review of systems was performed and all other systems are negative. Vitals Signs Reviewed. General: Nontoxic, no distress, appears at stated age, morbidly obese Derm: Warm, dry Head: Atraumatic, normocephalic, symmetric Eyes: EOMI, no lid lag, anicteric sclera Mouth: No lip lesion, mucus membranes moist Cardiovascular: S1S2 reg, no murmur Lungs: CTA bilateral, no rhonchi, no rales, no accessory muscle use Abdominal: Soft, nontender to palpation, no guarding, no appreciable organomegaly Ext: No gross muscle atrophy, no edema, no contractures Neuro: CN II-XI grossly intact, no focal neuro deficits Psych: Alert, oriented, appropriate affect Data Reviewed Today: Pertinent Labs: WBC 5.2, hemoglobin 13.5, bicarb 21, anion gap 8, creatinine 0.71, blood sugars range between 126-140, total bili 1, AST 32, ALT 57, ALP 83 Imaging: No new imaging Assessment and Plan: Active: Acute cholecystitis Hyperbilirubinemia Transaminitis Cholelithiasis Leukocytosis, resolved Generalized weakness Debility - Surgery consulted, pending recommendations - Ceftriaxone 2 g IV every 24 hours, Flagyl 500 IV every 8 hours - Patient has no significant abdominal pain - Pain control with oral Tylenol as needed - PT/OT, recommending subacute rehab [place] metabolic acidosis - Likely secondary to IV fluids, discontinue Elevated troponin - Comparable to previous admissions - No active chest pain Type 2 diabetes - Sliding scale insulin, monitor for hypoglycemia Chronic: History of TIA Hypertension Dyslipidemia Neuropathy DVT ppx: Lovenox Code status: Full code Anticipated discharge place: Subacute rehab Anticipated discharge time: Pending clinical course Objective - Vital Signs Vital signs: Vital Signs Temp 97.9 F 02/12/25 07:15 Pulse 105 H 02/12/25 10:55 Resp 18 02/12/25 07:15 BP 147/82 02/12/25 10:55 Pulse Ox 93 L 02/12/25 10:55 FiO2 Intake & Output 02/11/25 02/12/25 02/12/25 18:59 06:59 18:59 Output Total 300 500 Balance -300 -500 Output: Urine 300 500 Other: Voiding Method Diaper Diaper Diaper External Catheter External Catheter # Voids 3 2 # Bowel Movements 1 1 - Labs CBC & Chem 7: 02/12/25 04:55 02/12/25 04:55 Labs: Abnormal Lab Results - Last 24 Hours (Table) 02/11/25 02/11/25 02/12/25 Range/Units 17:20 20:33 04:55 RBC 4.37 L (4.40-5.60) 10*6/uL RDW 16.0 H (11.5-14.5) % Eosinophils # 0.44 H (0.04-0.35) 10*3/uL Chloride (98-107) mmol/L Carbon Dioxide (22-30) mmol/L Glucose (74-99) mg/dL POC Glucose (mg/dL) 138 H 151 H (70-110) mg/dL ALT (4-49) U/L Total Protein (6.3-8.2) g/dL Albumin (3.5-5.0) g/dL 02/12/25 02/12/25 02/12/25 Range/Units 04:55 05:59 12:34 RBC (4.40-5.60) 10*6/uL RDW (11.5-14.5) % Eosinophils # (0.04-0.35) 10*3/uL Chloride 108 H (98-107) mmol/L Carbon Dioxide 21 L (22-30) mmol/L Glucose 140 H (74-99) mg/dL POC Glucose (mg/dL) 126 H 131 H (70-110) mg/dL ALT 57 H (4-49) U/L Total Protein 6.2 L (6.3-8.2) g/dL Albumin 3.2 L (3.5-5.0) g/dL
--- NOTE | 2025-02-12 14:11 | P.GSCN ---
History of Present Illness Consult date: 02/12/25 History of present illness: CHIEF COMPLAINT: Weakness HISTORY OF PRESENT ILLNESS: This is a 84-year-old male who presented to the hospital with weakness. He had been at rehab after a recent fall and foot fracture. Patient reports he was home and felt like his legs were going to give out. Came into the ER for further evaluation. Patient had elevated LFTs and total bilirubin gallbladder ultrasound was ordered had showed evidence of gallstones and fatty liver. Medicine team did order a HIDA scan which showed no visualization of the gallbladder and evaluate for acute cholecystitis. Patient reports no abdominal pain. He is tolerating diet with no nausea or vomiting. Denies any heartburn. He is afebrile. Patient does have a history of a TIA and he is on Plavix. Last dose was yesterday morning. He is also diabetic. He denies any prior abdominal surgeries. PAST MEDICAL HISTORY: See below PAST SURGICAL HISTORY: See below MEDICATIONS: See below ALLERGIES: See below SOCIAL HISTORY: No illicit drug use. REVIEW OF SYSTEMS: CONSTITUTIONAL: Denies fever or chills. HEENT: Denies blurred vision, vision changes, or eye pain. Denies hemoptysis CARDIOVASCULAR: Denies chest pain or pressure. RESPIRATORY: No shortness of breath. GASTROINTESTINAL: See HPI for pertinent findings HEMATOLOGIC: Denies bleeding disorders. GENITOURINARY: Denies any blood in urine or increased urinary frequency. SKIN: Denies pruitis. Denies rash. PHYSICAL EXAM: VITAL SIGNS: Reviewed GENERAL: Well-developed in no acute distress. HEENT: No sclera icterus. Extraocular movements grossly intact. Moist buccal mucosa. Head is atraumatic, normocephalic. No nasal drainage. ABDOMEN: Soft. Obese. Nondistended. Nontender. Nontender right upper quadrant. No rebound or guarding noted. NEUROLOGIC: Alert and oriented. Cranial nerves II through XII grossly intact. LABORATORY DATA: WBC 11.52 down to 5.20 Hgb 13.5 platelets 178 Sodium 137 potassium 4.5 creatinine 0.71 Total bilirubin 3.0 down to 1.0 AST 277 down to 32 ALT 143 down to 57 alk phos 83 Lipase 367 IMAGING: Gallbladder ultrasound reports no evidence of acute process. Hepatic steatosis. Cholelithiasis. HIDA scan reports nonvisualization of the gallbladder. Findings can be seen with acute cholecystitis further clinical correlation recommended. ASSESSMENT: 1. Asymptomatic cholelithiasis. Patient has no abdominal pain. Nontender on exam. Denies any nausea or vomiting. PLAN: - No surgical intervention planned - Patient has also declined any surgical intervention at this time - Okay to resume Plavix - Patient educated that if he starts to have right upper quadrant pain that radiates to the back or shoulder, nausea or vomiting, heartburn symptoms or fever that this could be related to his gallbladder and he was instructed to come back to the ER for further investigation - Patient can be discharged from surgical standpoint when medically cleared Physician [employer] note has been reviewed by physician. Signing provider agrees with the documented findings, assessment, and plan of care. 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 SNOQUALMIE. TIA. LOWER BACK PAIN. Skin Cancer, Type II DM History of Any Multi-Drug Resistant Organisms: None Reported Past Surgical History: Joint Replacement, Orthopedic Surgery Additional Past Surgical History / Comment(s): SEVERAL LYMPH NODES FROM RIGHT AXILLA REMOVED. LEFT TOTAL HIP. RIGHT MENISCUS REPAIR. BILATERAL CATARACTS. Right Shoulder Surgery from Fall. R total hip replacement Past Anesthesia/Blood Transfusion Reactions: No Reported Reaction Additional Past Anesthesia/Blood Transfusion Reaction / Comm: unk hx of blood transfusion Past Psychological History: No Psychological Hx Reported Smoking Status: Never smoker Past Alcohol Use History: None Reported Past Drug Use History: None Reported - Past Family History Father Family Medical History: Hypertension Medications and Allergies Home Medications Medication Instructions Recorded Confirmed Type Clopidogrel Bisulfate [Clopidogrel] 75 mg PO DAILY 09/09/15 02/09/25 History Glimepiride [Amaryl] 2 mg PO BID 11/17/23 02/09/25 History Losartan Potassium [Cozaar] 100 mg PO DAILY 11/14/24 02/09/25 History Empagliflozin [Jardiance] 25 mg PO DAILY 01/17/25 02/09/25 History traMADol HCl [Ultram] 50 mg PO Q6H PRN #12 tab 01/18/25 02/09/25 Rx Acetaminophen-Codeine 300-30mg 1 tab PO Q6H PRN 02/09/25 02/09/25 History [Tylenol w/codeine #3] Aspirin 325 mg PO BID 02/09/25 02/09/25 History Atorvastatin [Lipitor] 40 mg PO HS 02/09/25 02/09/25 History Gabapentin 300 mg PO TID 02/09/25 02/09/25 History Insulin Aspart [NovoLOG Flexpen] 5 units SQ TID-W/MEALS 02/09/25 02/09/25 History Insulin Aspart [NovoLOG Flexpen] See Protocol SQ ACHS 02/09/25 02/09/25 History Miconazole 2% Powder 1 applic TOPICAL BID 02/09/25 02/09/25 History Ocular Multivitamin(Unknown) 1 tab PO BID 02/09/25 02/09/25 History Sennosides [Senokot] 17.2 mg PO Q24H PRN 02/09/25 02/09/25 History Allergies Allergy/AdvReac Type Severity Reaction Status Date / Time atenolol AdvReac Hallucinati Verified 02/09/25 16:51 ons donepezil [From Aricept] AdvReac panic Verified 02/09/25 16:51 attack Surgical - Exam Vital Signs Temp Pulse Resp BP Pulse Ox 98.4 F 94 18 129/61 97 02/09/25 11:04 02/09/25 11:04 02/09/25 11:04 02/09/25 11:04 02/09/25 11:04 Results - Labs 02/12/25 04:55 02/12/25 04:55 Abnormal Lab Results - Last 24 Hours (Table) 02/11/25 02/11/25 02/12/25 Range/Units 17:20 20:33 04:55 RBC 4.37 L (4.40-5.60) 10*6/uL RDW 16.0 H (11.5-14.5) % Eosinophils # 0.44 H (0.04-0.35) 10*3/uL Chloride (98-107) mmol/L Carbon Dioxide (22-30) mmol/L Glucose (74-99) mg/dL POC Glucose (mg/dL) 138 H 151 H (70-110) mg/dL ALT (4-49) U/L Total Protein (6.3-8.2) g/dL Albumin (3.5-5.0) g/dL 0502/12/25 02/12/25 Range/Units 04:55 05:59 12:34 RBC (4.40-5.60) 10*6/uL RDW (11.5-14.5) % Eosinophils # (0.04-0.35) 10*3/uL Chloride 108 H (98-107) mmol/L Carbon Dioxide 21 L (22-30) mmol/L Glucose 140 H (74-99) mg/dL POC Glucose (mg/dL) 126 H 131 H (70-110) mg/dL ALT 57 H (4-49) U/L Total Protein 6.2 L (6.3-8.2) g/dL Albumin 3.2 L (3.5-5.0) g/dL Diabetes panel 02/12/25 Range/Units 04:55 Sodium 137 (137-145) mmol/L Potassium 4.5 (3.5-5.1) mmol/L Chloride 108 H (98-107) mmol/L Carbon Dioxide 21 L (22-30) mmol/L BUN 15 (9-20) mg/dL Creatinine 0.71 (0.66-1.25) mg/dL Glucose 140 H (74-99) mg/dL Calcium 8.8 (8.4-10.2) mg/dL AST 32 (17-59) U/L ALT 57 H (4-49) U/L Alkaline Phosphatase 83 (38-126) U/L Total Protein 6.2 L (6.3-8.2) g/dL Albumin 3.2 L (3.5-5.0) g/dL Calcium panel 02/12/25 Range/Units 04:55 Calcium 8.8 (8.4-10.2) mg/dL Albumin 3.2 L (3.5-5.0) g/dL Pituitary panel 02/12/25 Range/Units 04:55 Sodium 137 (137-145) mmol/L Potassium 4.5 (3.5-5.1) mmol/L Chloride 108 H (98-107) mmol/L Carbon Dioxide 21 L (22-30) mmol/L BUN 15 (9-20) mg/dL Creatinine 0.71 (0.66-1.25) mg/dL Glucose 140 H (74-99) mg/dL Calcium 8.8 (8.4-10.2) mg/dL Adrenal panel 02/12/25 Range/Units 04:55 Sodium 137 (137-145) mmol/L Potassium 4.5 (3.5-5.1) mmol/L Chloride 108 H (98-107) mmol/L Carbon Dioxide 21 L (22-30) mmol/L BUN 15 (9-20) mg/dL Creatinine 0.71 (0.66-1.25) mg/dL Glucose 140 H (74-99) mg/dL Calcium 8.8 (8.4-10.2) mg/dL Total Bilirubin 1.0 (0.2-1.3) mg/dL AST 32 (17-59) U/L ALT 57 H (4-49) U/L Alkaline Phosphatase 83 (38-126) U/L Total Protein 6.2 L (6.3-8.2) g/dL Albumin 3.2 L (3.5-5.0) g/dL
--- NOTE | 2025-02-12 14:37 | P.DS ---
Providers Date of admission: 02/09/25 13:43 Expected date of discharge: 02/12/25 Attending physician: Bertha Duggan MD Consults: 02/11/25 16:45 Consult Physician Routine Consulting Provider: Rosa Nelson Consult Reason/Comments: acute cholecystitis Do you want consulting provider notified?: Yes [facility] Course: Discharge Diagnosis: Asymptomatic cholelithiasis Hyperbilirubinemia Transaminitis Leukocytosis, resolved Generalized weakness Debility [place] metabolic acidosis Elevated troponin Type 2 diabetes History of TIA Hypertension Dyslipidemia Neuropathy Hospital Course: 84-year-old male with past medical history of type II DM on insulin, HLD, HTN, osteoarthritis, recent distal fibular fracture, GERD, who presented to the ER from home on 02/09/2025 with generalized weakness. He was recently discharged from [facility] after a fall resulting in fibular fracture. He was able to move around, had good appetite up until the past couple days when he started feeling weak, collateral history obtained from his , she shared that he became very weak yesterday and was unable to get up and walk. She did not notice any other unusual symptoms. In the ER VSS, chest x-ray with no acute process, brain CT was done and showed no acute abnormalities,Labs on admission show WBC 11.52, hemoglobin 13.9, hematocrit 42.3, neutrophils 9.53, PT 11.8, PTT 27.9, INR 1.1, sodium 138, potassium 4.6, chloride 106, BUN 15, creatinine 1.03, glucose 121, total bili 3.5, AST 277, ALT 143, alkaline phosphatase 101, troponin 0.050, lipase 367, UA negative for UTI. Patient was admitted under observation status for evaluation of generalized weakness, elevated liver enzymes. Liver ultrasound showed hepatic steatosis, cholelithiasis, no signs of cholecystitis. On exam patient had significant right upper tenderness to palpation but negative Gonzalez sign, no rebound no guarding, HIDA scan ordered. Patient switched to inpatient status for, continued on normal saline infusion, protein shakes added per patient and family request to meet nutrition goals, PT OT assessment pending. Leukocytosis resolved, total bilirubin improved to 1.7, liver enzymes trending down. HIDA scan positive for possible acute cholecystitis. Patient was started on IV antibiotics. Surgery consulted. Patient asymptomatic, likely symptomatic cholelithiasis. Outpatient follow-up with surgery. IV antibiotics discontinued at the time of discharge. PT recommending subacute rehab. Patient seen and examined at bedside. Vital signs reviewed and stable. General: Nontoxic, no distress, appears at stated age Derm: Warm, dry Head: Atraumatic, normocephalic, symmetric Eyes: EOMI, no lid lag, anicteric sclera Mouth: No lip lesion, mucus membranes moist Cardiovascular: S1S2 reg, no murmur Lungs: CTA bilateral, no rhonchi, no rales, no accessory muscle use Abdominal: Soft, nontender to palpation, no guarding, no appreciable organomegaly Ext: No gross muscle atrophy, no edema, no contractures Neuro: CN II-XI grossly intact, no focal neuro deficits Psych: Alert, oriented, appropriate affect A total of 38 minutes of time were spent preparing this complex discharge summary. Patient was discharged on 02/12/25 at 1436. Patient Condition at Discharge: Stable Plan - Discharge Summary Discharge Rx Participant: No New Discharge Prescriptions: New polyethylene glycoL 3350 [Miralax] 17 gm PO DAILY packet Acetaminophen Tab [Tylenol] 650 mg PO Q4HR PRN tab PRN Reason: Fever And/ Or Pain Aspirin 81 mg PO DAILY tab Continue Clopidogrel Bisulfate [Clopidogrel] 75 mg PO DAILY Glimepiride [Amaryl] 2 mg PO BID Losartan Potassium [Cozaar] 100 mg PO DAILY Sennosides [Senokot] 17.2 mg PO Q24H PRN PRN Reason: Constipation Insulin Aspart [NovoLOG Flexpen] See Protocol SQ ACHS Gabapentin 300 mg PO TID Empagliflozin [Jardiance] 25 mg PO DAILY Insulin Aspart [NovoLOG Flexpen] 5 units SQ TID-W/MEALS Atorvastatin [Lipitor] 40 mg PO HS Ocular Multivitamin(Unknown) 1 tab PO BID Miconazole 2% Powder 1 applic TOPICAL BID Discontinued Aspirin 325 mg PO BID Acetaminophen-Codeine 300-30mg [Tylenol w/codeine #3] 1 tab PO Q6H PRN PRN Reason: Pain traMADol HCl [Ultram] 50 mg PO Q6H PRN #12 tab PRN Reason: Moderate Pain (Scale 4 To 6) Discharge Medication List Clopidogrel Bisulfate [Clopidogrel] 75 mg PO DAILY 09/09/15 [History] Glimepiride [Amaryl] 2 mg PO BID 11/17/23 [History] Losartan Potassium [Cozaar] 100 mg PO DAILY 11/14/24 [History] Empagliflozin [Jardiance] 25 mg PO DAILY 01/17/25 [History] Atorvastatin [Lipitor] 40 mg PO HS 02/09/25 [History] Gabapentin 300 mg PO TID 02/09/25 [History] Insulin Aspart [NovoLOG Flexpen] 5 units SQ TID-W/MEALS 02/09/25 [History] Insulin Aspart [NovoLOG Flexpen] See Protocol SQ ACHS 02/09/25 [History] Miconazole 2% Powder 1 applic TOPICAL BID 02/09/25 [History] Ocular Multivitamin(Unknown) 1 tab PO BID 02/09/25 [History] Sennosides [Senokot] 17.2 mg PO Q24H PRN 02/09/25 [History] Acetaminophen Tab [Tylenol] 650 mg PO Q4HR PRN tab 02/12/25 [Rx] Aspirin 81 mg PO DAILY tab 02/12/25 [Rx] polyethylene glycoL 3350 [Miralax] 17 gm PO DAILY packet 02/12/25 [Rx] Follow up Appointment(s)/Referral(s): None,Stated [REFERRING] - 1-2 days [facility] [NON-STAFF] - 1 Week Rosa Nelson DO [Doctor of Osteopathic Medicine] - 1 Week Patient Instructions/Handouts: Gallstones (DC) Activity/Diet/Wound Care/Special Instructions: Please see your PCP. Discharge Disposition: TRANSFER TO SNF/ECF
[2025-02-12 15:03] VITALS: BP 126/69; PULSE 67; RESP 17; TEMP 98.2
[2025-02-12] MEDS: CLOPIDOGREL 75 MG TAB PO SCH (16:00)
== END 2025-02-12 16:25 | DRG 445 ==
LOC: EC 11:00 → 6NMEDSUR 13:43 → OBSVTOIN 13:43 → 6NMEDSUR 17:57
PROVIDERS: ADMIT Student in an Organized Health Care Education/Training Program; ATTEND Student in an Organized Health Care Education/Training Program
DX: K80.00 Calculus of gallbladder with acute cholecystitis without obstruction (principal); E87.20 Acidosis, unspecified; E11.42 Type 2 diabetes mellitus with diabetic polyneuropathy; I10 Essential (primary) hypertension; Z11.52 Encounter for screening for COVID-19; K76.0 Fatty (change of) liver, not elsewhere classified; Z79.4 Long term (current) use of insulin; R74.01 Elevation of levels of liver transaminase levels; S82.409D Unspecified fracture of shaft of unspecified fibula, subsequent encounter for closed fracture with routine healing; E78.5 Hyperlipidemia, unspecified; H91.90 Unspecified hearing loss, unspecified ear; Z79.02 Long term (current) use of antithrombotics/antiplatelets; Z79.82 Long term (current) use of aspirin; Z79.84 Long term (current) use of oral hypoglycemic drugs; Z79.899 Other long term (current) drug therapy; Z82.49 Family history of ischemic heart disease and other diseases of the circulatory system; Z86.73 Personal history of transient ischemic attack (TIA), and cerebral infarction without residual deficits; Z96.641 Presence of right artificial hip joint; Z85.828 Personal history of other malignant neoplasm of skin; Z91.81 History of falling; Z98.42 Cataract extraction status, left eye; Z98.41 Cataract extraction status, right eye; Z88.8 Allergy status to other drugs, medicaments and biological substances
CPT/HCPCS: 36415; 70450; 71046; 76705; 78226; 80053; 81001; 82248; 83036; 83690; 83735; 84439; 84443; 84484; 85025; 85610; 85730; 87636; 93005; 96360; 96361; 99285

== ENCOUNTER 2025-03-06 16:16 | Inpatient (IN) | payer MEDICARE ==
[2025-03-06] MEDS: ACETAMINOPHEN IV (For NPO) 1,000 MG in EMPTY BAG 1 BAG IVPB STA (17:18)
[2025-03-06] MEDS: LACTATED RINGERS 1,000 ML IV SCH ×2 (17:20→19:03)
[2025-03-06 17:28] LABS: Appearance,Urine Clear (Clear); Bilirubin,Urine Negative (Negative); Blood,Urine Negative (Negative); Color,Urine Colorless; Glucose,Urine (UA) 4+ (Negative); Ketones,Urine Negative (Negative); Leukocyte Esterase,Urine Negative (Negative); Nitrite,Urine Negative (Negative); Protein,Urine Negative (Negative); Specific Gravity,Urine 1.019 (1.001-1.035); Urobilinogen,Urine <2.0 mg/dL (<2.0)
--- NOTE | 2025-03-06 18:15 | ED ---
Weakness HPI - General Chief complaint: Weakness Stated complaint: infection Time Seen by Provider: 03/06/25 16:25 Source: patient Mode of arrival: EMS Limitations: altered mental status - History of Present Illness Initial comments: 84-year-old male with past medical history of diabetes, hypertension, hyperlipidemia who presents emergency department with weakness and shakes. Family states that he went this morning to a doctor's appointment and had his foot x-rayed. When he came home the patient was significantly weak and could not get out of the car. He was shaking. EMS arrived on scene and they found his temp to be 103.2. He was tachycardic. He did have an episode of incontinence. Family states that he has had urinary tract infections in the past. Patient denies headache, neck pain or stiffness. No chest pain or difficulty breathing. No abdominal pain. No rashes. No other alleviating, precipitating modifying factors - Related Data Home Medications Medication Instructions Recorded Confirmed Clopidogrel Bisulfate [Clopidogrel] 75 mg PO DAILY 09/09/15 03/06/25 Glimepiride [Amaryl] 2 mg PO BID 11/17/23 03/06/25 Losartan Potassium [Cozaar] 100 mg PO DAILY 11/14/24 03/06/25 Empagliflozin [Jardiance] 25 mg PO DAILY 01/17/25 03/06/25 Gabapentin 300 mg PO TID 02/09/25 03/06/25 Cholecalciferol [Vitamin D3 (125 125 mcg PO DAILY 03/06/25 03/06/25 Mcg = 5000 Iu)] Fenofibrate,Micronized 200 mg PO DAILY 03/06/25 03/06/25 [Fenofibrate] Rosuvastatin [Crestor] 20 mg PO DAILY 03/06/25 03/06/25 Previous Rx's Medication Instructions Recorded Aspirin 81 mg PO DAILY tab 02/12/25 Allergies Allergy/AdvReac Type Severity Reaction Status Date / Time atenolol AdvReac Hallucinati Verified 03/06/25 19:44 ons donepezil [From Aricept] AdvReac panic Verified 03/06/25 19:44 attack Review of Systems ROS Statement: Those systems with pertinent positive or pertinent negative responses have been documented in the HPI. ROS Other: All systems not noted in ROS Statement are negative. 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 [place]. TIA. LOWER BACK PAIN. Skin Cancer, Type II DM History of Any Multi-Drug Resistant Organisms: None Reported Past Surgical History: Joint Replacement, Orthopedic Surgery Additional Past Surgical History / Comment(s): SEVERAL LYMPH NODES FROM RIGHT AXILLA REMOVED. LEFT TOTAL HIP. RIGHT MENISCUS REPAIR. BILATERAL CATARACTS. Right Shoulder Surgery from Fall. R total hip replacement Past Anesthesia/Blood Transfusion Reactions: No Reported Reaction Additional Past Anesthesia/Blood Transfusion Reaction / Comment(s): unk hx of blood transfusion Past Psychological History: No Psychological Hx Reported Smoking Status: Never smoker Past Alcohol Use History: None Reported Past Drug Use History: None Reported - Past Family History Father Family Medical History: Hypertension General Exam Limitations: altered mental status Course Vital Signs 03/06/25 03/06/25 03/06/25 16:23 17:15 18:30 Temperature 105.4 F H 106.0 F H 104.4 F H Pulse Rate 137 H 131 H 105 H Respiratory 24 38 H 30 H Rate Blood Pressure 164/138 144/67 91/46 O2 Sat by Pulse 94 L 98 98 Oximetry 03/06/25 03/06/25 03/06/25 18:55 19:10 21:00 Temperature 104.2 F H 104.0 F H 101.3 F H Pulse Rate 105 H 72 Respiratory 30 H 20 Rate Blood Pressure 98/49 110/52 O2 Sat by Pulse 97 99 Oximetry Medical Decision Making - Medical Decision Making Was pt. sent in by a medical professional or institution (, PA, SATELLITE PROJECT SITE MONITOR, urgent care, hospital, or half-way...) When possible be specific @ -[No] Did you speak to anyone other than the patient for history (EMS, parent, family, police, friend...)? What history was obtained from this source @ -[No] Did you review nursing and triage notes (agree or disagree)? Why? @ -[I reviewed and agree with nursing and triage notes] Were old charts reviewed (outside hosp., previous admission, EMS record, old EK G, old radiological studies, urgent care reports/EKG's, half-way records)? Report findings @ -[No old charts were reviewed] Differential Diagnosis (chest pain, altered mental status, abdominal pain women, abdominal pain men, vaginal bleeding, weakness, fever, dyspnea, syncope, headache, dizziness, GI bleed, back pain, seizure, CVA, palpatations, mental health, musculoskeletal)? @ -[not applicable] EKG interpreted by me (3pts min.). @ -yes and demonstrates sinus tachycardia with a rate of 131. VA interval 172. QTc 366. Incomplete right bundle branch block. Left anterior fascicular block. X-rays interpreted by me (1pt min.). @ -[None done] CT interpreted by me (1pt min.). @ -[None done] U/S interpreted by me (1pt. min.). @ -[None done] What testing was considered but not performed or refused? (CT, X-rays, U/S, labs)? Why? @ -[None] What meds were considered but not given or refused? Why? @ -[None] Did you discuss the management of the patient with other professionals (nancy hyman i.e. , PA, SATELLITE PROJECT SITE MONITOR, lab, RT, psych nurse, social media job titles, disbursing agent, teacher, tactical/mobile watch officer, corrections caseworker)? Give summary @ -[No] Was smoking cessation discussed for >3mins.? @ -[No] Was critical care preformed (if so, how long)? @ -[No] Were there social determinants of health that impacted care today? How? (Homelessness, low income, unemployed, alcoholism, drug addiction, transportatio n, low edu. Level, literacy, decrease access to med. care, detention, rehab)? @ -[No] Was there de-escalation of care discussed even if they declined (Discuss DNR or withdrawal of care, Hospice)? DNR status @ -[No] What co-morbidities impacted this encounter? (DM, HTN, Smoking, COPD, CAD, Cancer, CVA, ARF, Chemo, Hep., AIDS, mental health diagnosis, sleep apnea, morbid obesity)? @ -[None] Was patient admitted / discharged? Hospital course, mention meds given and route, prescriptions, significant lab abnormalities, going to OR and other pertinent info. @ -[hospital course] Undiagnosed new problem with uncertain prognosis? @ -[No] Drug Therapy requiring intensive monitoring for toxicity (Heparin, Nitro, Insulin, Cardizem)? @ -[No] Were any procedures done? @ -[No] Diagnosis/symptom? @ -[default] Acute, or Chronic, or Acute on Chronic? @ -[default] Uncomplicated (without systemic symptoms) or Complicated (systemic symptoms)? @ -[default] Side effects of treatment? @ -[No] Exacerbation, Progression, or Severe Exacerbation? @ -[No] Poses a threat to life or bodily function? How? (Chest pain, USA, MS, pneumonia, PE, COPD, DKA, ARF, appy, cholecystitis, CVA, Diverticulitis, Homicidal, Suicidal, threat to staff... and all critical care pts) @ -[No] - Lab Data Result diagrams: 03/06/25 18:26 03/06/25 18:26 Lab Results 03/06/25 03/06/25 03/06/25 Range/Units 17:23 18:26 18:26 WBC 9.04 (4.50-10.00) 10*3/uL RBC 4.45 (4.40-5.60) 10*6/uL Hgb 13.7 (13.0-17.0) g/dL Hct 41.5 (39.6-50.0) % MCV 93.3 (80.0-97.0) fL MCH 30.8 (27.0-32.0) pg MCHC 33.0 (32.0-37.0) g/dL Plt Count 216 (140-440) 10*3/uL MPV 10.0 (9.5-12.2) fL Immature Gran % (Auto) 0.3 % Neutrophils % 93.8 % Lymphocytes % 3.2 % Monocytes % 2.5 % Eosinophils % 0.1 % Basophils % 0.1 % Immature Gran # 0.03 (0.00-0.04) 10*3/uL Neutrophils # 8.47 H (1.80-7.70) 10*3/uL Lymphocytes # 0.29 L (0.90-5.00) 10*3/uL Monocytes # 0.23 (0.20-1.00) 10*3/uL Eosinophils # 0.01 L (0.04-0.35) 10*3/uL Basophils # 0.01 (0.00-0.10) 10*3/uL Sodium 135 L (137-145) mmol/L Potassium 3.9 (3.5-5.1) mmol/L Chloride 102 (98-107) mmol/L Carbon Dioxide 22 (22-30) mmol/L Anion Gap 11 mmol/L BUN 26 H (9-20) mg/dL Creatinine 1.29 H (0.66-1.25) mg/dL Est GFR (CKD-EPI)AfAm 59 (>60 ml/min/1.73 sqM) Est GFR (CKD-EPI)NonAf 51 (>60 ml/min/1.73 sqM) Glucose 161 H (74-99) mg/dL Plasma Lactic Acid Osorio (0.7-2.0) mmol/L Calcium 9.1 (8.4-10.2) mg/dL Total Bilirubin 0.9 (0.2-1.3) mg/dL AST 50 (17-59) U/L ALT 62 H (4-49) U/L Alkaline Phosphatase 66 (38-126) U/L Total Protein 6.0 L (6.3-8.2) g/dL Albumin 3.1 L (3.5-5.0) g/dL Urine Color Colorless Urine Appearance Clear (Clear) Urine pH 6.0 (5.0-8.0) Ur Specific [place] 1.019 (1.001-1.035) Urine Protein Negative (Negative) Urine Glucose (UA) 4+ H (Negative) Urine Ketones Negative (Negative) Urine Blood Negative (Negative) Urine Nitrite Negative (Negative) Urine Bilirubin Negative (Negative) Urine Urobilinogen <2.0 (<2.0) mg/dL Ur Leukocyte Esterase Negative (Negative) Influenza Type A (PCR) (Not Detectd) Influenza Type B (PCR) (Not Detectd) RSV (PCR) (Not Detectd) SARS-CoV-2 (PCR) (Not Detectd) 03/06/25 03/06/25 Range/Units 18:26 18:26 WBC (4.50-10.00) 10*3/uL RBC (4.40-5.60) 10*6/uL Hgb (13.0-17.0) g/dL Hct (39.6-50.0) % MCV (80.0-97.0) fL MCH (27.0-32.0) pg MCHC (32.0-37.0) g/dL Plt Count (140-440) 10*3/uL MPV (9.5-12.2) fL Immature Gran % (Auto) % Neutrophils % % Lymphocytes % % Monocytes % % Eosinophils % % Basophils % % Immature Gran # (0.00-0.04) 10*3/uL Neutrophils # (1.80-7.70) 10*3/uL Lymphocytes # (0.90-5.00) 10*3/uL Monocytes # (0.20-1.00) 10*3/uL Eosinophils # (0.04-0.35) 10*3/uL Basophils # (0.00-0.10) 10*3/uL Sodium (137-145) mmol/L Potassium (3.5-5.1) mmol/L Chloride (98-107) mmol/L Carbon Dioxide (22-30) mmol/L Anion Gap mmol/L BUN (9-20) mg/dL Creatinine (0.66-1.25) mg/dL Est GFR (CKD-EPI)AfAm (>60 ml/min/1.73 sqM) Est GFR (CKD-EPI)NonAf (>60 ml/min/1.73 sqM) Glucose (74-99) mg/dL Plasma Lactic Acid [place] 2.0 (0.7-2.0) mmol/L Calcium (8.4-10.2) mg/dL Total Bilirubin (0.2-1.3) mg/dL AST (17-59) U/L ALT (4-49) U/L Alkaline Phosphatase (38-126) U/L Total Protein (6.3-8.2) g/dL Albumin (3.5-5.0) g/dL Urine Color Urine Appearance (Clear) Urine pH (5.0-8.0) Ur Specific [place] (1.001-1.035) Urine Protein (Negative) Urine Glucose (UA) (Negative) Urine Ketones (Negative) Urine Blood (Negative) Urine Nitrite (Negative) Urine Bilirubin (Negative) Urine Urobilinogen (<2.0) mg/dL Ur Leukocyte Esterase (Negative) Influenza Type A (PCR) Not Detected (Not Detectd) Influenza Type B (PCR) Not Detected (Not Detectd) RSV (PCR) Not Detected (Not Detectd) SARS-CoV-2 (PCR) Not Detected (Not Detectd) Disposition Clinical Impression: Generalized weakness, Pyrexia of unknown origin Disposition: ADMITTED IP TO THIS [facility] Condition: Stable Is patient prescribed a controlled substance at d/c from ED?: No Referrals: Nino Guillen DO [Primary Care Provider] - 1-2 days Time of Disposition: 22:34 Decision to Admit Reason: Admit from EC Decision Date: 03/06/25 Decision Time: 22:34
[2025-03-06] MEDS: cefTRIAXone IN SWFI 1,000 MG/10 ML SYRINGE IVP STA (18:26)
[2025-03-06 18:40] LABS: Basophils # (A) 0.01 10*3/uL (0.00-0.10); Basophils % (A) 0.1 %; Eosinophils # (A) 0.01 10*3/uL (0.04-0.35); Eosinophils % (A) 0.1 %; HCT 41.5 % (39.6-50.0); HGB 13.7 g/dL (13.0-17.0); Lymphocytes # (A) 0.29 10*3/uL (0.90-5.00); Lymphocytes % (A) 3.2 %; MCH 30.8 pg (27.0-32.0); MCV 93.3 fL (80.0-97.0); Monocytes # (A) 0.23 10*3/uL (0.20-1.00); Monocytes % (A) 2.5 %; Neutrophils # (A) 8.47 10*3/uL (1.80-7.70); Neutrophils % (A) 93.8 %; Platelet Count 216 10*3/uL (140-440); RBC 4.45 10*6/uL (4.40-5.60); RDW 15.5 % (11.5-14.5); WBC 9.04 10*3/uL (4.50-10.00)
--- NOTE | 2025-03-06 18:42 | XR ---
EXAMINATION TYPE: XR chest 2V DATE OF EXAM: 03/06/2025 6:05 PM COMPARISON: 02/09/2025 CLINICAL INDICATION: Male, 84 years old with history of Fever, TECHNIQUE: XR chest 2V view(s) obtained. FINDINGS: The heart size is normal. The pulmonary vasculature is normal. The lungs are clear. IMPRESSION: 1. No acute pulmonary process. [facility], , 03/06/2025 6:40 PM
--- NOTE | 2025-03-06 18:42 | CT ---
EXAMINATION TYPE: CT brain cspine wo con DATE OF EXAM: 03/06/2025 6:12 PM COMPARISON: 02/09/2025 CLINICAL INDICATION: Male, 84 years old with history of ams, altered mental status, pain TECHNIQUE: CT of the brain is performed utilizing 3 mm thick sections through the posterior fossa and 3 mm thick sections through the remaining calvarium. Study is performed within 24 hours of arrival to the hospital. Contrast used: mL of , (none if empty) CT DLP: 1610.2 mGycm, Automated exposure control for dose reduction was used. FINDINGS: No abnormal hyperdensity is present to suggest an acute intracranial hemorrhage. No mass lesion is evident. No acute infarcts are evident. Minimal periventricular white matter hypodensity is present, likely o n the basis of chronic white matter ischemic changes. Ventricles and sulci are prominent for the patient age. Findings appear stable from the recent comparison. Paranasal sinuses and mastoid air cells within the [id number]-ld-amge are clear. IMPRESSIONS: 1. No acute intracranial process. Follow-up MRI can be performed as clinically indicated. CT cervical spine. COMPARISON: None TECHNIQUE: CT of the cervical spine is performed in the axial plane at 2 mm thick sections. Reconstr ucted images in the coronal, and sagittal plane are reviewed on the computer. FINDINGS: No acute fractures are evident. There is exaggeration of the cervical lordosis. Thoracic kyphosis may be present. Disc heights are preserved. Vertebral body heights are preserved. No spinal canal stenosis is evident. Mild left foraminal narrowing from uncovertebral joint hypertrophy is present at C4-5 level. IMPRESSION: 1. No acute osseous abnormality cervical spine. [facility], , 03/06/2025 6:39 PM
[2025-03-06 19:17] LABS: Influenza A Not Detected (Not Detectd); Influenza B Not Detected (Not Detectd); RSV Not Detected (Not Detectd)
[2025-03-06 21:44] LABS: ALT 62 U/L (4-49); AST 50 U/L (17-59); African American GFR (CKD) 59 (>60 ml/min/1.73 sqM); Albumin 3.1 g/dL (3.5-5.0); Alkaline Phosphatase 66 U/L (38-126); Anion Gap 11 mmol/L; Blood Urea Nitrogen 26 mg/dL (9-20); Calcium 9.1 mg/dL (8.4-10.2); Carbon Dioxide 22 mmol/L (22-30); Chloride 102 mmol/L (98-107); Glucose 161 mg/dL (74-99); Non-African American GFR(CKD) 51 (>60 ml/min/1.73 sqM); Potassium 3.9 mmol/L (3.5-5.1); Sodium 135 mmol/L (137-145); Total Bilirubin 0.9 mg/dL (0.2-1.3)
[2025-03-06] MEDS ORDERED: IBUPROFEN 400 MG TAB PO PRN (22:34)
[2025-03-06] MEDS ORDERED: NALOXONE 0.4 MG/ML 1 ML VIAL IV PRN ×2 (22:34→23:54)
--- NOTE | 2025-03-06 23:16 | CT ---
EXAMINATION TYPE: CT chest abdomen wo con DATE OF EXAM: 03/06/2025 11:08 PM COMPARISON: 11/14/2024 CLINICAL INDICATION: Male, 84 years old with history of sepsis with hpypoxia, sepsis with hypoxia TECHNIQUE: CT chest abdomen wo con , with sagittal coronal reformats. If MIP/3-D images were created, there are created on a separate workstation. Contrast used: mL of , (none if empty) Oral contrast used: (none if empty) CT DLP: 1272 mGycm, Automated exposure control for dose reduction was used. FINDINGS: CT CHEST: Portion of the thyroid visualized is normal. No suspicious lung nodules or focal infiltrates are present. There is some minimal compressive atelec tasis within the dependent portions of the lung bases bilaterally. No enlarged mediastinal or hilar adenopathy is evident. No significant coronary artery calcification s. The ascending aorta diameter at the level of the main pulmonary artery is 3.5 cm. The main pulmonary artery diameter at the bifurcation is 2.9 cm. There is moderate coronary artery calcification present CT ABDOMEN: Liver: Normal Spleen: Normal Pancreas: Normal Adrenal glands: The adrenal glands are normal. Gallbladder: Multiple small gallstones fill the gallbladder Kidneys: Left kidney appears somewhat lobular. Right kidney is atrophic.. No hydronephrosis is presen t. No cysts are present. Delayed images were obtained through the kidneys, which remain unremarkab le. Aorta: Vascular calcification is within the aorta. Inferior vena cava: Normal. Limited CT PELVIS: Loops of bowel within the abdomen and pelvis are normal. Portion of the sigmoid colon visualized mult iple diverticula present. This study is performed without oral contrast limiting bowel evaluation. IMPRESSION: 1. No acute pulmonary process. 2. Cholelithiasis. 3. No suspicious area for fever of unknown origin [facility], , 03/06/2025 11:14 PM
--- NOTE | 2025-03-06 23:53 | P.HPIM ---
History of Present Illness H&P Date: 03/06/25 Chief Complaint: weakness and shaking Patient is an 84-year-old male patient with a past medical history of noninsulin-dependent type 2 diabetes mellitus, dyslipidemia, essential hypertension and osteoarthritis who presented with generalized weakness and shaking. His family at bedside reported the patient went to his appointment this morning and had a foot x-ray due to a right sided broken ankle as ago or a mechanical fall and has been following up with his Ortho physician. It was reported the patient was not feeling well after his clinic visit, specifically reports of feeling weak and shaking. Family called EMS and upon arrival he was found to have a temperature of 103.2. He was tachycardic as well. Family reported remote history of UTIs and he was incontinent . No reports of shortness of breath, chest pain, headache, neck pain or stiffnes . No abdominal symptoms . No change in bowel habits. at bedside reported that her and the patient had cold symptoms a few weeks ago with reports of shortness of breath and coughing . Upon arrival to the ED, patient's temperature was 106 and tachycardic with a heart rate of 131 with a respiratory rate of 38 . Pressure was 144 systolic patient was placed on 4 L nasal cannula oxygen with no reports of hypoxia (just for support per ED physician ) . Done showing WBC of 9, sodium 135, BUN 26, creatinine 1.29 and his last kidney function was within normal limit around a month ago, plasma lactate of 2, ALT of 62. Urinalysis was not remarkable. COVID-19/RSV/influenza PCR was negative. It was reported that initially the patient was confused. Had cervical spine CT was not remarkable. Chest x-ray was not remarkable. CT of the chest abdomen and pelvis without contrast was not remarkable except for cholelithiasis. Received IV Rocephin will be admitted for further evaluation and management of fever of unknown origin. Infectious disease consult was placed Past medical history : Insulin-dependent type 2 diabetes mellitus, dyslipidemia, essential hypertension and osteoarthritis Surgical history : Bilateral hip replacement and right shoulder surgery Social history : No tobacco use, no alcohol use and no recreational drug use Review of system : Positive for fever, weakness and shaking Other systems are negative Physical exam : General: ill looking Derm: warm, dry, intact Head: atraumatic, normocephalic, symmetric Eyes: EOMI, anicteric sclera Mouth: no lip lesion, mucus membranes moist Cardiovascular: S1 S2 reg, no murmur, rubs, or gallops Lungs: CTA bilateral, no rales, no accessory muscle use Abdominal: soft, non-tender to palpataion, no appreciable organomegaly Extremities: no gross muscle atrophy, no edema, no contractures Neuro: Alert, Oriented x4 (patient was evaluated at bedside), CNII-XII grossly intact, gait normal Psych: well appearing, appropriate affect Assessment and plan : - Sepsis (fever and tachycardia) with fever of unknown origin : Patient met sepsis criteria with fever and tachycardia Source of infection is unknown Chest x-ray with CT abdomen, chest and pelvis not remarkable Urinalysis not remarkable COVID-19/RSV/influenza PCR is negative Pending complete respiratory panel Consult infectious disease Will plan for LP and consult IR Patient on cefepime, Flagyl and vancomycin 2 sets of blood culture Tylenol as needed for fever -non oliguric acute kidney injury with prerenal azotemia due to sepsis : Patient presented with BUN of 26 and creatinine of 1.29 (past kidney function within normal limits) CT of the abdomen and pelvis did not show any signs of obstruction Will treat patient with aggressive IV fluid resuscitation and repeat labs Avoid nephrotoxic medication -non insulin-dependent type 2 diabetes mellitus : Will hold oral hypoglycemic agents Will keep patient on low-dose insulin sliding scale A1c -Essential hypertension : Hold antihypertensive medication as patient's blood pressure is borderline -Right broken ankle : No signs of infection Per family xray was done and right foot is healing Status was discussed with family patient wants to remain full code DVT prophylaxiso on SCD for now until LP is done Consult physical therapy Patient will be admitted as inpatient for at least 2 midnight hospitalization. 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 [place]. TIA. LOWER BACK PAIN. Skin Cancer, Type II DM History of Any Multi-Drug Resistant Organisms: None Reported Past Surgical History: Joint Replacement, Orthopedic Surgery Additional Past Surgical History / Comment(s): SEVERAL LYMPH NODES FROM RIGHT AXILLA REMOVED. LEFT TOTAL HIP. RIGHT MENISCUS REPAIR. BILATERAL CATARACTS. Right Shoulder Surgery from Fall. R total hip replacement Past Anesthesia/Blood Transfusion Reactions: No Reported Reaction Additional Past Anesthesia/Blood Transfusion Reaction / Comment(s): unk hx of blood transfusion Past Psychological History: No Psychological Hx Reported Smoking Status: Never smoker Past Alcohol Use History: None Reported Past Drug Use History: None Reported - Past Family History Father Family Medical History: Hypertension Medications and Allergies Home Medications Medication Instructions Recorded Confirmed Type Clopidogrel Bisulfate [Clopidogrel] 75 mg PO DAILY 09/09/15 03/06/25 History Glimepiride [Amaryl] 2 mg PO BID 11/17/23 03/06/25 History Losartan Potassium [Cozaar] 100 mg PO DAILY 11/14/24 03/06/25 History Empagliflozin [Jardiance] 25 mg PO DAILY 01/17/25 03/06/25 History Gabapentin 300 mg PO TID 02/09/25 03/06/25 History Aspirin 81 mg PO DAILY tab 02/12/25 03/06/25 Rx Cholecalciferol [Vitamin D3 (125 125 mcg PO DAILY 03/06/25 03/06/25 History Mcg = 5000 Iu)] Fenofibrate,Micronized 200 mg PO DAILY 03/06/25 03/06/25 History [Fenofibrate] Rosuvastatin [Crestor] 20 mg PO DAILY 03/06/25 03/06/25 History Allergies Allergy/AdvReac Type Severity Reaction Status Date / Time atenolol AdvReac Hallucinati Verified 03/06/25 19:44 ons donepezil [From Aricept] AdvReac panic Verified 03/06/25 19:44 attack Physical Exam Vitals: Vital Signs Temp Pulse Resp BP Pulse Ox 03/06/25 21:00 101.3 F H 72 20 110/52 99 03/06/25 19:10 104.0 F H 03/06/25 18:55 104.2 F H 105 H 30 H 98/49 97 03/06/25 18:30 104.4 F H 105 H 30 H 91/46 98 03/06/25 17:15 106.0 F H 131 H 38 H 144/67 98 03/06/25 16:23 105.4 F H 137 H 24 164/138 94 L Intake and Output 03/06/25 03/06/25 03/06/25 06:59 14:59 22:59 Other: Weight 127.006 kg Results CBC & Chem 7: 03/06/25 18:26 03/06/25 18:26 Labs: Abnormal Lab Results - Last 24 Hours (Table) 03/06/25 03/06/25 03/06/25 Range/Units 17:23 18:26 18:26 Neutrophils # 8.47 H (1.80-7.70) 10*3/uL Lymphocytes # 0.29 L (0.90-5.00) 10*3/uL Eosinophils # 0.01 L (0.04-0.35) 10*3/uL Sodium 135 L (137-145) mmol/L BUN 26 H (9-20) mg/dL Creatinine 1.29 H (0.66-1.25) mg/dL Glucose 161 H (74-99) mg/dL ALT 62 H (4-49) U/L Total Protein 6.0 L (6.3-8.2) g/dL Albumin 3.1 L (3.5-5.0) g/dL Urine Glucose (UA) 4+ H (Negative)
[2025-03-06] MEDS ORDERED: HYDROcodone/APAP 5-325MG 1 EACH TAB PO PRN (23:54)
[2025-03-06] MEDS ORDERED: MELATONIN 3 MG TABLET PO PRN (23:54)
[2025-03-06] MEDS ORDERED: ONDANSETRON 4 MG/2 ML VIAL IVP PRN (23:54)
[2025-03-07 00:06] LABS: Glucose,Whole Blood 149 mg/dL (70-110)
[2025-03-07] MEDS: CEFEPIME 2 GM in SODIUM CHLORIDE 0.9% 100 ML IVPB STA (00:28)
[2025-03-07] MEDS: SODIUM CHLORIDE 0.9% 1,000 ML IV SCH (01:13)
[2025-03-07] MEDS: metroNIDAZOLE-NS PMX 500 MG in SALINE 1 100ML.BAG IVPB SCH (01:22)
[2025-03-07] MEDS: VANCOMYCIN 2,250 MG in SODIUM CHLORIDE 0.9% 500 ML 500 ML IVPB SCH (02:21)
[2025-03-07] MEDS: ACETAMINOPHEN TAB 325 MG TAB PO PRN (02:52)
[2025-03-07 04:03] LABS: Basophils # (A) 0.05 10*3/uL (0.00-0.10); Basophils % (A) 0.4 %; Eosinophils # (A) 0.08 10*3/uL (0.04-0.35); Eosinophils % (A) 0.6 %; HCT 35.4 % (39.6-50.0); HGB 11.6 g/dL (13.0-17.0); Lymphocytes # (A) 1.23 10*3/uL (0.90-5.00); Lymphocytes % (A) 9.2 %; MCH 30.9 pg (27.0-32.0); MCHC 32.8 g/dL (32.0-37.0); MCV 94.4 fL (80.0-97.0); Mean Platelet Volume 10.1 fL (9.5-12.2); Monocytes # (A) 0.68 10*3/uL (0.20-1.00); Monocytes % (A) 5.1 %; Neutrophils # (A) 11.25 10*3/uL (1.80-7.70); Neutrophils % (A) 84.4 %; Platelet Count 209 10*3/uL (140-440); RBC 3.75 10*6/uL (4.40-5.60); RDW 15.6 % (11.5-14.5); WBC 13.33 10*3/uL (4.50-10.00)
[2025-03-07] MEDS: VANCOMYCIN IV PER PHARMACY 1 EACH MISC MISCELLANE SCH (04:32)
[2025-03-07 04:52] LABS: African American GFR (CKD) 73 (>60 ml/min/1.73 sqM); Anion Gap 8 mmol/L; Blood Urea Nitrogen 24 mg/dL (9-20); Calcium 9.1 mg/dL (8.4-10.2); Carbon Dioxide 22 mmol/L (22-30); Chloride 106 mmol/L (98-107); Glucose 109 mg/dL (74-99); Magnesium 2.2 mg/dL (1.6-2.3); Non-African American GFR(CKD) 63 (>60 ml/min/1.73 sqM); Phosphorus 3.2 mg/dL (2.5-4.5); Sodium 136 mmol/L (137-145)
[2025-03-07 06:19] LABS: Glucose,Whole Blood 109 mg/dL (70-110)
[2025-03-07] MEDS: INSULIN LISPRO (HumaLOG) 100 UNIT/ML 10 mL VL SQ SCH (06:32)
[2025-03-07] MEDS: CEFEPIME 2 GM in SODIUM CHLORIDE 0.9% 100 ML IVPB SCH (08:47)
[2025-03-07 10:54] LABS: INR 1.06 sec (0.93-1.11); Prothrombin Time 11.8 sec (9.9-11.9)
[2025-03-07 11:49] LABS: Glucose,Whole Blood 126 mg/dL (70-110)
[2025-03-07] MEDS ORDERED: DEXTROSE 50% SYRINGE 50 ML IVP PRN ×2 (14:11)
--- NOTE | 2025-03-07 14:12 | P.PN ---
Subjective Progress Note Date: 03/07/25 Hospital Course: A very pleasant 84-year-old male with past medical history of type II DM on in sulin, HLD, HTN, osteoarthritis, recent distal fibular fracture, GERD, who presented to the ER on 03/06/2025. His family at bedside reported the patient went to his appointment this morning and had a foot x-ray due to a right sided broken ankle as ago or a mechanical fall and has been following up with his Ortho physician. It was reported the patient was not feeling well after his clinic visit, specifically reports of feeling weak and shaking. Family called EMS and upon arrival he was found to have a temperature of 103.2. He was tachycardic as well. Family reported remote history of UTIs and he was incontinent . No reports of shortness of breath, chest pain, headache, neck pain or stiffnes . No abdominal symptoms . No change in bowel habits. at bedside reported that her and the patient had cold symptoms a few weeks ago with reports of shortness of breath and coughing . Upon arrival to the ED, patient's temperature was 106 and tachycardic with a heart rate of 131 with a respiratory rate of 38 . Pressure was 144 systolic patient was placed on 4 L nasal cannula oxygen with no reports of hypoxia (just for support per ED physician ) . Done showing WBC of 9, sodium 135, BUN 26, creatinine 1.29 and his last kidney function was within normal limit around a month ago, plasma lactate of 2, ALT of 62. Urinalysis was not remarkable. COVID-19/RSV/influenza PCR was negative. It was reported that initially the patient was confused. Had cervical spine CT was not remarkable. Chest x-ray was not remarkable. CT of the chest abdomen and pelvis without contrast was not remarkable except for cholelithiasis. Received IV Rocephin will be admitted for further evaluation and management of fever of unknown origin. Infectious disease consult was placed, patient was started on vancomycin, cefepime, Flagyl, anesthesia consulted for LP, cannot be performed in the next 7 days as patient is on Plavix. Of note, he had recent admission to our institution and was discharged on 02/12/2025 after evaluation for generalized weakness, debility, noted to have a possible cholecystitis on HIDA scan, surgery evaluated and diagnosed with symptomatic cholelithiasis, did not recommend any intervention, patient also declined any surgical interventions at that time. 03/07/2025: Seen examined bedside, does not have any particular complaints, he just feels that something is wrong, feels tired, does not understand why his legs keep giving out, he denied any shortness of breath, chest pain, abdominal pain. His Tmax today 99.9 around 2 AM, blood pressure remained stable 117/68, he is maintained on nasal cannula, no documented hypoxia. WBC up from 9-13.3, hemoglobin dropped from 13.7-11.6, platelet count stable, sodium improved to 136, creatinine normalized to 1.08, procalcitonin significantly elevated at 8.52, UA negative for UTI Pertinent positives and negatives as discussed above, a complete review of systems was performed and all other systems are negative. Vitals Signs Reviewed. General: [nontoxic], [no distress], [appears at stated age] Derm: [warm], [dry] Head: [atraumatic], [normocephalic], [symmetric] Eyes: [EOMI], [no lid lag], [anicteric sclera] Mouth: [no lip lesion], [mucus membranes moist] Cardiovascular: [S1S2 reg], [no murmur] Lungs: [CTA bilateral], [no rhonchi, no rales] , [no accessory muscle use] Abdominal: [soft], [ nontender to palpation], [no guarding], [no appreciable organomegaly] Ext: [no gross muscle atrophy], [no edema], [no contractures], right foot brace Neuro: [ CN II-XI grossly intact], [no focal neuro deficits] Psych: [Alert], [oriented], [appropriate affect] Assessment and Plan: Sepsis, unknown source -ID consulted, appreciate recommendations -Continue cefepime 2 g every 8 hours, vancomycin, pharmacy to dose, monitor BMP daily for kidney toxicity, Flagyl 500 every 12 hours SOT 03/06 - Follow-up blood cultures, urine cultures - LP cannot be performed for the next 7 days as patient was on Plavix - CBC daily, telemetry - MRSA swab ordered and pending - No respiratory panel ordered and pending Debility -PT OT consulted ANA LAURA, prerenal, resolved -Creatinine improved, will continue NS at 100 cc/h and monitor BMP daily -Hold losartan due to ANA LAURA as well as soft blood pressures Diabetes mellitus: ISS + Accuchecks ACHS. Hypoglycemic precautions. History of TIA: Continue ASA and Plavix as above. Hypertension: Hold losartan 100 mg PO QD., Dyslipidemia: Lipitor 40 mg PO QD. DVT ppx: SCD Code status: Full code Anticipated discharge place: TBD Anticipated discharge time: TBD Objective - Vital Signs Vital signs: Vital Signs Temp 98.2 F 03/07/25 07:40 Pulse 59 L 03/07/25 07:40 Resp 18 03/07/25 07:40 BP 117/68 03/07/25 07:40 Pulse Ox 100 03/07/25 07:40 FiO2 Intake & Output 03/06/25 03/07/25 03/07/25 18:59 06:59 18:59 Output Total 200 Balance -200 Weight 127.006 kg 127.006 kg Output: Urine 200 Other: # Voids 1 - Labs CBC & Chem 7: 03/07/25 03:48 03/07/25 03:48 Labs: Abnormal Lab Results - Last 24 Hours (Table) 03/06/25 03/06/25 03/06/25 Range/Units 17:23 18:26 18:26 WBC (4.50-10.00) 10*3/uL RBC (4.40-5.60) 10*6/uL Hgb (13.0-17.0) g/dL Hct (39.6-50.0) % Neutrophils # 8.47 H (1.80-7.70) 10*3/uL Lymphocytes # 0.29 L (0.90-5.00) 10*3/uL Eosinophils # 0.01 L (0.04-0.35) 10*3/uL Sodium 135 L (137-145) mmol/L BUN 26 H (9-20) mg/dL Creatinine 1.29 H (0.66-1.25) mg/dL Glucose 161 H (74-99) mg/dL POC Glucose (mg/dL) (70-110) mg/dL ALT 62 H (4-49) U/L Creatine Kinase (55-170) U/L Total Protein 6.0 L (6.3-8.2) g/dL Albumin 3.1 L (3.5-5.0) g/dL Procalcitonin (0.02-0.50) ng/mL Urine Glucose (UA) 4+ H (Negative) 03/06/25 03/06/25 03/07/25 Range/Units 18:26 18:26 00:05 WBC (4.50-10.00) 10*3/uL RBC (4.40-5.60) 10*6/uL Hgb (13.0-17.0) g/dL Hct (39.6-50.0) % Neutrophils # (1.80-7.70) 10*3/uL Lymphocytes # (0.90-5.00) 10*3/uL Eosinophils # (0.04-0.35) 10*3/uL Sodium (137-145) mmol/L BUN (9-20) mg/dL Creatinine (0.66-1.25) mg/dL Glucose (74-99) mg/dL POC Glucose (mg/dL) 149 H (70-110) mg/dL ALT (4-49) U/L Creatine Kinase 48 L (55-170) U/L Total Protein (6.3-8.2) g/dL Albumin (3.5-5.0) g/dL Procalcitonin 8.52 H (0.02-0.50) ng/mL Urine Glucose (UA) (Negative) 03/07/25 03/07/25 03/07/25 Range/Units 03:48 03:48 11:47 WBC 13.33 H (4.50-10.00) 10*3/uL RBC 3.75 L (4.40-5.60) 10*6/uL Hgb 11.6 L (13.0-17.0) g/dL Hct 35.4 L (39.6-50.0) % Neutrophils # 11.25 H (1.80-7.70) 10*3/uL Lymphocytes # (0.90-5.00) 10*3/uL Eosinophils # (0.04-0.35) 10*3/uL Sodium 136 L (137-145) mmol/L BUN 24 H (9-20) mg/dL Creatinine (0.66-1.25) mg/dL Glucose 109 H (74-99) mg/dL POC Glucose (mg/dL) 126 H (70-110) mg/dL ALT (4-49) U/L Creatine Kinase (55-170) U/L Total Protein (6.3-8.2) g/dL Albumin (3.5-5.0) g/dL Procalcitonin (0.02-0.50) ng/mL Urine Glucose (UA) (Negative)
[2025-03-07] MEDS: GABAPENTIN 300 MG CAP PO SCH (15:15)
[2025-03-07 16:46] LABS: Glucose,Whole Blood 131 mg/dL (70-110)
[2025-03-07 18:33] LABS: Appearance,Urine Clear (Clear); Bilirubin,Urine Negative (Negative); Blood,Urine Negative (Negative); Color,Urine Colorless; Glucose,Urine (UA) 4+ (Negative); Ketones,Urine Negative (Negative); Leukocyte Esterase,Urine Negative (Negative); Nitrite,Urine Negative (Negative); Protein,Urine Negative (Negative); Specific Gravity,Urine 1.015 (1.001-1.035); Urobilinogen,Urine <2.0 mg/dL (<2.0)
[2025-03-07 20:16] LABS: Glucose,Whole Blood 119 mg/dL (70-110)
--- NOTE | 2025-03-07 22:40 | P.CONS ---
History of Present Illness - Reason for Consult Consult date: 03/07/25 Fever of unknown origin Requesting physician: Ashley Katz - Chief Complaint Weakness rigors and chills x 1 day - History of Present Illness Patient is a 84-year-old male with a past medical history significant for diabetes mellitus hypertension hyperlipidemia deafness CVA TIA patient has been brought into the hospital concerning for weakness and shaking apparently the patient did remind for his orthopedic surgeon office visit to have his foot x-rays as a patient recently did have left ankle fracture being treated conservatively patient was getting significantly weak and could not get out of the car patient was having chills with rigors and noticed to have a temperature of 103 F EMS was called who brought the patient subsequently to the hospital on arrival to the ER patient did have a temperature of 105.4 F patient did not have significant tachycardia or hypotension mildly hypoxic currently on 3 L nasal cannula oxygen patient did have white count of 13.3 creatinine 1.08 initially BUN/creatinine was elevated ALT mild elevation at 62 patient did have a UA that has been negative influenza RSV COVID testing has been negative patient did have a CT of his chest abdominal pelvis however this was done without any oral contrast there was no evidence of any acute pulmonary process cholelithiasis no suspicious area for fever of unknown origin patient has been broadly treated with vancomycin cefepime and Flagyl infectious disease was consulted for fever of unknown origin Review of Systems Positive point and negatives has been mentioned in the HPI, complete review of systems was performed and all other systems are negative Past Medical History Past Medical History: Cancer, CVA/TIA, Diabetes Mellitus, Hearing Disorder / Deafness, Hyperlipidemia, Hypertension, Osteoarthritis (OA) Additional Past Medical History / Comment(s): 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 COEUR D'ALENE. TIA (15 years ago). LOWER BACK PAIN. Skin Cancer, Type II DM History of Any Multi-Drug Resistant Organisms: None Reported Past Surgical History: Joint Replacement, Orthopedic Surgery Additional Past Surgical History / Comment(s): SEVERAL LYMPH NODES FROM RIGHT AX ILLA REMOVED. LEFT TOTAL HIP. RIGHT MENISCUS REPAIR. BILATERAL CATARACTS. Right Shoulder Surgery from Fall. R total hip replacement Past Anesthesia/Blood Transfusion Reactions: No Reported Reaction Additional Past Anesthesia/Blood Transfusion Reaction / Comm: unk hx of blood transfusion Past Psychological History: No Psychological Hx Reported Smoking Status: Never smoker Past Alcohol Use History: None Reported Past Drug Use History: None Reported - Past Family History Father Family Medical History: Hypertension Medications and Allergies Home Medications Medication Instructions Recorded Confirmed Type Clopidogrel Bisulfate [Clopidogrel] 75 mg PO DAILY 09/09/15 03/06/25 History Glimepiride [Amaryl] 2 mg PO BID 11/17/23 03/06/25 History Losartan Potassium [Cozaar] 100 mg PO DAILY 11/14/24 03/06/25 History Empagliflozin [Jardiance] 25 mg PO DAILY 01/17/25 03/06/25 History Gabapentin 300 mg PO TID 02/09/25 03/06/25 History Aspirin 81 mg PO DAILY tab 02/12/25 03/06/25 Rx Cholecalciferol [Vitamin D3 (125 125 mcg PO DAILY 03/06/25 03/06/25 History Mcg = 5000 Iu)] Fenofibrate,Micronized 200 mg PO DAILY 03/06/25 03/06/25 History [Fenofibrate] Rosuvastatin [Crestor] 20 mg PO DAILY 03/06/25 03/06/25 History Allergies Allergy/AdvReac Type Severity Reaction Status Date / Time atenolol AdvReac Hallucinati Verified 03/06/25 19:44 ons donepezil [From Aricept] AdvReac panic Verified 03/06/25 19:44 attack Physical Exam Vitals: Vital Signs Temp Pulse Pulse Resp BP BP Pulse Ox 03/07/25 07:40 98.2 F 59 L 18 117/68 100 03/07/25 04:29 99.1 F 03/07/25 03:49 99.1 F 65 18 95/60 100 03/07/25 03:00 64 20 120/57 99 03/07/25 02:57 99.9 F H 65 20 125/59 100 03/07/25 02:34 99.7 F H 67 18 122/61 100 03/07/25 02:00 99.7 F H 66 20 105/53 99 03/07/25 01:35 99.5 F 68 20 113/54 97 03/07/25 00:00 73 20 107/51 99 03/06/25 23:47 99.9 F H 75 22 119/58 100 03/06/25 23:15 75 115/56 99 03/06/25 22:00 74 112/51 99 03/06/25 21:00 101.3 F H 72 20 110/52 99 03/06/25 19:10 104.0 F H 03/06/25 18:55 104.2 F H 105 H 30 H 98/49 97 03/06/25 18:30 104.4 F H 105 H 30 H 91/46 98 03/06/25 17:15 106.0 F H 131 H 38 H 144/67 98 03/06/25 16:23 105.4 F H 137 H 24 164/138 94 L Intake and Output 03/06/25 03/07/25 03/07/25 22:59 06:59 14:59 Output Total 200 Balance -200 Output: Urine 200 Other: # Voids 1 Weight 127.006 kg 127.006 kg GENERAL DESCRIPTION: Elderly male up in the chair, no distress. No tachypnea or accessory muscle of respiration use. HEENT: Shows Pallor , no scleral icterus. Oral mucous membrane is dry. NECK: Trachea central, no thyromegaly. LUNGS: Unlabored breathing. Clear to auscultation anteriorly. No wheeze or crackle. HEART: S1, S2, regular rate and rhythm. No loud murmur ABDOMEN: Soft, no tenderness , EXTREMITIES: No edema of feet. SKIN: No rash, no masses palpable. NEUROLOGICAL: The patient is awake, alert, oriented x3, mood and affect normal. Results CBC & Chem 7: 03/07/25 03:48 03/07/25 03:48 Labs: Abnormal Lab Results - Last 24 Hours (Table) 03/06/25 03/06/25 03/06/25 Range/Units 17:23 18:26 18:26 WBC (4.50-10.00) 10*3/uL RBC (4.40-5.60) 10*6/uL Hgb (13.0-17.0) g/dL Hct (39.6-50.0) % Neutrophils # 8.47 H (1.80-7.70) 10*3/uL Lymphocytes # 0.29 L (0.90-5.00) 10*3/uL Eosinophils # 0.01 L (0.04-0.35) 10*3/uL Sodium 135 L (137-145) mmol/L BUN 26 H (9-20) mg/dL Creatinine 1.29 H (0.66-1.25) mg/dL Glucose 161 H (74-99) mg/dL POC Glucose (mg/dL) (70-110) mg/dL ALT 62 H (4-49) U/L Creatine Kinase (55-170) U/L Total Protein 6.0 L (6.3-8.2) g/dL Albumin 3.1 L (3.5-5.0) g/dL Procalcitonin (0.02-0.50) ng/mL Urine Glucose (UA) 4+ H (Negative) 03/06/25 03/06/25 03/07/25 Range/Units 18:26 18:26 00:05 WBC (4.50-10.00) 10*3/uL RBC (4.40-5.60) 10*6/uL Hgb (13.0-17.0) g/dL Hct (39.6-50.0) % Neutrophils # (1.80-7.70) 10*3/uL Lymphocytes # (0.90-5.00) 10*3/uL Eosinophils # (0.04-0.35) 10*3/uL Sodium (137-145) mmol/L BUN (9-20) mg/dL Creatinine (0.66-1.25) mg/dL Glucose (74-99) mg/dL POC Glucose (mg/dL) 149 H (70-110) mg/dL ALT (4-49) U/L Creatine Kinase 48 L (55-170) U/L Total Protein (6.3-8.2) g/dL Albumin (3.5-5.0) g/dL Procalcitonin 8.52 H (0.02-0.50) ng/mL Urine Glucose (UA) (Negative) 03/07/25 03/07/25 03/07/25 Range/Units 03:48 03:48 11:47 WBC 13.33 H (4.50-10.00) 10*3/uL RBC 3.75 L (4.40-5.60) 10*6/uL Hgb 11.6 L (13.0-17.0) g/dL Hct 35.4 L (39.6-50.0) % Neutrophils # 11.25 H (1.80-7.70) 10*3/uL Lymphocytes # (0.90-5.00) 10*3/uL Eosinophils # (0.04-0.35) 10*3/uL Sodium 136 L (137-145) mmol/L BUN 24 H (9-20) mg/dL Creatinine (0.66-1.25) mg/dL Glucose 109 H (74-99) mg/dL POC Glucose (mg/dL) 126 H (70-110) mg/dL ALT (4-49) U/L Creatine Kinase (55-170) U/L Total Protein (6.3-8.2) g/dL Albumin (3.5-5.0) g/dL Procalcitonin (0.02-0.50) ng/mL Urine Glucose (UA) (Negative) Assessment and Plan (1) Bacteremia Current Visit: Yes Status: Acute Code(s): R78.81 - BACTEREMIA SNOMED Code(s): 9416220 (2) Sepsis Current Visit: Yes Status: Acute Code(s): A41.9 - SEPSIS, UNSPECIFIED ORGANISM SNOMED Code(s): 66688456 Plan: 1patient presented to hospital with sepsis in this patient noted to have fever elevated white count source is likely abdominal in this patient with initial workup has been negative so far he did have a negative UA CT of abdomen pelvis chest done unfortunately without any oral contrast did not show any evidence of pneumonia with evidence of cholelithiasis mildly elevated ALT question of possible cholecystitis needs to be rule out 2-we will check an ultrasound of the liver and gallbladder area 3-empirically treat with Rocephin 2 g daily discontinue cefepime and vancomycin Family at the bedside multiple question answered We will follow on clinical condition and cultures to further adjust medication if needed Thank you for this consultation we will follow the patient along with you Dictation was produced using [employer] dictation software. please excuse any grammatical, word or spelling errors. Time with Patient: Greater than 30
[2025-03-08 06:34] LABS: Glucose,Whole Blood 93 mg/dL (70-110)
--- NOTE | 2025-03-08 08:19 | US ---
EXAMINATION TYPE: US abdomen limited DATE OF EXAM: 03/08/2025 COMPARISON: NONE CLINICAL INDICATION: Male, 84 years old with history of Fever and, elevated liver enzymes question ch olecy; fever ?cholecystitis? TECHNIQUE: Grayscale and color Doppler imaging of the right upper quadrant was performed. FINDINGS: EXAM MEASUREMENTS: Liver Length: 18.2 cm Gallbladder Wall: 0.2 cm CBD: 0.5 cm Right Kidney: obscured by bowel TOOLING ENGINEER NOTES: Pancreas: Tail obscured by overlying bowel gas Liver: hepatomegaly Gallbladder: cholelithiasis without evidence of cholecystitis Evidence for sonographic Gonzalez's sign: No CBD: wnl Right Kidney: Obscured by overlying bowel gas exam limited by bowel and habitus IMPRESSION: 1. Hepatomegaly. 2. Cholelithiasis [facility], , 03/08/2025 8:17 AM
[2025-03-08] MEDS: CHOLECALCIFEROL 125 MCG (5000 IU) TABLET PO SCH (08:37)
[2025-03-08] MEDS: ASPIRIN 81 MG PO SCH (08:37)
[2025-03-08] MEDS: ATORVASTATIN 40 MG TAB PO SCH (08:37)
[2025-03-08] MEDS: FENOFIBRATE 160 MG TAB PO SCH (08:37)
[2025-03-08] MEDS ORDERED: LOSARTAN 50 MG TAB PO SCH (09:00)
[2025-03-08 10:10] LABS: Basophils # (A) 0.04 X 10*3/uL (0.00-0.10); Basophils % (A) 0.5 %; Eosinophils # (A) 0.27 X 10*3/uL (0.04-0.35); Eosinophils % (A) 3.1 %; HCT 35.9 % (39.6-50.0); HGB 11.4 g/dL (13.0-17.0); Lymphocytes # (A) 1.12 X 10*3/uL (0.90-5.00); Lymphocytes % (A) 12.9 %; MCH 30.2 pg (27.0-32.0); MCHC 31.8 g/dL (32.0-37.0); Mean Platelet Volume 10.6 FL (9.5-12.2); Monocytes # (A) 0.62 X 10*3/uL (0.20-1.00); Monocytes % (A) 7.2 %; NRBC Per 100 WBC 0 X 10*3/uL (0.00-0.01); Neutrophils # (A) 6.58 X 10*3/uL (1.80-7.70); Neutrophils % (A) 75.8 %; Platelet Count 179 X 10*3/uL (140-440); RBC 3.78 X 10*6/uL (4.40-5.60); RBC Morphology Normal (Normal); RDW 15.6 % (11.5-14.5); WBC 8.67 X 10*3/uL (4.50-10.00)
[2025-03-08 10:41] LABS: ALT 43 U/L (10-49); AST 33 U/L (14-35); Albumin 3.1 g/dL (3.8-4.9); Albumin/Globulin Ratio 1.11 Ratio (1.60-3.17); Alkaline Phosphatase 51 U/L (41-126); BUN/Creat Ratio 16.78 Ratio (12.00-20.00); Blood Urea Nitrogen 15.1 mg/dL (9.0-27.0); Calcium 8.4 mg/dL (8.7-10.3); Chloride 107 mmol/L (96-109); Globulin 2.8 g/dL (1.6-3.3); Glucose 93 mg/dL (70-110); Potassium 4.7 mmol/L (3.5-5.5); Sodium 138 mmol/L (135-145); Total Bilirubin 0.4 mg/dL (0.3-1.2); Total Protein 5.9 g/dL (6.2-8.2)
[2025-03-08] MEDS: ZINC OXIDE PASTE (Z-GUARD) 1 APPLIC TOPICAL PRN (10:42)
[2025-03-08 11:24] LABS: Glucose,Whole Blood 157 mg/dL (70-110)
--- NOTE | 2025-03-08 15:07 | P.PN ---
Subjective Progress Note Date: 03/08/25 Hospital Course: A very pleasant 84-year-old male with past medical history of type II DM on in sulin, HLD, HTN, osteoarthritis, recent distal fibular fracture, GERD, who presented to the ER on 03/06/2025. His family at bedside reported the patient went to his appointment this morning and had a foot x-ray due to a right sided broken ankle as ago or a mechanical fall and has been following up with his Ortho physician. It was reported the patient was not feeling well after his clinic visit, specifically reports of feeling weak and shaking. Family called EMS and upon arrival he was found to have a temperature of 103.2. He was tachycardic as well. Family reported remote history of UTIs and he was incontinent . No reports of shortness of breath, chest pain, headache, neck pain or stiffnes . No abdominal symptoms . No change in bowel habits. at bedside reported that her and the patient had cold symptoms a few weeks ago with reports of shortness of breath and coughing . Upon arrival to the ED, patient's temperature was 106 and tachycardic with a heart rate of 131 with a respiratory rate of 38 . Pressure was 144 systolic patient was placed on 4 L nasal cannula oxygen with no reports of hypoxia (just for support per ED physician ) . Done showing WBC of 9, sodium 135, BUN 26, creatinine 1.29 and his last kidney function was within normal limit around a month ago, plasma lactate of 2, ALT of 62. Urinalysis was not remarkable. COVID-19/RSV/influenza PCR was negative. It was reported that initially the patient was confused. Had cervical spine CT was not remarkable. Chest x-ray was not remarkable. CT of the chest abdomen and pelvis without contrast was not remarkable except for cholelithiasis. Received IV Rocephin will be admitted for further evaluation and management of fever of unknown origin. Infectious disease consult was placed, patient was started on vancomycin, cefepime, Flagyl, anesthesia consulted for LP, cannot be performed in the next 7 days as patient is on Plavix.procalcitonin significantly elevated at 8.52, UA negative for UTI 03/08: Patient seen examined at bedside, patient's present during exam. No acute events overnight, patient feels better, he was seen in the recliner, denied abdominal pain, shortness of breath, chest pain. Blood cultures growing E. coli, MRSA swab negative, patient was switched to ceftriaxone and continued on Flagyl. Patient spiked fever again in the evening 102.5 and 2 AM 100.8. No leukocytosis, creatinine normal Pertinent positives and negatives as discussed above, a complete review of sys tems was performed and all other systems are negative. Vitals Signs Reviewed. General: [nontoxic], [no distress], [appears at stated age] Derm: [warm], [dry] Head: [atraumatic], [normocephalic], [symmetric] Eyes: [EOMI], [no lid lag], [anicteric sclera] Mouth: [no lip lesion], [mucus membranes moist] Cardiovascular: [S1S2 reg], [no murmur] Lungs: [CTA bilateral], [no rhonchi, no rales] , [no accessory muscle use] Abdominal: [soft], [ nontender to palpation], [no guarding], [no appreciable or ganomegaly] Ext: [no gross muscle atrophy], [no edema], [no contractures], right foot brace Neuro: [ CN II-XI grossly intact], [no focal neuro deficits] Psych: [Alert], [oriented], [appropriate affect] Assessment and Plan: Sepsis, E. coli bacteremia unknown source -ID consulted, appreciate recommendations - Hyphema Comycin discontinued, continue with ceftriaxone 2 g daily, Flagyl 500 twice da nini, biotics SOT 03/06 - Follow-up blood cultures, urine cultures - LP cannot be performed for the next 7 days as patient was on Plavix - CBC daily, telemetry - respiratory panel ordered and pending Debility -PT OT consulted ANA LAURA, prerenal, resolved -Creatinine improved, will discontinue NS at 100 cc/h and monitor BMP daily -Hold losartan due to ANA LAURA as well as soft blood pressures Diabetes mellitus: ISS + Accuchecks ACHS. Hypoglycemic precautions. History of TIA: Continue ASA and Plavix as above. Hypertension: Hold losartan 100 mg PO QD., Dyslipidemia: Lipitor 40 mg PO QD. DVT ppx: SCD Code status: Full code Anticipated discharge place: TBD Anticipated discharge time: TBD Objective - Vital Signs Vital signs: Vital Signs Temp 99.5 F 03/08/25 13:56 Pulse 74 03/08/25 13:56 Resp 20 03/08/25 13:56 BP 161/79 03/08/25 13:56 Pulse Ox 98 03/08/25 13:56 FiO2 Intake & Output 03/07/25 03/08/25 03/08/25 18:59 06:59 18:59 Output Total 2550 500 Balance -2550 -500 Output: Urine 2550 500 Other: Voiding Method External Catheter External Catheter # Voids 3 2 1 # Bowel Movements 1 1 - Labs CBC & Chem 7: 03/08/25 05:54 03/08/25 05:54 Labs: Abnormal Lab Results - Last 24 Hours (Table) 03/07/25 03/07/25 03/07/25 Range/Units 03:14 03:48 16:41 RBC (4.40-5.60) X 10*6/uL Hgb (13.0-17.0) g/dL Hct (39.6-50.0) % MCHC (32.0-37.0) g/dL RDW (11.5-14.5) % Carbon Dioxide (21.6-31.8) mmol/L POC Glucose (mg/dL) 131 H (70-110) mg/dL Hemoglobin A1c 7.7 H (<=6.0) % Calcium (8.7-10.3) mg/dL Total Protein (6.2-8.2) g/dL Albumin (3.8-4.9) g/dL Albumin/Globulin Ratio (1.60-3.17) Ratio Urine Glucose (UA) (Negative) Parainfluenza 3 (PCR) DETECTED A (Not detected) 03/07/25 03/07/25 03/08/25 Range/Units 18:20 20:14 05:54 RBC 3.78 L (4.40-5.60) X 10*6/uL Hgb 11.4 L (13.0-17.0) g/dL Hct 35.9 L (39.6-50.0) % MCHC 31.8 L (32.0-37.0) g/dL RDW 15.6 H (11.5-14.5) % Carbon Dioxide (21.6-31.8) mmol/L POC Glucose (mg/dL) 119 H (70-110) mg/dL Hemoglobin A1c (<=6.0) % Calcium (8.7-10.3) mg/dL Total Protein (6.2-8.2) g/dL Albumin (3.8-4.9) g/dL Albumin/Globulin Ratio (1.60-3.17) Ratio Urine Glucose (UA) 4+ H (Negative) Parainfluenza 3 (PCR) (Not detected) 03/08/25 03/08/25 Range/Units 05:54 11:23 RBC (4.40-5.60) X 10*6/uL Hgb (13.0-17.0) g/dL Hct (39.6-50.0) % MCHC (32.0-37.0) g/dL RDW (11.5-14.5) % Carbon Dioxide 20.0 L (21.6-31.8) mmol/L POC Glucose (mg/dL) 157 H (70-110) mg/dL Hemoglobin A1c (<=6.0) % Calcium 8.4 L (8.7-10.3) mg/dL Total Protein 5.9 L (6.2-8.2) g/dL Albumin 3.1 L (3.8-4.9) g/dL Albumin/Globulin Ratio 1.11 L (1.60-3.17) Ratio Urine Glucose (UA) (Negative) Parainfluenza 3 (PCR) (Not detected) Microbiology - Last 24 Hours (Table) 03/07/25 03:14 Nasal Screen MRSA/MSSA - Final Nasal Swab 03/06/25 18:23 Blood Culture - Preliminary Blood 03/06/25 18:03 Blood Culture Gram Stain - Preliminary Blood Blood Culture - Preliminary Molecular ID
--- NOTE | 2025-03-08 15:46 | P.PN ---
Subjective Progress Note Date: 03/08/25 Principal diagnosis: Reason for follow-up is fever/E. coli bacteremia Patient is a 84-year-old male with a past medical history significant for diabetes mellitus hypertension hyperlipidemia deafness CVA TIA patient has been brought into the hospital concerning for weakness and shaking and subsequent did have a positive blood culture with E. coli. On today's evaluation that is 03/08/2025, the patient did have improvement in his fever pattern with last temperature 100.8 at 1:50 AM patient has been afebrile since that the patient is currently breathing comfortably room air no chest pain shortness of breath or cough abdominal pain or diarrhea. Patient white count is 8.67, creatinine 0.9 UA x 2 has been negative, blood culture with E. coli abdominal ultrasound hepatomegaly cholelithiasis Objective - Vital Signs Vital signs: Vital Signs Temp 98.4 F 03/08/25 08:35 Pulse 68 03/08/25 08:35 Resp 20 03/08/25 08:35 BP 151/67 03/08/25 08:35 Pulse Ox 98 03/08/25 08:35 FiO2 Intake & Output 03/07/25 03/08/25 03/08/25 18:59 06:59 18:59 Output Total 2550 500 Balance -2550 -500 Output: Urine 2550 500 Other: Voiding Method External Catheter External Catheter # Voids 3 2 1 # Bowel Movements 1 1 - Exam GENERAL DESCRIPTION: An elderly male lying in bed in no distress RESPIRATORY SYSTEM: Unlabored breathing , decreased breath sounds at bases HEART: S1 S2 regular rate and rhythm , ABDOMEN: Soft , no tenderness EXTREMITIES: No edema feet - Labs CBC & Chem 7: 03/08/25 05:54 03/08/25 05:54 Labs: Abnormal Lab Results - Last 24 Hours (Table) 03/07/25 03/07/25 03/07/25 Range/Units 03:48 11:47 16:41 RBC (4.40-5.60) X 10*6/uL Hgb (13.0-17.0) g/dL Hct (39.6-50.0) % MCHC (32.0-37.0) g/dL RDW (11.5-14.5) % Carbon Dioxide (21.6-31.8) mmol/L POC Glucose (mg/dL) 126 H 131 H (70-110) mg/dL Hemoglobin A1c 7.7 H (<=6.0) % Calcium (8.7-10.3) mg/dL Total Protein (6.2-8.2) g/dL Albumin (3.8-4.9) g/dL Albumin/Globulin Ratio (1.60-3.17) Ratio Urine Glucose (UA) (Negative) 03/07/25 03/07/25 03/08/25 Range/Units 18:20 20:14 05:54 RBC 3.78 L (4.40-5.60) X 10*6/uL Hgb 11.4 L (13.0-17.0) g/dL Hct 35.9 L (39.6-50.0) % MCHC 31.8 L (32.0-37.0) g/dL RDW 15.6 H (11.5-14.5) % Carbon Dioxide (21.6-31.8) mmol/L POC Glucose (mg/dL) 119 H (70-110) mg/dL Hemoglobin A1c (<=6.0) % Calcium (8.7-10.3) mg/dL Total Protein (6.2-8.2) g/dL Albumin (3.8-4.9) g/dL Albumin/Globulin Ratio (1.60-3.17) Ratio Urine Glucose (UA) 4+ H (Negative) 03/08/25 Range/Units 05:54 RBC (4.40-5.60) X 10*6/uL Hgb (13.0-17.0) g/dL Hct (39.6-50.0) % MCHC (32.0-37.0) g/dL RDW (11.5-14.5) % Carbon Dioxide 20.0 L (21.6-31.8) mmol/L POC Glucose (mg/dL) (70-110) mg/dL Hemoglobin A1c (<=6.0) % Calcium 8.4 L (8.7-10.3) mg/dL Total Protein 5.9 L (6.2-8.2) g/dL Albumin 3.1 L (3.8-4.9) g/dL Albumin/Globulin Ratio 1.11 L (1.60-3.17) Ratio Urine Glucose (UA) (Negative) - 24 Hours (Table) 03/07/25 03:14 Nasal Screen MRSA/MSSA - Final Nasal Swab 03/06/25 18:23 Blood Culture - Preliminary Blood 03/06/25 18:03 Blood Culture Gram Stain - Preliminary Blood Blood Culture - Preliminary Molecular ID Assessment and Plan (1) Bacteremia Current Visit: Yes Status: Acute Code(s): R78.81 - BACTEREMIA SNOMED Code(s): 4015439 (2) Sepsis Current Visit: Yes Status: Acute Code(s): A41.9 - SEPSIS, UNSPECIFIED ORGANISM SNOMED Code(s): 93715917 Plan: 1patient presented to hospital with sepsis in this patient noted to have fever elevated white count source is likely abdominal in this patient with initial workup has been negative so far he did have a negative UA CT of abdomen pelvis chest done unfortunately without any oral contrast did not show any evidence of pneumonia with evidence of cholelithiasis mildly elevated ALT question of possi ble cholecystitis needs to be rule out 2-patient ultrasound abdomen mention cholelithiasis but no cholecystitis UA x 2 has been negative 3with E. coli bacteremia source likely abdominal we will repeat his CT abdominal pelvis with contrast to better define underlying source, for now continue with Rocephin and Flagyl Dictation was produced using [employer] dictation software. please excuse any grammatical, word or spelling errors. Time with Patient: Less than 30
[2025-03-08 16:38] LABS: Glucose,Whole Blood 158 mg/dL (70-110)
[2025-03-08] MEDS: IOPAMIDOL CONTRAST (ORAL USE) VIAL PO PRN (16:55)
[2025-03-08 21:13] LABS: Glucose,Whole Blood 117 mg/dL (70-110)
--- NOTE | 2025-03-08 22:02 | CT ---
EXAMINATION TYPE: CT abdomen pelvis w con DATE OF EXAM: 03/08/2025 6:52 PM COMPARISON: None. CLINICAL INDICATION: Male, 84 years old with history of Fever/E. coli bacteremia, FEVER, E.COLI TECHNIQUE: Axial images were obtained from above the diaphragm to the pubic rami in the axial plane a t 5 mm thick sections. Reconstructed images are reviewed on the computer in the coronal plane. CONTRAST: 100mL mL of Isovue 300. Study performed with Oral Contrast DLP: 2105.4 mGycm, Automated exposure control for dose reduction was used. FINDINGS: Limited CT sections are obtained the lung bases. The lung bases are clear. CT ABDOMEN: Liver: Normal Spleen: Normal Pancreas: Normal Adrenal glands: The adrenal glands are normal. Gallbladder: Multiple small gallstones present. Kidneys: Right kidney is atrophic. No masses are evident. No hydronephrosis is present. No cysts ar e present. Aorta: Vascular calcification is within the aorta. Inferior vena cava: Normal. CT PELVIS: Lower pelvis is limited due to bilateral hip prostheses causing beam hardening artifact. There are inflammatory changes adjacent to the cecum. Underlying mass within the cecum is not exclude d. Small lymph nodes are within this region. There are loops of bowel which are incompletely distende d or lack oral contrast limiting their evaluation. Appendix: The appendix is in the inferior region of the inflammatory change right lower quadrant. How ever, no wall thickening or dilated appendix is evident. The appendix is normal in appearance with co ntrast. Urinary bladder: Normal. Genitourinary structures: There is very limited visualization of the prostate. Couple prostate calcif ications are noted. Osseous structures: No suspicious lytic or sclerotic lesions. IMPRESSION: 1. Developing inflammatory changes adjacent to the cecum. There is nondistention of the cecum with o ral contrast although the appendix is completely opacified and appears normal. Underlying cecal mass should be considered. 2. Cholelithiasis [facility], , 03/08/2025 10:00 PM
[2025-03-09 06:21] LABS: Glucose,Whole Blood 114 mg/dL (70-110)
--- NOTE | 2025-03-09 08:59 | P.PN ---
Subjective Progress Note Date: 03/09/25 Hospital Course: A very pleasant 84-year-old male with past medical history of type II DM on in sulin, HLD, HTN, osteoarthritis, recent distal fibular fracture, GERD, who presented to the ER on 03/06/2025. His family at bedside reported the patient went to his appointment this morning and had a foot x-ray due to a right sided broken ankle as ago or a mechanical fall and has been following up with his Ortho physician. It was reported the patient was not feeling well after his clinic visit, specifically reports of feeling weak and shaking. Family called EMS and upon arrival he was found to have a temperature of 103.2. He was tachycardic as well. Family reported remote history of UTIs and he was incontinent . No reports of shortness of breath, chest pain, headache, neck pain or stiffnes . No abdominal symptoms . No change in bowel habits. at bedside reported that her and the patient had cold symptoms a few weeks ago with reports of shortness of breath and coughing . Upon arrival to the ED, patient's temperature was 106 and tachycardic with a heart rate of 131 with a respiratory rate of 38 . Pressure was 144 systolic patient was placed on 4 L nasal cannula oxygen with no reports of hypoxia (just for support per ED physician ) . Done showing WBC of 9, sodium 135, BUN 26, creatinine 1.29 and his last kidney function was within normal limit around a month ago, plasma lactate of 2, ALT of 62. Urinalysis was not remarkable. COVID-19/RSV/influenza PCR was negative. It was reported that initially the patient was confused. Had cervical spine CT was not remarkable. Chest x-ray was not remarkable. CT of the chest abdomen and pelvis without contrast was not remarkable except for cholelithiasis. Received IV Rocephin will be admitted for further evaluation and management of fever of unknown origin. Infectious disease consult was placed, patient was started on vancomycin, cefepime, Flagyl, anesthesia consulted for LP, cannot be performed in the next 7 days as patient is on Plavix.procalcitonin significantly elevated at 8.52, UA negative for UTI 03/08: Patient seen examined at bedside, patient's present during exam. No acute events overnight, patient feels better, he was seen in the recliner, denied abdominal pain, shortness of breath, chest pain. Blood cultures growing E. coli, MRSA swab negative, patient was switched to ceftriaxone and continued on Flagyl. Patient spiked fever again in the evening 102.5 and 2 AM 100.8. No leukocytosis, creatinine normal. Repeat CT abdomen pelvis with contrast showed developing inflammatory changes adjacent to the cecum, nondistention of the cecum with oral contrast, underlying cecal mass should be considered, cholelithiasis. 03/09 patient seen examined at bedside, no acute events overnight, he complains of loose bowel movement after oral contrast, otherwise no complaints, denied abdominal pain, was notified on the results of the CAT scan and possible need to follow-up with GI for colonoscopy once infection has resolved. Morning blood work pending. Afebrile since 03/08 2 AM. Pertinent positives and negatives as discussed above, a complete review of systems was performed and all other systems are negative. Vitals Signs Reviewed. General: [nontoxic], [no distress], [appears at stated age] Derm: [warm], [dry] Head: [atraumatic], [normocephalic], [symmetric] Eyes: [EOMI], [no lid lag], [anicteric sclera] Mouth: [no lip lesion], [mucus membranes moist] Cardiovascular: [S1S2 reg], [no murmur] Lungs: [CTA bilateral], [no rhonchi, no rales] , [no accessory muscle use] Abdominal: [soft], [ nontender to palpation], [no guarding], [no appreciable organomegaly] Ext: [no gross muscle atrophy], [no edema], [no contractures], right foot brace Neuro: [ CN II-XI grossly intact], [no focal neuro deficits] Psych: [Alert], [oriented], [appropriate affect] Assessment and Plan: Sepsis, E. coli bacteremia, likely intra-abdominal source developing inflammatory changes adjacent to the cecum, underlying cecal mass elected, cholelithiasis. -ID consulted, appreciate recommendations -continue with ceftriaxone 2 g daily, Flagyl 500 twice daily, biotics SOT 03/06 - Follow-up blood cultures, urine cultures - CBC daily, telemetry - respiratory panel ordered and pending -Will need to follow-up with GI after infection resolution Debility -PT OT consulted ANA LAURA, prerenal, resolved -monitor BMP daily -Hold losartan due to ANA LAURA as well as soft blood pressures Diabetes mellitus: ISS + Accuchecks ACHS. Hypoglycemic precautions. History of TIA: Continue ASA and Plavix as above. Hypertension: Hold losartan 100 mg PO QD., Dyslipidemia: Lipitor 40 mg PO QD. DVT ppx: SCD Code status: Full code Anticipated discharge place: TBD Anticipated discharge time: TBD Objective - Vital Signs Vital signs: Vital Signs Temp 98.6 F 03/09/25 07:28 Pulse 54 L 03/09/25 07:28 Resp 16 03/09/25 07:28 BP 144/66 03/09/25 07:28 Pulse Ox 96 03/09/25 07:28 FiO2 Intake & Output 03/08/25 03/09/25 03/09/25 18:59 06:59 18:59 Output Total 300 1400 Balance -300 -1400 Output: Urine 300 1400 Other: Voiding Method External Catheter External Catheter # Voids 1 # Bowel Movements 1 3 - Labs CBC & Chem 7: 03/08/25 05:54 03/08/25 05:54 Labs: Abnormal Lab Results - Last 24 Hours (Table) 03/07/25 03/08/25 03/08/25 Range/Units 03:14 05:54 05:54 RBC 3.78 L (4.40-5.60) X 10*6/uL Hgb 11.4 L (13.0-17.0) g/dL Hct 35.9 L (39.6-50.0) % MCHC 31.8 L (32.0-37.0) g/dL RDW 15.6 H (11.5-14.5) % Carbon Dioxide 20.0 L (21.6-31.8) mmol/L POC Glucose (mg/dL) (70-110) mg/dL Calcium 8.4 L (8.7-10.3) mg/dL Total Protein 5.9 L (6.2-8.2) g/dL Albumin 3.1 L (3.8-4.9) g/dL Albumin/Globulin Ratio 1.11 L (1.60-3.17) Ratio Parainfluenza 3 (PCR) DETECTED A (Not detected) 03/08/25 03/08/25 03/08/25 Range/Units 11:23 16:37 21:12 RBC (4.40-5.60) X 10*6/uL Hgb (13.0-17.0) g/dL Hct (39.6-50.0) % MCHC (32.0-37.0) g/dL RDW (11.5-14.5) % Carbon Dioxide (21.6-31.8) mmol/L POC Glucose (mg/dL) 157 H 158 H 117 H (70-110) mg/dL Calcium (8.7-10.3) mg/dL Total Protein (6.2-8.2) g/dL Albumin (3.8-4.9) g/dL Albumin/Globulin Ratio (1.60-3.17) Ratio Parainfluenza 3 (PCR) (Not detected) 03/09/25 Range/Units 06:20 RBC (4.40-5.60) X 10*6/uL Hgb (13.0-17.0) g/dL Hct (39.6-50.0) % MCHC (32.0-37.0) g/dL RDW (11.5-14.5) % Carbon Dioxide (21.6-31.8) mmol/L POC Glucose (mg/dL) 114 H (70-110) mg/dL Calcium (8.7-10.3) mg/dL Total Protein (6.2-8.2) g/dL Albumin (3.8-4.9) g/dL Albumin/Globulin Ratio (1.60-3.17) Ratio Parainfluenza 3 (PCR) (Not detected) Microbiology - Last 24 Hours (Table) 03/06/25 18:23 Blood Culture - Preliminary Blood 03/06/25 18:03 Blood Culture Gram Stain - Final Blood Blood Culture - Final Escherichia coli Molecular ID 03/07/25 03:14 Nasal Screen MRSA/MSSA - Final Nasal Swab
[2025-03-09 09:16] LABS: Basophils # (A) 0.02 X 10*3/uL (0.00-0.10); Basophils % (A) 0.3 %; Eosinophils # (A) 0.26 X 10*3/uL (0.04-0.35); Eosinophils % (A) 3.7 %; HCT 35.3 % (39.6-50.0); HGB 11.3 g/dL (13.0-17.0); Lymphocytes # (A) 1.23 X 10*3/uL (0.90-5.00); Lymphocytes % (A) 17.5 %; MCH 29.6 pg (27.0-32.0); MCV 92.4 FL (80.0-97.0); Mean Platelet Volume 10.8 FL (9.5-12.2); Monocytes # (A) 0.64 X 10*3/uL (0.20-1.00); Monocytes % (A) 9.1 %; NRBC Per 100 WBC 0 X 10*3/uL (0.00-0.01); Neutrophils # (A) 4.87 X 10*3/uL (1.80-7.70); Neutrophils % (A) 69.1 %; Platelet Count 218 X 10*3/uL (140-440); RBC 3.82 X 10*6/uL (4.40-5.60); RDW 15.1 % (11.5-14.5); WBC 7.04 X 10*3/uL (4.50-10.00)
[2025-03-09 09:23] LABS: ALT 33 U/L (10-49); AST 22 U/L (14-35); Albumin 3.1 g/dL (3.8-4.9); Albumin/Globulin Ratio 1.15 Ratio (1.60-3.17); Alkaline Phosphatase 55 U/L (41-126); BUN/Creat Ratio 10.75 Ratio (12.00-20.00); Blood Urea Nitrogen 8.6 mg/dL (9.0-27.0); Calcium 8.5 mg/dL (8.7-10.3); Carbon Dioxide 22.1 mmol/L (21.6-31.8); Chloride 103 mmol/L (96-109); Globulin 2.7 g/dL (1.6-3.3); Glucose 120 mg/dL (70-110); Potassium 4.1 mmol/L (3.5-5.5); Sodium 137 mmol/L (135-145); Total Bilirubin 0.3 mg/dL (0.3-1.2); Total Protein 5.8 g/dL (6.2-8.2)
[2025-03-09] MEDS: CLOPIDOGREL 75 MG TAB PO SCH (09:26)
[2025-03-09 11:20] LABS: Glucose,Whole Blood 218 mg/dL (70-110)
[2025-03-09 16:39] LABS: Glucose,Whole Blood 195 mg/dL (70-110)
[2025-03-09 20:36] LABS: Glucose,Whole Blood 204 mg/dL (70-110)
[2025-03-10 06:25] LABS: Glucose,Whole Blood 204 mg/dL (70-110)
--- NOTE | 2025-03-10 08:45 | P.PN ---
Subjective Progress Note Date: 03/09/25 Principal diagnosis: Reason for follow-up is fever/E. coli bacteremia Patient is a 84-year-old male with a past medical history significant for diabetes mellitus hypertension hyperlipidemia deafness CVA TIA patient has been brought into the hospital concerning for weakness and shaking and subsequent did have a positive blood culture with E. coli. On today's evaluation that is 03/09/2024, patient did have a temperature of 98 F this morning and denies having any chills, patient is on room air and breathing comfortably no chest pain or cough, the patient did not have any nausea vomiting abdominal pain or any diarrhea. Patient white count is 7.04 creatinine 0.8 Objective - Vital Signs Vital signs: Vital Signs Temp 98.6 F 03/09/25 07:28 Pulse 54 L 03/09/25 07:28 Resp 16 03/09/25 07:28 BP 144/66 03/09/25 07:28 Pulse Ox 96 03/09/25 07:28 FiO2 Intake & Output 03/08/25 03/09/25 03/09/25 18:59 06:59 18:59 Output Total 300 1400 Balance -300 -1400 Output: Urine 300 1400 Other: Voiding Method External Catheter External Catheter # Voids 1 # Bowel Movements 1 3 - Exam GENERAL DESCRIPTION: An elderly male lying in bed in no distress RESPIRATORY SYSTEM: Unlabored breathing , decreased breath sounds at bases HEART: S1 S2 regular rate and rhythm , ABDOMEN: Soft , no tenderness EXTREMITIES: No edema feet - Labs CBC & Chem 7: 03/09/25 05:13 03/09/25 05:13 Labs: Abnormal Lab Results - Last 24 Hours (Table) 03/07/25 03/08/25 03/08/25 Range/Units 03:14 11:23 16:37 RBC (4.40-5.60) X 10*6/uL Hgb (13.0-17.0) g/dL Hct (39.6-50.0) % RDW (11.5-14.5) % BUN (9.0-27.0) mg/dL BUN/Creatinine Ratio (12.00-20.00) Ratio Glucose (70-110) mg/dL POC Glucose (mg/dL) 157 H 158 H (70-110) mg/dL Calcium (8.7-10.3) mg/dL Total Protein (6.2-8.2) g/dL Albumin (3.8-4.9) g/dL Albumin/Globulin Ratio (1.60-3.17) Ratio Parainfluenza 3 (PCR) DETECTED A (Not detected) 03/08/25 03/09/25 03/09/25 Range/Units 21:12 05:13 05:13 RBC 3.82 L (4.40-5.60) X 10*6/uL Hgb 11.3 L (13.0-17.0) g/dL Hct 35.3 L (39.6-50.0) % RDW 15.1 H (11.5-14.5) % BUN 8.6 L (9.0-27.0) mg/dL BUN/Creatinine Ratio 10.75 L (12.00-20.00) Ratio Glucose 120 H (70-110) mg/dL POC Glucose (mg/dL) 117 H (70-110) mg/dL Calcium 8.5 L (8.7-10.3) mg/dL Total Protein 5.8 L (6.2-8.2) g/dL Albumin 3.1 L (3.8-4.9) g/dL Albumin/Globulin Ratio 1.15 L (1.60-3.17) Ratio Parainfluenza 3 (PCR) (Not detected) 03/09/25 Range/Units 06:20 RBC (4.40-5.60) X 10*6/uL Hgb (13.0-17.0) g/dL Hct (39.6-50.0) % RDW (11.5-14.5) % BUN (9.0-27.0) mg/dL BUN/Creatinine Ratio (12.00-20.00) Ratio Glucose (70-110) mg/dL POC Glucose (mg/dL) 114 H (70-110) mg/dL Calcium (8.7-10.3) mg/dL Total Protein (6.2-8.2) g/dL Albumin (3.8-4.9) g/dL Albumin/Globulin Ratio (1.60-3.17) Ratio Parainfluenza 3 (PCR) (Not detected) Microbiology - Last 24 Hours (Table) 03/06/25 18:23 Blood Culture - Preliminary Blood 03/06/25 18:03 Blood Culture Gram Stain - Final Blood Blood Culture - Final Escherichia coli Molecular ID 03/07/25 03:14 Nasal Screen MRSA/MSSA - Final Nasal Swab Assessment and Plan (1) Bacteremia Current Visit: Yes Status: Acute Code(s): R78.81 - BACTEREMIA SNOMED Code(s): 0761763 (2) Sepsis Current Visit: Yes Status: Acute Code(s): A41.9 - SEPSIS, UNSPECIFIED ORGANISM SNOMED Code(s): 64766738 Plan: 1patient presented to hospital with sepsis in this patient noted to have fever elevated white count source is likely abdominal in this patient with initial workup has been negative so far he did have a negative UA CT of abdomen pelvis chest done unfortunately without any oral contrast did not show any evidence of pneumonia with evidence of cholelithiasis mildly elevated ALT question of possible cholecystitis needs to be rule out 2-patient ultrasound abdomen mention cholelithiasis but no cholecystitis UA x 2 has been negative 3with E. coli bacteremia source likely abdominal we will repeat his Repeat CT abdominal pelvis mention developing inflammatory changes adjacent to the cecum underlying cecal mass should be considered, patient may benefit from surgery cu rrently evaluation for now continue with Rocsravani and Flagyl Dictation was produced using [employer] dictation software. please excuse any grammatical, word or spelling errors. Time with Patient: Less than 30
[2025-03-10 08:54] LABS: Basophils # (A) 0.05 10*3/uL (0.00-0.10); Basophils % (A) 0.9 %; Eosinophils # (A) 0.32 10*3/uL (0.04-0.35); Eosinophils % (A) 5.8 %; HCT 39.7 % (39.6-50.0); HGB 13.1 g/dL (13.0-17.0); Lymphocytes # (A) 1.08 10*3/uL (0.90-5.00); Lymphocytes % (A) 19.6 %; MCH 30.6 pg (27.0-32.0); MCV 92.8 fL (80.0-97.0); Mean Platelet Volume 10.1 fL (9.5-12.2); Monocytes # (A) 0.53 10*3/uL (0.20-1.00); Monocytes % (A) 9.6 %; Neutrophils # (A) 3.51 10*3/uL (1.80-7.70); Neutrophils % (A) 63.6 %; Platelet Count 229 10*3/uL (140-440); RBC 4.28 10*6/uL (4.40-5.60); WBC 5.52 10*3/uL (4.50-10.00)
[2025-03-10 09:16] LABS: ALT 28 U/L (4-49); AST 24 U/L (17-59); African American GFR (CKD) >90 (>60 ml/min/1.73 sqM); Albumin 3.2 g/dL (3.5-5.0); Albumin/Globulin Ratio 1.1; Alkaline Phosphatase 62 U/L (38-126); Anion Gap 9 mmol/L; Blood Urea Nitrogen 11 mg/dL (9-20); Carbon Dioxide 23 mmol/L (22-30); Chloride 105 mmol/L (98-107); Glucose 288 mg/dL (74-99); Non-African American GFR(CKD) 86 (>60 ml/min/1.73 sqM); Potassium 4.1 mmol/L (3.5-5.1); Sodium 137 mmol/L (137-145); Total Bilirubin 0.5 mg/dL (0.2-1.3); Total Protein 6.2 g/dL (6.3-8.2)
[2025-03-10 11:18] LABS: Glucose,Whole Blood 309 mg/dL (70-110)
--- NOTE | 2025-03-10 12:28 | P.PN ---
Subjective Progress Note Date: 03/10/25 Hospital Course: A very pleasant 84-year-old male with past medical history of type II DM on in sulin, HLD, HTN, osteoarthritis, recent distal fibular fracture, GERD, who presented to the ER on 03/06/2025. His family at bedside reported the patient went to his appointment this morning and had a foot x-ray due to a right sided broken ankle as ago or a mechanical fall and has been following up with his Ortho physician. It was reported the patient was not feeling well after his clinic visit, specifically reports of feeling weak and shaking. Family called EMS and upon arrival he was found to have a temperature of 103.2. He was tachycardic as well. Family reported remote history of UTIs and he was incontinent . No reports of shortness of breath, chest pain, headache, neck pain or stiffnes . No abdominal symptoms . No change in bowel habits. at bedside reported that her and the patient had cold symptoms a few weeks ago with reports of shortness of breath and coughing . Upon arrival to the ED, patient's temperature was 106 and tachycardic with a heart rate of 131 with a respiratory rate of 38 . Pressure was 144 systolic patient was placed on 4 L nasal cannula oxygen with no reports of hypoxia (just for support per ED physician ) . Done showing WBC of 9, sodium 135, BUN 26, creatinine 1.29 and his last kidney function was within normal limit around a month ago, plasma lactate of 2, ALT of 62. Urinalysis was not remarkable. COVID-19/RSV/influenza PCR was negative. It was reported that initially the patient was confused. Had cervical spine CT was not remarkable. Chest x-ray was not remarkable. CT of the chest abdomen and pelvis without contrast was not remarkable except for cholelithiasis. Received IV Rocephin will be admitted for further evaluation and management of fever of unknown origin. Infectious disease consult was placed, patient was started on vancomycin, cefepime, Flagyl, anesthesia consulted for LP, cannot be performed in the next 7 days as patient is on Plavix.procalcitonin significantly elevated at 8.52, UA negative for UTI Blood cultures growing E. coli, MRSA swab negative, patient was switched to ceftriaxone and continued on Flagyl. Repeat CT abdomen pelvis with contrast showed developing inflammatory changes adjacent to the cecum, nondistention of the cecum with oral contrast, underlying cecal mass should be considered, cholelithiasis. ID recommended surgical evaluation, consult was placed Viral panel positive for parainfluenza 3, patient does not have any respiratory symptoms 03/10/2025: Seen and examined at bedside, patient's present during exam. Patient feels well, he does not have any troubles breathing, chest pain, abdominal pain, has regular bowel movements, denies dysuria. Surgery consult was placed, ID following for antibiotics. Afebrile since 03/08 2 AM. WBC count, kidney function normal, electrolytes WNL. Pertinent positives and negatives as discussed above, a complete review of systems was performed and all other systems are negative. Vitals Signs Reviewed. General: [nontoxic], [no distress], [appears at stated age] Derm: [warm], [dry] Head: [atraumatic], [normocephalic], [symmetric] Eyes: [EOMI], [no lid lag], [anicteric sclera] Mouth: [no lip lesion], [mucus membranes moist] Cardiovascular: [S1S2 reg], [no murmur] Lungs: [CTA bilateral], [no rhonchi, no rales] , [no accessory muscle use] Abdominal: [soft], [ nontender to palpation], [no guarding], [no appreciable organomegaly] Ext: [no gross muscle atrophy], [no edema], [no contractures], right foot brace Neuro: [ CN II-XI grossly intact], [no focal neuro deficits] Psych: [Alert], [oriented], [appropriate affect] Assessment and Plan: Sepsis, E. coli bacteremia, likely intra-abdominal source developing inflammatory changes adjacent to the cecum, underlying cecal mass suspected, cholelithiasis. Parainfluenza positive, no URI symptoms -ID consulted, appreciate recommendations -continue with ceftriaxone 2 g daily, Flagyl 500 twice daily, biotics SOT 03/06 - Follow-up final blood cultures, MRSA negative - CBC daily, telemetry -Surgery consulted Debility -PT OT consulted NAA LAURA, prerenal, resolved -monitor BMP daily -Hold losartan due to ANA LAURA as well as soft blood pressures Diabetes mellitus: ISS + Accuchecks ACHS. Hypoglycemic precautions. History of TIA: Continue ASA and Plavix as above. Hypertension: Hold losartan 100 mg PO QD., Dyslipidemia: Lipitor 40 mg PO QD. DVT ppx: SCD Code status: Full code Anticipated discharge place: TBD Anticipated discharge time: TBD Objective - Vital Signs Vital signs: Vital Signs Temp 98.1 F 03/10/25 07:21 Pulse 42 L 03/10/25 07:21 Resp 16 03/10/25 07:21 BP 147/54 03/10/25 07:21 Pulse Ox 96 03/10/25 07:21 FiO2 Intake & Output 03/09/25 03/10/25 03/10/25 18:59 06:59 18:59 Intake Total 500 Output Total 300 1400 Balance -300 -900 Intake: Oral 500 Output: Urine 300 1400 Other: Voiding Method External Catheter # Voids 1 # Bowel Movements 1 1 - Labs CBC & Chem 7: 03/10/25 08:34 03/10/25 08:34 Labs: Abnormal Lab Results - Last 24 Hours (Table) 03/09/25 03/09/25 03/10/25 Range/Units 16:38 20:35 06:23 RBC (4.40-5.60) 10*6/uL RDW (11.5-14.5) % Glucose (74-99) mg/dL POC Glucose (mg/dL) 195 H 204 H 204 H (70-110) mg/dL Total Protein (6.3-8.2) g/dL Albumin (3.5-5.0) g/dL 03/10/25 03/10/25 03/10/25 Range/Units 08:34 08:34 11:17 RBC 4.28 L (4.40-5.60) 10*6/uL RDW 15.0 H (11.5-14.5) % Glucose 288 H (74-99) mg/dL POC Glucose (mg/dL) 309 H (70-110) mg/dL Total Protein 6.2 L (6.3-8.2) g/dL Albumin 3.2 L (3.5-5.0) g/dL Microbiology - Last 24 Hours (Table) 03/06/25 18:23 Blood Culture - Preliminary Blood 03/06/25 18:03 Blood Culture Gram Stain - Final Blood Blood Culture - Final Escherichia coli Molecular ID
[2025-03-10 16:36] LABS: Glucose,Whole Blood 223 mg/dL (70-110)
--- NOTE | 2025-03-10 17:31 | P.PN ---
Subjective Progress Note Date: 03/10/25 Principal diagnosis: Reason for follow-up is fever/E. coli bacteremia Patient is a 84-year-old male with a past medical history significant for diabetes mellitus hypertension hyperlipidemia deafness CVA TIA patient has been brought into the hospital concerning for weakness and shaking and subsequent did have a positive blood culture with E. coli. On today's evaluation that is 03/10/2025, Patient is afebrile patient is currently on room air and denies having any shortness of breath, the patient denies any chest pain or cough, the patient denies any nausea vomiting did not have any abdominal pain and no diarrhea. Patient white count is 5.5, creatinine 0.73 blood culture repeat has been negative Objective - Vital Signs Vital signs: Vital Signs Temp 98.0 F 03/10/25 14:00 Pulse 63 03/10/25 14:00 Resp 16 03/10/25 14:00 BP 150/71 03/10/25 14:00 Pulse Ox 98 03/10/25 14:00 FiO2 Intake & Output 03/09/25 03/10/25 03/10/25 18:59 06:59 18:59 Intake Total 500 Output Total 300 1400 400 Balance -300 -900 -400 Intake: Oral 500 Output: Urine 300 1400 400 Other: Voiding Method External Catheter # Voids 1 # Bowel Movements 1 1 - Exam GENERAL DESCRIPTION: An elderly male lying in bed in no distress RESPIRATORY SYSTEM: Unlabored breathing , decreased breath sounds at bases HEART: S1 S2 regular rate and rhythm , ABDOMEN: Soft , no tenderness EXTREMITIES: No edema feet - Labs CBC & Chem 7: 03/10/25 08:34 03/10/25 08:34 Labs: Abnormal Lab Results - Last 24 Hours (Table) 03/09/25 03/10/25 03/10/25 Range/Units 20:35 06:23 08:34 RBC 4.28 L (4.40-5.60) 10*6/uL RDW 15.0 H (11.5-14.5) % Glucose (74-99) mg/dL POC Glucose (mg/dL) 204 H 204 H (70-110) mg/dL Total Protein (6.3-8.2) g/dL Albumin (3.5-5.0) g/dL 03/10/25 03/10/25 03/10/25 Range/Units 08:34 11:17 16:34 RBC (4.40-5.60) 10*6/uL RDW (11.5-14.5) % Glucose 288 H (74-99) mg/dL POC Glucose (mg/dL) 309 H 223 H (70-110) mg/dL Total Protein 6.2 L (6.3-8.2) g/dL Albumin 3.2 L (3.5-5.0) g/dL Microbiology - Last 24 Hours (Table) 03/06/25 18:23 Blood Culture - Preliminary Blood Assessment and Plan (1) Bacteremia Current Visit: Yes Status: Acute Code(s): R78.81 - BACTEREMIA SNOMED Code(s): 4625772 (2) Sepsis Current Visit: Yes Status: Acute Code(s): A41.9 - SEPSIS, UNSPECIFIED OR GANISM SNOMED Code(s): 39679743 Plan: 1patient presented to hospital with sepsis in this patient noted to have fever elevated white count source is likely abdominal in this patient with initial workup has been negative so far he did have a negative UA CT of abdomen pelvis chest done unfortunately without any oral contrast did not show any evidence of pneumonia with evidence of cholelithiasis mildly elevated ALT question of possible cholecystitis needs to be rule out 2-patient ultrasound abdomen mention cholelithiasis but no cholecystitis UA x 2 has been negative 3with E. coli bacteremia source likely abdominal, repeat CT abdominal pelvis mention developing inflammatory changes adjacent to the cecum underlying cecal mass should be considered, general surgery has been consulted admit to their evaluation 4for now continue Rocephin and Flagyl and monitor clinical course closely Dictation was produced using [employer] dictation software. please excuse any grammatical, word or spelling errors. Time with Patient: Less than 30
[2025-03-10 21:18] LABS: Glucose,Whole Blood 178 mg/dL (70-110)
[2025-03-11 06:18] LABS: Glucose,Whole Blood 172 mg/dL (70-110)
[2025-03-11 07:56] LABS: Basophils # (A) 0.05 X 10*3/uL (0.00-0.10); Basophils % (A) 0.8 %; Eosinophils # (A) 0.41 X 10*3/uL (0.04-0.35); Eosinophils % (A) 6.7 %; HCT 37.7 % (39.6-50.0); HGB 12.1 g/dL (13.0-17.0); Lymphocytes # (A) 1.75 X 10*3/uL (0.90-5.00); Lymphocytes % (A) 28.5 %; MCH 30.3 pg (27.0-32.0); MCHC 32.1 g/dL (32.0-37.0); MCV 94.5 FL (80.0-97.0); Mean Platelet Volume 10.7 FL (9.5-12.2); Monocytes # (A) 0.67 X 10*3/uL (0.20-1.00); Monocytes % (A) 10.9 %; NRBC Per 100 WBC 0 X 10*3/uL (0.00-0.01); Neutrophils # (A) 3.22 X 10*3/uL (1.80-7.70); Neutrophils % (A) 52.4 %; Platelet Count 269 X 10*3/uL (140-440); RBC 3.99 X 10*6/uL (4.40-5.60); RDW 15.1 % (11.5-14.5); WBC 6.14 X 10*3/uL (4.50-10.00)
[2025-03-11 08:15] LABS: BUN/Creat Ratio 15.12 Ratio (12.00-20.00); Blood Urea Nitrogen 12.1 mg/dL (9.0-27.0); Calcium 8.9 mg/dL (8.7-10.3); Carbon Dioxide 23.8 mmol/L (21.6-31.8); Chloride 106 mmol/L (96-109); Glucose 170 mg/dL (70-110); Sodium 142 mmol/L (135-145)
[2025-03-11 11:58] LABS: Glucose,Whole Blood 248 mg/dL (70-110)
--- NOTE | 2025-03-11 12:26 | P.GSCN ---
History of Present Illness Consult date: 03/11/25 History of present illness: CHIEF COMPLAINT: Weakness HISTORY OF PRESENT ILLNESS: This is a 84-year-old male who presented to the hospital with complaints of weakness. Patient reports that his legs were weak and could not hold him. Apparently EMS found him with a temp of 103.2 and he was tachycardic. Patient seen by infectious disease. He was found to have E. coli bacteremia. Patient denies any abdominal pain. He denies any nausea or vomiting. He denies any change in bowel habits. Denies any blood in his stools. He was found to have parainfluenza 3. Patient has CT scan abdomen and pelvis completed that reported developing inflammatory changes adjacent to the cecum. There is nondistention of the cecum with oral contrast although the appendix is completely opacified appears normal. Underlying cecal mass should be considered. Cholelithiasis. Patient reports his last colonoscopy was about 11 years ago and was unremarkable. Patient does take Plavix for history of TIA. Last dose was this morning. PAST MEDICAL HISTORY: See below PAST SURGICAL HISTORY: See below MEDICATIONS: See below ALLERGIES: See below SOCIAL HISTORY: No illicit drug use. REVIEW OF SYSTEMS: CONSTITUTIONAL: Denies fever or chills. HEENT: Denies blurred vision, vision changes, or eye pain. Denies hemoptysis CARDIOVASCULAR: Denies chest pain or pressure. RESPIRATORY: No shortness of breath. GASTROINTESTINAL: See HPI for pertinent findings HEMATOLOGIC: Denies bleeding disorders. GENITOURINARY: Denies any blood in urine or increased urinary frequency. SKIN: Denies pruitis. Denies rash. PHYSICAL EXAM: VITAL SIGNS: Reviewed GENERAL: Well-developed in no acute distress. HEENT: No sclera icterus. Extraocular movements grossly intact. Moist buccal m ucosa. Head is atraumatic, normocephalic. No nasal drainage. ABDOMEN: Soft. Nondistended. Nontender. No rebound or guarding noted. NEUROLOGIC: Alert and oriented. Cranial nerves II through XII grossly intact. LABORATORY DATA: WBC 13.3 down to 6.14 Hgb 12.1 platelets 269 Sodium 142 potassium 4.0 creatinine 0.8 Parainfluenza 3 detected IMAGING: CT scan abdomen pelvis reports developing inflammatory changes adjacent to the cecum. There is nondistention of the cecum with oral contrast although the appendix is completely os pacified and appears normal. Underlying cecal mass should be considered. Cholelithiasis. CT chest and abdomen completed on 03/06/2025 had reported no acute pulmonary process. Cholelithiasis no suspicious area of fever of unknown origin ASSESSMENT: 1. Inflammatory changes adjacent to the cecum. Underlying cecal mass should be considered. These findings noted on CT scan abdomen and pelvis 2. Cholelithiasis 3. Weakness 4. E. coli bacteremia PLAN: - Plan for colonoscopy on - Placed Plavix on hold for procedure - Continue regular diet Physician Reliability Technicians note has been reviewed by physician. Signing provider agrees with the documented findings, assessment, and plan of care. 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 PE[place]AN[place]. TIA (15 years ago). LOWER BACK PAIN. Skin Cancer, Type II DM History of Any Multi-Drug Resistant Organisms: None Reported Past Surgical History: Joint Replacement, Orthopedic Surgery Additional Past Surgical History / Comment(s): SEVERAL LYMPH NODES FROM RIGHT AXILLA REMOVED. LEFT TOTAL HIP. RIGHT MENISCUS REPAIR. BILATERAL CATARACTS. Right Shoulder Surgery from Fall. R total hip replacement Past Anesthesia/Blood Transfusion Reactions: No Reported Reaction Additional Past Anesthesia/Blood Transfusion Reaction / Comm: unk hx of blood transfusion Past Psychological History: No Psychological Hx Reported Smoking Status: Never smoker Past Alcohol Use History: None Reported Past Drug Use History: None Reported - Past Family History Father Family Medical History: Hypertension Medications and Allergies Home Medications Medication Instructions Recorded Confirmed Type Clopidogrel Bisulfate [Clopidogrel] 75 mg PO DAILY 09/09/15 03/06/25 History Glimepiride [Amaryl] 2 mg PO BID 11/17/23 03/06/25 History Losartan Potassium [Cozaar] 100 mg PO DAILY 11/14/24 03/06/25 History Empagliflozin [Jardiance] 25 mg PO DAILY 01/17/25 03/06/25 History Gabapentin 300 mg PO TID 02/09/25 03/06/25 History Aspirin 81 mg PO DAILY tab 02/12/25 03/06/25 Rx Cholecalciferol [Vitamin D3 (125 125 mcg PO DAILY 03/06/25 03/06/25 History Mcg = 5000 Iu)] Fenofibrate,Micronized 200 mg PO DAILY 03/06/25 03/06/25 History [Fenofibrate] Rosuvastatin [Crestor] 20 mg PO DAILY 03/06/25 03/06/25 History Allergies Allergy/AdvReac Type Severity Reaction Status Date / Time atenolol AdvReac Hallucinati Verified 03/06/25 19:44 ons donepezil [From Aricept] AdvReac panic Verified 03/06/25 19:44 attack Surgical - Exam Vital Signs Temp Pulse Resp BP Pulse Ox 105.4 F H 137 H 24 164/138 94 L 03/06/25 16:23 03/06/25 16:23 03/06/25 16:23 03/06/25 16:23 03/06/25 16:23 Results - Labs 03/11/25 02:58 03/11/25 02:58 Abnormal Lab Results - Last 24 Hours (Table) 03/10/25 03/10/25 03/11/25 Range/Units 16:34 21:17 02:58 RBC 3.99 L (4.40-5.60) X 10*6/uL Hgb 12.1 L (13.0-17.0) g/dL Hct 37.7 L (39.6-50.0) % RDW 15.1 H (11.5-14.5) % Eosinophils # 0.41 H (0.04-0.35) X 10*3/uL Anion Gap (4.00-12.00) mmol/L Glucose (70-110) mg/dL POC Glucose (mg/dL) 223 H 178 H (70-110) mg/dL 03/11/25 03/11/25 03/11/25 Range/Units 02:58 06:16 11:57 RBC (4.40-5.60) X 10*6/uL Hgb (13.0-17.0) g/dL Hct (39.6-50.0) % RDW (11.5-14.5) % Eosinophils # (0.04-0.35) X 10*3/uL Anion Gap 12.20 H (4.00-12.00) mmol/L Glucose 170 H (70-110) mg/dL POC Glucose (mg/dL) 172 H 248 H (70-110) mg/dL Diabetes panel 03/11/25 Range/Units 02:58 Sodium 142 (135-145) mmol/L Potassium 4.0 (3.5-5.5) mmol/L Chloride 106 (96-109) mmol/L Carbon Dioxide 23.8 (21.6-31.8) mmol/L BUN 12.1 (9.0-27.0) mg/dL Creatinine 0.8 (0.6-1.5) mg/dL Glucose 170 H (70-110) mg/dL Calcium 8.9 (8.7-10.3) mg/dL Calcium panel 03/11/25 Range/Units 02:58 Calcium 8.9 (8.7-10.3) mg/dL Pituitary panel 03/11/25 Range/Units 02:58 Sodium 142 (135-145) mmol/L Potassium 4.0 (3.5-5.5) mmol/L Chloride 106 (96-109) mmol/L Carbon Dioxide 23.8 (21.6-31.8) mmol/L BUN 12.1 (9.0-27.0) mg/dL Creatinine 0.8 (0.6-1.5) mg/dL Glucose 170 H (70-110) mg/dL Calcium 8.9 (8.7-10.3) mg/dL Adrenal panel 03/11/25 Range/Units 02:58 Sodium 142 (135-145) mmol/L Potassium 4.0 (3.5-5.5) mmol/L Chloride 106 (96-109) mmol/L Carbon Dioxide 23.8 (21.6-31.8) mmol/L BUN 12.1 (9.0-27.0) mg/dL Creatinine 0.8 (0.6-1.5) mg/dL Glucose 170 H (70-110) mg/dL Calcium 8.9 (8.7-10.3) mg/dL
--- NOTE | 2025-03-11 14:13 | P.PN ---
Subjective Progress Note Date: 03/11/25 Patient was seen and examined. Feeling better. No specific complaints. Surgery plans on C-scope on . CBC and BMP significant for RBC 3.99, Hg 12.1, Hct 37.7, AG 12.2, glu 170. General: not toxic, no distress, appears at stated age Derm: warm, dry Head: atraumatic, normocephalic, symmetric Eyes: EOMI, no lid lag, anicteric sclera Mouth: no lip lesion, mucus membranes moist Cardiovascular: Good distal perfusion in all 4 extremities Lungs: Breathing comfortably Ext: no gross muscle atrophy, no edema, no contractures Neuro: no focal neuro deficits Psych: Alert, oriented Based on my assessment of this patient, this patient meets a high complexity level of care. Sepsis due to E. coli bacteremia: Rocephin 2g IV QD + Flagyl 500 mg IV BID. Surgery plans on C-scope on . ID and Surgery on board. Parainfluenza positive: Symptomatic management. Type II Diabetes mellitus: ISS and Accuchecks ACHS along with hypoglycemic precautions. Hypertension: Losartan 100 mg PO QD. History of non obstructive CAD: ASA 81 mg PO QD. Plavix on hold for C-scope. Lipitor 40 mg PO QD. Hyperlipidemia: Lipitor as above. Fenofibrate 160 mg PO QD. GERD: Pepcid 20 mg PO BID. CODE STATUS: FULL CODE DVT Prophylaxis: SCD GI Prophylaxis: Pepcid BID Designated medical POA if patient is not able to make medical decisions for themselves: I have reviewed the following accounting policy consultant notes: Surgery. I have reviewed the results of the following tests: CBC, BMP. I have ordered the following tests: I have discussed the care of this patient with the following independent hist orian: Family at bedside. RN. I have independently interpreted the following test below: I have discussed the management of this patient with the following physician: Objective - Vital Signs Vital signs: Vital Signs Temp 98.5 F 03/11/25 07:26 Pulse 56 L 03/11/25 07:26 Resp 18 03/11/25 07:26 BP 158/78 03/11/25 07:26 Pulse Ox 96 03/11/25 07:26 FiO2 Intake & Output 03/10/25 03/11/25 03/11/25 18:59 06:59 18:59 Output Total 400 225 Balance -400 -225 Output: Urine 400 225 Other: Voiding Method External Catheter # Voids 1 2 # Bowel Movements 1 2 - Labs CBC & Chem 7: 03/11/25 02:58 03/11/25 02:58 Labs: Abnormal Lab Results - Last 24 Hours (Table) 03/10/25 03/10/25 03/11/25 Range/Units 16:34 21:17 02:58 RBC 3.99 L (4.40-5.60) X 10*6/uL Hgb 12.1 L (13.0-17.0) g/dL Hct 37.7 L (39.6-50.0) % RDW 15.1 H (11.5-14.5) % Eosinophils # 0.41 H (0.04-0.35) X 10*3/uL Anion Gap (4.00-12.00) mmol/L Glucose (70-110) mg/dL POC Glucose (mg/dL) 223 H 178 H (70-110) mg/dL 03/11/25 03/11/25 03/11/25 Range/Units 02:58 06:16 11:57 RBC (4.40-5.60) X 10*6/uL Hgb (13.0-17.0) g/dL Hct (39.6-50.0) % RDW (11.5-14.5) % Eosinophils # (0.04-0.35) X 10*3/uL Anion Gap 12.20 H (4.00-12.00) mmol/L Glucose 170 H (70-110) mg/dL POC Glucose (mg/dL) 172 H 248 H (70-110) mg/dL
[2025-03-11 16:58] LABS: Glucose,Whole Blood 261 mg/dL (70-110)
[2025-03-11] MEDS: FAMOTIDINE 20 MG TAB PO SCH (20:41)
[2025-03-11 20:59] LABS: Glucose,Whole Blood 206 mg/dL (70-110)
[2025-03-12 06:21] LABS: Glucose,Whole Blood 150 mg/dL (70-110)
[2025-03-12] MEDS: LOSARTAN 50 MG TAB PO SCH (09:45)
[2025-03-12 11:39] LABS: Glucose,Whole Blood 221 mg/dL (70-110)
--- NOTE | 2025-03-12 13:25 | P.PN ---
Subjective Progress Note Date: 03/11/25 Principal diagnosis: Reason for follow-up is fever/E. coli bacteremia Patient is a 84-year-old male with a past medical history significant for diabetes mellitus hypertension hyperlipidemia deafness CVA TIA patient has been brought into the hospital concerning for weakness and shaking and subsequent did have a positive blood culture with E. coli. On today's evaluation that is 03/11/2025, patient has been afebrile, patient is breathing comfortably and is currently on room air, patient denies having any chest pain and cough, patient denies nausea vomiting or diarrhea and no abdominal pain, no new symptoms did have more energy. Patient white count 6.14, creatinine 0.8 blood culture repeat so far negative Objective - Vital Signs Vital signs: Vital Signs Temp 98.5 F 03/11/25 07:26 Pulse 56 L 03/11/25 07:26 Resp 18 03/11/25 07:26 BP 158/78 03/11/25 07:26 Pulse Ox 96 03/11/25 07:26 FiO2 Intake & Output 03/10/25 03/11/25 03/11/25 18:59 06:59 18:59 Output Total 400 225 Balance -400 -225 Output: Urine 400 225 Other: Voiding Method External Catheter # Voids 1 2 # Bowel Movements 1 2 - Exam GENERAL DESCRIPTION: An elderly male lying in bed in no distress RESPIRATORY SYSTEM: Unlabored breathing , decreased breath sounds at bases HEART: S1 S2 regular rate and rhythm , ABDOMEN: Soft , no tenderness EXTREMITIES: No edema feet - Labs CBC & Chem 7: 03/11/25 02:58 03/11/25 02:58 Labs: Abnormal Lab Results - Last 24 Hours (Table) 03/10/25 03/10/25 03/11/25 Range/Units 16:34 21:17 02:58 RBC 3.99 L (4.40-5.60) X 10*6/uL Hgb 12.1 L (13.0-17.0) g/dL Hct 37.7 L (39.6-50.0) % RDW 15.1 H (11.5-14.5) % Eosinophils # 0.41 H (0.04-0.35) X 10*3/uL Anion Gap (4.00-12.00) mmol/L Glucose (70-110) mg/dL POC Glucose (mg/dL) 223 H 178 H (70-110) mg/dL 03/11/25 03/11/25 03/11/25 Range/Units 02:58 06:16 11:57 RBC (4.40-5.60) X 10*6/uL Hgb (13.0-17.0) g/dL Hct (39.6-50.0) % RDW (11.5-14.5) % Eosinophils # (0.04-0.35) X 10*3/uL Anion Gap 12.20 H (4.00-12.00) mmol/L Glucose 170 H (70-110) mg/dL POC Glucose (mg/dL) 172 H 248 H (70-110) mg/dL Assessment and Plan (1) Bacteremia Current Visit: Yes Status: Acute Code(s): R78.81 - BACTEREMIA SNOMED Code(s): 7813541 (2) Sepsis Current Visit: Yes Status: Acute Code(s): A41.9 - SEPSIS, UNSPECIFIED ORGANISM SNOMED Code(s): 99394047 Plan: 1patient presented to hospital with sepsis in this patient noted to have fever elevated white count source is likely abdominal in this patient with initial workup has been negative so far he did have a negative UA CT of abdomen pelvis chest done unfortunately without any oral contrast did not show any evidence of pneumonia with evidence of cholelithiasis mildly elevated ALT question of possible cholecystitis needs to be rule out 2-patient ultrasound abdomen mention cholelithiasis but no cholecystitis UA x 2 has been negative 3with E. coli bacteremia source likely abdominal, repeat CT abdominal pelvis mention developing inflammatory changes adjacent to the cecum underlying cecal mass should be considered, general surgery has been consulted and planning for colonoscopy on we will follow-up on the findings 4patient will be treated with Rocephin and Flagyl and monitor clinical course closely Dictation was produced using [employer] dictation software. please excuse any grammatical, word or spelling errors. Time with Patient: Less than 30
--- NOTE | 2025-03-12 13:26 | P.PN ---
Subjective Progress Note Date: 03/12/25 Principal diagnosis: Reason for follow-up is fever/E. coli bacteremia Patient is a 84-year-old male with a past medical history significant for diabetes mellitus hypertension hyperlipidemia deafness CVA TIA patient has been brought into the hospital concerning for weakness and shaking and subsequent did have a positive blood culture with E. coli. On today's evaluation that is 03/12/2025, Patient is afebrile this morning patient denies having any chest pain shortness of breath or cough, the patient is currently on room air, patient denies any abdominal pain no diarrhea no nausea no vomiting, no new symptoms and mention doing well. No new lab has been obtained today Objective - Vital Signs Vital signs: Vital Signs Temp 97.7 F 03/12/25 07:30 Pulse 54 L 03/12/25 07:30 Resp 16 03/12/25 07:30 BP 174/61 03/12/25 07:30 Pulse Ox 97 03/12/25 07:30 FiO2 Intake & Output 03/11/25 03/12/25 03/12/25 18:59 06:59 18:59 Intake Total 240 Output Total 225 800 Balance -225 -800 240 Intake: Oral 240 Output: Urine 225 800 Other: # Voids 3 1 2 - Exam GENERAL DESCRIPTION: An elderly male lying in bed in no distress RESPIRATORY SYSTEM: Unlabored breathing , decreased breath sounds at bases HEART: S1 S2 regular rate and rhythm , ABDOMEN: Soft , no tenderness EXTREMITIES: No edema feet - Labs CBC & Chem 7: 03/11/25 02:58 03/11/25 02:58 Labs: Abnormal Lab Results - Last 24 Hours (Table) 03/11/25 03/11/25 03/12/25 Range/Units 16:57 20:57 06:19 POC Glucose (mg/dL) 261 H 206 H 150 H (70-110) mg/dL 03/12/25 Range/Units 11:38 POC Glucose (mg/dL) 221 H (70-110) mg/dL Microbiology - Last 24 Hours (Table) 03/06/25 18:23 Blood Culture - Final Blood Assessment and Plan (1) Bacteremia Current Visit: Yes Status: Acute Code(s): R78.81 - BACTEREMIA SNOMED Code(s): 7974821 (2) Sepsis Current Visit: Yes Status: Acute Code(s): A41.9 - SEPSIS, UNSPECIFIED ORGANISM SNOMED Code(s): 63548624 Plan: 1patient presented to hospital with sepsis in this patient noted to have fever elevated white count source is likely abdominal in this patient with initial workup has been negative so far he did have a negative UA CT of abdomen pelvis chest done unfortunately without any oral contrast did not show any evidence of pneumonia with evidence of cholelithiasis mildly elevated ALT question of possible cholecystitis needs to be rule out, for which patient ultrasound abdomen mention cholelithiasis but no cholecystitis UA x 2 has been negative 2E. coli bacteremia source likely abdominal, repeat CT abdominal pelvis mention developing inflammatory changes adjacent to the cecum underlying cecal mass should be considered, general surgery has been consulted and planning for colon oscopy on 3patient currently being treated with Rocephin and Flagyl, at the bedside question answered Dictation was produced using [employer] dictation software. please excuse any grammatical, word or spelling errors. Time with Patient: Less than 30
--- NOTE | 2025-03-12 13:56 | P.PN ---
Subjective Progress Note Date: 03/12/25 Patient was seen and examined. Feeling better. Surgery plans on C-scope on . No new labs done today. General: not toxic, no distress, appears at stated age Derm: warm, dry Head: atraumatic, normocephalic, symmetric Eyes: EOMI, no lid lag, anicteric sclera Mouth: no lip lesion, mucus membranes moist Cardiovascular: S1 S2 lizeth. No murmurs. Lungs: Clear to auscultation bilaterally Ext: no gross muscle atrophy, no edema, no contractures Neuro: no focal neuro deficits Psych: Alert, oriented Based on my assessment of this patient, this patient meets a high complexity level of care. Sepsis due to E. coli bacteremia: Rocephin 2g IV QD + Flagyl 500 mg IV BID. Surgery plans on C-scope on . ID and Surgery on board. Parainfluenza positive: Symptomatic management. Type II Diabetes mellitus: ISS and Accuchecks ACHS along with hypoglycemic precautions. Hypertension: Losartan 100 mg PO QD. History of non obstructive CAD: ASA 81 mg PO QD. Plavix on hold for C-scope. Lipitor 40 mg PO QD. Hyperlipidemia: Lipitor as above. Fenofibrate 160 mg PO QD. GERD: Pepcid 20 mg PO BID. CODE STATUS: FULL CODE DVT Prophylaxis: SCD GI Prophylaxis: Pepcid BID Designated medical POA if patient is not able to make medical decisions for themselves: I have reviewed the following hr consultant notes: ID. I have reviewed the results of the following tests: I have ordered the following tests: I have discussed the care of this patient with the following independent historian: Family at bedside. RN. I have independently interpreted the following test below: I have discussed the management of this patient with the following physician: Objective - Vital Signs Vital signs: Vital Signs Temp 97.7 F 03/12/25 07:30 Pulse 54 L 03/12/25 07:30 Resp 16 03/12/25 07:30 BP 174/61 03/12/25 07:30 Pulse Ox 97 03/12/25 07:30 FiO2 Intake & Output 03/11/25 03/12/25 03/12/25 18:59 06:59 18:59 Intake Total 240 Output Total 225 800 Balance -225 -800 240 Intake: Oral 240 Output: Urine 225 800 Other: # Voids 3 1 2 - Labs CBC & Chem 7: 03/11/25 02:58 03/11/25 02:58 Labs: Abnormal Lab Results - Last 24 Hours (Table) 03/11/25 03/11/25 03/12/25 Range/Units 16:57 20:57 06:19 POC Glucose (mg/dL) 261 H 206 H 150 H (70-110) mg/dL 03/12/25 Range/Units 11:38 POC Glucose (mg/dL) 221 H (70-110) mg/dL Microbiology - Last 24 Hours (Table) 03/06/25 18:23 Blood Culture - Final Blood
[2025-03-12 16:53] LABS: Glucose,Whole Blood 243 mg/dL (70-110)
[2025-03-12 20:35] LABS: Glucose,Whole Blood 249 mg/dL (70-110)
[2025-03-13 04:10] LABS: HCT 37.4 % (39.6-50.0); HGB 12.4 g/dL (13.0-17.0); MCHC 33.2 g/dL (32.0-37.0); MCV 93.5 fL (80.0-97.0); Mean Platelet Volume 10.2 fL (9.5-12.2); Platelet Count 329 10*3/uL (140-440); RDW 15.2 % (11.5-14.5)
[2025-03-13 04:32] LABS: African American GFR (CKD) >90 (>60 ml/min/1.73 sqM); Anion Gap 9 mmol/L; Blood Urea Nitrogen 15 mg/dL (9-20); Calcium 9.7 mg/dL (8.4-10.2); Carbon Dioxide 26 mmol/L (22-30); Chloride 103 mmol/L (98-107); Glucose 165 mg/dL (74-99); Non-African American GFR(CKD) 86 (>60 ml/min/1.73 sqM); Potassium 4.3 mmol/L (3.5-5.1); Sodium 138 mmol/L (137-145)
[2025-03-13 06:14] LABS: Glucose,Whole Blood 201 mg/dL (70-110)
[2025-03-13] MEDS: PEG 3350 (236 GM/BTL) + LYTES 4,000 ML BOTTLE PO ONE (09:18)
[2025-03-13 11:50] LABS: Glucose,Whole Blood 185 mg/dL (70-110)
[2025-03-13] MEDS: LACTULOSE 20 GM/30 ML CUP PO ONE (12:24)
--- NOTE | 2025-03-13 12:33 | P.PN ---
Subjective Progress Note Date: 03/13/25 Principal diagnosis: Reason for follow-up is fever/E. coli bacteremia Patient is a 84-year-old male with a past medical history significant for diabetes mellitus hypertension hyperlipidemia deafness CVA TIA patient has been brought into the hospital concerning for weakness and shaking and subsequent did have a positive blood culture with E. coli. On today's evaluation that is 03/13/2025,the patient denies any fever or any chills, patient is breathing comfortably on room air, the patient denies chest pain shortness of breath and no significant cough, patient denies abdominal pain, no nausea vomiting or diarrhea.. Patient white count 6.30, creatinine 0.72 Objective - Vital Signs Vital signs: Vital Signs Temp 97.8 F 03/13/25 00:23 Pulse 65 03/13/25 07:40 Resp 16 03/13/25 07:40 BP 154/62 03/13/25 07:36 Pulse Ox 99 03/13/25 07:36 FiO2 Intake & Output 03/12/25 03/13/25 03/13/25 18:59 06:59 18:59 Intake Total 240 Output Total 2600 Balance 240 -2600 Intake: Oral 240 Output: Urine 2600 Other: Voiding Method Urinal Urinal # Voids 1 3 1 # Bowel Movements 1 1 - Exam GENERAL DESCRIPTION: An elderly male lying in bed in no distress RESPIRATORY SYSTEM: Unlabored breathing , decreased breath sounds at bases HEART: S1 S2 regular rate and rhythm , ABDOMEN: Soft , no tenderness EXTREMITIES: No edema feet - Labs CBC & Chem 7: 03/13/25 03:22 03/13/25 03:22 Labs: Abnormal Lab Results - Last 24 Hours (Table) 03/12/25 03/12/25 03/13/25 Range/Units 16:52 20:33 03:22 RBC 4.00 L (4.40-5.60) 10*6/uL Hgb 12.4 L (13.0-17.0) g/dL Hct 37.4 L (39.6-50.0) % RDW 15.2 H (11.5-14.5) % Glucose (74-99) mg/dL POC Glucose (mg/dL) 243 H 249 H (70-110) mg/dL 06/11/25 06/11/25 06/11/25 Range/Units 03:22 06:12 11:49 RBC (4.40-5.60) 10*6/uL Hgb (13.0-17.0) g/dL Hct (39.6-50.0) % RDW (11.5-14.5) % Glucose 165 H (74-99) mg/dL POC Glucose (mg/dL) 201 H 185 H (70-110) mg/dL Assessment and Plan (1) Bacteremia Current Visit: Yes Status: Acute Code(s): R78.81 - BACTEREMIA SNOMED Code(s): 4520640 (2) Sepsis Current Visit: Yes Status: Acute Code(s): A41.9 - SEPSIS, UNSPECIFIED ORGAN ISM SNOMED Code(s): 45654380 Plan: 1patient presented to hospital with sepsis in this patient noted to have fever elevated white count source is likely abdominal in this patient with initial workup has been negative so far he did have a negative UA CT of abdomen pelvis chest done unfortunately without any oral contrast did not show any evidence of pneumonia with evidence of cholelithiasis mildly elevated ALT question of possible cholecystitis needs to be rule out, for which patient ultrasound abdomen mention cholelithiasis but no cholecystitis UA x 2 has been negative 2E. coli bacteremia source likely abdominal, repeat CT abdominal pelvis mention developing inflammatory changes adjacent to the cecum underlying cecal mass should be considered, general surgery has been consulted and planning for colonoscopy scheduled for tomorrow patient is currently getting his prep 3patient to continue with Rocephin and Flagyl while inpatient will transition to oral antibiotic on discharge , at the bedside question answered Dictation was produced using [employer] dictation software. please excuse any grammatical, word or spelling errors. Time with Patient: Less than 30
--- NOTE | 2025-03-13 12:54 | P.PN ---
Subjective Progress Note Date: 03/13/25 SURGICAL PROGRESS NOTE CHIEF COMPLAINT: Weakness HISTORY OF PRESENT ILLNESS: Patient started his bowel prep this morning. Unfortunately patient did receive a regular tray for breakfast. He was scheduled for a clear liquid diet. Denies any abdominal pain. Denies any nausea or vomiting. Afebrile. WBC 6.3 Hgb 12.4 PHYSICAL EXAM: VITAL SIGNS: Reviewed. GENERAL: Well-developed in no acute distress. HEENT: No sclera icterus. Extraocular movements grossly intact. Moist buccal mucosa. Head is atraumatic, normocephalic. ABDOMEN: Soft. Nondistended. Nontender. NEUROLOGIC: Alert and oriented. Cranial nerves II through XII grossly intact. ASSESSMENT: 1. Inflammatory changes adjacent to the cecum. Underlying cecal mass should be considered. These findings noted on CT scan abdomen and pelvis 2. Cholelithiasis 3. Weakness 4. E. coli bacteremia PLAN: - Patient scheduled for colonoscopy tomorrow with Dr. Bethany Anderson bowel prep today - Clear liquid diet - N.p.o. after midnight - will give 1 dose of lactulose for part of the bowel prep - Continue to hold Plavix Physician Technician Support Engineer note has been reviewed by physician. Signing provider agrees with the documented findings, assessment, and plan of care. Objective - Vital Signs Vital signs: Vital Signs Temp 97.8 F 03/13/25 00:23 Pulse 65 03/13/25 07:40 Resp 16 03/13/25 07:40 BP 154/62 03/13/25 07:36 Pulse Ox 99 03/13/25 07:36 FiO2 Intake & Output 03/12/25 03/13/25 03/13/25 18:59 06:59 18:59 Intake Total 240 Output Total 2600 Balance 240 -2600 Intake: Oral 240 Output: Urine 2600 Other: Voiding Method Urinal Urinal # Voids 1 3 1 # Bowel Movements 1 1 - Labs CBC & Chem 7: 03/13/25 03:22 03/13/25 03:22 Labs: Abnormal Lab Results - Last 24 Hours (Table) 03/12/25 03/12/25 03/13/25 Range/Units 16:52 20:33 03:22 RBC 4.00 L (4.40-5.60) 10*6/uL Hgb 12.4 L (13.0-17.0) g/dL Hct 37.4 L (39.6-50.0) % RDW 15.2 H (11.5-14.5) % Glucose (74-99) mg/dL POC Glucose (mg/dL) 243 H 249 H (70-110) mg/dL 03/13/25 03/13/25 03/13/25 Range/Units 03:22 06:12 11:49 RBC (4.40-5.60) 10*6/uL Hgb (13.0-17.0) g/dL Hct (39.6-50.0) % RDW (11.5-14.5) % Glucose 165 H (74-99) mg/dL POC Glucose (mg/dL) 201 H 185 H (70-110) mg/dL
[2025-03-13 14:25] VITALS: BMI 39.0
--- NOTE | 2025-03-13 16:25 | P.PN ---
Subjective Progress Note Date: 03/13/25 Patient was seen and examined. Feeling better. Surgery plans on C-scope on . CBC and BMP significant for RBC 4, Hg 12.4, Hct 37.4, glu 165. General: not toxic, no distress, appears at stated age Derm: warm, dry Head: atraumatic, normocephalic, symmetric Eyes: EOMI, no lid lag, anicteric sclera Mouth: no lip lesion, mucus membranes moist Cardiovascular: S1 S2 lizeth. No murmurs. Lungs: Clear to auscultation bilaterally Ext: no gross muscle atrophy, no edema, no contractures Neuro: no focal neuro deficits Psych: Alert, oriented Based on my assessment of this patient, this patient meets a high complexity level of care. Sepsis due to E. coli bacteremia: Rocephin 2g IV QD + Flagyl 500 mg IV BID. Surgery plans on C-scope on . ID and Surgery on board. Parainfluenza positive: Symptomatic management. Type II Diabetes mellitus: ISS and Accuchecks ACHS along with hypoglycemic precautions. Hypertension: Losartan 100 mg PO QD. History of non obstructive CAD: ASA 81 mg PO QD. Plavix on hold for C-scope. Lipitor 40 mg PO QD. Hyperlipidemia: Lipitor as above. Fenofibrate 160 mg PO QD. GERD: Pepcid 20 mg PO BID. Plans for SNF on discharge, discussed with case management. CODE STATUS: FULL CODE DVT Prophylaxis: SCD GI Prophylaxis: Pepcid BID Designated medical POA if patient is not able to make medical decisions for themselves: I have reviewed the following art consultant notes: ID. Surgery. I have reviewed the results of the following tests: CBC, BMP. I have ordered the following tests: I have discussed the care of this patient with the following independent historian: Family at bedside. Case management. I have independently interpreted the following test below: I have discussed the management of this patient with the following physician: Objective - Vital Signs Vital signs: Vital Signs Temp 98.1 F 03/13/25 15:35 Pulse 61 03/13/25 15:35 Resp 16 03/13/25 15:35 BP 163/82 03/13/25 15:35 Pulse Ox 100 03/13/25 15:35 FiO2 Intake & Output 06/10/25 06/11/25 06/11/25 18:59 06:59 18:59 Intake Total 240 Output Total 2600 Balance 240 -2600 Weight 127.006 kg Intake: Oral 240 Output: Urine 2600 Other: Voiding Method Urinal Urinal # Voids 1 3 1 # Bowel Movements 1 1 - Labs CBC & Chem 7: 03/13/25 03:22 03/13/25 03:22 Labs: Abnormal Lab Results - Last 24 Hours (Table) 03/12/25 03/12/25 03/13/25 Range/Units 16:52 20:33 03:22 RBC 4.00 L (4.40-5.60) 10*6/uL Hgb 12.4 L (13.0-17.0) g/dL Hct 37.4 L (39.6-50.0) % RDW 15.2 H (11.5-14.5) % Glucose (74-99) mg/dL POC Glucose (mg/dL) 243 H 249 H (70-110) mg/dL 03/13/25 03/13/25 03/13/25 Range/Units 03:22 06:12 11:49 RBC (4.40-5.60) 10*6/uL Hgb (13.0-17.0) g/dL Hct (39.6-50.0) % RDW (11.5-14.5) % Glucose 165 H (74-99) mg/dL POC Glucose (mg/dL) 201 H 185 H (70-110) mg/dL
[2025-03-13 16:59] LABS: Glucose,Whole Blood 157 mg/dL (70-110)
[2025-03-13 21:30] LABS: Glucose,Whole Blood 148 mg/dL (70-110)
[2025-03-14 04:03] LABS: African American GFR (CKD) >90 (>60 ml/min/1.73 sqM); Anion Gap 8 mmol/L; Blood Urea Nitrogen 10 mg/dL (9-20); Calcium 9.6 mg/dL (8.4-10.2); Carbon Dioxide 28 mmol/L (22-30); Chloride 102 mmol/L (98-107); Glucose 160 mg/dL (74-99); Non-African American GFR(CKD) 89 (>60 ml/min/1.73 sqM); Potassium 4.1 mmol/L (3.5-5.1); Sodium 138 mmol/L (137-145)
[2025-03-14 06:28] LABS: Glucose,Whole Blood 178 mg/dL (70-110)
--- NOTE | 2025-03-14 10:26 | P.PN ---
Subjective Progress Note Date: 03/14/25 SURGICAL PROGRESS NOTE CHIEF COMPLAINT: Weakness HISTORY OF PRESENT ILLNESS: Patient's colonoscopy canceled for today. He is still having brown stools even after bowel prep. Denies abdominal pain. Vitals stable. PHYSICAL EXAM: VITAL SIGNS: Reviewed. GENERAL: Well-developed in no acute distress. HEENT: No sclera icterus. Extraocular movements grossly intact. Moist buccal mucosa. Head is atraumatic, normocephalic. ABDOMEN: Soft. Nondistended. Nontender. NEUROLOGIC: Alert and oriented. Cranial nerves II through XII grossly intact. ASSESSMENT: 1. Inflammatory changes adjacent to the cecum. Underlying cecal mass should be considered. These findings noted on CT scan abdomen and pelvis 2. Asymptomatic cholelithiasis 3. Weakness 4. E. coli bacteremia PLAN: -Colonoscopy rescheduled for tomorrow -Will give GoLytely bowel prep again today -Continue clear liquid diet -N.p.o. after midnight -Continue to hold Plavix Physician [employer] Vice President note has been reviewed by physician. Signing provider agrees with the documented findings, assessment, and plan of care. Objective - Vital Signs Vital signs: Vital Signs Temp 97.7 F 03/14/25 02:11 Pulse 59 L 03/14/25 02:11 Resp 16 03/14/25 02:11 BP 175/73 03/14/25 02:11 Pulse Ox 98 03/14/25 02:11 FiO2 Intake & Output 03/13/25 03/14/25 03/14/25 18:59 06:59 18:59 Intake Total 500 Balance 500 Weight 127.006 kg Intake: Intake, IV Titration 50 Amount cefTRIAXone 2 gm In 50 Sodium Chloride 0.9% 50 ml @ 100 mls/hr IVPB Q24H [facility] Rx#:[id number] Oral 450 Other: Voiding Method Urinal Urinal # Voids 4 # Bowel Movements 4 - Labs CBC & Chem 7: 03/13/25 03:22 03/14/25 03:17 Labs: Abnormal Lab Results - Last 24 Hours (Table) 03/13/25 03/13/25 03/13/25 Range/Units 11:49 16:58 21:29 Glucose (74-99) mg/dL POC Glucose (mg/dL) 185 H 157 H 148 H (70-110) mg/dL 03/14/25 03/14/25 Range/Units 03:17 06:26 Glucose 160 H (74-99) mg/dL POC Glucose (mg/dL) 178 H (70-110) mg/dL Assessment and Plan Assessment: colonoscopy tomorrow as patient had solid stool today Time with Patient: Less than 30
[2025-03-14 11:29] LABS: Glucose,Whole Blood 223 mg/dL (70-110)
[2025-03-14] MEDS: PEG 3350 (236 GM/BTL) + LYTES 4,000 ML BOTTLE PO ONE (11:30)
--- NOTE | 2025-03-14 13:12 | P.PN ---
Subjective Progress Note Date: 03/14/25 Patient was seen and examined. No complaints. C-scope postponed until tomorrow. BMP significant for glu 160. General: not toxic, no distress, appears at stated age Derm: warm, dry Head: atraumatic, normocephalic, symmetric Eyes: EOMI, no lid lag, anicteric sclera Mouth: no lip lesion, mucus membranes moist Cardiovascular: S1 S2 lizeth. No murmurs. Lungs: Clear to auscultation bilaterally Ext: no gross muscle atrophy, no edema, no contractures Neuro: no focal neuro deficits Psych: Alert, oriented Based on my assessment of this patient, this patient meets a high complexity level of care. Sepsis due to E. coli bacteremia: Rocephin 2g IV QD + Flagyl 500 mg IV BID. Surgery plans on C-scope on Tuesday. ID and Surgery on board. Parainfluenza positive: Symptomatic management. Type II Diabetes mellitus: ISS and Accuchecks ACHS along with hypoglycemic precautions. Hypertension: Losartan 100 mg PO QD. History of non obstructive CAD: ASA 81 mg PO QD. Plavix on hold for C-scope. Lipitor 40 mg PO QD. Hyperlipidemia: Lipitor as above. Fenofibrate 160 mg PO QD. GERD: Pepcid 20 mg PO BID. Plans for SNF on discharge, discussed with case management. CODE STATUS: FULL CODE DVT Prophylaxis: SCD GI Prophylaxis: Pepcid BID Designated medical POA if patient is not able to make medical decisions for themselves: I have reviewed the following independent beauty consultant notes: Surgery. I have reviewed the results of the following tests: BMP. I have ordered the following tests: I have discussed the care of this patient with the following independent historian: Family at bedside. Case management. I have independently interpreted the following test below: I have discussed the management of this patient with the following physician: Objective - Vital Signs Vital signs: Vital Signs Temp 98.2 F 03/14/25 07:58 Pulse 63 03/14/25 07:58 Resp 15 03/14/25 07:58 BP 156/77 03/14/25 07:58 Pulse Ox 98 03/14/25 07:58 FiO2 Intake & Output 03/13/25 03/14/25 03/14/25 18:59 06:59 18:59 Intake Total 500 Output Total 150 Balance 500 -150 Weight 127.006 kg Intake: Intake, IV Titration 50 Amount cefTRIAXone 2 gm In 50 Sodium Chloride 0.9% 50 ml @ 100 mls/hr IVPB Q24H [facility] Rx#:[id number] Oral 450 Output: Stool 150 Other: Voiding Method Urinal Urinal Urinal # Voids 4 # Bowel Movements 4 1 - Labs CBC & Chem 7: 03/13/25 03:22 03/14/25 03:17 Labs: Abnormal Lab Results - Last 24 Hours (Table) 03/13/25 03/13/25 03/14/25 Range/Units 16:58 21:29 03:17 Glucose 160 H (74-99) mg/dL POC Glucose (mg/dL) 157 H 148 H (70-110) mg/dL 03/14/25 03/14/25 Range/Units 06:26 11:27 Glucose (74-99) mg/dL POC Glucose (mg/dL) 178 H 223 H (70-110) mg/dL
[2025-03-14 16:44] LABS: Glucose,Whole Blood 146 mg/dL (70-110)
--- NOTE | 2025-03-14 16:52 | P.PN ---
Subjective Progress Note Date: 03/14/25 Principal diagnosis: Reason for follow-up is fever/E. coli bacteremia Patient is a 84-year-old male with a past medical history significant for diabetes mellitus hypertension hyperlipidemia deafness CVA TIA patient has been brought into the hospital concerning for weakness and shaking and subsequent did have a positive blood culture with E. coli. On today's evaluation that is 03/14/2025,the patient remains to be afebrile, patient is on room air not requiring supplemental oxygen and denies any shortness of breath no chest pain or cough.Patient denies having any nausea or vomiting, no abdominal pain, colonoscopy could not be completed because of inadequate bowel prep. Patient did have creatinine 0.67 Objective - Vital Signs Vital signs: Vital Signs Temp 98.2 F 03/14/25 07:58 Pulse 63 03/14/25 07:58 Resp 15 03/14/25 07:58 BP 156/77 03/14/25 07:58 Pulse Ox 98 03/14/25 07:58 FiO2 Intake & Output 03/13/25 03/14/25 03/14/25 18:59 06:59 18:59 Intake Total 500 Output Total 150 Balance 500 -150 Weight 127.006 kg Intake: Intake, IV Titration 50 Amount cefTRIAXone 2 gm In 50 Sodium Chloride 0.9% 50 ml @ 100 mls/hr IVPB Q24H [facility] Rx#:[id number] Oral 450 Output: Stool 150 Other: Voiding Method Urinal Urinal Urinal # Voids 4 # Bowel Movements 4 1 - Exam GENERAL DESCRIPTION: An elderly male lying in bed in no distress RESPIRATORY SYSTEM: Unlabored breathing , decreased breath sounds at bases HEART: S1 S2 regular rate and rhythm , ABDOMEN: Soft , no tenderness EXTREMITIES: No edema feet - Labs CBC & Chem 7: 03/13/25 03:22 03/14/25 03:17 Labs: Abnormal Lab Results - Last 24 Hours (Table) 03/13/25 03/13/25 03/14/25 Range/Units 16:58 21:29 03:17 Glucose 160 H (74-99) mg/dL POC Glucose (mg/dL) 157 H 148 H (70-110) mg/dL 03/14/25 03/14/25 03/14/25 Range/Units 06:26 11:27 16:42 Glucose (74-99) mg/dL POC Glucose (mg/dL) 178 H 223 H 146 H (70-110) mg/dL Assessment and Plan (1) Bacteremia Current Visit: Yes Status: Acute Code(s): R78.81 - BACTEREMIA SNOMED Code(s): 7819440 (2) Sepsis Current Visit: Yes Status: Acute Code(s): A41.9 - SEPSIS, UNSPECIFIED ORGANISM SNOMED Code(s): 33185401 Plan: 1patient presented to hospital with sepsis in this patient noted to have fever elevated white count source is likely abdominal in this patient with initial workup has been negative so far he did have a negative UA CT of abdomen pelvis chest done unfortunately without any oral contrast did not show any evidence of pneumonia with evidence of cholelithiasis mildly elevated ALT question of possible cholecystitis needs to be rule out, for which patient ultrasound abdomen mention cholelithiasis but no cholecystitis UA x 2 has been negative 2E. coli bacteremia source likely abdominal, repeat CT abdominal pelvis mention developing inflammatory changes adjacent to the cecum underlying cecal mass should be considered, general surgery has been consulted and planning for colonoscopy scheduled for tomorrow patient is currently getting his prep 3patient currently being treated with Rocephin and Flagyl while waiting for colonoscopy to be completed Dictation was produced using [employer] dictation software. please excuse any grammatical, word or spelling errors. Time with Patient: Less than 30
[2025-03-14 20:28] LABS: Glucose,Whole Blood 139 mg/dL (70-110)
[2025-03-15 06:32] LABS: Glucose,Whole Blood 165 mg/dL (70-110)
[2025-03-15 06:45] LABS: HCT 39.9 % (39.6-50.0); HGB 13.3 g/dL (13.0-17.0); MCH 31.1 pg (27.0-32.0); MCHC 33.3 g/dL (32.0-37.0); MCV 93.4 fL (80.0-97.0); Mean Platelet Volume 9.9 fL (9.5-12.2); Platelet Count 334 10*3/uL (140-440); RBC 4.27 10*6/uL (4.40-5.60); RDW 15.5 % (11.5-14.5); WBC 6.44 10*3/uL (4.50-10.00)
[2025-03-15 06:53] LABS: African American GFR (CKD) >90 (>60 ml/min/1.73 sqM); Anion Gap 9 mmol/L; Blood Urea Nitrogen 10 mg/dL (9-20); Calcium 9.8 mg/dL (8.4-10.2); Carbon Dioxide 25 mmol/L (22-30); Chloride 105 mmol/L (98-107); Glucose 181 mg/dL (74-99); Non-African American GFR(CKD) 79 (>60 ml/min/1.73 sqM); Potassium 4.4 mmol/L (3.5-5.1); Sodium 139 mmol/L (137-145)
[2025-03-15] MEDS ORDERED: PROPOFOL 10 MG/ML 20 ML VIAL IV ONE (07:29)
[2025-03-15] MEDS: LACTATED RINGERS 1,000 ML IV ONE (07:34)
--- NOTE | 2025-03-15 08:00 | P.PCN ---
Date of Procedure: 03/15/25 Preoperative Diagnosis: Abnormal CT finding Questionable cecal mass Colitis Postoperative Diagnosis: Diverticulosis Procedure(s) Performed: Colonoscopy Anesthesia: MAC Surgeon: Rosa Nelson Pathology: none sent Condition: stable Disposition: floor Indications for Procedure: 84-year-old male with recent abdominal pain found to have concern for cecal thickening and possibility of cecal mass on CT of the abdomen and pelvis. Plan for colonoscopy for further evaluation. Risks, benefits and alternatives provided to the patient. All questions answered prior to attending the endoscopy suite. Operative Findings: No obvious cecal mass, no obvious thickening of the cecum Diverticulosis Description of Procedure: The patient was brought to the endoscopy suite and placed in left lateral decubitus position and adequate sedation was achieved using conscious sedation. Digital rectal exam was performed and mild internal hemorrhoids were palpated. An endoscope was then placed in the rectum and advanced to the cecum as identified by landmarks including the appendiceal orifice and the ileocecal valve. The prep was good. The colonoscope was then slowly withdrawn, examining for any mucosal abnormalities. The cecum, ascending, transverse, descending and sigmoid colon were visualized adequately. There were no obvious neoplastic lesions noted. Cecum appeared benign with no masses or inflammatory changes. Diverticulosis was noted scattered throughout the colon, mainly in the descending and sigmoid colon. Hemostasis was maintained. Retroflexion was performed in the rectum and internal hemorrhoid. Excess air was removed, the colonoscope withdrawn and the procedure terminated. The patient was then transferred to the recovery unit in stable condition. Repeat colonoscopy should be performed based on symptoms due to the patient's age..
[2025-03-15 08:18] VITALS: BP 132/63; PULSE 56; RESP 16; TEMP 98.5
[2025-03-15 11:13] LABS: Glucose,Whole Blood 302 mg/dL (70-110)
--- NOTE | 2025-03-15 13:14 | P.DS ---
Providers Date of admission: 03/06/25 22:36 Expected date of discharge: 03/15/25 Attending physician: Moi Dotson MD Consults: 03/06/25 22:34 Consult Physician Urgent Consulting Provider: Markos Humphreys Consult Reason/Comments: fever of unk origin Do you want consulting provider notified?: Yes 03/07/25 09:01 anesthesia [Consult to Anesthesia] Routine Consulting Provider: Anesthesia,Services Consult Reason/Comments: LP 03/10/25 12:22 Consult Physician Routine Consulting Provider: Rosa Nelson Consult Reason/Comments: cecal mass suspected, E coli bacteremia, intraabdom source? Do you want consulting provider notified?: Yes Primary care physician: [facility] Course: 84-year-old male patient with a past medical history of noninsulin-dependent typ e 2 diabetes mellitus, dyslipidemia, essential hypertension and osteoarthritis who presented with generalized weakness and shaking. Upon arrival to the ED, patient's temperature was 106F and tachycardic with a heart rate of 131 with a respiratory rate of 38. Labs significant for WBC of 9, sodium 135, BUN 26, creatinine 1.29, lactic acid of 2, ALT of 62. Urinalysis was not remarkable. COVID-19/RSV/influenza PCR was negative. It was reported that initially the patient was confused. Had CT head/C-spine was not remarkable. Chest x-ray was not remarkable. CT of the chest abdomen and pelvis without contrast was not remarkable except for cholelithiasis. Received IV Rocephin will be admitted for further evaluation and management of fever of unknown origin. Infectious disease consult was placed. Started on Vancomycin, Cefepime and Flagyl. Viral panel + parainfluenza. BCx came back + for E. coli. Antibiotics switched to Rocephin and Flagyl. Repeat CT AP showed inflammatory changes adjacent to the cecum and cholelithiasis. Surgery consulted, underwent C-scope on 03/15 showing diverticulosis. 03/15 Patient was seen and examined. Doing well. Results discussed with at beside. Discussed with Dr. Humphreys recommending Ceftin + Flagyl x 7 days. Plans for SNF today. Discharge Plan: Ceftin + Flagyl x 7 days. Follow up with PCP within 1-[address] Poon within 1 week of discharge. General: not toxic, no distress, appears at stated age Derm: warm, dry Head: atraumatic, normocephalic, symmetric Eyes: EOMI, no lid lag, anicteric sclera Mouth: no lip lesion, mucus membranes moist Cardiovascular: S1 S2 lizeth. No murmurs. Lungs: Clear to auscultation bilaterally Ext: no gross muscle atrophy, no edema, no contractures Neuro: no focal neuro deficits Psych: Alert, oriented Discharge Diagnosis: Sepsis due to E. coli bacteremia Parainfluenza positive Type II Diabetes mellitus Hypertension History of non obstructive CAD Hyperlipidemia GERD This complex discharge took 35 minutes to complete. Patient Condition at Discharge: Stable Plan - Discharge Summary Discharge Rx Participant: Yes New Discharge Prescriptions: New Melatonin 3 mg PO HS PRN tab PRN Reason: Insomnia Acetaminophen Tab [Tylenol] 650 mg PO Q6HR PRN tab PRN Reason: Mild Pain Or Fever > 100.5 Famotidine [Pepcid] 20 mg PO BID tab cefuroxime axetiL [Ceftin] 500 mg PO AC-BID #14 tab metroNIDAZOLE [Flagyl] 500 mg PO TID #21 tab Continue Clopidogrel Bisulfate [Clopidogrel] 75 mg PO DAILY Glimepiride [Amaryl] 2 mg PO BID Losartan Potassium [Cozaar] 100 mg PO DAILY Gabapentin 300 mg PO TID Cholecalciferol [Vitamin D3 (125 Mcg = 5000 Iu)] 125 mcg PO DAILY Rosuvastatin [Crestor] 20 mg PO DAILY Empagliflozin [Jardiance] 25 mg PO DAILY Aspirin 81 mg PO DAILY tab Fenofibrate,Micronized [Fenofibrate] 200 mg PO DAILY Discharge Medication List Clopidogrel Bisulfate [Clopidogrel] 75 mg PO DAILY 09/09/15 [History] Glimepiride [Amaryl] 2 mg PO BID 11/17/23 [History] Losartan Potassium [Cozaar] 100 mg PO DAILY 11/14/24 [History] Empagliflozin [Jardiance] 25 mg PO DAILY 01/17/25 [History] Gabapentin 300 mg PO TID 02/09/25 [History] Aspirin 81 mg PO DAILY tab 02/12/25 [Rx] Cholecalciferol [Vitamin D3 (125 Mcg = 5000 Iu)] 125 mcg PO DAILY 03/06/25 [History] Fenofibrate,Micronized [Fenofibrate] 200 mg PO DAILY 03/06/25 [History] Rosuvastatin [Crestor] 20 mg PO DAILY 03/06/25 [History] Acetaminophen Tab [Tylenol] 650 mg PO Q6HR PRN tab 03/15/25 [Rx] Famotidine [Pepcid] 20 mg PO BID tab 03/15/25 [Rx] Melatonin 3 mg PO HS PRN tab 03/15/25 [Rx] cefuroxime axetiL [Ceftin] 500 mg PO AC-BID #14 tab 03/15/25 [Rx] metroNIDAZOLE [Flagyl] 500 mg PO TID #21 tab 03/15/25 [Rx] Follow up Appointment(s)/Referral(s): Mayra Poon MD [STAFF PHYSICIAN] - [facility] - As Needed Nino Guillen DO [Primary Care Provider] - 1-2 days Activity/Diet/Wound Care/Special Instructions: Ceftin + Flagyl x 7 days Discharge Disposition: HOME SELF-CARE
--- NOTE | 2025-03-16 15:09 | P.PN ---
Subjective Progress Note Date: 03/15/25 Principal diagnosis: Reason for follow-up is fever/E. coli bacteremia Patient is a 84-year-old male with a past medical history significant for diabetes mellitus hypertension hyperlipidemia deafness CVA TIA patient has been brought into the hospital concerning for weakness and shaking and subsequent did have a positive blood culture with E. coli. On today's evaluation that is 03/15/2025, the patient continues to be afebrile, the patient is on room air and breathing comfortably, the Pt denies having any chest pain or cough, the patient denies having any abdominal pain no vomiting or any diarrhea, mention feeling better. Patient did have a white count of 6.44, creatinine 0.90 blood culture repeat has been negative Objective - Vital Signs Vital signs: Vital Signs Temp 98.5 F 03/15/25 08:18 Pulse 56 L 03/15/25 08:18 Resp 16 03/15/25 08:18 BP 132/63 03/15/25 08:18 Pulse Ox 97 03/15/25 08:18 FiO2 Intake & Output 03/14/25 03/15/25 03/15/25 18:59 06:59 18:59 Intake Total 600 400 100 Output Total 150 450 Balance 450 -50 100 Intake: IV 100 Intake, IV Titration 50 Amount cefTRIAXone 2 gm In 50 Sodium Chloride 0.9% 50 ml @ 100 mls/hr IVPB Q24H [facility] Rx#:[id number] Oral 550 400 Output: Urine 450 Stool 150 Other: Voiding Method Urinal Urinal # Voids 8 2 1 # Bowel Movements 8 1 1 - Exam GENERAL DESCRIPTION: An elderly male lying in bed in no distress RESPIRATORY SYSTEM: Unlabored breathing , decreased breath sounds at bases HEART: S1 S2 regular rate and rhythm , ABDOMEN: Soft , no tenderness EXTREMITIES: No edema feet - Labs CBC & Chem 7: 03/15/25 06:07 03/15/25 06:07 Labs: Abnormal Lab Results - Last 24 Hours (Table) 03/14/25 03/14/25 03/15/25 Range/Units 16:42 20:26 06:07 RBC 4.27 L (4.40-5.60) 10*6/uL RDW 15.5 H (11.5-14.5) % Glucose (74-99) mg/dL POC Glucose (mg/dL) 146 H 139 H (70-110) mg/dL 03/15/25 03/15/25 03/15/25 Range/Units 06:07 06:20 11:12 RBC (4.40-5.60) 10*6/uL RDW (11.5-14.5) % Glucose 181 H (74-99) mg/dL POC Glucose (mg/dL) 165 H 302 H (70-110) mg/dL Assessment and Plan (1) Bacteremia Status: Acute Code(s): R78.81 - BACTEREMIA SNOMED Code(s): 0107312 (2) Sepsis Status: Acute Code(s): A41.9 - SEPSIS, UNSPECIFIED ORGANISM SNOMED Code(s): 36423301 Plan: 1patient presented to hospital with sepsis in this patient noted to have fever elevated white count source is likely abdominal in this patient with initial workup has been negative so far he did have a negative UA CT of abdomen pelvis chest done unfortunately without any oral contrast did not show any evidence of pneumonia with evidence of cholelithiasis mildly elevated ALT question of possible cholecystitis needs to be rule out, for which patient ultrasound abdomen mention cholelithiasis but no cholecystitis UA x 2 has been negative 2E. coli bacteremia source likely abdominal, repeat CT abdominal pelvis mention developing inflammatory changes adjacent to the cecum underlying cecal mass should be considered, general surgery has been consulted has colonoscopy completed today did not mention any mass and patient will be due for discharge 3patient with therapy to oral Ceftin and Flagyl discussed with the admitting team working on discharge Dictation was produced using [employer] dictation software. please excuse any grammatical, word or spelling errors. Time with Patient: Less than 30
== END 2025-03-15 15:15 | DRG 872 ==
LOC: EC 16:16 → 4SSUR 22:35 → OBSVTOIN 22:36 → 4SSUR 03-07 02:01
PROVIDERS: ADMIT Student in an Organized Health Care Education/Training Program; ATTEND Student in an Organized Health Care Education/Training Program
PROC: 0DJD8ZZ Inspection of Lower Intestinal Tract, Via Natural or Artificial Opening Endoscopic (ICD-10-PCS; principal; 2025-03-06)
DX: A41.51 Sepsis due to Escherichia coli [E. coli] (principal); N17.9 Acute kidney failure, unspecified; R16.0 Hepatomegaly, not elsewhere classified; E11.9 Type 2 diabetes mellitus without complications; I10 Essential (primary) hypertension; Z79.4 Long term (current) use of insulin; E78.5 Hyperlipidemia, unspecified; H21.00 Hyphema, unspecified eye; H91.90 Unspecified hearing loss, unspecified ear; I25.10 Atherosclerotic heart disease of native coronary artery without angina pectoris; K21.9 Gastro-esophageal reflux disease without esophagitis; K52.9 Noninfective gastroenteritis and colitis, unspecified; M54.50 Low back pain, unspecified; M19.90 Unspecified osteoarthritis, unspecified site; K57.30 Diverticulosis of large intestine without perforation or abscess without bleeding; K63.9 Disease of intestine, unspecified; K80.20 Calculus of gallbladder without cholecystitis without obstruction; R32 Unspecified urinary incontinence; S82.891D Other fracture of right lower leg, subsequent encounter for closed fracture with routine healing; W19.XXXD Unspecified fall, subsequent encounter; Z79.02 Long term (current) use of antithrombotics/antiplatelets; Z79.82 Long term (current) use of aspirin; Z79.84 Long term (current) use of oral hypoglycemic drugs; Z79.899 Other long term (current) drug therapy; Z85.828 Personal history of other malignant neoplasm of skin; Z86.73 Personal history of transient ischemic attack (TIA), and cerebral infarction without residual deficits; Z87.440 Personal history of urinary (tract) infections; Z96.643 Presence of artificial hip joint, bilateral; Z85.89 Personal history of malignant neoplasm of other organs and systems
CPT/HCPCS: 36410; 36415; 45378; 70450; 71046; 71250; 72125; 74150; 74177; 76705; 76937; 80048; 80053; 81003; 82550; 83036; 83605; 83735; 83880; 84100; 84145; 85025; 85027; 85610; 87040; 87070; 87077; 87186; 87496; 87498; 87502; 87529; 87634; 87635; 87636; 87798; 93005; 96361; 96365; 96367; 96375; 99285